=== PATIENT | female | born 1945 | race Hispanic/Latino ===

== ENCOUNTER 2017-10-11 08:31 | Inpatient (IN) | payer MEDICARE, BC ==
[2017-10-11 09:46] LABS: BASO # 0.1 K/uL (0.0-0.2); BASO % 1.2 % (0.0-2.0); EOS # 0.2 K/uL (0.0-0.7); EOS % 2.1 % (0.0-4.0); LYMPH # 1.5 K/uL (1.0-4.3); LYMPH % 14.8 % (20.0-40.0); MEAN CELL VOLUME 86.4 fl (81.0-99.0); MEAN CORPUSCULAR HEMOGLOBIN 28.8 pg (27.0-31.0); MEAN CORPUSCULAR HGB CONC 33.3 g/dL (33.0-37.0); MEAN PLATELET VOLUME 9.3 fl (7.2-11.7); MONO # 0.8 K/uL (0.0-0.8); MONO % 7.8 % (0.0-10.0); NEUT # 7.4 K/uL (1.8-7.0); NEUT % 74.1 % (50.0-75.0); NRBC % 0.1 % (0.0-0.0); RBC 4.88 Mil/uL (3.80-5.20); RED CELL DISTRIBUTION WIDTH 13.7 % (11.5-14.5)
[2017-10-11 09:57] LABS: PARTIAL THROMBOPLASTIN TIME 28.6 Seconds (25.6-37.1); PROTHROMBIN TIME 11.3 Seconds (9.8-13.1)
[2017-10-11] MEDS ORDERED: Sodium Chloride 0.9% 1,000 ML IV STA (10:06)
[2017-10-11] MEDS ORDERED: Insulin Regular 100 units/ml IVP ONE (10:06)
[2017-10-11 10:14] LABS: TROPONIN I 0.08 ng/mL (0.00-0.120)
[2017-10-11 10:17] LABS: ALB/GLOB RATIO 1.1 (1.0-2.1); CALCIUM 9.5 mg/dL (8.4-10.2)
[2017-10-11] MEDS ORDERED: Insulin Regular 100 units/ml ONE (10:25)
--- NOTE | 2017-10-11 10:32 | ED PDOC ---
HPI: General Adult Time Seen by Provider: 10/11/17 09:12 Chief Complaint (Nursing): Dizziness/Lightheaded Chief Complaint (Provider): dizziness, falls History Per: Patient History/Exam Limitations: no limitations Onset/Duration Of Symptoms: Days (2 weeks), Intermittent Episodes, Gradual Current Symptoms Are (Timing): Still Present Quality: room spinning off balance weakness Recently: Treated By A Physician Additional Complaint(s): 72yo female hx DM, asthma recently returned from [place] where she suffered an asthma attack and was placed on prednisone. For the last 2 weeks c/o dizziness, generalized weakness and has had 3 falls. No vomiting or diarrhea. +polyuria. No fever, cough or abd pain. Taking insulin lantus qhs and humalog prn. Cardio Damle PMD Butler NIHSS Stroke Scale - Date/Time Evaluation Performed Date Performed: 10/11/17 Time Performed: 10:45 When Was NIHSS Performed: Baseline - How Severe is the Stroke Level of Consciousness: 0=Alert LOC to Questions: 0=Both comments correct LOC to commands: 0=Obeys both correctly Best Gaze: 0=Normal Visual: 0=No visual loss Facial: 0=Normal Motor Arm - Left: 0=No drift Motor Arm - Right: 0=No drift Motor Leg - Left: 0=No drift Motor Leg - Right: 0=No drift Limb Ataxia: 0=Absent Sensory: 0=Normal Best Language: 0=No aphasia Dysarthia: 0=Normal articulation Extinction & Inattention (Neglect): 0=Normal, no object Score: 0 rTPA Inclusion/Exclusion - Refusal of Treatment Patient Refused Treatment: No - Inclusion Criteria for Altepase Patient is 18 years or Older: Yes The Clinical Diagnosis of Ischemic Stroke That is Causing a Potentially Disabling Neurological Deficit: No Time of Onset is Well Established to be Less Than 270 Minute Before Treatment Would Begin: No Risk/Benefit Discussed With Patient/Family Member Present: No - Exclusion Criteria for Altepase Uncontrolled Hypertension at Time of Treatment (Systolic BP above 185 or Diastolic BP above 110 mmHg): No Active Internal Bleeding: No - Warning to TPA With Conditions Following Conditions Weighed Against Anticipated Benefit: Yes Condition: Stroke Serevity Too Mild Past Medical History Reviewed: Historical Data, Nursing Documentation, Vital Signs Vital Signs: Last Vital Signs Temp 98 F 10/18/17 12:49 Pulse 60 10/18/17 12:49 Resp 18 10/18/17 12:49 BP 122/66 10/18/17 12:49 Pulse Ox 98 10/18/17 13:42 - Medical History PMH: Asthma, Depression, Diabetes, HTN, Hypercholesterolemia, Malignancy (Brain Ca s/p surgical resection), Post Traumatic Stress Disorder, Seizures Denies: HIV, Chronic Kidney Disease - Surgical History Surgical History: Cholecystectomy, Tonsillectomy - Family History Family History: States: Unknown Family Hx - Living Arrangements Living Arrangements: Other - Social History Current smoker - smoking cessation education provided: No - Home Medications Home Medications: Ambulatory Orders Medication Instructions Recorded Terbutaline [Brethine Tab] 2.5 mg PO HS 12/27/15 amLODIPine [Norvasc] 5 mg PO BID 12/27/15 Albuterol 0.083% [Albuterol 0.083% 3 ml IH Q4H PRN 10/11/17 Inhal Tosha (2.5 mg/3 ml) UD] Albuterol/Ipratropium [Combivent 1 puff IH Q6H PRN 10/11/17 Respimat] Azelastine HCl [Astepro] 1 spray SUSANA BID PRN 10/11/17 Fluticasone/Vilanterol [Breo 1 puff IH DAILY 10/11/17 Ellipta 200-25 Mcg INH] Gabapentin [Neurontin] 100 mg PO Q12H 10/11/17 Acetaminophen [Tylenol 325mg tab] 650 mg PO Q6 PRN tab 10/18/17 Aspirin [Ecotrin] 81 mg PO DAILY tabec 10/18/17 Atorvastatin [Lipitor] 80 mg PO DAILY tab 10/18/17 Brimonidine 0.2% [Alphagan 0.2% 1 drop OD BID bottle 10/18/17 Opht] Clopidogrel [Plavix] 75 mg PO DAILY tab 10/18/17 Docusate [Colace] 100 mg PO BID PRN cap 10/18/17 Fluticasone/Salmeterol 100/50 1 puff IH Q12 puff 10/18/17 [Advair Diskus 100/50] Gabapentin [Neurontin] 100 mg PO BID cap 10/18/17 Heparin 5,000 units SC Q12 vial 10/18/17 Insulin Detemir [Levemir] 46 units SC HS vial 10/18/17 LORazepam [Ativan] 0.5 mg PO HS PRN tab 10/18/17 Pantoprazole [Protonix EC Tab] 40 mg PO DAILY ect 10/18/17 Timolol 0.5% Ophth [Timoptic 0.5% 1 drop OD BID bottle 10/18/17 Ophth Soln] - Allergies Allergies/Adverse Reactions: Allergies Allergy/AdvReac Type Severity Reaction Status Date / Time levofloxacin [From Levaquin] Allergy convulsions Verified 10/18/17 12:47 Macrolide Antibiotics Allergy convulsions Verified 10/18/17 12:47 aspirin AdvReac bleedin Verified 10/18/17 12:47 Review of Systems Constitutional: Positive for: Weakness, Malaise ENT: Negative for: Nose Discharge, Throat Pain Cardiovascular: Positive for: Palpitations. Negative for: Chest Pain Respiratory: Negative for: Cough, Shortness of Breath Gastrointestinal: Negative for: Nausea, Vomiting, Abdominal Pain Genitourinary Female: Positive for: Frequency, Incontinence. Negative for: Hematuria Musculoskeletal: Negative for: Neck Pain, Shoulder Pain, Back Pain, Hand Pain Skin: Negative for: Rash, Lesions, Jaundice Neurological: Positive for: Dizziness. Negative for: Weakness, Numbness Physical Exam - Reviewed Nursing Documentation Reviewed: Yes Vital Signs Reviewed: Yes - Physical Exam Appears: Positive for: Well, Non-toxic, No Acute Distress Head Exam: Positive for: ATRAUMATIC, NORMAL INSPECTION, NORMOCEPHALIC Skin: Positive for: Normal Color, Warm, DRY Eye Exam: Positive for: EOMI, Normal appearance, PERRL ENT: Positive for: Normal ENT Inspection Neck: Positive for: Normal, Painless ROM Cardiovascular/Chest: Positive for: Regular Rate, Rhythm Respiratory: Positive for: CNT, Normal Breath Sounds Gastrointestinal/Abdominal: Positive for: Bowel Sounds, Soft. Negative for: Tenderness, Guarding Back: Positive for: Normal Inspection Extremity: Positive for: Normal ROM Neurologic/Psych: Positive for: Alert, Oriented, Cerebellar Tests (finger to nose intact), Other (strength 5/5 b/l, ). Negative for: Motor/Sensory Deficits - Laboratory Results Result Diagrams: 10/15/17 05:47 10/18/17 04:30 - ECG O2 Sat by Pulse Oximetry: 98 Medical Decision Making Medical Decision Making: pt found to be hyperglycemic IVF and insulin bolus ordered CT brain ordered given persistent dizziness and falls Possible contribution of recent prednisone Rx to hyperglycemia now w evidence of dehydration on labs Accession No. : [id number] Patient Name / ID : JONI FALK / [id number] Exam Date : 10/11/2017 11:03:08 ( Approved ) Study Comment : Sex / Age : F / 72Y Creator : Chris Armas MD Dictator : Chris Armas MD Slag Wheeler : Compliance Monitor : Chris Armas MD Approver2 : Report Date : 10/11/2017 11:26:04 My Comment : PROCEDURE: CT HEAD WITHOUT CONTRAST. HISTORY: dizzzy frequent falls COMPARISON: Unenhanced head CT 06/17/2016. TECHNIQUE: Axial computed tomography images were obtained through the head/brain without intravenous contrast. Radiation dose: Total exam DLP = 754.38 mGy-cm. This CT exam was performed using one or more of the following dose reduction techniques: Automated exposure control, adjustment of the mA and/or kV according to patient size, and/or use of iterative reconstruction technique. FINDINGS: HEMORRHAGE: No intracranial hemorrhage. BRAIN: A chronic infarct at the right MCA distribution is reiterated. Good corticomedullary differentiation is seen throughout the remainder of the brain with posterior fossa contents stable and unremarkable grossly. A chronic lacune is seen in the left frontal lobe approaching the vertex medially once again. Diffuse cerebral atrophy chronic microangiopathy are reiterated. No mass effect or suspicious extra-axial fluid collection is identified. Limited postoperative changes noted at the right temporal lobe inferiorly. VENTRICLES: Unremarkable. No hydrocephalus. CALVARIUM: Prior minimal right temporal craniectomy and cranioplasty again evident. PARANASAL SINUSES: Unremarkable as visualized. No significant inflammatory changes. MASTOID AIR CELLS: Unremarkable as visualized. No inflammatory changes. OTHER FINDINGS: None. IMPRESSION: 1. No definite acute intracranial findings by standard CT criteria. Follow-up CT or MRI are available as clinically warranted. 2. Stable age-related degenerative changes, left frontal chronic lacune and large right MCA chronic infarct. 3. Prior minimal right temporal craniectomy and cranioplasty again evident as well as limited right temporal lobe postoperative change. Given evidence of dehydration on labs, profound hyperglycemia, clinical findings , multiple falls at home, admit to hospital for stabilization D/w Dr Harley, requests admission hospitalist he will consult Elke Aponte [id number] care transferred Disposition - Clinical Impression Clinical Impression: Dizziness, Hyperglycemia - Patient ED Disposition Is Patient to be Admitted: Yes Counseled Patient/Family Regarding: Studies Performed, Diagnosis - Disposition Disposition Time: 11:45 Condition: FAIR - Pt Status Changed To: Hospital Disposition Of: Inpatient - Admit Certification Admit to Inpatient:: After my assessment, the patient will require hospitalization for at least two midnights. This is because of the severity of symptoms shown, intensity of services needed, and/or the medical risk in this patient being treated as an outpatient. - POA Present On Arrival: Poor Glycemic Control
--- NOTE | 2017-10-11 11:28 | CT ---
PROCEDURE: CT HEAD WITHOUT CONTRAST. HISTORY: dizzzy frequent falls COMPARISON: Unenhanced head CT 06/17/2016. TECHNIQUE: Axial computed tomography images were obtained through the head/brain without intravenous contrast. Radiation dose: Total exam DLP = 754.38 mGy-cm. This CT exam was performed using one or more of the following dose reduction techniques: Automated exposure control, adjustment of the mA and/or kV according to patient size, and/or use of iterative reconstruction technique. FINDINGS: HEMORRHAGE: No intracranial hemorrhage. BRAIN: A chronic infarct at the right MCA distribution is reiterated. Good corticomedullary differentiation is seen throughout the remainder of the brain with posterior fossa contents stable and unremarkable grossly. A chronic lacune is seen in the left frontal lobe approaching the vertex medially once again. Diffuse cerebral atrophy chronic microangiopathy are reiterated. No mass effect or suspicious extra-axial fluid collection is identified. Limited postoperative changes noted at the right temporal lobe inferiorly. VENTRICLES: Unremarkable. No hydrocephalus. CALVARIUM: Prior minimal right temporal craniectomy and cranioplasty again evident. PARANASAL SINUSES: Unremarkable as visualized. No significant inflammatory changes. MASTOID AIR CELLS: Unremarkable as visualized. No inflammatory changes. OTHER FINDINGS: None. IMPRESSION: 1. No definite acute intracranial findings by standard CT criteria. Follow-up CT or MRI are available as clinically warranted. 2. Stable age-related degenerative changes, left frontal chronic lacune and large right MCA chronic infarct. 3. Prior minimal right temporal craniectomy and cranioplasty again evident as well as limited right temporal lobe postoperative change.
--- NOTE | 2017-10-11 13:02 | CP.PCM.HP ---
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 She claimed she never passed out. She admitted only eating about one sandwich a day since coming back from [place] 3 weeks ago because nobody cook or shop for her. While in [place] a month ago she had asthma exacerbation and was put on 5 days of Prednisone, Breo and Combivent in addition to her usual dose of Terbutaline. Her condition improved. She admitted having a similar episode of dizziness and falling while in [place] but did not seek any consultation. Present on Admission - Present on Admission Any Indicators Present on Admission: No History of DVT/PE: No History of Uncontrolled Diabetes: No Urinary Catheter: No Decubitus Ulcer Present: No Review of Systems - Review of Systems All systems: reviewed and no additional remarkable complaints except (aside from those mentioned above, 12 point system review were negative by me) Past Patient History - Tetanus Immunizations Tetanus Immunization: Unknown - Past Medical History & Family History Past Medical History?: Yes Past Family History: Reviewed and not pertinent - Past Social History Smoking Status: Former Smoker Alcohol: None Home Situation {Lives}: Roommate Domestic Violence: Negative - CARDIAC Hx Hypercholesterolemia: Yes Hx Hypertension: Yes - PULMONARY Hx Asthma: Yes - NEUROLOGICAL HX Cerebrovascular Accident: Yes Hx Seizures: Yes - HEENT Hx HEENT Problems: Yes Hx Glaucoma: Yes (right eye) - RENAL Hx Chronic Kidney Disease: No - ENDOCRINE/METABOLIC Hx Endocrine Disorders: No - HEMATOLOGICAL/ONCOLOGICAL Hx Human Immunodeficiency Virus (HIV): No - INTEGUMENTARY Hx Dermatological Problems: No - MUSCULOSKELETAL/RHEUMATOLOGICAL Hx Musculoskeletal Disorders: No Hx Falls: No - GASTROINTESTINAL Hx Gastrointestinal Disorders: No - GENITOURINARY/GYNECOLOGICAL Hx Genitourinary Disorders: No - PSYCHIATRIC Hx Depression: Yes Hx Post Traumatic Stress Disorder: Yes - SURGICAL HISTORY Hx Cholecystectomy: Yes Hx Tonsillectomy: Yes Other/Comment: surgical resection of right temporal tumor - ANESTHESIA Hx Anesthesia: Yes Hx Anesthesia Reactions: No Meds Allergies/Adverse Reactions: Allergies Allergy/AdvReac Type Severity Reaction Status Date / Time levofloxacin [From Levaquin] Allergy convulsions Verified 03/15/16 13:04 Macrolide Antibiotics Allergy convulsions Verified 03/15/16 12:19 aspirin AdvReac bleedin Verified 03/15/16 12:19 Physical Exam - Constitutional Appears: No Acute Distress - Head Exam Head Exam: ATRAUMATIC - Eye Exam Eye Exam: absent: Scleral icterus - ENT Exam ENT Exam: Mucous Membranes Moist - Neck Exam Neck exam: Negative for: Meningismus - Respiratory Exam Respiratory Exam: absent: Rhonchi, Wheezes, Respiratory Distress - Cardiovascular Exam Cardiovascular Exam: REGULAR RHYTHM, +S1, +S2 - GI/Abdominal Exam GI & Abdominal Exam: Soft. absent: Tenderness - Rectal Exam Rectal Exam: Deferred - Extremities Exam Extremities exam: Negative for: calf tenderness, pedal edema - Back Exam Back exam: NORMAL INSPECTION - Neurological Exam Neurological exam: Alert, Oriented x3 - Psychiatric Exam Psychiatric exam: Normal Affect - Skin Skin Exam: Dry, Intact Results - Vital Signs Recent Vital Signs: Last Vital Signs Temp 98 F 10/11/17 12:24 Pulse 76 10/11/17 12:24 Resp 18 10/11/17 12:24 BP 146/81 10/11/17 12:24 Pulse Ox 99 10/11/17 12:24 - Labs Result Diagrams: 10/11/17 09:39 10/11/17 09:39 Labs: Laboratory Results - last 24 hr 10/11/17 10/11/17 10/11/17 09:39 09:39 09:39 WBC 10.0 RBC 4.88 Hgb 14.0 Hct 42.2 MCV 86.4 D MCH 28.8 MCHC 33.3 RDW 13.7 Plt Count 487 H D MPV 9.3 Neut % (Auto) 74.1 Lymph % (Auto) 14.8 L [place] % (Auto) 7.8 Eos % (Auto) 2.1 Baso % (Auto) 1.2 Neut # 7.4 H Lymph # 1.5 [place] # 0.8 Eos # 0.2 Baso # 0.1 PT 11.3 INR 1.0 APTT 28.6 Sodium 136 Potassium 5.6 H Chloride 98 Carbon Dioxide 23 Anion Gap 21 H BUN 23 H Creatinine 1.8 H Est GFR ( Amer) 34 Est GFR (Non-Af Amer) 28 Random Glucose 446 H* D Calcium 9.5 Total Bilirubin 0.6 AST 32 ALT 18 Alkaline Phosphatase 129 H Troponin I 0.0800 Total Protein 7.8 Albumin 4.0 Globulin 3.7 Albumin/Globulin Ratio 1.1 Assessment & Plan - Assessment and Plan (Free Text) Assessment: 72 yo female with history of DM2, Asthma, HTN, Seizure, previous CVA and post surgical resection of right temporal tumor in the past had 4 episodes of dizziness and falling in a one week time. Denied LOC. She admitted only eating about one sandwich a day and coffee since coming back from [place] 3 weeks ago because nobody cook or shop for her. While in [place] over a month ago patient had asthma exacerbation and was put on 5 days of Prednisone, Breo and Combivent in addition to her usual dose of Terbutaline. Her condition improved. She admitted having a similar episode of dizziness and falling while in [place] but but never seek consultation. 1. Dizziness and Falling supine BP/HR: 179/80 and 97 sitting BP/HR: 175/76 and 84 (3 minutes after above) probably secondary to dehydration and volume depletion although no postural hypotension was noted continue IV hydration with NSS 150cc/hr continue patient scheduler serial Troponin repeat BMP in am refer to PT for evaluation and management cardiology consult with Dr Skinner 2. HTN patient has been off anti-hypertensive for over a month because of dizziness BP slightly elevated Norvasc 5mg PO daily 3. DM2 BS uncontrolled not sure if patient was reliable in claiming she had been only on one sandwich a day endocrinology consult with Dr Colt DE LA CRUZ with low Lispro coverage HgA1C, BMP in am 4. Asthma breathing stable and loose still on Breo, Combivent and Terbutaline off Prednisone over a month (took only for 5 days)
[2017-10-11] MEDS: Sodium Chloride 0.9% 1,000 ML IV SCH ×2 (13:51→21:25)
[2017-10-11] MEDS ORDERED: Patient's Own Med (Azelastine Hcl [Astepro] 1 SPRAY) NAS PRN (14:10)
[2017-10-11] MEDS ORDERED: Patient's Own Med (Brimonidine Tartrate/Timolol [Combigan 0.2%-0.5% Eye Drops] 1 DROP) RIGHTEYE SCH (14:15)
[2017-10-11] MEDS ORDERED: Sod Polystyrene Sulf 15 gm/60 ml Susp PO ONE (14:36)
[2017-10-11] MEDS ORDERED: Insulin Lispro (humaLOG) 100 Units/ml Inj SC SCH (16:30)
--- NOTE | 2017-10-11 18:24 | CARD ---
APPROVED REPORT EKG Measurement Heart [id number] <Conclusion> Normal sinus rhythm Left ventricular hypertrophy with repolarization abnormality Cannot rule out Septal infarct, age undetermined Abnormal ECG
[2017-10-11] MEDS: Brimonidine 0.2% 50 DROP/5 ML BOTTLE OD SCH (21:22)
[2017-10-11] MEDS ORDERED: Insulin Detemir 100 Units/ml Inj SC SCH (22:00)
[2017-10-11] MEDS: Insulin Lispro (humaLOG) 100 Units/ml Inj SC SCH (22:18)
--- NOTE | 2017-10-12 05:53 | CON ---
DATE: ENDOCRINOLOGY CONSULTATION HISTORY OF PRESENT ILLNESS: This is a 72-year-old female with known history of type 2 insulin-requiring diabetes, presenting here with generalized body weakness and progressively worsening dizziness and lightheadedness and is now being referred for diabetic evaluation because of persistent hyperglycemic accelerations as noted thereof. PAST MEDICAL HISTORY: As mentioned above, history of type 2 insulin-requiring diabetes, using a combination of Humalog given as 12 units b.i.d. before breakfast and dinner, but only given p.r.n. 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 She apparently also had seizures post resection as noted. FAMILY HISTORY: Positive for hypertension and diabetes. SOCIAL HISTORY: Patient has supportive family. Admits to prior nicotine use, but has quit smoking a few years ago. She has a supportive family, otherwise. REVIEW OF SYSTEMS: Admits to generalized body weakness with progressive bouts of dizziness and lightheadedness and even near syncopal episodes, but no actual loss of consciousness noted. Also admits to bifrontal headaches, but no visual changes, otherwise. No chest pains or palpitations or PNDs. Her oral intake has been variable and suboptimal with nausea, dyspepsia and vague upper abdominal pains. Also admits to recent polyuria, nocturia, polydipsia as noted with lower extremity paresthesias, especially nocturnally. PHYSICAL EXAMINATION: GENERAL: This is an overweight female, in no apparent distress. VITAL SIGNS: Blood pressure of 144/80, pulse of 70 beats per minute and regular, temperature 98, respirations 20, height is 52, weight is 163 pounds. HEENT: Head normocephalic. Eyes anicteric with pink conjunctivae. Funduscopy not possible at this time. Ears, nose and throat otherwise normal. NECK: Supple. Thyroid gland is normal in size. No carotid bruits or any cervical adenopathy. CARDIOPULMONARY: Some adynamic precordium. S1 and S2 is rapid and regular. LUNGS: Clear to auscultation. ABDOMEN: Flat, soft with positive bowel sounds. EXTREMITIES: No peripheral edema. Pulses are +2 bilaterally. LABORATORY DATA: Her chemistries showed a BUN of 23, sodium 136, potassium 5.6, chloride 98, CO2 23, glucose 446 and creatinine 1.8. Her glucose levels have ranged from 201 to 375 mg/dL. ASSESSMENT: This is 72-year-old female with uncontrolled and decompensated type 2 insulin-requiring diabetes, presenting here with progressively worsening dizziness and lightheadedness and near syncopal episodes and she is also being referred for diabetic evaluation because of recent hyperglycemic accelerations related to the variability of her oral intake and also there erratic usage of her insulin therapy as noted. PLAN: Plan of management as discussed with the patient and staff. We will modify once again her current insulin regimen and switch her over to a more physiologic combination of a basal and bolus insulin therapy as ordered. We will start her with Levemir tonight at 24 units subcu at bedtime daily as ordered. We will also add tomorrow morning Humalog given as 8 units subcu t.i.d. before meals as ordered. We will modify the coverage scale to obviate hypoglycemia and detailed orders have been given. We will also continue the IV hydration to optimize the lost fluids and electrolytes especially with increased osmotic diuresis as expected with the recent hyperglycemic accelerations thereto. Hemoglobin A1c will be done to confirm her prior glycemic control and baseline thyroid function studies and lipid panel will be ordered. We will obtain serial chemistries and supplement accordingly needed. We will follow. Melisa Gregory MD
[2017-10-12 06:19] LABS: ALB/GLOB RATIO 0.9 (1.0-2.1); CALCIUM 8.2 mg/dL (8.4-10.2)
[2017-10-12 06:21] LABS: BASO # 0.2 K/uL (0.0-0.2); BASO % 2.8 % (0.0-2.0); EOS # 0.3 K/uL (0.0-0.7); EOS % 3.7 % (0.0-4.0); HEMOGLOBIN 12.3 g/dL (12.0-16.0); LYMPH # 2.4 K/uL (1.0-4.3); LYMPH % 32.3 % (20.0-40.0); MEAN CELL VOLUME 86.6 fl (81.0-99.0); MEAN CORPUSCULAR HEMOGLOBIN 28.5 pg (27.0-31.0); MEAN PLATELET VOLUME 9.7 fl (7.2-11.7); MONO # 0.7 K/uL (0.0-0.8); MONO % 9.2 % (0.0-10.0); NEUT # 3.9 K/uL (1.8-7.0); NRBC % 0.2 % (0.0-0.0); RBC 4.3 Mil/uL (3.80-5.20); RED CELL DISTRIBUTION WIDTH 13.7 % (11.5-14.5); WHITE BLOOD COUNT 7.5 K/uL (4.8-10.8)
[2017-10-12] MEDS: Insulin Lispro (humaLOG) 100 Units/ml Inj SC SCH ×5 (06:41→23:04)
[2017-10-12] MEDS: Sodium Chloride 0.9% 1,000 ML IV SCH (06:42)
[2017-10-12] MEDS ORDERED: Insulin Lispro (humaLOG) 100 Units/ml Inj SC SCH (07:30)
--- NOTE | 2017-10-12 08:22 | PQF GENQUE ---
This form is a permanent part of the medical record 10/12/17 Dr. Aponte, Please clarify type of asthma if known. Documentation of Asthma stable. Medications include: Albuterol, Terbutaline. Clarification of your documentation is requested to better reflect the severity of illness and intensity of treatment of your patient. Indicators present [] Specify: [] [] Specify: [] [] Specify: [] [] Specify: [] Location in the medical record that reflects the above clinical findings: [] Treatment Provided: [] PHYSICIAN'S RESPONSE Please clarify type of asthma: [] Childhood [] Cough variant [] Exercise induced [] Late onset [] Mild intermittent [] Mild persistent [] Moderate persistent [] Severe persistent [] With bronchitis(please clarify acuity of bronchitis) [] With chronic lung disease (please document specific chronic lung disease ) [] Other (please specify) [x] Clinically unable to determine [] Unknown Based on your medical judgment of the clinical indicators outlined above please clarify the following: [] Practitioner response [] If unable to determine, please check the box, sign and date. Present On Admission (POA) Indicator: [] Present at the time of admission [x] Not present at the time of admission [] Clinically Undetermined In responding to this query, please exercise your independent professional judgment. The fact that a question is asked does not imply that any particular answer is desired or expected. Thank you for your clarification on this documentation. If you have any questions please call:[phone] * Thank you, Kary Roper RN CDMP [facility]
[2017-10-12] MEDS ORDERED: Patient's Own Med (Fluticasone/Vilanterol [Breo Ellipta 200-25 Mcg Inh] 1 PUFF) IH SCH (09:00)
--- NOTE | 2017-10-12 09:07 | CP.PCM.CON ---
History of Present Illness - History of Present Illness History of Present Illness: This 72-year-old female has come to the emergency room after reportedly falling at home, by her account 4 times during last 3 days. 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 She has a history of chronic exogenous obesity, hypertension and diabetes mellitus. She gives history of recently having had an abrupt episode off severe asthma requiring multiple broncho-dilators including a course of prednisone. She blames still rides for her severe hyperglycemia. She has never been a smoker and has never suffered a myocardial infarction or congestive cardiac failure. She has been on multiple antihypertensives and 90 diabetics. Physical examination shows an elderly overweight female who is alert awake oriented and afebrile. She is able to lie virtually flat in bed and beats comfortably at 16-18 breaths per minute and can carry on a conversation. Abrupt movements in bed or attempts to sit up cause intense dizziness. Her heart rate was 68 bpm regular. Her blood pressure was 160/80 mmHg in the right upper extremity. Her jugular venous pressure was not elevated and there was no edema out lower extremities. The pedal pulses are well felt. There were no carotid bruits. The apex was not palpable. The first and second heart sounds were normal. There were no rales. There was no murmur or gallop. Abdomen was soft liver and spleen are not palpable. Her electro-cardiogram showed sinus rhythm at 84 bpm with a pattern of left ventricular hypertrophy and QS complexes were seen in lead V1 and V2. Her lab data showed a hemoglobin and hematocrit of 12.3 g and 37.2% respectively. The baby was account and platelet counts were within normal limits. Her BUN and creatinine where 21 and 1.6 mg percent respectively her electrolytes were normal. Her blood sugar at admission was 446 mg percent this morning it is 280 mg percent. Her electrolytes showed normal sodium and potassium. Her AST and ALT were normal her TSH was normal. Impression: Severe ataxia of probably [employer] O region secondary to radiation for intracranial lymphoma years back. Exogenous obesity, hypertension and diabetes mellitus. I have requested a neurologist whom she has seen in the past to come and evaluate the patient. She is stable from cardiac vascular point of view. Past Patient History - Tetanus Immunizations Tetanus Immunization: Unknown - Past Medical History & Family History Past Medical History?: Yes Past Family History: Reviewed and not pertinent - Past Social History Smoking Status: Former Smoker Alcohol: None Home Situation {Lives}: Roommate Domestic Violence: Negative - CARDIAC Hx Hypercholesterolemia: Yes Hx Hypertension: Yes - PULMONARY Hx Asthma: Yes - NEUROLOGICAL HX Cerebrovascular Accident: Yes Hx Seizures: Yes - HEENT Hx HEENT Problems: Yes Hx Glaucoma: Yes (right eye) - RENAL Hx Chronic Kidney Disease: No - ENDOCRINE/METABOLIC Hx Endocrine Disorders: No - HEMATOLOGICAL/ONCOLOGICAL Hx Human Immunodeficiency Virus (HIV): No - INTEGUMENTARY Hx Dermatological Problems: No - MUSCULOSKELETAL/RHEUMATOLOGICAL Hx Musculoskeletal Disorders: No Hx Falls: No - GASTROINTESTINAL Hx Gastrointestinal Disorders: No - GENITOURINARY/GYNECOLOGICAL Hx Genitourinary Disorders: No - PSYCHIATRIC Hx Depression: Yes Hx Post Traumatic Stress Disorder: Yes - SURGICAL HISTORY Hx Cholecystectomy: Yes Hx Tonsillectomy: Yes Other/Comment: surgical resection of right temporal tumor - ANESTHESIA Hx Anesthesia: Yes Hx Anesthesia Reactions: No Meds Allergies/Adverse Reactions: Allergies Allergy/AdvReac Type Severity Reaction Status Date / Time levofloxacin [From Levaquin] Allergy convulsions Verified 03/15/16 13:04 Macrolide Antibiotics Allergy convulsions Verified 03/15/16 12:19 aspirin AdvReac bleedin Verified 03/15/16 12:19 - Medications Medications: Current Medications Albuterol Sulfate (Albuterol 0.083% Inhal Tosha (2.5 Mg/3 Ml) Ud) 2.5 mg IH Q4H PRN PRN Reason: Shortness of Breath Amlodipine Besylate (Norvasc) 5 mg PO DAILY [facility] Last Admin: 10/11/17 18:17 Dose: 5 mg Brimonidine Tartrate (Alphagan 0.2% Opht) 1 drop OD BID [facility] Last Admin: 10/11/17 21:22 Dose: 1 drop Docusate Sodium (Colace) 100 mg PO BID PRN PRN Reason: Constipation Gabapentin (Neurontin) 100 mg PO BID [facility] Heparin Sodium (Porcine) (Heparin) 5,000 units SC Q12 [facility] PRN Reason: Protocol Last Admin: 10/11/17 21:23 Dose: 5,000 units Home Med (Azelastine Hcl [Astepro]) 1 spray SUSANA BID PRN PRN Reason: Allergy symptoms Home Med (Fluticasone/Vilanterol [Breo Ellipta 200-25 Mcg Inh]) 1 puff IH DAILY [facility] Sodium Chloride (Sodium Chloride 0.9%) 1,000 mls @ 150 mls/hr IV .Q6H40M [facility] Last Admin: 10/12/17 06:42 Dose: 150 mls/hr Insulin Detemir (Levemir) 24 units SC HS [facility] Last Admin: 10/11/17 22:17 Dose: 24 units Insulin Human Lispro (Humalog) 8 units SC AC [facility] Insulin Human Lispro (Humalog) 0 units SC ACHS [facility] PRN Reason: Protocol Last Admin: 10/12/17 06:41 Dose: Not Given Loratadine (Claritin) 10 mg PO HS [facility] Last Admin: 10/11/17 21:23 Dose: 10 mg Lorazepam (Ativan) 0.5 mg PO HS PRN PRN Reason: Anxiety Last Admin: 10/11/17 19:17 Dose: 0.5 mg Pantoprazole Sodium (Protonix Ec Tab) 40 mg PO DAILY [facility] Terbutaline Sulfate (Brethine Tab) 2.5 mg PO [facility] Last Admin: 10/11/17 21:23 Dose: 2.5 mg Timolol Maleate (Timoptic 0.5% Ophth Soln) 1 drop OD BID [facility] Last Admin: 10/11/17 19:21 Dose: 1 drop Results - Vital Signs Recent Vital Signs: Last Vital Signs Temp 98.7 F 10/12/17 05:00 Pulse 68 10/12/17 05:00 Resp 18 10/12/17 05:00 BP 173/76 H 10/12/17 05:00 Pulse Ox 98 10/12/17 05:00 - Labs Result Diagrams: 10/12/17 05:10 10/12/17 05:10 Labs: Laboratory Results - last 24 hr 10/11/17 10/11/17 10/11/17 09:39 09:39 09:39 WBC 10.0 RBC 4.88 Hgb 14.0 Hct 42.2 MCV 86.4 D MCH 28.8 MCHC 33.3 RDW 13.7 Plt Count 487 H D MPV 9.3 Neut % (Auto) 74.1 Lymph % (Auto) 14.8 L [place] % (Auto) 7.8 Eos % (Auto) 2.1 Baso % (Auto) 1.2 Neut # 7.4 H Lymph # 1.5 [place] # 0.8 Eos # 0.2 Baso # 0.1 PT 11.3 INR 1.0 APTT 28.6 Sodium 136 Potassium 5.6 H Chloride 98 Carbon Dioxide 23 Anion Gap 21 H BUN 23 H Creatinine 1.8 H Est GFR ( Amer) 34 Est GFR (Non-Af Amer) 28 POC Glucose (mg/dL) Random Glucose 446 H* D Calcium 9.5 Total Bilirubin 0.6 AST 32 ALT 18 Alkaline Phosphatase 129 H Troponin I 0.0800 Total Protein 7.8 Albumin 4.0 Globulin 3.7 Albumin/Globulin Ratio 1.1 Triglycerides Cholesterol LDL Cholesterol Direct HDL Cholesterol TSH 3rd Generation 10/11/17 10/11/17 10/12/17 16:38 21:26 01:57 WBC RBC Hgb Hct MCV MCH MCHC RDW Plt Count MPV Neut % (Auto) Lymph % (Auto) [place] % (Auto) Eos % (Auto) Baso % (Auto) Neut # Lymph # [place] # Eos # Baso # PT INR APTT Sodium Potassium Chloride Carbon Dioxide Anion Gap BUN Creatinine Est GFR ( Amer) Est GFR (Non-Af Amer) POC Glucose (mg/dL) 375 H 201 H Random Glucose Calcium Total Bilirubin AST ALT Alkaline Phosphatase Troponin I 0.0940 Total Protein Albumin Globulin Albumin/Globulin Ratio Triglycerides Cholesterol LDL Cholesterol Direct HDL Cholesterol TSH 3rd Generation 10/12/17 10/12/17 10/12/17 05:10 05:10 05:51 WBC 7.5 RBC 4.30 Hgb 12.3 Hct 37.2 MCV 86.6 MCH 28.5 MCHC 33.0 RDW 13.7 Plt Count 386 D MPV 9.7 Neut % (Auto) 52.0 Lymph % (Auto) 32.3 [place] % (Auto) 9.2 Eos % (Auto) 3.7 Baso % (Auto) 2.8 H Neut # 3.9 Lymph # 2.4 [place] # 0.7 Eos # 0.3 Baso # 0.2 PT INR APTT Sodium 137 Potassium 4.0 Chloride 107 Carbon Dioxide 20 L Anion Gap 14 BUN 21 H Creatinine 1.6 H Est GFR ( Amer) 39 Est GFR (Non-Af Amer) 32 POC Glucose (mg/dL) 280 H Random Glucose 325 H Calcium 8.2 L Total Bilirubin 0.3 AST 17 ALT 23 Alkaline Phosphatase 103 Troponin I Total Protein 6.2 L Albumin 3.0 L D Globulin 3.2 Albumin/Globulin Ratio 0.9 L Triglycerides 521 H D Cholesterol 297 H LDL Cholesterol Direct 195 H HDL Cholesterol 33 TSH 3rd Generation 2.30
[2017-10-12] MEDS: Brimonidine 0.2% 50 DROP/5 ML BOTTLE OD SCH ×2 (10:09→16:26)
[2017-10-12] MEDS: Pantoprazole 40 mg EC Tab PO SCH (10:15)
--- NOTE | 2017-10-12 16:00 | MRI ---
PROCEDURE: MRI BRAIN WITHOUT CONTRAST HISTORY: dizziness COMPARISON: Head CT 10/11/2017 and brain MRI 04/02/2015. TECHNIQUE: Multiplanar, multisequence MR images of the brain were obtained without intravenous contrast enhancement. FINDINGS: HEMORRHAGE: None DWI: Restricted diffusion is identified and a small sub distribution of the left temporooccipital junction accompanied by a small sub cm foci of restricted diffusion at the bilateral inferior cerebellar hemispheres in even possibly the vermis at the midline anteriorly. Follow-up CT is advised. BRAIN PARENCHYMA: Chronic infarct is again seen at the right middle cerebral artery distribution affecting right frontal parietal temporal and occipital lobes. There is no significant mass is appreciated at this time. Ex vacuo expansion of the right lateral ventricle is identified once again. Diffuse cerebral atrophy chronic microangiopathy are reiterated. Chronic lacunes are seen at the left optic radiations once again. VENTRICLES: Unremarkable. No hydrocephalus. CRANIUM: Unremarkable. ORBITS: Grossly unremarkable. PARANASAL SINUSES/MASTOIDS: Extensive left mastoid effusions is identified with limited right mastoid effusions appreciated. Limited ethmoid mucosal inflammatory change are seen bilaterally. VASCULAR SYSTEM: Skull base flow voids intact. OTHER FINDINGS: None. IMPRESSION: Acute subacute infarction at the left temporooccipital junction and bilateral cerebellar hemispheres are identified with the temporooccipital findings appearing lobar and the cerebellar findings appearing lacunar. Follow-up CT is advised. No definitive intracranial hemorrhage is identified this time. Reiterated age related neuro degenerative changes. Chronic right MCA infarct again evident.
--- NOTE | 2017-10-12 17:12 | PN ---
DATE: ENDOCRINOLOGY FOLLOWUP NOTE LOCATION: Room 418. SUBJECTIVE: This is a 72-year-old female with recent uncontrolled type 2 insulin-requiring diabetes, presenting here with progressively worsening dizziness, lightheadedness, and near-syncopal episode and also concomitant atoxic gait with disequilibrium and currently undergoing neurological workup at this time and is also being followed closely for metabolic management. Her glycemic levels are fluctuating with marked hyperglycemic accelerations as noted and the glucose levels today have ranged from 265 to 280 mg/dL. Her A1c level is 10.4% which is quite elevated indicative of suboptimal metabolic control of her diabetic condition even prior to this admission. Her latest chemistries today showed a BUN of 21, sodium 137, potassium 4.0, chloride 107, CO2 of 20, glucose 325, and creatinine 1.6. Her triglyceride level is 521, which is quite elevated indicative of marked metabolic decompensation related to poorly controlled type 2 diabetes with impaired lipoprotein lipase activity and impaired clearance of the triglycerides as expected. ASSESSMENT: This is a 72-year-old female with uncontrolled type 2 insulin-requiring diabetes with marked hyperglycemic accelerations and clearly with a suboptimal metabolic control as confirmed with elevated A1c levels as noted. She also has diabetic microvascular complications with retinopathy, polyneuropathy, and nephropathy as noted. Moreover, she also has diabetic macrovascular complications of cerebrovascular disease and coronary artery disease as noted before. PLAN OF MANAGEMENT: We will modify once again her basal and bolus insulin regimen to at least optimize a metabolic control to more acceptable goals as expected. We will increase and titrate her Humalog to 12 units subcutaneous t.i.d. before meals to start at dinner time today as ordered. We will also increase the Levemir given as basal insulin to 30 units subcutaneous at bedtime daily to start tonight. We will modify the coverage scale using a low-dose algorithm with Humalog insulin to obtain hypoglycemia and detailed orders have been given. We will obtain serial chemistries and supplement accordingly as needed. We will follow. Melisa Gregory MD
--- NOTE | 2017-10-12 18:20 | CP.PCM.PN ---
Subjective - Date & Time of Evaluation Date of Evaluation: 10/12/17 Time of Evaluation: 17:10 - Subjective Subjective: Pt seen and examined. Claimed to feeling better although still dizzy. Objective - Vital Signs/Intake and Output Vital Signs (last 24 hours): Temp Pulse Resp BP Pulse Ox 98.5 F 67 17 138/60 97 10/12/17 15:56 10/12/17 15:56 10/12/17 15:56 10/12/17 15:56 10/12/17 15:56 Intake and Output: 10/12/17 10/12/17 06:59 18:59 Intake Total 900 Balance 900 - Medications Medications: Current Medications Albuterol Sulfate (Albuterol 0.083% Inhal Tosha (2.5 Mg/3 Ml) Ud) 2.5 mg IH Q4H PRN PRN Reason: Shortness of Breath Amlodipine Besylate (Norvasc) 5 mg PO DAILY [facility] Last Admin: 10/12/17 10:14 Dose: 5 mg Brimonidine Tartrate (Alphagan 0.2% Opht) 1 drop OD BID [facility] Last Admin: 10/12/17 16:26 Dose: 1 drop Docusate Sodium (Colace) 100 mg PO BID PRN PRN Reason: Constipation Gabapentin (Neurontin) 100 mg PO BID [facility] Last Admin: 10/12/17 16:26 Dose: 100 mg Heparin Sodium (Porcine) (Heparin) 5,000 units SC Q12 [facility] PRN Reason: Protocol Last Admin: 10/12/17 10:10 Dose: 5,000 units Home Med (Azelastine Hcl [Astepro]) 1 spray SUSANA BID PRN PRN Reason: Allergy symptoms Home Med (Fluticasone/Vilanterol [Breo Ellipta 200-25 Mcg Inh]) 1 puff IH DAILY [facility] Insulin Detemir (Levemir) 30 units SC HS [facility] Insulin Human Lispro (Humalog) 0 units SC ACHS [facility] PRN Reason: Protocol Last Admin: 10/12/17 17:18 Dose: Not Given Insulin Human Lispro (Humalog) 12 units SC AC [facility] Last Admin: 10/12/17 17:19 Dose: 12 units Loratadine (Claritin) 10 mg PO HS [facility] Last Admin: 10/11/17 21:23 Dose: 10 mg Lorazepam (Ativan) 0.5 mg PO HS PRN PRN Reason: Anxiety Last Admin: 10/11/17 19:17 Dose: 0.5 mg Pantoprazole Sodium (Protonix Ec Tab) 40 mg PO DAILY [facility] Last Admin: 10/12/17 10:15 Dose: 40 mg Terbutaline Sulfate (Brethine Tab) 2.5 mg PO HS [facility] Last Admin: 10/11/17 21:23 Dose: 2.5 mg Timolol Maleate (Timoptic 0.5% Ophth Soln) 1 drop OD BID [facility] Last Admin: 10/12/17 16:26 Dose: 1 drop - Labs Labs: 10/12/17 05:10 10/12/17 05:10 PT 11.3 Seconds (9.8-13.1) 10/11/17 09:39 INR 1.0 (0.9-1.2) 10/11/17 09:39 APTT 28.6 Seconds (25.6-37.1) 10/11/17 09:39 - Constitutional Appears: No Acute Distress - Head Exam Head Exam: ATRAUMATIC - Eye Exam Eye Exam: absent: Scleral icterus - ENT Exam ENT Exam: Mucous Membranes Moist - Neck Exam Neck Exam: absent: Meningismus - Respiratory Exam Respiratory Exam: absent: Rhonchi, Wheezes, Respiratory Distress - Cardiovascular Exam Cardiovascular Exam: REGULAR RHYTHM, +S1, +S2 - GI/Abdominal Exam GI & Abdominal Exam: Soft. absent: Tenderness - Rectal Exam Rectal Exam: Deferred - Extremities Exam Extremities Exam: absent: Pedal Edema - Back Exam Back Exam: absent: tenderness - Neurological Exam Neurological Exam: Alert, Oriented x3 - Psychiatric Exam Psychiatric exam: Normal Affect - Skin Skin Exam: Dry, Intact Assessment and Plan - Assessment and Plan (Free Text) Assessment: 72 yo female with history of DM2, Asthma, HTN, Seizure, previous CVA and 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 Denied LOC. Had Asthma exacerbation while in [place] over a month ago. Was put on 5 days of Prednisone, Breo and Combivent in addition to her usual dose of Terbutaline. Condition improved. Had similar episode of dizziness and falling while in [place] but never sought consultation. 1. CVA MRI of head: acute/subacute infarction of the left temporooccipital and bilateral cerebellar; chronic right MCA infarct causing dysequilibrium and dizziness continue Atorvastatin and Plavix Dr Dey aware PT evaluation and management 2. HTN BP controlled by Norvasc 5mg daily 3. DM2 BS uncontrolled HgA1C: 10.[address] Colt Polanco 30 units SC HS Lispro per protocol with Leidy DE LA CRUZ 4. Asthma breathing stable and loose still on Breo, Combivent and Terbutaline off Prednisone over a month (took only for 5 days)
--- NOTE | 2017-10-12 20:00 | CON ---
DATE: 10/12/2017 NEUROLOGY CONSULTATION CHIEF COMPLAINT: Dizziness. HISTORY OF PRESENT ILLNESS: This is a 72-year-old woman who is well known to me from my office, past medical history of type 2 diabetes mellitus, asthma, history of hypertension, history of previous CVA in the past in terms of an old chronic right MCA infarct, history of cerebral lymphomas in the right cerebral hemisphere status post chemoradiation and resection who came into the hospital having 4 episodes of feeling dizzy and unstable in her feet and nauseous. She never passed out, she came back from [place]. She had a bout of an asthma exacerbation about few weeks ago for which she was on 5 days of prednisone, , Combivent in addition to her usual dose of terbutaline. Currently her A1c is 10.4. She still has dysmetria [id number] bilaterally and found on MRA of brain to have an acute/subacute infarction in the left temporo-occipital junction where there is a right visual field cut evident on the examination and bilateral cerebellar hemispheres identified within the temporo-occipital findings appearing lacunar type, most likely for a diffuse atherosclerotic disease. She also has evidence of chronic right MCA territory infarct as well. She states she is not taking aspirin because it makes her easily bruised, but not really any major side effect. ALLERGIES: MACROLIDE ANTIBIOTICS. REVIEW OF SYSTEMS: A 14-point review of systems negative except in the HPI. MEDICATIONS: Reviewed by nurse reconciliation sheet. 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 FAMILY HISTORY: Noncontributory. SOCIAL HISTORY: No illicit drug use, smoking or EtOH abuse. LABORATORY DATA: Sodium 137, potassium 4, chloride 107, carbon dioxide 20, BUN of 21, creatinine 1.6, random glucose of 325, A1c of 10.4, elevated triglycerides, cholesterol 297, LDL 195. PHYSICAL EXAMINATION: VITAL SIGNS: Temperature 98.5, pulse rate 67, blood pressure 130/60, respirations 17, oxygen saturation 97% by room air. GENERAL: Patient is sitting up in bed, in no acute distress. HEENT: Atraumatic, normocephalic. PERRLA. Extraocular muscles intact. NECK: Supple. No JVD, no adenopathy noted. LUNGS: Clear to auscultation. No adventitious sounds. HEART: S1, S2, normal rate and rhythm. No murmurs, rubs or gallops. ABDOMEN: Soft, nontender, nondistended. Bowel sounds are present. EXTREMITIES: No clubbing, no cyanosis. Peripheral pulses 2+ felt bilaterally. NEUROLOGIC: Patient is alert and oriented to person, place, month and year. Speech is fluent without any errors. Cranial nerves II through XII intact except for mild right visual field cut from underlying CVA. Motor: Moves all extremities equally. No major pronator drift seen except for mild reduced right finger tap when compared to the left. Sensory: Decreased light touch and pinprick up to the calves bilaterally, decreased vibration of the toes. DTRs are 2+ throughout and 1 at both knees and absent at the ankles. Toes are upgoing bilaterally. Coordination: [id number] is slightly dysmetric bilaterally, which is consistent with underlying cerebellar infarction. Gait is deferred for now. ASSESSMENT AND PLAN: This is a 72-year-old woman with history of type 2 diabetes mellitus, asthma, hypertension, history of right chronic middle cerebral artery cerebrovascular accident, history of right cerebral lymphoma status post chemoradiation and resection, who came in for 4 days of episodes of dizziness and falling in the whole weak time. Her dizziness is likely secondary to acute/subacute infarction seen in the left temporo-occipital junction and bilateral cerebellar hemispheres, identified most of a lacunar infarct type with uncontrolled hyperglycemia from poorly controlled diabetes given that A1c is 10.4. At this time, her cerebrovascular accident is secondary to diffuse atherosclerotic disease. I recommend: 1. Keeping her on aspirin 81 mg, which is not an allergy she easily bruise in addition to Plavix 75 mg p.o. dose for stroke prevention. 2. For dyslipidemia, atorvastatin 80 mg p.o. daily for 21 days and can reduce it to 40 mg p.o. daily. 3. Diabetic diet. Keep blood sugars between 140 and 190 since she has poorly controlled diabetes with A1c of 10.4. Follow Endocrinology consult. 4. Continue with Combivent and terbutaline for underlying asthma and monitor her heart rate since terbutaline causes tachycardia. 5. She will need a physical and occupational therapy. Thank you for this consult. Kristopher Dey MD [facility] # [phone]
[2017-10-12] MEDS ORDERED: Insulin Detemir 100 Units/ml Inj SC SCH (22:00)
[2017-10-12] MEDS: Albuterol 0.083% Inhal Sol (2.5 mg/3 mL) UD IH PRN (23:29)
[2017-10-13] MEDS: Albuterol 0.083% Inhal Sol (2.5 mg/3 mL) UD IH PRN ×2 (03:57→19:31)
[2017-10-13] MEDS: Insulin Lispro (humaLOG) 100 Units/ml Inj SC SCH ×4 (08:00→22:16)
--- NOTE | 2017-10-13 09:48 | CP.PCM.PN ---
Subjective - Date & Time of Evaluation Date of Evaluation: 10/13/17 Time of Evaluation: 09:00 - Subjective Subjective: The patient continues to have severe ataxia. She denies any nausea vomiting or diplopia. The telemetry shows steady sinus rhythm at 70-80 bpm. Blood pressure is 160/70 mmHg. Neurologically the patient has not changed. The MRI findings were discussed with the neurologist The patient was accordingly started on 90 plaited drugs. She is stable from cardiovascular point of few and is now undergoing carotid sonography. Objective - Vital Signs/Intake and Output Vital Signs (last 24 hours): Temp Pulse Resp BP Pulse Ox 98.8 F 102 H 18 161/74 H 98 10/13/17 08:22 10/13/17 08:22 10/13/17 08:22 10/13/17 08:22 10/13/17 08:22 - Medications Medications: Current Medications Albuterol Sulfate (Albuterol 0.083% Inhal Tosha (2.5 Mg/3 Ml) Ud) 2.5 mg IH Q4H PRN PRN Reason: Shortness of Breath Last Admin: 10/13/17 03:57 Dose: 2.5 mg Amlodipine Besylate (Norvasc) 5 mg PO DAILY [facility] Last Admin: 10/12/17 10:14 Dose: 5 mg Atorvastatin Calcium (Lipitor) 80 mg PO DAILY [facility] Brimonidine Tartrate (Alphagan 0.2% Opht) 1 drop OD BID [facility] Last Admin: 10/12/17 16:26 Dose: 1 drop Clopidogrel Bisulfate (Plavix) 75 mg PO DAILY [facility] Docusate Sodium (Colace) 100 mg PO BID PRN PRN Reason: Constipation Gabapentin (Neurontin) 100 mg PO BID [facility] Last Admin: 10/12/17 16:26 Dose: 100 mg Heparin Sodium (Porcine) (Heparin) 5,000 units SC Q12 [facility] PRN Reason: Protocol Last Admin: 10/12/17 22:29 Dose: 5,000 units Home Med (Azelastine Hcl [Astepro]) 1 spray SUSANA BID PRN PRN Reason: Allergy symptoms Home Med (Fluticasone/Vilanterol [Breo Ellipta 200-25 Mcg Inh]) 1 puff IH DAILY [facility] Insulin Detemir (Levemir) 30 units SC [facility] Last Admin: 10/12/17 22:34 Dose: 30 units Insulin Human Lispro (Humalog) 0 units SC ACHS [facility] PRN Reason: Protocol Last Admin: 10/12/17 23:04 Dose: 2 units Insulin Human Lispro (Humalog) 12 units SC AC [facility] Last Admin: 10/12/17 17:19 Dose: 12 units Loratadine (Claritin) 10 mg PO HS [facility] Last Admin: 10/12/17 22:30 Dose: 10 mg Lorazepam (Ativan) 0.5 mg PO HS PRN PRN Reason: Anxiety Last Admin: 10/13/17 04:31 Dose: 0.5 mg Pantoprazole Sodium (Protonix Ec Tab) 40 mg PO DAILY [facility] Last Admin: 10/12/17 10:15 Dose: 40 mg Terbutaline Sulfate (Brethine Tab) 2.5 mg PO HS [facility] Last Admin: 10/12/17 22:29 Dose: 2.5 mg Timolol Maleate (Timoptic 0.5% Ophth Soln) 1 drop OD BID [facility] Last Admin: 10/12/17 16:26 Dose: 1 drop - Labs Labs: 10/12/17 05:10 10/12/17 05:10 PT 11.3 Seconds (9.8-13.1) 10/11/17 09:39 INR 1.0 (0.9-1.2) 10/11/17 09:39 APTT 28.6 Seconds (25.6-37.1) 10/11/17 09:39
[2017-10-13] MEDS: Brimonidine 0.2% 50 DROP/5 ML BOTTLE OD SCH ×2 (09:49→18:40)
[2017-10-13] MEDS: Pantoprazole 40 mg EC Tab PO SCH (09:51)
--- NOTE | 2017-10-13 11:52 | CP.PCM.PN ---
Subjective - Date & Time of Evaluation Date of Evaluation: 10/13/17 Time of Evaluation: 11:52 - Subjective Subjective: pt comfortable no acute distress no acute events overnight no cp sob calf tenderness hd stable nad Objective - Vital Signs/Intake and Output Vital Signs (last 24 hours): Temp Pulse Resp BP Pulse Ox 98.8 F 76 18 161/74 H 97 10/13/17 08:22 10/13/17 10:52 10/13/17 08:22 10/13/17 09:50 10/13/17 10:52 Vitals Reviewed GEN: WDWN, ALERT, COOPERATIVE HEENT: NCAT, PERRL, EOMI HEART: RRR, +S1S2, NO MRG LUNG: CTAB, NO WRR ABD: SOFT, NT, ND, NO HSM, NO MASSES EXT: NORMAL PEDAL PULSES, GOOD CAPILLARY REFILL NEURO: AAOX3, STRENGTH EQUAL BILATERAL UPPER AND LOWER EXTREMITIES SKIN: WARM, DRY PSYCH: NORMAL MOOD, NORMAL AFFECT - Medications Medications: Current Medications Albuterol Sulfate (Albuterol 0.083% Inhal Tosha (2.5 Mg/3 Ml) Ud) 2.5 mg IH Q4H PRN PRN Reason: Shortness of Breath Last Admin: 10/13/17 03:57 Dose: 2.5 mg Amlodipine Besylate (Norvasc) 5 mg PO DAILY [facility] Last Admin: 10/13/17 09:50 Dose: 5 mg Atorvastatin Calcium (Lipitor) 80 mg PO DAILY [facility] Last Admin: 10/13/17 09:50 Dose: 80 mg Brimonidine Tartrate (Alphagan 0.2% Opht) 1 drop OD BID [facility] Last Admin: 10/13/17 09:49 Dose: 1 drop Clopidogrel Bisulfate (Plavix) 75 mg PO DAILY [facility] Last Admin: 10/13/17 09:51 Dose: 75 mg Docusate Sodium (Colace) 100 mg PO BID PRN PRN Reason: Constipation Gabapentin (Neurontin) 100 mg PO BID [facility] Last Admin: 10/13/17 09:50 Dose: 100 mg Heparin Sodium (Porcine) (Heparin) 5,000 units SC Q12 [facility] PRN Reason: Protocol Last Admin: 10/13/17 09:49 Dose: 5,000 units Home Med (Azelastine Hcl [Astepro]) 1 spray SUSANA BID PRN PRN Reason: Allergy symptoms Home Med (Fluticasone/Vilanterol [Breo Ellipta 200-25 Mcg Inh]) 1 puff IH DAILY [facility] Insulin Detemir (Levemir) 30 units SC HS [facility] Last Admin: 10/12/17 22:34 Dose: 30 units Insulin Human Lispro (Humalog) 0 units SC ACHS [facility] PRN Reason: Protocol Last Admin: 10/12/17 23:04 Dose: 2 units Insulin Human Lispro (Humalog) 12 units SC AC [facility] Last Admin: 10/13/17 08:00 Dose: 12 units Loratadine (Claritin) 10 mg PO HS [facility] Last Admin: 10/12/17 22:30 Dose: 10 mg Lorazepam (Ativan) 0.5 mg PO PRN PRN Reason: Anxiety Last Admin: 10/13/17 04:31 Dose: 0.5 mg Pantoprazole Sodium (Protonix Ec Tab) 40 mg PO DAILY [facility] Last Admin: 10/13/17 09:51 Dose: 40 mg Terbutaline Sulfate (Brethine Tab) 2.5 mg PO [facility] Last Admin: 10/12/17 22:29 Dose: 2.5 mg Timolol Maleate (Timoptic 0.5% Ophth Soln) 1 drop OD BID [facility] Last Admin: 10/13/17 09:51 Dose: 1 drop - Labs Labs: 10/12/17 05:10 10/12/17 05:10 PT 11.3 Seconds (9.8-13.1) 10/11/17 09:39 INR 1.0 (0.9-1.2) 10/11/17 09:39 APTT 28.6 Seconds (25.6-37.1) 10/11/17 09:39 Assessment and Plan - Assessment and Plan (Free Text) Plan: 72 yo female with history of DM2, Asthma, HTN, Seizure, previous CVA and 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 Denied LOC. Had Asthma exacerbation while in [place] over a month ago. Was put on 5 days of Prednisone, Breo and Combivent in addition to her usual dose of Terbutaline. Condition improved. Had similar episode of dizziness and falling while in [place] but never sought consultation. 1. CVA MRI of head: acute/subacute infarction of the left temporooccipital and bilateral cerebellar; chronic right MCA infarct causing dysequilibrium and dizziness continue Atorvastatin and Plavix Dr Dey aware; advise acute rehab PT evaluation and management 2. HTN BP controlled by Norvasc 5mg daily 3. DM2 BS uncontrolled HgA1C: 10.[address] Colt Polanco 30 units SC HS Lispro per protocol with Leidy DE LA CRU[facility] 4. Asthma breathing stable and loose still on Breo, Combivent and Terbutaline off Prednisone over a month (took only for 5 days) 5. Foul smelling urine will giveone dose ceftriaxone, pt is incontinence
--- NOTE | 2017-10-13 14:35 | US ---
PROCEDURE: Bilateral duplex Doppler carotid arterial ultrasound examination HISTORY: CVA/DIZZINESS COMPARISON: 04/02/2015 TECHNIQUE: Ultrasound examination of the carotid arteries was performed utilizing a linear array color Doppler transducer. FINDINGS: Right carotid artery: Intimal thickening seen in the mid and distal CCA. Atheromatous plaque seen in the carotid bulb. Peak systolic velocity measurements: CCA: 71.6 cm/sec ICA: 68.0 ICA/CCA peak systolic velocity ratio: 1.0 Antegrade flow demonstrated in the vertebral artery. Consistent with less than 50 percent ICA stenosis by the SRU consensus criteria Left carotid artery: Intimal thickening in the mid and distal CCA. Atheromatous plaque in carotid bulb. Peak systolic velocity measurements: CCA: 133.7 cm/sec ICA: 55401.8 cm/sec Peak systolic velocity ratio: 1.0 Antegrade flow demonstrated in the vertebral artery. Findings consistent with less than 50 percent stenosis by S RU consensus criteria. Incidentally noted were multiple cervical lymph nodes bilaterally. Patient was unable to cooperate for measurement of the cervical lymph nodes at this time. Consider evaluation with contrast-enhanced computed tomography for further evaluation. IMPRESSION: Less than 50 percent internal carotid arterial stenosis bilaterally. Incidentally noted cervical lymphadenopathy. Patient was unable to cooperate for measurement of lymph nodes at this time.
--- NOTE | 2017-10-13 15:07 | CP.PCM.PCO ---
Physician Communication Note - Physician Communication Note Physician Communication Note: carotid usg reveiwed. pt will need acute rehab.
[2017-10-13] MEDS ORDERED: Insulin Lispro (humaLOG) 100 Units/ml Inj SC SCH (16:30)
--- NOTE | 2017-10-13 16:47 | PN ---
DATE: ENDOCRINOLOGY FOLLOWUP NOTE LOCATION: Room 407. SUBJECTIVE: This is a 72-year-old female with recent uncontrolled type 2 insulin-requiring diabetes, presenting here with severe bouts of dizziness and lightheadedness with lower extremity ataxia and instability and is now being followed closely for metabolic management. She continues to have hyperglycemic accelerations and glucose levels today have ranged from 280 to 347 and 334 mg/dL. Her latest chemistries showed a hemoglobin A1c of 10.4%, which is quite elevated and indicative of suboptimal metabolic control of her diabetic condition even prior to this admission. Her latest chemistries showed a BUN of 21, sodium 137, potassium 4.0, chloride 107, CO2 of 20, glucose 325, and creatinine 1.6. So, at this time, we will modify once again her basal and bolus insulin regimen and increase the Humalog to 14 units subcu t.i.d. before meals to start at dinnertime today as ordered. We will also increase the Levemir to 36 units subcu at bedtime daily as ordered and this will start tonight as given. We will obtain serial chemistries and supplement accordingly as needed. We will follow. Melisa Gregory MD
[2017-10-13] MEDS ORDERED: Insulin Detemir 100 Units/ml Inj SC SCH (22:00)
[2017-10-14 06:29] LABS: HEMOGLOBIN 12.9 g/dL (12.0-16.0); MEAN CELL VOLUME 87.4 fl (81.0-99.0); MEAN CORPUSCULAR HEMOGLOBIN 28.5 pg (27.0-31.0); MEAN CORPUSCULAR HGB CONC 32.6 g/dL (33.0-37.0); RBC 4.51 Mil/uL (3.80-5.20); RED CELL DISTRIBUTION WIDTH 13.4 % (11.5-14.5); WHITE BLOOD COUNT 7.6 K/uL (4.8-10.8)
[2017-10-14 06:31] LABS: CALCIUM 8.9 mg/dL (8.4-10.2)
[2017-10-14] MEDS: Insulin Lispro (humaLOG) 100 Units/ml Inj SC SCH ×7 (06:34→22:25)
[2017-10-14] MEDS: Brimonidine 0.2% 50 DROP/5 ML BOTTLE OD SCH ×2 (09:13→16:05)
[2017-10-14] MEDS: Pantoprazole 40 mg EC Tab PO SCH (09:17)
--- NOTE | 2017-10-14 09:19 | CP.PCM.PN ---
Subjective - Date & Time of Evaluation Date of Evaluation: 10/14/17 Time of Evaluation: 09:00 - Subjective Subjective: Awake alert able to converse Pronounced dizziness on attempting to sit up BP 134/70 mm Hg Chest clear, heart sounds pure Carotid US shows minor luminal stenosis Dr. Roa note noted Pt should have PT eval followed by ac Rehab Objective - Vital Signs/Intake and Output Vital Signs (last 24 hours): Temp Pulse Resp BP Pulse Ox 99.8 F H 87 18 146/62 96 10/14/17 08:00 10/14/17 08:00 10/14/17 08:00 10/14/17 08:00 10/14/17 08:00 - Medications Medications: Current Medications Acetaminophen (Tylenol 325mg Tab) 650 mg PO Q6 PRN PRN Reason: Fever >100.4 F Last Admin: 10/14/17 06:02 Dose: 650 mg Albuterol Sulfate (Albuterol 0.083% Inhal Tosha (2.5 Mg/3 Ml) Ud) 2.5 mg IH Q4H PRN PRN Reason: Shortness of Breath Last Admin: 10/13/17 19:31 Dose: 2.5 mg Amlodipine Besylate (Norvasc) 5 mg PO DAILY [facility] Last Admin: 10/13/17 09:50 Dose: 5 mg Atorvastatin Calcium (Lipitor) 80 mg PO DAILY [facility] Last Admin: 10/13/17 09:50 Dose: 80 mg Brimonidine Tartrate (Alphagan 0.2% Opht) 1 drop OD BID [facility] Last Admin: 10/13/17 18:40 Dose: 1 drop Clopidogrel Bisulfate (Plavix) 75 mg PO DAILY [facility] Last Admin: 10/13/17 09:51 Dose: 75 mg Docusate Sodium (Colace) 100 mg PO BID PRN PRN Reason: Constipation Gabapentin (Neurontin) 100 mg PO BID [facility] Last Admin: 10/13/17 17:00 Dose: 100 mg Heparin Sodium (Porcine) (Heparin) 5,000 units SC Q12 [facility] PRN Reason: Protocol Last Admin: 10/13/17 22:10 Dose: 5,000 units Home Med (Azelastine Hcl [Astepro]) 1 spray SUSANA BID PRN PRN Reason: Allergy symptoms Home Med (Fluticasone/Vilanterol [Breo Ellipta 200-25 Mcg Inh]) 1 puff IH DAILY [facility] Ceftriaxone Sodium 1 gm/ (Sodium Chloride) 100 mls @ 100 mls/hr IVPB DAILY [facility] PRN Reason: Protocol Insulin Detemir (Levemir) 40 units SC HS [facility] Insulin Human Lispro (Humalog) 0 units SC ACHS [facility] PRN Reason: Protocol Last Admin: 10/14/17 06:34 Dose: Not Given Insulin Human Lispro (Humalog) 16 units SC AC [facility] Loratadine (Claritin) 10 mg PO HS [facility] Last Admin: 10/13/17 22:10 Dose: 10 mg Lorazepam (Ativan) 0.5 mg PO HS PRN PRN Reason: Anxiety Last Admin: 10/13/17 22:10 Dose: 0.5 mg Pantoprazole Sodium (Protonix Ec Tab) 40 mg PO DAILY [facility] Last Admin: 10/13/17 09:51 Dose: 40 mg Terbutaline Sulfate (Brethine Tab) 2.5 mg PO HS [facility] Last Admin: 10/13/17 22:10 Dose: 2.5 mg Timolol Maleate (Timoptic 0.5% [facility] Soln) 1 drop OD BID [facility] Last Admin: 10/13/17 17:00 Dose: 1 drop - Labs Labs: 10/14/17 05:00 10/14/17 05:00 PT 11.3 Seconds (9.8-13.1) 10/11/17 09:39 INR 1.0 (0.9-1.2) 10/11/17 09:39 APTT 28.6 Seconds (25.6-37.1) 10/11/17 09:39
[2017-10-14] MEDS: Albuterol 0.083% Inhal Sol (2.5 mg/3 mL) UD IH PRN ×2 (09:25→16:20)
--- NOTE | 2017-10-14 11:11 | CP.PCM.PN ---
Subjective - Date & Time of Evaluation Date of Evaluation: 10/14/17 Time of Evaluation: 11:00 - Subjective Subjective: Pt is febrile has sl cough feels weak denies CP no SOB no abd pain denies dysuria alert, oriented x 3, moves all extremities follows simple commands Objective - Vital Signs/Intake and Output Vital Signs (last 24 hours): Temp Pulse Resp BP Pulse Ox 99.8 F H 95 H 18 146/62 98 10/14/17 08:00 10/14/17 10:09 10/14/17 08:00 10/14/17 08:00 10/14/17 10:09 - Medications Medications: Current Medications Acetaminophen (Tylenol 325mg Tab) 650 mg PO Q6 PRN PRN Reason: Fever >100.4 F Last Admin: 10/14/17 06:02 Dose: 650 mg Albuterol Sulfate (Albuterol 0.083% Inhal Tosha (2.5 Mg/3 Ml) Ud) 2.5 mg IH Q4H PRN PRN Reason: Shortness of Breath Last Admin: 10/14/17 09:25 Dose: 2.5 mg Amlodipine Besylate (Norvasc) 5 mg PO DAILY [facility] Last Admin: 10/14/17 09:16 Dose: 5 mg Atorvastatin Calcium (Lipitor) 80 mg PO DAILY [facility] Last Admin: 10/14/17 09:16 Dose: 80 mg Brimonidine Tartrate (Alphagan 0.2% Opht) 1 drop OD BID [facility] Last Admin: 10/14/17 09:13 Dose: 1 drop Clopidogrel Bisulfate (Plavix) 75 mg PO DAILY [facility] Last Admin: 10/14/17 09:17 Dose: 75 mg Docusate Sodium (Colace) 100 mg PO BID PRN PRN Reason: Constipation Gabapentin (Neurontin) 100 mg PO BID [facility] Last Admin: 10/14/17 09:16 Dose: 100 mg Heparin Sodium (Porcine) (Heparin) 5,000 units SC Q12 [facility] PRN Reason: Protocol Last Admin: 10/14/17 09:13 Dose: 5,000 units Home Med (Azelastine Hcl [Astepro]) 1 spray SUSANA BID PRN PRN Reason: Allergy symptoms Home Med (Fluticasone/Vilanterol [Breo Ellipta 200-25 Mcg Inh]) 1 puff IH DAILY [facility] Ceftriaxone Sodium 1 gm/ (Sodium Chloride) 50 mls @ 50 mls/hr IVPB DAILY [facility] PRN Reason: Protocol Insulin Detemir (Levemir) 40 units SC HS [facility] Insulin Human Lispro (Humalog) 0 units SC ACHS [facility] PRN Reason: Protocol Last Admin: 10/14/17 06:34 Dose: Not Given Insulin Human Lispro (Humalog) 16 units SC AC [facility] Last Admin: 10/14/17 09:15 Dose: 16 units Loratadine (Claritin) 10 mg PO HS [facility] Last Admin: 10/13/17 22:10 Dose: 10 mg Lorazepam (Ativan) 0.5 mg PO HS PRN PRN Reason: Anxiety Last Admin: 10/13/17 22:10 Dose: 0.5 mg Pantoprazole Sodium (Protonix Ec Tab) 40 mg PO DAILY [facility] Last Admin: 10/14/17 09:17 Dose: 40 mg Terbutaline Sulfate (Brethine Tab) 2.5 mg PO HS [facility] Last Admin: 10/13/17 22:10 Dose: 2.5 mg Timolol Maleate (Timoptic 0.5% Ophth Soln) 1 drop OD BID [facility] Last Admin: 10/14/17 09:17 Dose: 1 drop - Labs Labs: 10/14/17 05:00 10/14/17 05:00 PT 11.3 Seconds (9.8-13.1) 10/11/17 09:39 INR 1.0 (0.9-1.2) 10/11/17 09:39 APTT 28.6 Seconds (25.6-37.1) 10/11/17 09:39 - Constitutional Appears: Chronically Ill - Head Exam Head Exam: NORMAL INSPECTION, NORMOCEPHALIC - Eye Exam Eye Exam: Normal appearance - ENT Exam ENT Exam: Mucous Membranes Dry, Normal External Ear Exam - Neck Exam Neck Exam: Full ROM. absent: Meningismus - Respiratory Exam Respiratory Exam: NORMAL BREATHING PATTERN. absent: Respiratory Distress - Cardiovascular Exam Cardiovascular Exam: REGULAR RHYTHM, +S1, +S2 - GI/Abdominal Exam GI & Abdominal Exam: Soft, Normal Bowel Sounds. absent: Tenderness - Extremities Exam Extremities Exam: Normal Capillary Refill. absent: Calf Tenderness, Pedal Edema - Back Exam Back Exam: absent: CVA tenderness (L), CVA tenderness (R) - Neurological Exam Neurological Exam: Alert, Awake, Oriented x3 Neuro motor strength exam: Left Upper Extremity: 4, Right Upper Extremity: 4, Left Lower Extremity: 4, Right Lower Extremity: 4 Additional comments: moves all extremities uncooperative with exam, will re-eval later - Psychiatric Exam Psychiatric exam: Flat Affect - Skin Skin Exam: Dry, Normal Color, Warm Assessment and Plan - Assessment and Plan (Free Text) Assessment: 72 yo female with history of DM2, Asthma, HTN, Seizure, previous CVA and 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 Denied LOC. Had Asthma exacerbation while in [place] over a month ago. Was put on 5 days of Prednisone, Breo and Combivent in addition to her usual dose of Terbutaline. Condition improved. Had similar episode of dizziness and falling while in [place] but never sought consultation. 1. Acute CVA - temporo-occipital/bilat cerebellar MRI of head 10/12: acute/subacute infarction of the left temporooccipital and bilateral cerebellar; chronic right MCA infarct continue Atorvastatin and Plavix Neurology following pt PT evaluation and management- rec Acute Rehab Passed swallow eval add ASA as rec by DR Dey Plan for acute rehab when infection resolves 2. Fever , etiology to be determined -ordered Influenza swab, UA, Urine c/s, Blood c/s - CXR done today 10/14: no acute infiltrate -empirically started on IV ceftriaxone for poss UTI as pt has slightly foul smellingb urine 3 . HTN BP controlled by Norvasc 5mg daily 4. DM Type II, uncontrolled BS uncontrolled HgA1C: 10.4 Endocrinology was consulted and following pt : Dr Gregory cont Levemir 30 units SC HS cont Lispro per protocol with [facility] ACHS 5. Asthma, mild persistent cont Breo, Combivent and Terbutaline off Prednisone Albuterol prn 6. CKD stage III we will monitor BMP DVT proph Lovenox
--- NOTE | 2017-10-14 11:41 | RAD ---
HISTORY: Fever with bibasal rales COMPARISON: 03/15/2016 FINDINGS: LUNGS: No active pulmonary disease. PLEURA: No significant pleural effusion identified, no pneumothorax apparent. CARDIOVASCULAR: Normal. OSSEOUS STRUCTURES: No significant abnormalities. VISUALIZED UPPER ABDOMEN: Normal. OTHER FINDINGS: None. IMPRESSION: No active disease.
[2017-10-14 15:37] LABS: SQUAMOUS EPITHIAL 2 /hpf (0-5); URINE BACTERIA FEW (<OCC); URINE BILIRUBIN NEGATIVE (NEGATIVE); URINE BLOOD SMALL (NEGATIVE); URINE CLARITY CLOUDY (Clear); URINE COLOR YELLOW (YELLOW); URINE GLUCOSE (UA) 50 mg/dL (Normal); URINE HYALINE CAST 0-2 /hpf (0-2); URINE LEUKOCYTE ESTERASE TRACE Leu/uL (Negative); URINE NITRATE NEGATIVE (NEGATIVE); URINE PROTEIN >=500 mg/dL (NEGATIVE); URINE UROBILINOGEN 0.2-1.0 mg/dL (0.2-1.0)
[2017-10-14] MEDS ORDERED: Insulin Detemir 100 Units/ml Inj SC SCH (22:00)
--- NOTE | 2017-10-14 23:51 | PN ---
DATE: ENDOCRINOLOGY FOLLOWUP NOTE LOCATION: Room 407. SUBJECTIVE: This is a 72-year-old female with recent uncontrolled type 2 insulin-requiring diabetes, now being followed closely for metabolic management. She is also undergoing neurological workup for recent bouts of severe dizziness and near syncopal episodes with lower extremity dysequilibrium. Her glycemic levels are fluctuating, but improved and the glucose values today have ranged from 142 to 240 and 266 mg/dL. Her latest chemistry showed a BUN of 16, sodium 138, potassium 4.0, chloride 105, CO2 21, glucose 158, and creatinine 1.5. So at this time, we will continue the same basal and bolus insulin regimen to allow for dose equilibration and keep her on the Humalog given as 16 units subcu t.i.d. before meals as ordered. We will continue also the basal insulin given as 40 units subcu at bedtime daily as given. We will continue also the low-dose correction scale using Humalog insulin as ordered. We will obtain serial chemistries and supplement accordingly needed. We will follow. Melisa Gregory MD
[2017-10-15 06:43] LABS: CALCIUM 8.1 mg/dL (8.4-10.2)
[2017-10-15] MEDS: Insulin Lispro (humaLOG) 100 Units/ml Inj SC SCH ×7 (06:52→21:18)
[2017-10-15 07:26] LABS: HEMOGLOBIN 12.6 g/dL (12.0-16.0); MEAN CELL VOLUME 87.2 fl (81.0-99.0); MEAN CORPUSCULAR HEMOGLOBIN 28.5 pg (27.0-31.0); MEAN CORPUSCULAR HGB CONC 32.7 g/dL (33.0-37.0); RBC 4.41 Mil/uL (3.80-5.20); RED CELL DISTRIBUTION WIDTH 14.1 % (11.5-14.5); WHITE BLOOD COUNT 7.4 K/uL (4.8-10.8)
--- NOTE | 2017-10-15 09:11 | CP.PCM.PN ---
Subjective - Date & Time of Evaluation Date of Evaluation: 10/15/17 Time of Evaluation: 09:00 - Subjective Subjective: Pt was febrile this am however - lower grade 99.9 feels sl better occ cough no CP no abd pain has hx of right eye blindness - after Cataract surgery yrs ago body aches better Objective - Vital Signs/Intake and Output Vital Signs (last 24 hours): Temp Pulse Resp BP Pulse Ox 99.9 F H 88 20 123/56 L 94 L 10/15/17 08:26 10/15/17 08:26 10/15/17 08:26 10/15/17 08:26 10/15/17 08:26 - Medications Medications: Current Medications Acetaminophen (Tylenol 325mg Tab) 650 mg PO Q6 PRN PRN Reason: Fever >100.4 F Last Admin: 10/14/17 15:55 Dose: 650 mg Albuterol Sulfate (Albuterol 0.083% Inhal Tosha (2.5 Mg/3 Ml) Ud) 2.5 mg IH Q4H PRN PRN Reason: Shortness of Breath Last Admin: 10/14/17 16:20 Dose: 2.5 mg Amlodipine Besylate (Norvasc) 5 mg PO DAILY [facility] Last Admin: 10/14/17 09:16 Dose: 5 mg Atorvastatin Calcium (Lipitor) 80 mg PO DAILY [facility] Last Admin: 10/14/17 09:16 Dose: 80 mg Brimonidine Tartrate (Alphagan 0.2% Opht) 1 drop OD BID [facility] Last Admin: 10/14/17 16:05 Dose: 1 drop Clopidogrel Bisulfate (Plavix) 75 mg PO DAILY [facility] Last Admin: 10/14/17 09:17 Dose: 75 mg Docusate Sodium (Colace) 100 mg PO BID PRN PRN Reason: Constipation Gabapentin (Neurontin) 100 mg PO BID [facility] Last Admin: 10/14/17 09:16 Dose: 100 mg Heparin Sodium (Porcine) (Heparin) 5,000 units SC Q12 [facility] PRN Reason: Protocol Last Admin: 10/14/17 21:29 Dose: 5,000 units Home Med (Azelastine Hcl [Astepro]) 1 spray SUSANA BID PRN PRN Reason: Allergy symptoms Home Med (Fluticasone/Vilanterol [Breo Ellipta 200-25 Mcg Inh]) 1 puff IH DAILY [facility] Ceftriaxone Sodium 1 gm/ (Sodium Chloride) 50 mls @ 50 mls/hr IVPB DAILY [facility] PRN Reason: Protocol Last Admin: 10/14/17 12:03 Dose: 50 mls/hr Insulin Detemir (Levemir) 40 units SC HS [facility] Last Admin: 10/14/17 22:24 Dose: 40 units Insulin Human Lispro (Humalog) 0 units SC ACHS [facility] PRN Reason: Protocol Last Admin: 10/15/17 06:52 Dose: Not Given Insulin Human Lispro (Humalog) 16 units SC AC [facility] Last Admin: 10/14/17 16:06 Dose: 16 units Loratadine (Claritin) 10 mg PO HS [facility] Last Admin: 10/14/17 21:29 Dose: 10 mg Oseltamivir Phosphate (Tamiflu Cap) 75 mg PO BID [facility] PRN Reason: Protocol Last Admin: 10/14/17 21:29 Dose: 75 mg Pantoprazole Sodium (Protonix Ec Tab) 40 mg PO DAILY [facility] Last Admin: 10/14/17 09:17 Dose: 40 mg Terbutaline Sulfate (Brethine Tab) 2.5 mg PO [facility] Last Admin: 10/14/17 21:29 Dose: 2.5 mg Timolol Maleate (Timoptic 0.5% Ophth Soln) 1 drop OD BID [facility] Last Admin: 10/14/17 16:06 Dose: 1 drop - Labs Labs: 10/15/17 05:47 10/15/17 05:47 PT 11.3 Seconds (9.8-13.1) 10/11/17 09:39 INR 1.0 (0.9-1.2) 10/11/17 09:39 APTT 28.6 Seconds (25.6-37.1) 10/11/17 09:39 - Constitutional Appears: Chronically Ill - Head Exam Head Exam: NORMAL INSPECTION, NORMOCEPHALIC - Eye Exam Eye Exam: right eye blindness (since after Cataract sx years ago ) right eye good accommodation - ENT Exam ENT Exam: Mucous Membranes Dry, Normal External Ear Exam - Neck Exam Neck Exam: Full ROM. absent: Meningismus - Respiratory Exam Respiratory Exam: NORMAL BREATHING PATTERN. absent: Respiratory Distress - Cardiovascular Exam Cardiovascular Exam: REGULAR RHYTHM, +S1, +S2 - GI/Abdominal Exam GI & Abdominal Exam: Soft, Normal Bowel Sounds. absent: Tenderness - Extremities Exam Extremities Exam: Normal Capillary Refill. 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 Had Asthma exacerbation while in [place] over a month ago. Was put on 5 days of Prednisone, Breo and Combivent in addition to her usual dose of Terbutaline. Condition improved. Had similar episode of dizziness and falling while in [place] but never sought consultation. 1. Acute CVA - temporo-occipital/bilat cerebellar MRI of head 10/12: acute/subacute infarction of the left temporo-occipital and bilateral cerebellar; chronic right MCA infarct continue Atorvastatin and Plavix Neurology following pt PT evaluation and management- rec Acute Rehab Passed swallow eval add ASA as rec by DR Dey Plan for acute rehab when infection resolves 2. Influenza A - started Tamiflu - CXR 10/14: no acute infiltrate 3. UTI - Urine c/s - cont IV Ceftriaxone 4 . HTN BP controlled by Norvasc 5mg daily 5. DM Type II, uncontrolled BS uncontrolled HgA1C: 10.4 Endocrinology was consulted and following pt : Dr Gregory Increase Levemir 44 units SC HS cont Lispro per protocol with Accuchek ACHS 6. Asthma, mild persistent cont Terbutaline, Duoneb start Advair off Prednisone Albuterol prn 7 CKD stage III we will monitor BMP DVT proph Heparin
[2017-10-15] MEDS: Brimonidine 0.2% 50 DROP/5 ML BOTTLE OD SCH ×2 (09:25→17:24)
[2017-10-15] MEDS: Pantoprazole 40 mg EC Tab PO SCH (09:28)
[2017-10-15] MEDS ORDERED: Insulin Detemir 100 Units/ml Inj SC SCH (18:09)
[2017-10-15] MEDS: Albuterol 0.083% Inhal Sol (2.5 mg/3 mL) UD IH PRN (19:32)
[2017-10-15] MEDS: Fluticasone-Salmeterol 100-50mcg Diskus IH SCH (21:18)
--- NOTE | 2017-10-16 00:40 | PN ---
DATE: ENDOCRINOLOGY FOLLOWUP NOTE LOCATION: Room 411. SUBJECTIVE: This is a 72-year-old female with recent uncontrolled type 2 insulin-requiring diabetes, now being followed closely for metabolic management. Her glycemic levels are fluctuating, but improved and the glucose values have ranged from 147 to 152 and 266 mg/dL. Her latest chemistry showed a BUN of 17, sodium 135, potassium 3.6, chloride 105, CO2 20, glucose 170 and creatinine 1.5. So at this time, we will continue the same basal and bolus insulin regimen to allow for dose equilibration and keep her on the Humalog given as 16 units subcu t.i.d. before meals as ordered. We will continue the Levemir given as basal insulin at 40 units subcu at bedtime daily as given. We will titrate incremental as indicated to optimize metabolic control. We will also continue the low-dose correction scale using Humalog insulin as given. We will follow and advise accordingly. Melisa Gregory MD
[2017-10-16] MEDS: Insulin Lispro (humaLOG) 100 Units/ml Inj SC SCH ×7 (06:49→21:44)
[2017-10-16 07:47] LABS: ALB/GLOB RATIO 0.9 (1.0-2.1); CALCIUM 8.1 mg/dL (8.4-10.2)
--- NOTE | 2017-10-16 08:56 | CP.PCM.PN ---
Subjective - Date & Time of Evaluation Date of Evaluation: 10/16/17 Time of Evaluation: 09:00 - Subjective Subjective: Had a febrile episode yesterday, otherwise afebrile Dizziness less pronounced Sitting up in bed, can converse intellingenly BP 160/88 mm Hg No signs of CHF Labs today show a rise in creatinin to 2.0 mg (???) Pt not on any diuretics (renal depression extremele rare with Eocephin) Will ask pt to drink extra water and check BMP tomorrow Objective - Vital Signs/Intake and Output Vital Signs (last 24 hours): Temp Pulse Resp BP Pulse Ox 98.3 F 67 18 135/74 99 10/16/17 08:20 10/16/17 08:20 10/16/17 08:20 10/16/17 08:20 10/16/17 08:20 - Medications Medications: Current Medications Acetaminophen (Tylenol 325mg Tab) 650 mg PO Q6 PRN PRN Reason: Fever >100.4 F Last Admin: 10/14/17 15:55 Dose: 650 mg Albuterol Sulfate (Albuterol 0.083% Inhal Tosha (2.5 Mg/3 Ml) Ud) 2.5 mg IH Q4H PRN PRN Reason: Shortness of Breath Last Admin: 10/15/17 19:32 Dose: 2.5 mg Amlodipine Besylate (Norvasc) 5 mg PO DAILY [facility] Last Admin: 10/15/17 09:25 Dose: 5 mg Aspirin (Ecotrin) 81 mg PO DAILY [facility] Atorvastatin Calcium (Lipitor) 80 mg PO DAILY [facility] Last Admin: 10/15/17 09:26 Dose: 80 mg Brimonidine Tartrate (Alphagan 0.2% Opht) 1 drop OD BID [facility] Last Admin: 10/15/17 17:24 Dose: 1 drop Clopidogrel Bisulfate (Plavix) 75 mg PO DAILY [facility] Last Admin: 10/15/17 09:27 Dose: 75 mg Docusate Sodium (Colace) 100 mg PO BID PRN PRN Reason: Constipation Last Admin: 10/15/17 09:26 Dose: 100 mg Gabapentin (Neurontin) 100 mg PO BID [facility] Last Admin: 10/15/17 17:23 Dose: 100 mg Heparin Sodium (Porcine) (Heparin) 5,000 units SC Q12 [facility] PRN Reason: Protocol Last Admin: 10/15/17 21:21 Dose: 5,000 units Home Med (Azelastine Hcl [Astepro]) 1 spray SUSANA BID PRN PRN Reason: Allergy symptoms Ceftriaxone Sodium 1 gm/ (Sodium Chloride) 50 mls @ 50 mls/hr IVPB DAILY [facility] PRN Reason: Protocol Last Admin: 10/15/17 09:45 Dose: 50 mls/hr Insulin Detemir (Levemir) 44 units SC HS [facility] Last Admin: 10/15/17 21:20 Dose: 44 units Insulin Human Lispro (Humalog) 0 units SC ACHS [facility] PRN Reason: Protocol Last Admin: 10/16/17 06:49 Dose: Not Given Insulin Human Lispro (Humalog) 16 units SC AC [facility] Last Admin: 10/15/17 17:21 Dose: 16 units Lorazepam (Ativan) 0.5 mg PO HS PRN PRN Reason: Anxiety Last Admin: 10/15/17 21:18 Dose: 0.5 mg Oseltamivir Phosphate (Tamiflu Cap) 75 mg PO BID [facility] PRN Reason: Protocol Last Admin: 10/15/17 17:25 Dose: 75 mg Pantoprazole Sodium (Protonix Ec Tab) 40 mg PO DAILY [facility] Last Admin: 10/15/17 09:28 Dose: 40 mg Fluticasone/Salmeterol (Advair Diskus 100/50) 1 puff IH Q12 [facility] Last Admin: 10/15/17 21:18 Dose: 1 puff Terbutaline Sulfate (Brethine Tab) 2.5 mg PO HS [facility] Last Admin: 10/15/17 21:18 Dose: 2.5 mg Timolol Maleate (Timoptic 0.5% Oph Soln) 1 drop OD BID [facility] Last Admin: 10/15/17 17:24 Dose: 1 drop - Labs Labs: 10/15/17 05:47 10/16/17 06:00 PT 11.3 Seconds (9.8-13.1) 10/11/17 09:39 INR 1.0 (0.9-1.2) 10/11/17 09:39 APTT 28.6 Seconds (25.6-37.1) 10/11/17 09:39
[2017-10-16] MEDS: Fluticasone-Salmeterol 100-50mcg Diskus IH SCH ×2 (09:42→21:43)
[2017-10-16] MEDS: Brimonidine 0.2% 50 DROP/5 ML BOTTLE OD SCH ×2 (09:43→18:31)
[2017-10-16] MEDS: Pantoprazole 40 mg EC Tab PO SCH (09:43)
--- NOTE | 2017-10-16 12:22 | CP.PCM.PN ---
Subjective - Date & Time of Evaluation Date of Evaluation: 10/16/17 Time of Evaluation: 12:21 - Subjective Subjective: doing well this morning feels slightly weak and is anxious to get to rehab hd stable nad last fever yesterday am low grade 99.9 Objective - Vital Signs/Intake and Output Vital Signs (last 24 hours): Temp Pulse Resp BP Pulse Ox 98.3 F 67 18 135/74 99 10/16/17 08:20 10/16/17 09:44 10/16/17 08:20 10/16/17 09:44 10/16/17 08:20 Vitals Reviewed GEN: WDWN, ALERT, COOPERATIVE HEENT: NCAT, PERRL, EOMI HEART: RRR, +S1S2, NO MRG LUNG: CTAB, NO WRR ABD: SOFT, NT, ND, NO HSM, NO MASSES EXT: NORMAL PEDAL PULSES, GOOD CAPILLARY REFILL NEURO: AAOX3, STRENGTH EQUAL BILATERAL UPPER AND LOWER EXTREMITIES SKIN: WARM, DRY PSYCH: NORMAL MOOD, NORMAL AFFECT - Medications Medications: Current Medications Acetaminophen (Tylenol 325mg Tab) 650 mg PO Q6 PRN PRN Reason: Fever >100.4 F Last Admin: 10/14/17 15:55 Dose: 650 mg Albuterol Sulfate (Albuterol 0.083% Inhal Tosha (2.5 Mg/3 Ml) Ud) 2.5 mg IH Q4H PRN PRN Reason: Shortness of Breath Last Admin: 10/15/17 19:32 Dose: 2.5 mg Amlodipine Besylate (Norvasc) 5 mg PO DAILY [facility] Last Admin: 10/16/17 09:44 Dose: 5 mg Aspirin (Ecotrin) 81 mg PO DAILY [facility] Last Admin: 10/16/17 09:43 Dose: 81 mg Atorvastatin Calcium (Lipitor) 80 mg PO DAILY [facility] Last Admin: 10/16/17 09:45 Dose: 80 mg Brimonidine Tartrate (Alphagan 0.2% Opht) 1 drop OD BID [facility] Last Admin: 10/16/17 09:43 Dose: 1 drop Clopidogrel Bisulfate (Plavix) 75 mg PO DAILY [facility] Last Admin: 10/16/17 09:44 Dose: 75 mg Docusate Sodium (Colace) 100 mg PO BID PRN PRN Reason: Constipation Last Admin: 01/27/18 09:44 Dose: 100 mg Gabapentin (Neurontin) 100 mg PO BID [facility] Last Admin: 10/16/17 09:43 Dose: 100 mg Heparin Sodium (Porcine) (Heparin) 5,000 units SC Q12 [facility] PRN Reason: Protocol Last Admin: 10/16/17 09:48 Dose: 5,000 units Home Med (Azelastine Hcl [Astepro]) 1 spray SUSANA BID PRN PRN Reason: Allergy symptoms Ceftriaxone Sodium 1 gm/ (Sodium Chloride) 50 mls @ 50 mls/hr IVPB DAILY [facility] PRN Reason: Protocol Last Admin: 10/16/17 09:47 Dose: 50 mls/hr Insulin Detemir (Levemir) 46 units SC HS [facility] Insulin Human Lispro (Humalog) 0 units SC ACHS [facility] PRN Reason: Protocol Last Admin: 10/16/17 06:49 Dose: Not Given Insulin Human Lispro (Humalog) 16 units SC AC [facility] Last Admin: 10/16/17 09:45 Dose: 16 units Lorazepam (Ativan) 0.5 mg PO HS PRN PRN Reason: Anxiety Last Admin: 10/15/17 21:18 Dose: 0.5 mg Oseltamivir Phosphate (Tamiflu Cap) 75 mg PO BID [facility] PRN Reason: Protocol Last Admin: 10/16/17 09:44 Dose: 75 mg Pantoprazole Sodium (Protonix Ec Tab) 40 mg PO DAILY [facility] Last Admin: 10/16/17 09:43 Dose: 40 mg Fluticasone/Salmeterol (Advair Diskus 100/50) 1 puff IH Q12 [facility] Last Admin: 10/16/17 09:42 Dose: 1 puff Terbutaline Sulfate (Brethine Tab) 2.5 mg PO HS [facility] Last Admin: 10/15/17 21:18 Dose: 2.5 mg Timolol Maleate (Timoptic 0.5% Oph Soln) 1 drop OD BID [facility] Last Admin: 10/16/17 09:43 Dose: 1 drop - Labs Labs: 10/15/17 05:47 10/16/17 06:00 PT 11.3 Seconds (9.8-13.1) 10/11/17 09:39 INR 1.0 (0.9-1.2) 10/11/17 09:39 APTT 28.6 Seconds (25.6-37.1) 10/11/17 09:39 Assessment and Plan - Assessment and Plan (Free Text) Plan: 72 yo female with history of DM2, Asthma, HTN, Seizure, previous CVA and 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 Had Asthma exacerbation while in [place] over a month ago. Was put on 5 days of Prednisone, Breo and Combivent in addition to her usual dose of Terbutaline. Condition improved. Had similar episode of dizziness and falling while in [place] but never sought consultation. 1. Acute CVA - temporo-occipital/bilat cerebellar MRI of head 10/12: acute/subacute infarction of the left temporo-occipital and bilateral cerebellar; chronic right MCA infarct continue Atorvastatin and Plavix Neurology following pt PT evaluation and management- rec Acute Rehab Passed swallow eval add ASA as rec by DR Dey Plan for acute rehab when infection resolves 2. Influenza A - started Tamiflu - CXR 10/14: no acute infiltrate - last fever 10/15/17 99.9 3. UTI - Urine c/s - cont IV Ceftriaxone 4 . HTN BP controlled by Norvasc 5mg daily 5. DM Type II, uncontrolled BS uncontrolled HgA1C: 10.4 Endocrinology was consulted and following pt : Dr Gregory Increase Levemir 44 units SC HS cont Lispro per protocol with Leidy [facility] 6. Asthma, mild persistent cont Terbutaline, Duoneb start Advair off Prednisone Albuterol prn 7 CKD stage III we will monitor BMP DVT proph Heparin
--- NOTE | 2017-10-16 14:43 | PN ---
DATE: ENDOCRINOLOGY FOLLOWUP NOTE LOCATION: Room 411. SUBJECTIVE: This is a 72-year-old female with recent uncontrolled type 2 insulin-requiring diabetes, now being followed closely for metabolic management. Her glycemic levels are fluctuating, but improved and the latest glucose levels today have ranged from 212 to 265 mg/dL. It was 395 yesterday in the early evening as noted. Her latest chemistry showed a BUN of 25, sodium 138, potassium 3.8, chloride 103, CO2 of 23, glucose 220 and creatinine 2.0. So, at this time, we will modify once again her basal and bolus insulin regimen and increase the Levemir units subcu at bedtime daily as ordered. We will also continue the Humalog given as 16 units subcu t.i.d. before meals as given. We will titrate incremental as indicated to optimize metabolic control. We will continue also the low-dose correction scale using Humalog insulin as given. We will follow. Melisa Gregory MD
[2017-10-16] MEDS: Insulin Detemir 100 Units/ml Inj SC SCH (21:35)
[2017-10-16] MEDS: Albuterol 0.083% Inhal Sol (2.5 mg/3 mL) UD IH PRN (23:56)
[2017-10-17] MEDS: Insulin Lispro (humaLOG) 100 Units/ml Inj SC SCH ×7 (07:00→22:27)
[2017-10-17 08:54] LABS: CALCIUM 8.3 mg/dL (8.4-10.2)
[2017-10-17] MEDS: Pantoprazole 40 mg EC Tab PO SCH (09:13)
[2017-10-17] MEDS: Fluticasone-Salmeterol 100-50mcg Diskus IH SCH ×2 (09:20→22:29)
[2017-10-17] MEDS: Brimonidine 0.2% 50 DROP/5 ML BOTTLE OD SCH ×2 (09:20→18:09)
--- NOTE | 2017-10-17 10:13 | CP.PCM.PN ---
Subjective - Date & Time of Evaluation Date of Evaluation: 10/17/17 Time of Evaluation: 09:45 - Subjective Subjective: No fever feels better- body aches better denies CP no SOB tolerating Po diet no abd pain moves all extremities Objective - Vital Signs/Intake and Output Vital Signs (last 24 hours): Temp Pulse Resp BP Pulse Ox 98.5 F 69 18 125/63 98 10/17/17 08:31 10/17/17 09:16 10/17/17 08:31 10/17/17 09:16 10/17/17 08:31 - Medications Medications: Current Medications Acetaminophen (Tylenol 325mg Tab) 650 mg PO Q6 PRN PRN Reason: Fever >100.4 F Last Admin: 10/14/17 15:55 Dose: 650 mg Albuterol Sulfate (Albuterol 0.083% Inhal Tosha (2.5 Mg/3 Ml) Ud) 2.5 mg IH Q4H PRN PRN Reason: Shortness of Breath Last Admin: 10/16/17 23:56 Dose: 2.5 mg Amlodipine Besylate (Norvasc) 5 mg PO DAILY [facility] Last Admin: 10/17/17 09:16 Dose: 5 mg Aspirin (Ecotrin) 81 mg PO DAILY [facility] Last Admin: 10/17/17 09:13 Dose: 81 mg Atorvastatin Calcium (Lipitor) 80 mg PO DAILY [facility] Last Admin: 10/17/17 09:13 Dose: 80 mg Brimonidine Tartrate (Alphagan 0.2% Opht) 1 drop OD BID [facility] Last Admin: 10/17/17 09:20 Dose: 1 drop Clopidogrel Bisulfate (Plavix) 75 mg PO DAILY [facility] Last Admin: 10/17/17 09:13 Dose: 75 mg Docusate Sodium (Colace) 100 mg PO BID PRN PRN Reason: Constipation Last Admin: 10/16/17 09:44 Dose: 100 mg Gabapentin (Neurontin) 100 mg PO BID [facility] Last Admin: 10/17/17 09:18 Dose: 100 mg Heparin Sodium (Porcine) (Heparin) 5,000 units SC Q12 [facility] PRN Reason: Protocol Last Admin: 10/17/17 09:09 Dose: 5,000 units Home Med (Azelastine Hcl [Astepro]) 1 spray SUSANA BID PRN PRN Reason: Allergy symptoms Ceftriaxone Sodium 1 gm/ (Sodium Chloride) 50 mls @ 50 mls/hr IVPB DAILY [facility] PRN Reason: Protocol Last Admin: 10/17/17 09:15 Dose: 50 mls/hr Insulin Detemir (Levemir) 46 units SC HS [facility] Last Admin: 10/16/17 21:35 Dose: 46 units Insulin Human Lispro (Humalog) 0 units SC ACHS [facility] PRN Reason: Protocol Last Admin: 10/17/17 07:00 Dose: Not Given Insulin Human Lispro (Humalog) 16 units SC AC [facility] Last Admin: 10/17/17 09:03 Dose: 16 units Lorazepam (Ativan) 0.5 mg PO HS PRN PRN Reason: Anxiety Last Admin: 10/16/17 21:45 Dose: 0.5 mg Oseltamivir Phosphate (Tamiflu Cap) 75 mg PO BID [facility] PRN Reason: Protocol Last Admin: 10/17/17 09:14 Dose: 75 mg Pantoprazole Sodium (Protonix Ec Tab) 40 mg PO DAILY [facility] Last Admin: 10/17/17 09:13 Dose: 40 mg Fluticasone/Salmeterol (Advair Diskus 100/50) 1 puff IH Q12 [facility] Last Admin: 10/17/17 09:20 Dose: 1 puff Terbutaline Sulfate (Brethine Tab) 2.5 mg PO HS [facility] Last Admin: 10/16/17 21:35 Dose: 2.5 mg Timolol Maleate (Timoptic 0.5% Ophth Soln) 1 drop OD BID [facility] Last Admin: 10/17/17 09:16 Dose: 1 drop - Labs Labs: 10/15/17 05:47 10/17/17 07:00 PT 11.3 Seconds (9.8-13.1) 10/11/17 09:39 INR 1.0 (0.9-1.2) 10/11/17 09:39 APTT 28.6 Seconds (25.6-37.1) 10/11/17 09:39 - Constitutional Appears: Chronically Ill - Head Exam Head Exam: NORMAL INSPECTION, NORMOCEPHALIC - Eye Exam Eye Exam: 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 absent: Meningismus - Respiratory Exam Respiratory Exam: NORMAL BREATHING PATTERN. absent: Respiratory Distress - Cardiovascular Exam Cardiovascular Exam: REGULAR RHYTHM, +S1, +S2 - GI/Abdominal Exam GI & Abdominal Exam: Soft, Normal Bowel Sounds. absent: Tenderness - Extremities Exam Extremities Exam: Normal Capillary Refill. 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 Had Asthma exacerbation while in [place] over a month ago. Was put on 5 days of Prednisone, Breo and Combivent in addition to her usual dose of Terbutaline. Condition improved. Had similar episode of dizziness and falling while in [place] but never sought consultation. Flu symptoms since day of admission. 1. Acute CVA - temporo-occipital/bilat cerebellar MRI of head 10/12: acute/subacute infarction of the left temporo-occipital and bilateral cerebellar; chronic right MCA infarct continue Atorvastatin and Plavix Neurology following pt PT evaluation and management- rec Acute Rehab Passed swallow eval add ASA as rec by DR Dey Plan for acute rehab in am 2. Influenza A - started Tamiflu - CXR 10/14: no acute infiltrate - may likely be off Isolation in am - will complete Tamiflu tx 3. UTI - Urine c/s: pending - cont IV Ceftriaxone 4 . HTN BP controlled by Norvasc 5mg daily 5. DM Type II, uncontrolled BS uncontrolled HgA1C: 10.4 Endocrinology was consulted and following pt : Dr Gregory Increased Levemir 44 units SC HS cont Lispro per protocol with Accparam ACHS 6. Asthma, mild persistent cont Terbutaline, Duoneb start Advair off Prednisone Albuterol prn 7 NELSON on CKD stage III sec to DM/HTN Nephropathy Nephrology consulted - discussed case with Dr Brenner 10/17 Remal sonogram DVT proph Heparin
--- NOTE | 2017-10-17 14:38 | CP.PCM.CON ---
History of Present Illness - History of Present Illness History of Present Illness: Initial Nephrology Consultation: Assessment: Stable Acute Kidney Injury (N17.9) etiology unclear possible pre-renal but stable for now Diabetic chronic Kidney Disease (E11.22) Hypertensive Chronic Kidney Disease (I12.9) Chronic Kidney Disease (N18.3) Stage 3 with ? mg proteinuria (R80.9) likely due to DM CVA Plan No acute need for renal replacement therapy at this time. Hypertension control with meds as ordered. Patient not on ACEI/ARB due to NELSON but consider soon once stable renal function Monitor Input/Output, daily weights and renal function with basic metabolic panel Check urine analysis, spot protein/creatinine and albumin/creatinine ratio, renal sonogram. Check for 25-OH vitamin D, iPTH Dose meds/antibiotics for reduced GFR. Avoid fleets enema/magnesium based laxatives. Avoid nephrotoxins/NSAIDs/ iodinated contrast (unless needed emergently) Glycemic control Further work up/management as per primary team Thanks for allowing me to participate in care of your patient. Will follow patient with you. Please call if any Qs. d/w team Dr Carlton Brenner Office: [phone] Chief Complaint; none HPI: Pt is a 72 F with hx of diabetes Mellitus ( 20 years), hypertension (years ) presented with complaints of weakness and being managed for Acute CVA, Influenza. renal consult for elevated cr management. pt also with baseline CKD 3 as with cr 1.1 (GFR 50-60) with 3+ proteinuria she is not aware about kidney disease in past. feels well at this time. no specific complaints Denies OTC/herbal meds or NSAIDs No recent iodinated contrast exposure. No obvious episodes of low BP. ROS: Cardiovascular: No chest pain. Pulmonary: No shortness of breath Gastrointestinal: denies abdominal pain No nausea. No vomiting. Genitourinary: No pain while urinating. Denies blood in urine. All other negative Physical Examination: General Appearance: Comfortable, in no acute respiratory distress, co-operative . Vitals reviewed and noted as below Head; Atraumatic, normocephalic ENT: no ulcers no thrush. Tongue is midline. Oropharynx: no rash or ulcers. she is hard of hearing EYES: Pupils are equal, round and reactive to light accommodation. Eye muscles and extraocular movement intact. Sclera is anicteric. Neck; supple no lymphadenopathy, no thyromegaly or bruit Lungs: Normal respiratory rate/effort. Breath sounds bilateral equal and clear except occasional left basal crackles Heart: Normal rate. s1s2 normal. No rub or gallop. Extremities: no edema. No varicose veins Neurological: Patient is alert, awake and oriented to person, place and time. No focal deficit. Strength bilateral appropriate and equal Skin: Warm and dry. Normal turgor. No rash. Palpitation: Normal elasticity for age Abdomen: Abdomen is soft. Bowel sounds +. There is no abdominal tenderness, no guarding/rigidity no organomegaly Psych: normal insight and normal affect/mood MSK: no joint tenderness or swelling. Digits and nails normal, no deformity : kidney or bladder not palpable Labs/imaging reviewed. Past medical history, past surgical history, family history, social history, allergy reviewed and noted as below Family hx: no hx of CKD. Rest non-contributory UA: 3+ protein Past Patient History - Tetanus Immunizations Tetanus Immunization: Unknown - Past Medical History & Family History Past Medical History?: Yes Past Family History: Reviewed and not pertinent - Past Social History Smoking Status: Former Smoker Alcohol: None Home Situation {Lives}: Roommate Domestic Violence: Negative - CARDIAC Hx Hypercholesterolemia: Yes Hx Hypertension: Yes - PULMONARY Hx Asthma: Yes - NEUROLOGICAL HX Cerebrovascular Accident: Yes Hx Seizures: Yes - HEENT Hx HEENT Problems: Yes Hx Glaucoma: Yes (right eye) - RENAL Hx Chronic Kidney Disease: No - ENDOCRINE/METABOLIC Hx Diabetes Mellitus Type 2: Yes - HEMATOLOGICAL/ONCOLOGICAL Hx Human Immunodeficiency Virus (HIV): No - INTEGUMENTARY Hx Dermatological Problems: No - MUSCULOSKELETAL/RHEUMATOLOGICAL Hx Musculoskeletal Disorders: No Hx Falls: No - GASTROINTESTINAL Hx Gastrointestinal Disorders: No - GENITOURINARY/GYNECOLOGICAL Hx Genitourinary Disorders: No - PSYCHIATRIC Hx Depression: Yes Hx Post Traumatic Stress Disorder: Yes - SURGICAL HISTORY Hx Cholecystectomy: Yes Hx Tonsillectomy: Yes Other/Comment: surgical resection of right temporal tumor - ANESTHESIA Hx Anesthesia: Yes Hx Anesthesia Reactions: No Meds Allergies/Adverse Reactions: Allergies Allergy/AdvReac Type Severity Reaction Status Date / Time levofloxacin [From Levaquin] Allergy convulsions Verified 03/15/16 13:04 Macrolide Antibiotics Allergy convulsions Verified 03/15/16 12:19 aspirin AdvReac bleedin Verified 03/15/16 12:19 - Medications Medications: Current Medications Acetaminophen (Tylenol 325mg Tab) 650 mg PO Q6 PRN PRN Reason: Fever >100.4 F Last Admin: 10/14/17 15:55 Dose: 650 mg Albuterol Sulfate (Albuterol 0.083% Inhal Tosha (2.5 Mg/3 Ml) Ud) 2.5 mg IH Q4H PRN PRN Reason: Shortness of Breath Last Admin: 10/16/17 23:56 Dose: 2.5 mg Amlodipine Besylate (Norvasc) 5 mg PO DAILY [facility] Last Admin: 10/17/17 09:16 Dose: 5 mg Aspirin (Ecotrin) 81 mg PO DAILY [facility] Last Admin: 10/17/17 09:13 Dose: 81 mg Atorvastatin Calcium (Lipitor) 80 mg PO DAILY [facility] Last Admin: 10/17/17 09:13 Dose: 80 mg Brimonidine Tartrate (Alphagan 0.2% Opht) 1 drop OD BID [facility] Last Admin: 10/17/17 09:20 Dose: 1 drop Clopidogrel Bisulfate (Plavix) 75 mg PO DAILY [facility] Last Admin: 10/17/17 09:13 Dose: 75 mg Docusate Sodium (Colace) 100 mg PO BID PRN PRN Reason: Constipation Last Admin: 10/16/17 09:44 Dose: 100 mg Gabapentin (Neurontin) 100 mg PO BID [facility] Last Admin: 10/17/17 09:18 Dose: 100 mg Heparin Sodium (Porcine) (Heparin) 5,000 units SC Q12 [facility] PRN Reason: Protocol Last Admin: 10/17/17 09:09 Dose: 5,000 units Home Med (Azelastine Hcl [Astepro]) 1 spray SUSANA BID PRN PRN Reason: Allergy symptoms Ceftriaxone Sodium 1 gm/ (Sodium Chloride) 50 mls @ 50 mls/hr IVPB DAILY [facility] PRN Reason: Protocol Last Admin: 10/17/17 09:15 Dose: 50 mls/hr Insulin Detemir (Levemir) [address] [facility] Last Admin: 10/16/17 21:35 Dose: 46 units Insulin Human Lispro (Humalog) 0 units SC ACHS [facility] PRN Reason: Protocol Last Admin: 10/17/17 07:00 Dose: Not Given Insulin Human Lispro (Humalog) 16 units SC AC [facility] Last Admin: 10/17/17 09:03 Dose: 16 units Lorazepam (Ativan) 0.5 mg PO HS PRN PRN Reason: Anxiety Last Admin: 10/16/17 21:45 Dose: 0.5 mg Oseltamivir Phosphate (Tamiflu Cap) 75 mg PO BID [facility] PRN Reason: Protocol Last Admin: 10/17/17 09:14 Dose: 75 mg Pantoprazole Sodium (Protonix Ec Tab) 40 mg PO DAILY [facility] Last Admin: 10/17/17 09:13 Dose: 40 mg Fluticasone/Salmeterol (Advair Diskus 100/50) 1 puff IH Q12 [facility] Last Admin: 10/17/17 09:20 Dose: 1 puff Terbutaline Sulfate (Brethine Tab) 2.5 mg PO HS [facility] Last Admin: 10/16/17 21:35 Dose: 2.5 mg Timolol Maleate (Timoptic 0.5% Ophth Soln) 1 drop OD BID [facility] Last Admin: 10/17/17 09:16 Dose: 1 drop Results - Vital Signs Recent Vital Signs: Last Vital Signs Temp 98.3 F 10/17/17 12:23 Pulse 68 10/17/17 12:23 Resp 18 10/17/17 12:23 BP 120/63 10/17/17 12:23 Pulse Ox 95 10/17/17 12:23 - Labs Result Diagrams: 10/15/17 05:47 10/17/17 07:00 Labs: Laboratory Results - last 24 hr 10/16/17 10/16/17 10/17/17 16:03 21:33 05:39 Sodium Potassium Chloride Carbon Dioxide Anion Gap BUN Creatinine Est GFR ( Amer) Est GFR (Non-Af Amer) POC Glucose (mg/dL) 114 H 293 H 245 H Random Glucose Calcium 10/17/17 10/17/17 07:00 11:37 Sodium 140 Potassium 4.0 Chloride 106 Carbon Dioxide 24 Anion Gap 14 BUN 27 H Creatinine 1.5 H Est GFR ( Amer) 42 Est GFR (Non-Af Amer) 34 POC Glucose (mg/dL) 166 H Random Glucose 197 H Calcium 8.3 L
[2017-10-17] MEDS ORDERED: Sodium Chloride 0.9% 1,000 ML IV SCH (14:45)
--- NOTE | 2017-10-17 15:50 | US ---
PROCEDURE: Urinary bladder ultrasound dated 10/17/2017 HISTORY: NELSON COMPARISON: Correlation made with renal ultrasound 10/17/2017 TECHNIQUE: Transabdominal sonographic evaluation of the urinary bladder performed. Note that the examination is limited ; technologist notation indicates incontinence. FINDINGS: Prevoid urinary bladder volume calculated at 78 cc and postvoid at 22 cc. . No obvious intraluminal urinary bladder calculi. Evaluation for endoluminal mass is limited due to incomplete distention IMPRESSION: Limited study due to patient's incontinence. Prevoid volume calculated at 78 cc and postvoid calculated at 22 cc
--- NOTE | 2017-10-17 15:51 | US ---
PROCEDURE: Ultrasound of the Kidneys HISTORY: NELSON COMPARISON: Comparison made with CT scan abdomen and pelvis dated 12/27/2015. TECHNIQUE: Sonogram of the kidneys. FINDINGS: RIGHT KIDNEY: Right kidney measures approximately 10.3 x 4.7 x 5.7 cm. Normal in size, contour and echogenicity. No stone, solid mass lesion or hydronephrosis visualized. LEFT KIDNEY: Left kidney measures approximate 9.9 x 5.3 x 4.2 cm. Normal in size, contour and echogenicity. No stone, solid mass lesion or hydronephrosis visualized. OTHER FINDINGS: None. IMPRESSION: Unremarkable renal sonogram.
[2017-10-17 22:05] LABS: SQUAMOUS EPITHIAL 1 /hpf (0-5); URINE BACTERIA RARE (<OCC); URINE BILIRUBIN NEGATIVE (NEGATIVE); URINE BLOOD NEGATIVE (NEGATIVE); URINE CLARITY SLIGHTY-CLOUDY (Clear); URINE COLOR YELLOW (YELLOW); URINE GLUCOSE (UA) 50 mg/dL (Normal); URINE LEUKOCYTE ESTERASE NEG Leu/uL (Negative); URINE NITRATE NEGATIVE (NEGATIVE); URINE PROTEIN 100 mg/dL (NEGATIVE); URINE UROBILINOGEN 0.2-1.0 mg/dL (0.2-1.0)
[2017-10-17] MEDS: Insulin Detemir 100 Units/ml Inj SC SCH (22:29)
[2017-10-17] MEDS: Albuterol 0.083% Inhal Sol (2.5 mg/3 mL) UD IH PRN (23:26)
[2017-10-18 06:26] LABS: ALB/GLOB RATIO 0.9 (1.0-2.1); ALBUMIN 2.9 g/dL (3.5-5.0); CALCIUM 8.3 mg/dL (8.4-10.2)
[2017-10-18] MEDS: Insulin Lispro (humaLOG) 100 Units/ml Inj SC SCH ×4 (07:16→14:06)
[2017-10-18 08:06] VITALS: RESP 18
--- NOTE | 2017-10-18 08:14 | CP.PCM.PN ---
Subjective - Date & Time of Evaluation Date of Evaluation: 10/18/17 Time of Evaluation: 08:12 - Subjective Subjective: Patient is awake and conscious Feeling much better no Nausea or vomiting or chest pain Objective - Vital Signs/Intake and Output Vital Signs (last 24 hours): Temp Pulse Resp BP Pulse Ox 98.1 F 65 18 132/68 100 10/18/17 08:06 10/18/17 08:06 10/18/17 08:06 10/18/17 08:06 10/18/17 08:06 - Medications Medications: Current Medications Acetaminophen (Tylenol 325mg Tab) 650 mg PO Q6 PRN PRN Reason: Fever >100.4 F Last Admin: 10/14/17 15:55 Dose: 650 mg Albuterol Sulfate (Albuterol 0.083% Inhal Tosha (2.5 Mg/3 Ml) Ud) 2.5 mg IH Q4H PRN PRN Reason: Shortness of Breath Last Admin: 10/17/17 23:26 Dose: 2.5 mg Amlodipine Besylate (Norvasc) 5 mg PO DAILY [facility] Last Admin: 10/17/17 09:16 Dose: 5 mg Aspirin (Ecotrin) 81 mg PO DAILY [facility] Last Admin: 10/17/17 09:13 Dose: 81 mg Atorvastatin Calcium (Lipitor) 80 mg PO DAILY [facility] Last Admin: 10/17/17 09:13 Dose: 80 mg Brimonidine Tartrate (Alphagan 0.2% Opht) 1 drop OD BID [facility] Last Admin: 10/17/17 18:09 Dose: 1 drop Clopidogrel Bisulfate (Plavix) 75 mg PO DAILY [facility] Last Admin: 10/17/17 09:13 Dose: 75 mg Docusate Sodium (Colace) 100 mg PO BID PRN PRN Reason: Constipation Last Admin: 10/16/17 09:44 Dose: 100 mg Gabapentin (Neurontin) 100 mg PO BID [facility] Last Admin: 10/17/17 18:07 Dose: 100 mg Heparin Sodium (Porcine) (Heparin) 5,000 units SC Q12 [facility] PRN Reason: Protocol Last Admin: 10/17/17 22:28 Dose: 5,000 units Home Med (Azelastine Hcl [Astepro]) 1 spray SUSANA BID PRN PRN Reason: Allergy symptoms Ceftriaxone Sodium 1 gm/ (Sodium Chloride) 50 mls @ 50 mls/hr IVPB DAILY [facility] PRN Reason: Protocol Last Admin: 10/17/17 09:15 Dose: 50 mls/hr Sodium Chloride (Sodium Chloride 0.9%) 1,000 mls @ 50 mls/hr IV .Q20H [facility] Stop: 10/18/17 14:46 Last Admin: 10/17/17 18:05 Dose: 50 mls/hr Insulin Detemir (Levemir) 46 units SC HS [facility] Last Admin: 10/17/17 22:29 Dose: 46 units Insulin Human Lispro (Humalog) 0 units SC ACHS [facility] PRN Reason: Protocol Last Admin: 10/18/17 07:16 Dose: Not Given Insulin Human Lispro (Humalog) 16 units SC AC [facility] Last Admin: 10/17/17 18:07 Dose: 16 units Lorazepam (Ativan) 0.5 mg PO HS PRN PRN Reason: Anxiety Last Admin: 10/16/17 21:45 Dose: 0.5 mg Oseltamivir Phosphate (Tamiflu Cap) 75 mg PO BID [facility] PRN Reason: Protocol Last Admin: 10/17/17 18:06 Dose: 75 mg Pantoprazole Sodium (Protonix Ec Tab) 40 mg PO DAILY [facility] Last Admin: 10/17/17 09:13 Dose: 40 mg Fluticasone/Salmeterol (Advair Diskus 100/50) 1 puff IH Q12 [facility] Last Admin: 10/17/17 22:29 Dose: 1 puff Terbutaline Sulfate (Brethine Tab) 2.5 mg PO HS [facility] Last Admin: 10/17/17 22:29 Dose: 2.5 mg Timolol Maleate (Timoptic 0.5% Ophth Soln) 1 drop OD BID [facility] Last Admin: 10/17/17 18:10 Dose: 1 drop - Labs Labs: 10/15/17 05:47 10/18/17 04:30 PT 11.3 Seconds (9.8-13.1) 10/11/17 09:39 INR 1.0 (0.9-1.2) 10/11/17 09:39 APTT 28.6 Seconds (25.6-37.1) 10/11/17 09:39 - Constitutional Appears: No Acute Distress - ENT Exam ENT Exam: Mucous Membranes Moist - Respiratory Exam Respiratory Exam: NORMAL BREATHING PATTERN. absent: Rales - Cardiovascular Exam Cardiovascular Exam: absent: JVD, Rubs - GI/Abdominal Exam GI & Abdominal Exam: Soft, Normal Bowel Sounds - Extremities Exam Extremities Exam: absent: Calf Tenderness - Back Exam Back Exam: absent: CVA tenderness (L), CVA tenderness (R) - Neurological Exam Neurological Exam: Alert - Psychiatric Exam Psychiatric exam: Normal Affect Assessment and Plan (1) Acute kidney injury Assessment & Plan: Patient may have acute kidney injury however serum creatinine is still around 1.5 Although it's possible the patient also has underlying chronic kidney disease stage III perhaps related to diabetic nephropathy? 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 Had Asthma exacerbation while in [place] over a month ago. Was put on 5 days of Prednisone, Breo and Combivent in addition to her usual dose of Terbutaline. Condition improved. Had similar episode of dizziness and falling while in [place] but never sought consultation. Flu symptoms since day of admission. 1. Acute CVA - temporo-occipital/bilat cerebellar MRI of head 10/12: acute/subacute infarction of the left temporo-occipital and bilateral cerebellar; chronic right MCA infarct continue Atorvastatin and Plavix Neurology following pt PT evaluation and management- rec Acute Rehab Passed swallow eval add ASA as rec by DR Dey Plan for acute rehab in am 2. Influenza A - started Tamiflu - CXR 10/14: no acute infiltrate - may likely be off Isolation in am - will complete Tamiflu tx Status: Acute
--- NOTE | 2017-10-18 08:31 | PN ---
ENDOCRINOLOGY FOLLOWUP NOTE LOCATION: Room 411. HISTORY OF PRESENT ILLNESS: This is a 72-year-old female with recent uncontrolled type 2 insulin-requiring diabetes, now being followed closely for metabolic management. Her glycemic levels are fluctuating, but much improved at this time, and the latest glucose levels have ranged from 245 to 293 mg/dL. The latest chemistry showed a BUN of 27, sodium 140, potassium 4.0, chloride 106, CO2 of 24, glucose 197 and creatinine 1.5. So, at this time, we will continue the same basal and bolus insulin regimen to allow for dose equilibration and keep her on the Levemir given as 46 units subcutaneous at bedtime daily as given. We will continue the Humalog given as 16 units subcutaneous t.i.d. before meals as ordered. We will titrate incrementally as indicated to optimize metabolic control. We will obtain serial chemistries and supplement accordingly as needed. We will follow. Melisa Gregory MD
[2017-10-18] MEDS: Fluticasone-Salmeterol 100-50mcg Diskus IH SCH (08:36)
[2017-10-18] MEDS: Pantoprazole 40 mg EC Tab PO SCH (08:40)
[2017-10-18] MEDS: Brimonidine 0.2% 50 DROP/5 ML BOTTLE OD SCH (12:32)
[2017-10-18 12:50] VITALS: BP 122/66; PULSE 60; TEMP 98; O2SAT 98
--- NOTE | 2017-10-18 16:05 | CP.PCM.DIS ---
Provider - Provider Date of Admission: 10/11/17 11:23 Attending physician: Tristan Aponte MD Primary care physician: None Consults: neurology consult endo consult nephrology PT/OT Time Spent in preparation of Discharge (in minutes): 15 Hospital Course - Lab Results Lab Results: Micro Results 10/14/17 05:00 Blood-Venous Blood Culture - Preliminary NO GROWTH AFTER 4 DAYS 10/14/17 05:00 Blood-Venous Blood Culture - Preliminary NO GROWTH AFTER 4 DAYS Most Recent Lab Values WBC 7.4 K/uL (4.8-10.8) 10/15/17 05:47 RBC 4.41 Mil/uL (3.80-5.20) 10/15/17 05:47 Hgb 12.6 g/dL (12.0-16.0) 10/15/17 05:47 Hct 38.4 % (34.0-47.0) 10/15/17 05:47 MCV 87.2 fl (81.0-99.0) 10/15/17 05:47 MCH 28.5 pg (27.0-31.0) 10/15/17 05:47 MCHC 32.7 g/dL (33.0-37.0) L 10/15/17 05:47 RDW 14.1 % (11.5-14.5) 10/15/17 05:47 Plt Count 231 K/uL (130-400) 10/15/17 05:47 MPV 9.7 fl (7.2-11.7) 10/12/17 05:10 Neut % (Auto) 52.0 % (50.0-75.0) 10/12/17 05:10 Lymph % (Auto) 32.3 % (20.0-40.0) 10/12/17 05:10 Snyder % (Auto) 9.2 % (0.0-10.0) 10/12/17 05:10 Eos % (Auto) 3.7 % (0.0-4.0) 10/12/17 05:10 Baso % (Auto) 2.8 % (0.0-2.0) H 10/12/17 05:10 Neut # 3.9 K/uL (1.8-7.0) 10/12/17 05:10 Lymph # 2.4 K/uL (1.0-4.3) 10/12/17 05:10 Snyder # 0.7 K/uL (0.0-0.8) 10/12/17 05:10 Eos # 0.3 K/uL (0.0-0.7) 10/12/17 05:10 Baso # 0.2 K/uL (0.0-0.2) 10/12/17 05:10 PT 11.3 Seconds (9.8-13.1) 10/11/17 09:39 INR 1.0 (0.9-1.2) 10/11/17 09:39 APTT 28.6 Seconds (25.6-37.1) 10/11/17 09:39 Sodium 139 mmol/l (132-148) 10/18/17 04:30 Potassium 4.3 MMOL/L (3.6-5.0) 10/18/17 04:30 Chloride 107 mmol/L (98-107) 10/18/17 04:30 Carbon Dioxide 21 mmol/L (22-30) L 10/18/17 04:30 Anion Gap 15 (10-20) 10/18/17 04:30 BUN 23 mg/dl (7-17) H 10/18/17 04:30 Creatinine 1.5 mg/dl (0.7-1.2) H 10/18/17 04:30 Est GFR ( Amer) 42 10/18/17 04:30 Est GFR (Non-Af Amer) 34 10/18/17 04:30 POC Glucose (mg/dL) 97 mg/dL (65-110) 10/18/17 11:36 Random Glucose 252 mg/dL (65-105) H 10/18/17 04:30 Hemoglobin A1c 10.4 % (4.2-6.5) H D 10/12/17 05:10 Calcium 8.3 mg/dL (8.4-10.2) L 10/18/17 04:30 Total Bilirubin 0.2 mg/dl (0.2-1.3) 10/18/17 04:30 AST 29 U/L (14-36) 10/18/17 04:30 ALT 29 U/L (9-52) 10/18/17 04:30 Alkaline Phosphatase 78 U/L (38-126) 10/18/17 04:30 Troponin I 0.0940 ng/mL (0.00-0.120) 10/12/17 01:57 Total Protein 6.2 G/DL (6.3-8.2) L 10/18/17 04:30 Albumin 2.9 g/dL (3.5-5.0) L 10/18/17 04:30 Globulin 3.2 gm/dL (2.2-3.9) 10/18/17 04:30 Albumin/Globulin Ratio 0.9 (1.0-2.1) L 10/18/17 04:30 Triglycerides 521 mg/DL (0-149) H D 10/12/17 05:10 Cholesterol 297 mg/dL (0-199) H 10/12/17 05:10 LDL Cholesterol Direct 195 mg/dL (0-129) H 10/12/17 05:10 HDL Cholesterol 33 MG/DL (30-70) 10/12/17 05:10 TSH 3rd Generation 2.30 mIU/ML (0.46-4.68) 10/12/17 05:10 Urine Color Yellow (YELLOW) 10/17/17 21: Urine Clarity Slighty-cloudy (Clear) 10/17/17 21: Urine pH 5.0 (5.0-8.0) 10/17/17 21: Ur Specific [place] 1.015 (1.003-1.030) 10/17/17 21: Urine Protein 100 mg/dL (NEGATIVE) 10/17/17 21: Urine Glucose (UA) 50 mg/dL (Normal) 10/17/17 21: Urine Ketones Negative mg/dL (NEGATIVE) 10/17/17 21: Urine Blood Negative (NEGATIVE) 10/17/17 21: Urine Nitrate Negative (NEGATIVE) 10/17/17 21: Urine Bilirubin Negative (NEGATIVE) 10/17/17 21: Urine Urobilinogen 0.2-1.0 mg/dL (0.2-1.0) 10/17/17 21: Ur Leukocyte Esterase Neg Cristi/uL (Negative) 10/17/17 21:27 Urine RBC (Auto) 1 /hpf (0-3) 10/17/17 21: Urine Microscopic WBC 2 /hpf (0-5) 10/17/17 21:27 Ur Squamous Epith Cells 1 /hpf (0-5) 10/17/17 21:27 Urine Bacteria Rare (<OCC) 10/17/17 21:27 Hyaline Casts 0-2 /hpf (0-2) 10/14/17 15:00 Influenza Typ A,B (EIA) Pos for influenza a (NEGATIVE) H 10/14/17 15:00 - Hospital Course Hospital Course: 72 yo female with history of DM2, Asthma, HTN, Seizure, previous CVA and 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 Had Asthma exacerbation while in [place] over a month ago and was put on 5 days of Prednisone, Breo and Combivent in addition to her usual dose of Terbutaline. MRI of the head this admission showed acute/ subacute ischemic stroke on the left temporo- occipital and billateral cerebellar areas. Patient was admitted in telemetry, neuro was consulted and was started on ASA, statin , glycemic and BP control. She also started having fever episodes as well as body aches . Influenza test was reported positive for Influenza and she was started on tamiflu pO and finished treatment for 5 days. During this admission discharge rn and endo were also consulted to help with management of NELSON and diabetic control. At present patient is hemodynamically stable and will be transferred to acute rehab for physical therapy Hospitalist team will continue to monitor patient while in acute rehab . 1. Acute CVA - temporo-occipital/bilat cerebellar MRI of head 10/12: acute/subacute infarction of the left temporo-occipital and bilateral cerebellar; chronic right MCA infarct continue Atorvastatin , ASA and Plavix Neurology was consulted will transfer to acute rehab for PT 2. Influenza A received Tamiflu for 5 day s CXR 10/14: no acute infiltrate 3.Suspected UTI received IV Ceftriaxone for 5 days 4 . HTN BP controlled by Norvasc 5mg daily 5. DM Type II, uncontrolled HgA1C: 10.4 [address]ocr[address] was [address] Dr Colt Hong Levemir 44 units SC HS, Humalog 16 units TID Continue Accuchek ACHS 6. Asthma, mild persistent cont Terbutaline, Duoneb,Advair 7 NELSON on CKD stage III sec to DM/HTN Nephropathy Nephrology consulted Renal sonogram -normal 8. DVT proph Heparin Discharge Exam - Head Exam Head Exam: ATRAUMATIC, NORMAL INSPECTION, NORMOCEPHALIC - Eye Exam Eye Exam: EOMI, Normal appearance, PERRL Pupil Exam: NORMAL ACCOMODATION - ENT Exam ENT Exam: Mucous Membranes Moist, Normal Exam - Neck Exam Neck exam: Full Rom, Normal Inspection - Respiratory Exam Respiratory Exam: Clear to PA & Lateral, NORMAL BREATHING PATTERN. absent: Rales, Rhonchi, Wheezes - Cardiovascular Exam Cardiovascular Exam: REGULAR RHYTHM, RRR, +S1, +S2. absent: JVD - GI/Abdominal Exam GI & Abdominal Exam: Normal Bowel Sounds, Soft. absent: Distended, Guarding, Rebound, Tenderness - Rectal Exam Rectal Exam: Deferred - Extremities Exam Extremities exam: normal capillary refill, normal inspection, pedal pulses present - Back Exam Back exam: NORMAL INSPECTION - Neurological Exam Neurological exam: Alert, CN II-XII Intact, Oriented x3 Additional comments: unsteady gait - Psychiatric Exam Psychiatric exam: Normal Affect, Normal Mood - Skin Skin Exam: Dry, Intact, Normal Color, Warm Discharge Plan - Follow Up Plan Condition: STABLE Disposition: REHAB FACILITY/REHAB UNIT Patient education suggested?: Yes Instructions: Stroke (DC) Additional Instructions: Follow up with hospitalist team Clinical Quality Measures - CQM - Stroke Statin prescribed: Yes
--- NOTE | 2017-10-19 04:07 | PN ---
DATE: ENDOCRINOLOGY FOLLOWUP NOTE LOCATION: Room 407. SUBJECTIVE: This is a 72-year-old female with recent uncontrolled type-2 insulin-requiring diabetes, now being followed closely for metabolic management. Her glycemic levels are fluctuating, but much improved at this time; and the latest glucose levels have ranged from 97-143 and 246 mg/dL. OBJECTIVE: Her latest chemistry showed a BUN of 23, sodium 139, potassium 4.3, chloride 107, CO2 21, glucose 252, and creatinine 1.5. ASSESSMENT AND PLAN: So at this time, we will continue the same basal and bolus insulin regimen as given with Levemir given as 46 units subcu at bedtime daily as ordered. We will continue the Humalog given as 16 units subcu t.i.d. before meals as ordered. We will titrate incrementally as indicated to optimize metabolic control. We will follow and advise accordingly. Melisa Gregory MD
== END 2017-10-18 13:37 | DRG 65 ==
LOC: H.ER 08:31 → H.ERHOLD 11:23 → H.TEL 12:54
PROC: 3E0F7GC Introduction of Other Therapeutic Substance into Respiratory Tract, Via Natural or Artificial Opening (ICD-10-PCS; principal; 2017-10-12)
DX: I63.511 Cerebral infarction due to unspecified occlusion or stenosis of right middle cerebral artery (principal); J45.31 Mild persistent asthma with (acute) exacerbation; N17.9 Acute kidney failure, unspecified; E11.22 Type 2 diabetes mellitus with diabetic chronic kidney disease; E11.42 Type 2 diabetes mellitus with diabetic polyneuropathy; E11.319 Type 2 diabetes mellitus with unspecified diabetic retinopathy without macular edema; R56.9 Unspecified convulsions; N39.0 Urinary tract infection, site not specified; Z85.72 Personal history of non-Hodgkin lymphomas; E11.649 Type 2 diabetes mellitus with hypoglycemia without coma; E11.65 Type 2 diabetes mellitus with hyperglycemia; E66.09 Other obesity due to excess calories; Z68.29 Body mass index [BMI] 29.0-29.9, adult; E78.00 Pure hypercholesterolemia, unspecified; E78.5 Hyperlipidemia, unspecified; E86.0 Dehydration; F32.9 Major depressive disorder, single episode, unspecified; F43.10 Post-traumatic stress disorder, unspecified; H40.9 Unspecified glaucoma; H54.61 Unqualified visual loss, right eye, normal vision left eye; I13.10 Hypertensive heart and chronic kidney disease without heart failure, with stage 1 through stage 4 chronic kidney disease, or unspecified chronic kidney disease; I25.10 Atherosclerotic heart disease of native coronary artery without angina pectoris; J10.1 Influenza due to other identified influenza virus with other respiratory manifestations; N18.3 Chronic kidney disease, stage 3 (moderate); R29.6 Repeated falls; Z79.02 Long term (current) use of antithrombotics/antiplatelets; Z79.4 Long term (current) use of insulin; Z79.82 Long term (current) use of aspirin; Z79.899 Other long term (current) drug therapy; Z85.841 Personal history of malignant neoplasm of brain; Z87.891 Personal history of nicotine dependence; Z90.49 Acquired absence of other specified parts of digestive tract; Z92.21 Personal history of antineoplastic chemotherapy; Z92.3 Personal history of irradiation; R26.81 Unsteadiness on feet; R27.8 Other lack of coordination; R80.9 Proteinuria, unspecified

== ENCOUNTER 2017-10-18 11:57 | Inpatient (IN) | payer MEDICARE, BC ==
[2017-10-18 12:48] VITALS: BMI 29.8
[2017-10-18] MEDS ORDERED: Patient's Own Med (Azelastine Hcl [Astepro] 1 SPRAY) NAS PRN (15:21)
--- NOTE | 2017-10-18 15:41 | CP.PCM.DIS ---
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 Had Asthma exacerbation while in [place] over a month ago and was put on 5 days of Prednisone, Breo and Combivent in addition to her usual dose of Terbutaline. MRI of the head this admission showed acute/ subacute ischemic stroke on the left temporo- occipital and billateral cerebellar areas. Patient was admitted in telemetry, neuro was consulted and was started on ASA, statin and BP control. She also started having fever episodes as well as body aches . Influenza test was reported positive for Influenza and she was started on tamiflu pO and finished treatment for 5 days. 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 1. Acute CVA - temporo-occipital/bilat cerebellar MRI of head 10/12: acute/subacute infarction of the left temporo-occipital and bilateral cerebellar; chronic right MCA infarct continue Atorvastatin and Plavix Neurology following pt PT evaluation and management- rec Acute Rehab Passed swallow eval add ASA as rec by DR Dey Plan for acute rehab in am 2. Influenza A - started Tamiflu - CXR 10/14: no acute infiltrate - may likely be off Isolation in am - will complete Tamiflu tx 3. UTI - Urine c/s: pending - cont IV Ceftriaxone 4 . HTN BP controlled by Norvasc 5mg daily 5. DM Type II, uncontrolled BS uncontrolled HgA1C: 10.4 Endocrinology was consulted and following pt : Dr Gregory Increased Levemir 44 units SC HS cont Lispro per protocol with Accparam ACHS 6. Asthma, mild persistent cont Terbutaline, Duoneb start Advair off Prednisone Albuterol prn 7 NELSON on CKD stage III sec to DM/HTN Nephropathy Nephrology consulted - discussed case with Dr Brenner 10/17 Remal sonogram DVT proph Heparin Discharge Plan - Follow Up Plan Condition: GOOD Disposition: HOME/ ROUTINE
[2017-10-18] MEDS: Brimonidine 0.2% 50 DROP/5 ML BOTTLE OD SCH (18:02)
[2017-10-18] MEDS: Insulin Lispro (humaLOG) 100 Units/ml Inj SC SCH ×2 (18:03→21:18)
--- NOTE | 2017-10-18 18:58 | PCM.OPOC ---
Physiatry Overall Plan of Care - Overall Plan of Care Estimated Length of Stay in Weeks: 3 Rehab Impairment: Mobility, Gait, Balance, Coordination Etiologic Diagnosis: Cerebrovascular Accident Rehab/Medical Prognosis: Fair - Anticipated Interventions Physical Therapy:: Yes Occupational Therapy:: Yes Speech Therapy:: No Recreational Therapy:: Yes - Therapy Goals Bed Mobility: Supervision Ambulation: Supervision Functional Positional Changes:: Supervision - Discharge Plan Discharge Destination: Home
--- NOTE | 2017-10-18 19:01 | CP.PCM.CON ---
History of Present Illness - History of Present Illness History of Present Illness: Dr Cisneros PMR consultation on Tal Coulter, born 1945 who has been admitted to [facility] for acute inpatient rehabilitation following an admission for left CVA and decrease in function and gait. She has prior visual field cuts on the right. Review of Systems - Constitutional Constitutional: absent: Chills - EENT Eyes: Blurred Vision, Loss of Peripheral Vision (chronic). absent: Change in Vision Ears: absent: Ear Discharge, Ear Pain Nose/Mouth/Throat: absent: Nasal Congestion, Nasal Discharge - Cardiovascular Cardiovascular: absent: Chest Pain - Respiratory Respiratory: Dyspnea on Exertion (chronic). absent: Cough, Hemoptysis - Gastrointestinal Gastrointestinal: absent: Belching, Constipation - Musculoskeletal Musculoskeletal: absent: Back Pain - Integumentary Integumentary: absent: Bleeding Lesions, Wounds - Neurological Neurological: absent: Abnormal Movements, Vertigo - Psychiatric Psychiatric: absent: Depression, Homicidal Ideation Past Patient History - Tetanus Immunizations Tetanus Immunization: Unknown - Past Medical History & Family History Past Medical History?: Yes - Past Social History Smoking Status: Former Smoker Alcohol: None Drugs: Denies Home Situation {Lives}: With Family ([place]) - CARDIAC Hx Hypercholesterolemia: Yes Hx Hypertension: Yes - PULMONARY Hx Asthma: Yes Hx Chronic Obstructive Pulmonary Disease (COPD): Yes - NEUROLOGICAL HX Cerebrovascular Accident: Yes Hx Seizures: Yes - HEENT Hx HEENT Problems: Yes Hx Blind: Yes Hx Glaucoma: Yes (right eye) - RENAL Hx Chronic Kidney Disease: No - ENDOCRINE/METABOLIC Hx Diabetes Mellitus Type 2: Yes - HEMATOLOGICAL/ONCOLOGICAL Hx Human Immunodeficiency Virus (HIV): No - INTEGUMENTARY Hx Dermatological Problems: No - MUSCULOSKELETAL/RHEUMATOLOGICAL Hx Falls: Yes - GASTROINTESTINAL Hx Gastrointestinal Disorders: No - GENITOURINARY/GYNECOLOGICAL Hx Genitourinary Disorders: No - PSYCHIATRIC Hx Substance Use: No - SURGICAL HISTORY Hx Cholecystectomy: Yes Hx Tonsillectomy: Yes Other/Comment: surgical resection of right temporal tumor - ANESTHESIA Hx Anesthesia: Yes Hx Anesthesia Reactions: No Meds Allergies/Adverse Reactions: Allergies Allergy/AdvReac Type Severity Reaction Status Date / Time levofloxacin [From Levaquin] Allergy convulsions Verified 10/18/17 12:47 Macrolide Antibiotics Allergy convulsions Verified 10/18/17 12:47 aspirin AdvReac bleedin Verified 10/18/17 12:47 - Medications Medications: Current Medications Acetaminophen (Tylenol 325mg Tab) 650 mg PO Q6 PRN PRN Reason: Fever >100.4 F Albuterol Sulfate (Albuterol 0.083% Inhal Tosha (2.5 Mg/3 Ml) Ud) 2.5 mg IH Q4H PRN PRN Reason: Shortness of Breath Amlodipine Besylate (Norvasc) 5 mg PO DAILY [facility] Aspirin (Ecotrin) 81 mg PO DAILY [facility] Atorvastatin Calcium (Lipitor) 80 mg PO HS [facility] Brimonidine Tartrate (Alphagan 0.2% Opht) 1 drop OD BID [facility] Last Admin: 10/18/17 18:02 Dose: 1 drop Clopidogrel Bisulfate (Plavix) 75 mg PO DAILY [facility] Docusate Sodium (Colace) 100 mg PO BID PRN PRN Reason: Constipation Gabapentin (Neurontin) 100 mg PO Q12 [facility] Heparin Sodium (Porcine) (Heparin) 5,000 units SC Q12 [facility] PRN Reason: Protocol Insulin Detemir (Levemir) 46 units SC HS [facility] Insulin Human Lispro (Humalog) 16 units SC AC [facility] Last Admin: 10/18/17 18:03 Dose: 16 units Insulin Human Lispro (Humalog) 0 units SC ACHS [facility] PRN Reason: Protocol Lorazepam (Ativan) 0.5 mg PO HS PRN PRN Reason: Anxiety Fluticasone/Salmeterol (Advair Diskus 100/50) 1 puff IH Q12 [facility] Terbutaline Sulfate (Brethine Tab) 2.5 mg PO HS [facility] Timolol Maleate (Timoptic 0.5% Ophth Soln) 1 drop OD BID [facility] Last Admin: 10/18/17 18:03 Dose: 1 drop Physical Exam - Constitutional Appears: Non-toxic, No Acute Distress - Head Exam Head Exam: ATRAUMATIC, NORMAL INSPECTION, NORMOCEPHALIC - Eye Exam Eye Exam: absent: Normal appearance (right eye she holds closed with decrease in lateral visual field) - ENT Exam ENT Exam: Mucous Membranes Moist - Respiratory Exam Respiratory Exam: absent: Decreased Breath Sounds - Cardiovascular Exam Cardiovascular Exam: REGULAR RHYTHM - GI/Abdominal Exam GI & Abdominal Exam: Distended. absent: Firm - Extremities Exam Extremities exam: Negative for: calf tenderness, pedal edema - Neurological Exam Neurological exam: Alert, Oriented x3 - Psychiatric Exam Psychiatric exam: Normal Affect, Normal Mood Results - Vital Signs Recent Vital Signs: Last Vital Signs Temp 96.6 F L 10/18/17 15:31 Pulse 77 10/18/17 15:31 Resp 19 10/18/17 15:31 BP 140/76 10/18/17 15:31 Pulse Ox 100 10/18/17 15:31 - Labs Labs: Laboratory Results - last 24 hr 10/18/17 17:47 POC Glucose (mg/dL) 254 H Assessment & Plan - Assessment and Plan (Free Text) Assessment: Left CVA with a decrease in function and ambulation PT/OT to continue to help increase functional independence Team conference for d/c planning Pain: controlled Vascular: no evidence of DVT GI: No evidence of constipation or diarrhea Patient is an excellent acute rehabilitation candidate and will have focused PT, OT and recreational therapy to help facilitate a safe and appropriate d/c plan impairment code 01.2 incontinent of urine no clear focal strength deficit
[2017-10-18] MEDS: Fluticasone-Salmeterol 100-50mcg Diskus IH SCH (21:15)
[2017-10-18] MEDS: Insulin Detemir 100 Units/ml Inj SC SCH (21:17)
[2017-10-19] MEDS: Albuterol 0.083% Inhal Sol (2.5 mg/3 mL) UD IH PRN (06:04)
[2017-10-19] MEDS: Insulin Lispro (humaLOG) 100 Units/ml Inj SC SCH ×7 (08:49→21:41)
[2017-10-19] MEDS: Fluticasone-Salmeterol 100-50mcg Diskus IH SCH ×2 (08:50→21:39)
[2017-10-19] MEDS: Brimonidine 0.2% 50 DROP/5 ML BOTTLE OD SCH ×2 (08:50→17:37)
--- NOTE | 2017-10-19 13:18 | PSY.TMCNF ---
Nursing - Vital Signs Vital Signs (Last 8 hours): Vital Signs 10/19/17 10/19/17 10/19/17 06:05 08:51 09:08 Temperature 97.7 F Pulse Rate 74 72 71 Respiratory 20 Rate Blood Pressure 146/78 146/78 O2 Sat by Pulse 98 Oximetry 10/19/17 11:01 Temperature 97.7 F Pulse Rate 71 Respiratory 20 Rate Blood Pressure 146/78 O2 Sat by Pulse Oximetry - Precautions: Precautions: Fall Prevention, Seizure - Medications/Other Issues Comment: to follow as per nutrition protocol - Consults Comment: Dr. Cisneros. Dr. Javed - Toileting Toileting: Maximal Assistance - Bladder Management Bladder Pattern: Incontinent Voiding Method: Bedpan Bladder Management: Maximal Assistance Frequency of Accidents: >3 - Bowel Management Bowel Pattern: Incontinent Bowel Management: Maximal Assistance - Transfers Transfers: Maximal Assistance - ADL's ADL's: Maximal Assistance - Pain Management Comments: N/A - Patient/Family Teaching Comments: Pt. needs education on medication and safety precautions - Goals/Time Frame Comments: Until next team conference or discharge home. - Provider Provider: Rowan Stewart RN Physical Therapy - Bed Mobility Bed Mobility: Minimal Assistance - Transfers Wheelchair to Mat: Minimal Assistance Sit to Stand: Minimal Assistance - Ambulation Level of Assistance: Moderate Assistance Distance (ft.): 25 Assistive Devices: Rolling Walker - Stair Negotiation Stairs: Level of Assistance: Not Tested - Standing Balance Static Stand: Minimal Assistance Dynamic Stand: Unable to assess/perform - Pain Pain (assessed during therapy session): 0 - Insight/Carryover Insight/Carryover: Fair - Patient/Family Education Comment: Pt education provided for increased safety awareness and proper techniques during functional mobility training. - Assessment/Plan Assessment: PT IE completed this AM. Ms. Parada presents with impaired BLE strength, seated/standing balance, and endurance resulting in decreased (I) with functional mobility skills. Pt currently requires min A for bed mobility, min A for transfers, mod A for ambulation with RW. Pt will benefit from skilled PT intervention to address deficits, reduce fall risk, and maximize functional independence. Barriers: pts is currently hospitalized at [facility] - Goals Timeframe: 3 weeks Goals: Sit < > supine with supervision. Sit < > stand transfers with RW and supervision. Bed < > chair transfers with supervision. Pt will ambulate 200 ft with RW and supervision. Pt will ascend/descend 7 stairs with handrails and supervision. - Provider Therapist: Vanita Stone PT DPT License Number: [id number] Occupational Therapy - Arousal/Attention/Orientation Patient Orientation: Person, Place - ADL/IADL Self Feeding: Set-up Help Grooming: Set-up Help Bathing-Upper Extremity: Moderate Assistance Bathing-Lower Extremity: Maximum Assistance Dressing-Upper Extremity: Moderate Assistance Dressing-Lower Extremity: Maximum Assistance Comment: patient uses rw and AE - Transfers Wheelchair to Bed Transfers: Minimal Assistance Toilet Transfers: Minimal Assistance - Pain Pain (assessed during therapy session): 0 - Insight/Carryover Insight/Carryover: Fair - Patient/Family Education Comment: Pt education provided for increased safety awareness and proper techniques during functional mobility training. - Assessment/Plan Assessment: PT IE completed this AM. Ms. Parada presents with impaired BLE strength, seated/standing balance, and endurance resulting in decreased (I) with functional mobility skills. Pt currently requires min A for bed mobility, min A for transfers, mod A for ambulation with RW. Pt will benefit from skilled PT intervention to address deficits, reduce fall risk, and maximize functional independence. Barriers: pts is currently hospitalized at [facility] - Goals Timeframe: 3 weeks Goals: Sit < > supine with supervision. Sit < > stand transfers with RW and supervision. Bed < > chair transfers with supervision. Pt will ambulate 200 ft with RW and supervision. Pt will ascend/descend 7 stairs with handrails and supervision. - Provider Therapist: jackelin Speech Therapy - Plan Assessment: PT IE completed this AM. Ms. Parada presents with impaired BLE strength, seated/standing balance, and endurance resulting in decreased (I) with functional mobility skills. Pt currently requires min A for bed mobility, min A for transfers, mod A for ambulation with RW. Pt will benefit from skilled PT intervention to address deficits, reduce fall risk, and maximize functional independence. Barriers: pts is currently hospitalized at [facility] Recreational Therapy - Assessment Assessment/Plan: PT IE completed this AM. Ms. Parada presents with impaired BLE strength, seated/standing balance, and endurance resulting in decreased (I) with functional mobility skills. Pt currently requires min A for bed mobility, min A for transfers, mod A for ambulation with RW. Pt will benefit from skilled PT intervention to address deficits, reduce fall risk, and maximize functional independence. Barriers: pts is currently hospitalized at [facility] Nutrition - Current Diet Current Diet/ Supplement/ Feedings: Moderate consistent CHO heart healthy - Appetite Percent Meal Consumed: 75-100% - Comments Comments: Pt. needs education on medication and safety precautions - Assessment/Goals/Time Frame Assessment/Goals/Time Frame: to follow as per nutrition protocol - Provider Provider: Patricia Bradley RD Case Management - Discharge Plan Discharge Plan: Home with significant other/family Rehabilitation Plan - Treatment Plan Treatment Plan: Physical Therapy, Occupational Therapy, Dietary, Patient/Family Education - Discharge Plan Discharge to: Home, Subacute
--- NOTE | 2017-10-19 13:54 | CP.PCM.PN ---
Subjective - Date & Time of Evaluation Date of Evaluation: 10/19/17 Time of Evaluation: 13:53 - Subjective Subjective: Patient seen in the room tired and not wanting to get up for therapy I discussed with her the need to participate and remain at this high level of care Staff will be getting her OOB. continue current care consider Provigil if this continues Objective - Vital Signs/Intake and Output Vital Signs (last 24 hours): Temp Pulse Resp BP Pulse Ox 97.7 F 71 20 146/78 98 10/19/17 11:01 10/19/17 11:01 10/19/17 11:10/19/17 11:01 10/19/17 09:08 Intake and Output: 10/19/17 10/19/17 06:59 18:59 Intake Total 350 Balance 350 - Medications Medications: Current Medications Acetaminophen (Tylenol 325mg Tab) 650 mg PO Q6 PRN PRN Reason: Fever >100.4 F Albuterol Sulfate (Albuterol 0.083% Inhal Tosha (2.5 Mg/3 Ml) Ud) 2.5 mg IH Q4H PRN PRN Reason: Shortness of Breath Last Admin: 10/19/17 06:04 Dose: 2.5 mg Amlodipine Besylate (Norvasc) 5 mg PO DAILY [facility] Last Admin: 10/19/17 08:51 Dose: 5 mg Aspirin (Ecotrin) 81 mg PO DAILY [facility] Last Admin: 10/19/17 08:51 Dose: 81 mg Atorvastatin Calcium (Lipitor) 80 mg PO [facility] Last Admin: 10/18/17 21:16 Dose: 80 mg Brimonidine Tartrate (Alphagan 0.2% Opht) 1 drop OD BID [facility] Last Admin: 10/19/17 08:50 Dose: 1 drop Clopidogrel Bisulfate (Plavix) 75 mg PO DAILY [facility] Last Admin: 10/19/17 08:56 Dose: 75 mg Docusate Sodium (Colace) 100 mg PO BID PRN PRN Reason: Constipation Gabapentin (Neurontin) 100 mg PO Q12 [facility] Last Admin: 10/19/17 08:51 Dose: 100 mg Heparin Sodium (Porcine) (Heparin) 5,000 units SC Q12 [facility] PRN Reason: Protocol Last Admin: 10/19/17 08:51 Dose: 5,000 units Insulin Detemir (Levemir) 46 units SC [facility] Last Admin: 10/18/17 21:17 Dose: 46 units Insulin Human Lispro (Humalog) 16 units SC AC [facility] Last Admin: 10/19/17 12:16 Dose: 16 units Insulin Human Lispro (Humalog) 0 units SC ACHS [facility] PRN Reason: Protocol Last Admin: 10/19/17 12:16 Dose: 1 unit Lorazepam (Ativan) 0.5 mg PO HS PRN PRN Reason: Anxiety Last Admin: 10/18/17 21:48 Dose: 0.5 mg Fluticasone/Salmeterol (Advair Diskus 100/50) 1 puff IH Q12 [facility] Last Admin: 10/19/17 08:50 Dose: 1 puff Terbutaline Sulfate (Brethine Tab) 2.5 mg PO HS [facility] Last Admin: 10/18/17 21:16 Dose: 2.5 mg Timolol Maleate (Timoptic 0.5% Ophth Soln) 1 drop OD BID [facility] Last Admin: 10/19/17 08:56 Dose: 1 drop
--- NOTE | 2017-10-19 21:08 | CP.PCM.HP ---
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 Had Asthma exacerbation while in [place] over a month ago and was put on 5 days of Prednisone, Breo and Combivent in addition to her usual dose of Terbutaline. MRI of the head this admission showed acute/ subacute ischemic stroke on the left temporo- occipital and billateral cerebellar areas. Patient was admitted in telemetry, neuro was consulted and was started on ASA, statin , glycemic and BP control. She also started having fever episodes as well as body aches . Influenza test was reported positive for Influenza and she was started on tamiflu PO and finished treatment for 5 days. During this admission director of community center and endo were also consulted to help with management of NELSON and diabetic control. At present patient is hemodynamically stable was transferred to acute rehabilitation on 10/18/2017 for continuation of PT/OT Hospitalist team will continue to monitor patient while in acute rehab. Present on Admission - Present on Admission Any Indicators Present on Admission: No Review of Systems - Review of Systems Review of Systems: A 12 point review of systems was conducted and found to be negative Past Patient History - Tetanus Immunizations Tetanus Immunization: Unknown - Past Medical History & Family History Past Medical History?: Yes - Past Social History Smoking Status: Former Smoker Alcohol: None Drugs: Denies Home Situation {Lives}: With Family ([place]) - CARDIAC Hx Hypercholesterolemia: Yes Hx Hypertension: Yes - PULMONARY Hx Asthma: Yes Hx Chronic Obstructive Pulmonary Disease (COPD): Yes - NEUROLOGICAL HX Cerebrovascular Accident: Yes Hx Seizures: Yes - HEENT Hx HEENT Problems: Yes Hx Blind: Yes Hx Glaucoma: Yes (right eye) - RENAL Hx Chronic Kidney Disease: No - ENDOCRINE/METABOLIC Hx Diabetes Mellitus Type 2: Yes - HEMATOLOGICAL/ONCOLOGICAL Hx Human Immunodeficiency Virus (HIV): No - INTEGUMENTARY Hx Dermatological Problems: No - MUSCULOSKELETAL/RHEUMATOLOGICAL Hx Falls: Yes - GASTROINTESTINAL Hx Gastrointestinal Disorders: No - GENITOURINARY/GYNECOLOGICAL Hx Genitourinary Disorders: No - PSYCHIATRIC Hx Substance Use: No - SURGICAL HISTORY Hx Cholecystectomy: Yes Hx Tonsillectomy: Yes Other/Comment: surgical resection of right temporal tumor - ANESTHESIA Hx Anesthesia: Yes Hx Anesthesia Reactions: No Meds Allergies/Adverse Reactions: Allergies Allergy/AdvReac Type Severity Reaction Status Date / Time levofloxacin [From Levaquin] Allergy convulsions Verified 10/18/17 12:47 Macrolide Antibiotics Allergy convulsions Verified 10/18/17 12:47 aspirin AdvReac bleedin Verified 10/18/17 12:47 Physical Exam - Additional Findings Additional findings: Physical exam: Constitutional- cooperative, awake, alert Head- NCAT, PERRL Eye- PERRL, EOMI ENT- normal exam, MMM. Neck- normal inspection, supple, no JVD Respiratory- CTAB, no wheezes rales rhonchi Cardiovascular- RRR, +S1, +S2 no MRG GI/Abdominal- normal bowel sounds, soft, no mass, no hsm Skin- warm, dry Extremities Exam- normal capillary refill, normal inspection Neurological Exam- alert, awake, oriented Psych- normal mood, normal affect Results - Vital Signs Recent Vital Signs: Last Vital Signs Temp 97.7 F 10/19/17 11:01 Pulse 71 10/19/17 11:01 Resp 20 10/19/17 11:01 BP 146/78 10/19/17 11:01 Pulse Ox 98 10/19/17 09:08 - Labs Labs: Laboratory Results - last 24 hr 10/18/17 10/18/17 10/19/17 17:47 20:55 05:46 POC Glucose (mg/dL) 254 H 137 H 196 H 10/19/17 11:46 POC Glucose (mg/dL) 185 H Assessment & Plan - Assessment and Plan (Free Text) Plan: 1. Acute CVA - temporo-occipital/bilat cerebellar MRI of head 10/12: acute/subacute infarction of the left temporo-occipital and bilateral cerebellar; chronic right MCA infarct continue Atorvastatin , ASA and Plavix Neurology was consulted will transfer to acute rehab for PT 2. Influenza A- improved received Tamiflu for 5 day s CXR 10/14: no acute infiltrate 3.Suspected UTI- resolved received IV Ceftriaxone for 5 days 4 . HTN BP controlled by Norvasc 5mg daily 5. DM Type II, uncontrolled HgA1C: 10.[address] Dr Gregory Increased Levemir 44 units SC HS, Humalog 16 units TID Continue Accuchek ACHS 6. Asthma, mild persistent cont Terbutaline, Duoneb,Advair 7 NELSON on CKD stage III sec to DM/HTN Nephropathy Nephrology consulted Renal sonogram -normal 8. DVT proph Heparin
[2017-10-19] MEDS: Insulin Detemir 100 Units/ml Inj SC SCH (21:40)
[2017-10-20] MEDS: Albuterol 0.083% Inhal Sol (2.5 mg/3 mL) UD IH PRN ×2 (01:25→22:18)
[2017-10-20] MEDS: Insulin Lispro (humaLOG) 100 Units/ml Inj SC SCH ×7 (09:00→21:45)
[2017-10-20] MEDS: Brimonidine 0.2% 50 DROP/5 ML BOTTLE OD SCH ×2 (09:19→17:33)
[2017-10-20] MEDS: Fluticasone-Salmeterol 100-50mcg Diskus IH SCH ×2 (09:20→21:38)
--- NOTE | 2017-10-20 11:08 | CP.PCM.PN ---
Subjective - Date & Time of Evaluation Date of Evaluation: 10/20/17 Time of Evaluation: 11:00 - Subjective Subjective: Pt seen during phsyical therapy walking with assistance of walker and 2 therapist No fever cough resolved denies CP no SOB no abd pain Objective - Vital Signs/Intake and Output Vital Signs (last 24 hours): Temp Pulse Resp BP Pulse Ox 97.7 F 75 20 155/80 H 98 10/19/17 19:57 10/20/17 09:18 10/19/17 19:57 10/20/17 09:18 10/19/17 19:57 - Medications Medications: Current Medications Acetaminophen (Tylenol 325mg Tab) 650 mg PO Q6 PRN PRN Reason: Fever >100.4 F Albuterol Sulfate (Albuterol 0.083% Inhal Tosha (2.5 Mg/3 Ml) Ud) 2.5 mg IH Q4H PRN PRN Reason: Shortness of Breath Last Admin: 10/20/17 01:25 Dose: 2.5 mg Amlodipine Besylate (Norvasc) 5 mg PO DAILY [facility] Last Admin: 10/20/17 09:18 Dose: 5 mg Aspirin (Ecotrin) 81 mg PO DAILY [facility] Last Admin: 10/20/17 09:19 Dose: 81 mg Atorvastatin Calcium (Lipitor) 80 mg PO HS [facility] Last Admin: 10/19/17 21:38 Dose: 80 mg Brimonidine Tartrate (Alphagan 0.2% Opht) 1 drop OD BID [facility] Last Admin: 10/20/17 09:19 Dose: 1 drop Clopidogrel Bisulfate (Plavix) 75 mg PO DAILY [facility] Last Admin: 10/20/17 09:19 Dose: 75 mg Docusate Sodium (Colace) 100 mg PO BID PRN PRN Reason: Constipation Gabapentin (Neurontin) 100 mg PO Q12 [facility] Last Admin: 10/20/17 09:19 Dose: 100 mg Heparin Sodium (Porcine) (Heparin) 5,000 units SC Q12 [facility] PRN Reason: Protocol Last Admin: 10/20/17 09:20 Dose: 5,000 units Insulin Detemir (Levemir) 46 units SC HS [facility] Last Admin: 10/19/17 21:40 Dose: 46 units Insulin Human Lispro (Humalog) 16 units SC AC [facility] Last Admin: 10/20/17 09:00 Dose: 16 units Insulin Human Lispro (Humalog) 0 units SC ACHS [facility] PRN Reason: Protocol Last Admin: 10/20/17 09:00 Dose: 1 unit Lorazepam (Ativan) 0.5 mg PO HS PRN PRN Reason: Anxiety Last Admin: 10/19/17 21:47 Dose: 0.5 mg Fluticasone/Salmeterol (Advair Diskus 100/50) 1 puff IH Q12 [facility] Last Admin: 10/20/17 09:20 Dose: 1 puff Terbutaline Sulfate (Brethine Tab) 2.5 mg PO HS [facility] Last Admin: 10/19/17 21:38 Dose: 2.5 mg Timolol Maleate (Timoptic 0.5% Ophth Soln) 1 drop OD BID [facility] Last Admin: 10/20/17 09:19 Dose: 1 drop - Labs Labs: - Constitutional Appears: not in distress - Head Exam Head Exam: NORMAL INSPECTION, NORMOCEPHALIC - Eye Exam Eye Exam: 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 absent: Meningismus - Respiratory Exam Respiratory Exam: NORMAL BREATHING PATTERN. absent: Respiratory Distress - Cardiovascular Exam Cardiovascular Exam: REGULAR RHYTHM, +S1, +S2 - GI/Abdominal Exam GI & Abdominal Exam: Soft, Normal Bowel Sounds. absent: Tenderness - Extremities Exam Extremities Exam: Normal Capillary Refill. absent: Calf Tenderness, Pedal Edema - Back Exam Back Exam: absent: CVA tenderness (L), CVA tenderness (R) - Neurological Exam Neurological Exam: Alert, Awake, Oriented x3 Neuro motor strength exam: Left Upper Extremity: 4, Right Upper Extremity: 4, Left Lower Extremity: 4, Right Lower Extremity: 4 Additional comments: moves all extremities - Psychiatric Exam Psychiatric exam: Flat Affect - Skin Skin Exam: Dry, Normal Color, Warm Assessment and Plan - Assessment and Plan (Free Text) Assessment: 1. Acute CVA - temporo-occipital/bilat cerebellar MRI of head 10/12: acute/subacute infarction of the left temporo-occipital and bilateral cerebellar; chronic right MCA infarct continue Atorvastatin , ASA and Plavix PT/OT/speech therapyd 2. Influenza A- improved received Tamiflu for 5 day s CXR 10/14: no acute infiltrate 3. UTI- resolved completed IV Ceftriaxone for 5 days 4 . HTN BP controlled by Norvasc 5mg daily 5. DM Type II, uncontrolled HgA1C: 10.4 cont Levemir 46 units SC HS, Humalog 16 units TID Continue Accuchek ACHS with coverage 6. Asthma, mild persistent cont Terbutaline, Duoneb,Advair 7. CKD stage III sec to DM/HTN Nephropathy, stable Renal sonogram done 10/17 -normal 8. DVT proph Heparin
[2017-10-20] MEDS: Insulin Detemir 100 Units/ml Inj SC SCH (21:56)
[2017-10-21] MEDS: Fluticasone-Salmeterol 100-50mcg Diskus IH SCH ×2 (08:39→21:09)
[2017-10-21] MEDS: Insulin Lispro (humaLOG) 100 Units/ml Inj SC SCH ×7 (08:39→21:11)
[2017-10-21] MEDS: Brimonidine 0.2% 50 DROP/5 ML BOTTLE OD SCH ×2 (08:40→17:04)
[2017-10-21] MEDS: Insulin Detemir 100 Units/ml Inj SC SCH (21:56)
[2017-10-22] MEDS: Insulin Lispro (humaLOG) 100 Units/ml Inj SC SCH ×7 (07:31→21:11)
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
[2017-10-22] MEDS: Fluticasone-Salmeterol 100-50mcg Diskus IH SCH ×2 (08:23→21:24)
[2017-10-22] MEDS: Brimonidine 0.2% 50 DROP/5 ML BOTTLE OD SCH ×2 (08:25→16:58)
--- NOTE | 2017-10-22 16:50 | CP.PCM.PN ---
Subjective - Date & Time of Evaluation Date of Evaluation: 10/22/17 Time of Evaluation: 14:00 - Subjective Subjective: Patient seen and examined. Denied any complaint. Objective - Vital Signs/Intake and Output Vital Signs (last 24 hours): Temp Pulse Resp BP Pulse Ox 97.9 F 70 20 161/90 H 97 10/22/17 10:00 10/22/17 10:00 10/22/17 10:00 10/22/17 10:00 10/22/17 10:00 - Medications Medications: Current Medications Acetaminophen (Tylenol 325mg Tab) 650 mg PO Q6 PRN PRN Reason: Fever >100.4 F Albuterol Sulfate (Albuterol 0.083% Inhal Tosha (2.5 Mg/3 Ml) Ud) 2.5 mg IH Q4H PRN PRN Reason: Shortness of Breath Last Admin: 10/20/17 22:18 Dose: 2.5 mg Amlodipine Besylate (Norvasc) 5 mg PO DAILY [facility] Last Admin: 10/22/17 08:25 Dose: 5 mg Aspirin (Ecotrin) 81 mg PO DAILY [facility] Last Admin: 10/22/17 08:25 Dose: 81 mg Atorvastatin Calcium (Lipitor) 80 mg PO HS [facility] Last Admin: 10/21/17 21:09 Dose: 80 mg Brimonidine Tartrate (Alphagan 0.2% Opht) 1 drop OD BID [facility] Last Admin: 10/22/17 08:25 Dose: 1 drop Clopidogrel Bisulfate (Plavix) 75 mg PO DAILY [facility] Last Admin: 10/22/17 08:26 Dose: 75 mg Docusate Sodium (Colace) 100 mg PO BID PRN PRN Reason: Constipation Gabapentin (Neurontin) 100 mg PO Q12 [facility] Last Admin: 10/22/17 08:25 Dose: 100 mg Heparin Sodium (Porcine) (Heparin) 5,000 units SC Q12 [facility] PRN Reason: Protocol Last Admin: 10/22/17 08:25 Dose: 5,000 units Insulin Detemir (Levemir) 50 units SC HS [facility] Last Admin: 10/21/17 21:56 Dose: 50 units Insulin Human Lispro (Humalog) 16 units SC AC [facility] Last Admin: 10/22/17 12:11 Dose: 16 units Insulin Human Lispro (Humalog) 0 units SC ACHS [facility] PRN Reason: Protocol Last Admin: 10/22/17 12:11 Dose: 1 unit Lorazepam (Ativan) 0.5 mg PO HS PRN PRN Reason: Anxiety Last Admin: 10/19/17 21:47 Dose: 0.5 mg Fluticasone/Salmeterol (Advair Diskus 100/50) 1 puff IH Q12 [facility] Last Admin: 10/22/17 08:23 Dose: 1 puff Terbutaline Sulfate (Brethine Tab) 2.5 mg PO HS [facility] Last Admin: 10/21/17 21:08 Dose: 2.5 mg Timolol Maleate (Timoptic 0.5% Ophth Soln) 1 drop OD BID [facility] Last Admin: 10/22/17 08:23 Dose: 1 drop - Constitutional Appears: No Acute Distress - Head Exam Head Exam: ATRAUMATIC - Eye Exam Eye Exam: absent: Scleral icterus - ENT Exam ENT Exam: Mucous Membranes Moist - Neck Exam Neck Exam: absent: Meningismus - Respiratory Exam Respiratory Exam: absent: Rhonchi, Wheezes, Respiratory Distress - Cardiovascular Exam Cardiovascular Exam: REGULAR RHYTHM, +S1, +S2 - GI/Abdominal Exam GI & Abdominal Exam: Soft. 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 MRI of the head showed acute/subacute ischemic infarct of the left temporo-occipital and both cerebellar. She was admitted and managed as Acute CVA. While in the unit, she developed fever and body aches and was managed for flu. She was transferred to Acute Rehab for therapy as she became stable. 1. Acute CVA - temporo-occipital/bilat cerebellar continue Atorvastatin, ASA and Plavix continue PT/OT/speech therapy 2. Influenza A - improved received Tamiflu for 5 days 3. UTI- resolved completed IV Ceftriaxone for 5 days 4 . HTN BP controlled Norvasc 5mg daily 5. DM Type II, uncontrolled HgA1C: 10.4 continue Levemir 50 units SC HS, Lispro 16 units TID Continue Accuchek ACHS with low Lispro coverage 6. Asthma, mild persistent continue Terbutaline, Duoneb, Advair 7. CKD stage III sec to DM/HTN Nephropathy, stable Renal sonogram done on 10/17 - normal 8. DVT proph Heparin 5000 units q 12hrs
[2017-10-22] MEDS: Insulin Detemir 100 Units/ml Inj SC SCH (21:25)
[2017-10-23] MEDS: Insulin Lispro (humaLOG) 100 Units/ml Inj SC SCH ×7 (06:38→21:07)
[2017-10-23] MEDS: Fluticasone-Salmeterol 100-50mcg Diskus IH SCH ×2 (08:11→21:08)
[2017-10-23] MEDS: Brimonidine 0.2% 50 DROP/5 ML BOTTLE OD SCH ×2 (08:12→17:33)
[2017-10-23] MEDS: Insulin Detemir 100 Units/ml Inj SC SCH (21:07)
[2017-10-24] MEDS: Fluticasone-Salmeterol 100-50mcg Diskus IH SCH ×2 (08:55→20:41)
[2017-10-24] MEDS: Insulin Lispro (humaLOG) 100 Units/ml Inj SC SCH ×7 (08:57→21:25)
[2017-10-24] MEDS: Brimonidine 0.2% 50 DROP/5 ML BOTTLE OD SCH ×2 (09:00→16:56)
[2017-10-24] MEDS: Insulin Detemir 100 Units/ml Inj SC SCH (21:24)
[2017-10-24 22:17] LABS: SQUAMOUS EPITHIAL < 1 /hpf (0-5); URINE BILIRUBIN NEGATIVE (NEGATIVE); URINE BLOOD SMALL (NEGATIVE); URINE CLARITY SLIGHTY-CLOUDY (Clear); URINE COLOR YELLOW (YELLOW); URINE GLUCOSE (UA) 150 mg/dL (Normal); URINE LEUKOCYTE ESTERASE NEG Leu/uL (Negative); URINE NITRATE NEGATIVE (NEGATIVE); URINE PROTEIN 100 mg/dL (NEGATIVE); URINE UROBILINOGEN 0.2-1.0 mg/dL (0.2-1.0)
[2017-10-25] MEDS: Insulin Lispro (humaLOG) 100 Units/ml Inj SC SCH ×7 (08:10→21:32)
[2017-10-25] MEDS: Brimonidine 0.2% 50 DROP/5 ML BOTTLE OD SCH ×2 (08:12→18:10)
[2017-10-25] MEDS: Fluticasone-Salmeterol 100-50mcg Diskus IH SCH ×2 (08:12→21:31)
--- NOTE | 2017-10-25 14:40 | CP.PCM.PN ---
Subjective - Date & Time of Evaluation Date of Evaluation: 10/25/17 Time of Evaluation: 10:45 - Subjective Subjective: Patient seen and examined. Noted to be diaphoretic by therapist earlier this am but denied any associated symptoms Objective - Vital Signs/Intake and Output Vital Signs (last 24 hours): Temp Pulse Resp BP Pulse Ox 96.6 F L 69 19 154/78 H 100 10/25/17 09:08 10/25/17 09:08 10/25/17 09:08 10/25/17 09:08 10/25/17 09:08 - Medications Medications: Current Medications Acetaminophen (Tylenol 325mg Tab) 650 mg PO Q6 PRN PRN Reason: Fever >100.4 F Albuterol Sulfate (Albuterol 0.083% Inhal Tosha (2.5 Mg/3 Ml) Ud) 2.5 mg IH Q4H PRN PRN Reason: Shortness of Breath Last Admin: 10/20/17 22:18 Dose: 2.5 mg Amlodipine Besylate (Norvasc) 5 mg PO DAILY [facility] Last Admin: 10/25/17 08:13 Dose: 5 mg Aspirin (Ecotrin) 81 mg PO DAILY [facility] Last Admin: 10/25/17 08:13 Dose: 81 mg Atorvastatin Calcium (Lipitor) 80 mg PO HS [facility] Last Admin: 10/24/17 21:24 Dose: 80 mg Brimonidine Tartrate (Alphagan 0.2% Opht) 1 drop OD BID [facility] Last Admin: 10/25/17 08:12 Dose: 1 drop Clopidogrel Bisulfate (Plavix) 75 mg PO DAILY [facility] Last Admin: 10/25/17 08:14 Dose: 75 mg Docusate Sodium (Colace) 100 mg PO BID PRN PRN Reason: Constipation Gabapentin (Neurontin) 100 mg PO Q12 [facility] Last Admin: 10/25/17 08:13 Dose: 100 mg Heparin Sodium (Porcine) (Heparin) 5,000 units SC Q12 [facility] PRN Reason: Protocol Last Admin: 10/25/17 08:15 Dose: 5,000 units Insulin Detemir (Levemir) 50 units SC HS [facility] Last Admin: 10/24/17 21:24 Dose: 50 units Insulin Human Lispro (Humalog) 16 units SC AC [facility] Last Admin: 10/25/17 12:03 Dose: 16 units Insulin Human Lispro (Humalog) 0 units SC ACHS [facility] PRN Reason: Protocol Last Admin: 10/25/17 12:04 Dose: 4 unit Fluticasone/Salmeterol (Advair Diskus 100/50) 1 puff IH Q12 [facility] Last Admin: 10/25/17 08:12 Dose: 1 puff Temazepam (Restoril) 15 mg PO HS PRN PRN Reason: Insomnia Last Admin: 10/24/17 22:31 Dose: 15 mg Terbutaline Sulfate (Brethine Tab) 2.5 mg PO HS [facility] Last Admin: 10/24/17 21:23 Dose: 2.5 mg Timolol Maleate (Timoptic 0.5% Ophth Soln) 1 drop OD BID [facility] Last Admin: 10/25/17 08:14 Dose: 1 drop - Constitutional Appears: No Acute Distress - Head Exam Head Exam: ATRAUMATIC - Eye Exam Eye Exam: absent: Scleral icterus - ENT Exam ENT Exam: Mucous Membranes Moist - Neck Exam Neck Exam: absent: Meningismus - Respiratory Exam Respiratory Exam: absent: Rhonchi, Wheezes, Respiratory Distress - Cardiovascular Exam Cardiovascular Exam: REGULAR RHYTHM, +S1, +S2 - GI/Abdominal Exam GI & Abdominal Exam: Soft. 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 MRI of the head showed acute/subacute ischemic infarct of the left temporo-occipital and both cerebellar. She was admitted and managed as Acute CVA. While in the unit, she developed fever and body aches and was managed for flu. She was transferred to Acute Rehab for therapy as she became stable. 1. Acute CVA - temporo-occipital/bilat cerebellar continue Atorvastatin, ASA and Plavix continue PT/OT/speech therapy 2. Influenza A - improved received Tamiflu for 5 days 3. UTI- resolved completed IV Ceftriaxone for 5 days 4 . HTN BP controlled Norvasc 5mg daily 5. DM Type II, uncontrolled HgA1C: 10.4 continue Levemir 50 units SC HS, Lispro 16 units TID Continue Accuchek ACHS with low Lispro coverage 6. Asthma asymptomatic on Terbutaline, Duoneb, Advair 7. CKD stage III sec to DM/HTN Nephropathy, stable Renal sonogram done on 10/17 - normal 8. DVT proph Heparin 5000 units q 12hrs
--- NOTE | 2017-10-25 19:41 | CP.PCM.PN ---
Subjective - Date & Time of Evaluation Date of Evaluation: 10/25/17 Time of Evaluation: 19:43 - Subjective Subjective: Patient seen in room denies sob/cp or fever minimal headache or dizziness as well will discuss in team conf. tomorrow the progress in therapies and compliance Objective - Vital Signs/Intake and Output Vital Signs (last 24 hours): Temp Pulse Resp BP Pulse Ox 96.6 F L 69 19 154/78 H 100 10/25/17 09:08 10/25/17 09:08 10/25/17 09:08 10/25/17 09:08 10/25/17 09:08 - Medications Medications: Current Medications Acetaminophen (Tylenol 325mg Tab) 650 mg PO Q6 PRN PRN Reason: Fever >100.4 F Albuterol Sulfate (Albuterol 0.083% Inhal Tosha (2.5 Mg/3 Ml) Ud) 2.5 mg IH Q4H PRN PRN Reason: Shortness of Breath Last Admin: 10/20/17 22:18 Dose: 2.5 mg Amlodipine Besylate (Norvasc) 5 mg PO DAILY [facility] Last Admin: 10/25/17 08:13 Dose: 5 mg Aspirin (Ecotrin) 81 mg PO DAILY [facility] Last Admin: 10/25/17 08:13 Dose: 81 mg Atorvastatin Calcium (Lipitor) 80 mg PO HS [facility] Last Admin: 10/24/17 21:24 Dose: 80 mg Brimonidine Tartrate (Alphagan 0.2% Opht) 1 drop OD BID [facility] Last Admin: 10/25/17 18:10 Dose: 1 drop Clopidogrel Bisulfate (Plavix) 75 mg PO DAILY [facility] Last Admin: 10/25/17 08:14 Dose: 75 mg Docusate Sodium (Colace) 100 mg PO BID PRN PRN Reason: Constipation Gabapentin (Neurontin) 100 mg PO Q12 [facility] Last Admin: 10/25/17 08:13 Dose: 100 mg Heparin Sodium (Porcine) (Heparin) 5,000 units SC Q12 [facility] PRN Reason: Protocol Last Admin: 10/25/17 08:15 Dose: 5,000 units Insulin Detemir (Levemir) 50 units SC HS [facility] Last Admin: 10/24/17 21:24 Dose: 50 units Insulin Human Lispro (Humalog) 16 units SC AC [facility] Last Admin: 10/25/17 18:08 Dose: 16 units Insulin Human Lispro (Humalog) 0 units SC ACHS [facility] PRN Reason: Protocol Last Admin: 10/25/17 18:10 Dose: 1 unit Fluticasone/Salmeterol (Advair Diskus 100/50) 1 puff IH Q12 [facility] Last Admin: 10/25/17 08:12 Dose: 1 puff Temazepam (Restoril) 15 mg PO HS PRN PRN Reason: Insomnia Last Admin: 10/24/17 22:31 Dose: 15 mg Terbutaline Sulfate (Brethine Tab) 2.5 mg PO HS [facility] Last Admin: 10/24/17 21:23 Dose: 2.5 mg Timolol Maleate (Timoptic 0.5% Ophth Soln) 1 drop OD BID [facility] Last Admin: 10/25/17 18:10 Dose: 1 drop
[2017-10-25] MEDS: Insulin Detemir 100 Units/ml Inj SC SCH (21:33)
[2017-10-26] MEDS: Insulin Lispro (humaLOG) 100 Units/ml Inj SC SCH ×7 (06:35→21:38)
[2017-10-26 06:45] LABS: BLOOD UREA NITROGEN 25 mg/dl (7-17); GFR AFRICAN-AMERICAN > 60; GFR NON-AFRICAN AMERICAN 55
[2017-10-26] MEDS: Brimonidine 0.2% 50 DROP/5 ML BOTTLE OD SCH ×2 (08:27→17:17)
[2017-10-26] MEDS: Fluticasone-Salmeterol 100-50mcg Diskus IH SCH ×2 (09:00→21:35)
--- NOTE | 2017-10-26 13:20 | PSY.TMCNF ---
Nursing - Vital Signs Vital Signs (Last 8 hours): Vital Signs 10/26/17 10/26/17 10/26/17 08:32 08:40 09:00 Temperature 97.4 F L 97.4 F L Pulse Rate 68 68 Respiratory 19 19 Rate Blood Pressure 140/73 140/75 140/75 O2 Sat by Pulse 98 Oximetry Pain: 0 - Precautions: Precautions: Fall Prevention, Seizure - Medications/Other Issues Comment: Started on Restoril 15mg for insomnia - Consults Comment: Dr. Cisneros, Dr. Javed - Toileting Toileting: Dependent - Bladder Management Bladder Pattern: Normal, Incontinent Voiding Method: Toilet, Bedpan, Diaper Bladder Management: Dependent Frequency of Accidents: >5 - Bowel Management Bowel Pattern: Normal Bowel Management: Supervision Frequency of Accidents: 0 - Transfers Transfers: Minimal Assistance - ADL's ADL's: Moderate Assistance - Pain Management Comments: N/A - Patient/Family Teaching Comments: Care post CVA and safety precautions - Goals/Time Frame Comments: Per multidisciplinary care plan and goals - Provider Provider: Mary ORTEZN RN CRRN Physical Therapy - Bed Mobility Bed Mobility: Minimal Assistance - Transfers Sit to Stand: Verbal Cues, Contact Guard - Ambulation Level of Assistance: Minimal Assistance Distance (ft.): 125 Assistive Devices: Rolling Walker - Stair Negotiation Stairs: Level of Assistance: Verbal Cues, Minimal Assistance Number of Stairs: 3 Handrails: Bilateral Stairs: Assistive Devices: Left Handrail, Right Handrail - Standing Balance Static Stand: Contact Guard Assist Dynamic Stand: Minimal Assistance, Moderate Assistance - Pain Pain (assessed during therapy session): 0 - Insight/Carryover Insight/Carryover: Fair - Patient/Family Education Comment: Pt education provided for increased safety awareness and proper techniques during functional mobility training. - Assessment/Plan Assessment: Patient is a 72 yo female recieiving rehab at [facility] s/p CVA. Patient presents with unsteadiness on feet, poor coordination, generalized weakness, lethargy, and R visual defecits (old injuries) impacting her ability to complete her self care routine safely and effectively. Patient is making gains in therapy and now requires cga/min A functional transfers , min/mod A with lb self care and toileting with use of AE. However- extreme fear of falling still is a major obstacle during therapy sessions. Pt benefits from motivation and moderate encouragment during therapy sessions. Reccommend 24/7 assistance at home with self care , transfers, mobility and iadls . - Goals Timeframe: 2 weeks Goals: 1)complete functional transfers with supervision. 2)improve act tolerance to 15 mins during ADL. 3)complete toileting tasks with supervision. 4)complete lower body self care with supervision using AE. 5)complete ub self care independently. 6)grooming at sink with supervision using AE - Provider Therapist: fredi License Number: [id number] Occupational Therapy - Arousal/Attention/Orientation Level of Consciousness: Awake, Alert, Confused - ADL/IADL Self Feeding: Set-up Help Grooming: Set-up Help Bathing-Upper Extremity: Minimal Assistance Bathing-Lower Extremity: Minimal Assistance Dressing-Upper Extremity: Minimal Assistance Dressing-Lower Extremity: Minimal Assistance, Moderate Assistance Comment: patient uses rw and AE. Patient's assisted with lb self care and toileting , - Sitting Balance Static Sitting: Independent without upper extremity support Dynamic Sitting: Requires supervision - Transfers Wheelchair to Bed Transfers: Contact Guard Toilet Transfers: Contact Guard, Minimal Assistance Tub Transfers: Minimal Assistance - Wheelchair Management Level of Assistance: Moderate Assistance Distance (ft.): 50 - Upper Extremity Status Right Upper Extremity Comment: WFL Left Upper Extremity Comment: WFL; L grasp strength slighter weaker than R - Pain Pain (assessed during therapy session): 0 - Insight/Carryover Insight/Carryover: Fair - Patient/Family Education Comment: Pt education provided for increased safety awareness and proper techniques during functional mobility training. - Assessment/Plan Assessment: Patient is a 72 yo female recieiving rehab at [facility] s/p CVA. Patient presents with unsteadiness on feet, poor coordination, generalized weakness, lethargy, and R visual defecits (old injuries) impacting her ability to complete her self care routine safely and effectively. Patient is making gains in therapy and now requires cga/min A functional transfers , min/mod A with lb self care and toileting with use of AE. However- extreme fear of falling still is a major obstacle during therapy sessions. Pt benefits from motivation and moderate encouragment during therapy sessions. Reccommend 24/7 assistance at home with self care , transfers, mobility and iadls . - Goals Timeframe: 2 weeks Goals: 1)complete functional transfers with supervision. 2)improve act tolerance to 15 mins during ADL. 3)complete toileting tasks with supervision. 4)complete lower body self care with supervision using AE. 5)complete ub self care independently. 6)grooming at sink with supervision using AE - Provider Therapist: TONO Lord/Daisy License Number: [id number] Speech Therapy - Plan Assessment: Patient is a 72 yo female recieiving rehab at [facility]. Patient presents with unsteadiness on feet, poor coordination, generalized weakness, lethargy, and R visual defecits (old injuries) impacting her ability to complete her self care routine safely and effectively. Patient is making gains in therapy and now requires cga/min A functional transfers , min/mod A with lb self care and toileting with use of AE. However- extreme fear of falling still is a major obstacle during therapy sessions. Pt benefits from motivation and moderate encouragment during therapy sessions. Reccommend 24/7 assistance at home with self care , transfers, mobility and iadls . Recreational Therapy - Participation Participation: Participates in Individual and/or Group Sessions, Monitors His/ Her Own Leisure Time - Attendance Attendance: Daily - Activities Leisure Activities: Television - Socialization Level of Socialization: Initiates/interacts freely with care givers and peer - Diversional Time Diversional Time: television, likes bingo, music - Assessment Assessment/Plan: Patient is a 72 yo female recieiving rehab at [facility]. Patient presents with unsteadiness on feet, poor coordination, generalized weakness, lethargy, and R visual defecits (old injuries) impacting her ability to complete her self care routine safely and effectively. Patient is making gains in therapy and now requires cga/min A functional transfers , min/mod A with lb self care and toileting with use of AE. However- extreme fear of falling still is a major obstacle during therapy sessions. Pt benefits from motivation and moderate encouragment during therapy sessions. Reccommend 24/7 assistance at home with self care , transfers, mobility and iadls . - Provider Therapist: Deb Gill, [employer] #[id number] Nutrition - Current Diet Current Diet/ Supplement/ Feedings: Moderate consistent CHO heart healthy diet - Appetite Percent Meal Consumed: 75-100% - Comments Comments: Care post CVA and safety precautions - Assessment/Goals/Time Frame Assessment/Goals/Time Frame: Started on Restoril 15mg for insomnia - Provider Provider: Patricia Bradley RD Case Management - Psychosocial Assessment Support Systems: Alice Higginbotham (significant other)- [phone] Psychological Interventions/Needs: Patient is alert with intermittent confusion. Patient reports feeling anxious and fearful of falling Discharge Concerns: Patient present with impaired short term memory recall, impaired BLE strength, seated/standing balance, and endurance resulting in decreased (I) with functional mobility skills Patient/Family Meeting: CM met with patient and rehab team Intervention/Goal/Outcome:: 1. PLAN: 24 hour supervision at home pending family support vs [facility]. 2. Patient to be reteamed next week for most appropriate discharge plan and date. 3. continued emotional support - Discharge Plan Discharge Plan: Home with significant other/family, Subacute care - Provider Provider: LI Burciaga, IMMUNOLOGIST License Number: [id number] Rehabilitation Plan - Treatment Plan Treatment Plan: Physical Therapy, Occupational Therapy, Dietary, Patient/Family Education - Discharge Plan Estimated Date of Discharge: 11/06/17 Discharge to: Subacute
--- NOTE | 2017-10-26 13:40 | CP.PCM.PN ---
Subjective - Date & Time of Evaluation Date of Evaluation: 10/26/17 Time of Evaluation: 13:39 - Subjective Subjective: Patient seen in room doing better than expected 125' discussed her progress and need to continue to work hard she understood denies pain Objective - Vital Signs/Intake and Output Vital Signs (last 24 hours): Temp Pulse Resp BP Pulse Ox 97.4 F L 68 19 140/75 98 10/26/17 09:00 10/26/17 09:00 10/26/17 09:00 10/26/17 09:00 10/26/17 08:40 - Medications Medications: Current Medications Acetaminophen (Tylenol 325mg Tab) 650 mg PO Q6 PRN PRN Reason: Fever >100.4 F Albuterol Sulfate (Albuterol 0.083% Inhal Tosha (2.5 Mg/3 Ml) Ud) 2.5 mg IH Q4H PRN PRN Reason: Shortness of Breath Last Admin: 10/20/17 22:18 Dose: 2.5 mg Amlodipine Besylate (Norvasc) 5 mg PO DAILY [facility] Last Admin: 10/26/17 08:32 Dose: 5 mg Aspirin (Ecotrin) 81 mg PO DAILY [facility] Last Admin: 10/26/17 08:26 Dose: 81 mg Atorvastatin Calcium (Lipitor) 80 mg PO HS [facility] Last Admin: 10/25/17 21:32 Dose: Not Given Brimonidine Tartrate (Alphagan 0.2% Opht) 1 drop OD BID [facility] Last Admin: 10/26/17 08:27 Dose: 1 drop Clopidogrel Bisulfate (Plavix) 75 mg PO DAILY [facility] Last Admin: 10/26/17 08:26 Dose: 75 mg Docusate Sodium (Colace) 100 mg PO BID PRN PRN Reason: Constipation Last Admin: 10/26/17 08:25 Dose: 100 mg Gabapentin (Neurontin) 100 mg PO Q12 [facility] Last Admin: 10/26/17 08:25 Dose: 100 mg Heparin Sodium (Porcine) (Heparin) 5,000 units SC Q12 [facility] PRN Reason: Protocol Last Admin: 10/26/17 08:36 Dose: Not Given Insulin Detemir (Levemir) 50 units SC HS [facility] Last Admin: 10/25/17 21:33 Dose: 50 units Insulin Human Lispro (Humalog) 16 units SC AC [facility] Last Admin: 10/26/17 12:30 Dose: 16 units Insulin Human Lispro (Humalog) 0 units SC ACHS [facility] PRN Reason: Protocol Last Admin: 10/26/17 12:31 Dose: Not Given Fluticasone/Salmeterol (Advair Diskus 100/50) 1 puff IH Q12 [facility] Last Admin: 10/26/17 09:00 Dose: 1 puff Temazepam (Restoril) 15 mg PO HS PRN PRN Reason: Insomnia Last Admin: 10/25/17 21:31 Dose: 15 mg Terbutaline Sulfate (Brethine Tab) 2.5 mg PO HS [facility] Last Admin: 10/25/17 21:31 Dose: 2.5 mg Timolol Maleate (Timoptic 0.5% Oph Soln) 1 drop OD BID [facility] Last Admin: 10/26/17 08:24 Dose: 1 drop - Labs Labs: 10/26/17 05:11
[2017-10-26] MEDS: Insulin Detemir 100 Units/ml Inj SC SCH (21:37)
[2017-10-27] MEDS: Insulin Lispro (humaLOG) 100 Units/ml Inj SC SCH ×7 (08:00→21:03)
[2017-10-27] MEDS: Fluticasone-Salmeterol 100-50mcg Diskus IH SCH ×2 (08:34→21:01)
[2017-10-27] MEDS: Brimonidine 0.2% 50 DROP/5 ML BOTTLE OD SCH ×2 (08:35→17:15)
--- NOTE | 2017-10-27 12:54 | CP.PCM.PN ---
Subjective - Date & Time of Evaluation Date of Evaluation: 10/27/17 Time of Evaluation: 10:45 - Subjective Subjective: Patient seen and examined. Denied any complaint. Objective - Vital Signs/Intake and Output Vital Signs (last 24 hours): Temp Pulse Resp BP Pulse Ox 98.1 F 63 20 131/74 98 10/26/17 20:00 10/26/17 20:00 10/26/17 20:00 10/27/17 08:39 10/26/17 20:00 - Medications Medications: Current Medications Acetaminophen (Tylenol 325mg Tab) 650 mg PO Q6 PRN PRN Reason: Fever >100.4 F Albuterol Sulfate (Albuterol 0.083% Inhal Tosha (2.5 Mg/3 Ml) Ud) 2.5 mg IH Q4H PRN PRN Reason: Shortness of Breath Last Admin: 10/20/17 22:18 Dose: 2.5 mg Amlodipine Besylate (Norvasc) 5 mg PO DAILY [facility] Last Admin: 10/27/17 08:39 Dose: 5 mg Aspirin (Ecotrin) 81 mg PO DAILY [facility] Last Admin: 10/27/17 08:35 Dose: 81 mg Atorvastatin Calcium (Lipitor) 80 mg PO HS [facility] Last Admin: 10/26/17 21:37 Dose: Not Given Brimonidine Tartrate (Alphagan 0.2% Opht) 1 drop OD BID [facility] Last Admin: 10/27/17 08:35 Dose: 1 drop Clopidogrel Bisulfate (Plavix) 75 mg PO DAILY [facility] Last Admin: 10/27/17 08:35 Dose: 75 mg Docusate Sodium (Colace) 100 mg PO BID PRN PRN Reason: Constipation Last Admin: 10/26/17 08:25 Dose: 100 mg Gabapentin (Neurontin) 100 mg PO Q12 [facility] Last Admin: 10/27/17 08:35 Dose: 100 mg Heparin Sodium (Porcine) (Heparin) 5,000 units SC Q12 [facility] PRN Reason: Protocol Last Admin: 10/27/17 08:36 Dose: Not Given Insulin Detemir (Levemir) 50 units SC HS [facility] Last Admin: 10/26/17 21:37 Dose: 50 units Insulin Human Lispro (Humalog) 16 units SC AC [facility] Last Admin: 10/27/17 12:15 Dose: 16 units Insulin Human Lispro (Humalog) 0 units SC ACHS [facility] PRN Reason: Protocol Last Admin: 10/27/17 12:15 Dose: 2 unit Fluticasone/Salmeterol (Advair Diskus 100/50) 1 puff IH Q12 [facility] Last Admin: 10/27/17 08:34 Dose: 1 puff Temazepam (Restoril) 15 mg PO HS PRN PRN Reason: Insomnia Last Admin: 10/26/17 21:40 Dose: 15 mg Terbutaline Sulfate (Brethine Tab) 2.5 mg PO HS [facility] Last Admin: 10/26/17 21:36 Dose: 2.5 mg Timolol Maleate (Timoptic 0.5% Ophth Soln) 1 drop OD BID [facility] Last Admin: 10/27/17 08:30 Dose: 1 drop - Labs Labs: 10/26/17 05:11 - Constitutional Appears: No Acute Distress - Head Exam Head Exam: ATRAUMATIC - Eye Exam Eye Exam: absent: Scleral icterus - ENT Exam ENT Exam: Mucous Membranes Moist - Neck Exam Neck Exam: absent: Meningismus - Respiratory Exam Respiratory Exam: absent: Rhonchi, Wheezes, Respiratory Distress - Cardiovascular Exam Cardiovascular Exam: REGULAR RHYTHM, +S1, +S2 - GI/Abdominal Exam GI & Abdominal Exam: Soft. 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 MRI of the head showed acute/subacute ischemic infarct of the left temporo-occipital and both cerebellar. She was diagnosed with Acute CVA and was admitted in telemetry. While in the unit, she developed fever associated with body aches and was tested positive for flu. She also had UTI and got treated with IV Rocephin. When her condition got stable, she was transferred to Acute Rehab for continuation of her PT/OT. 1. Acute CVA - temporo-occipital/bilat cerebellar on Atorvastatin, ASA and Plavix continue PT/OT/speech therapy 2. HTN BP controlled Norvasc 5mg daily 3. DM Type II, uncontrolled HgA1C: 10.4 on Levemir 50 units SC HS and Lispro 16 units TID Continue Accuchek ACHS with low Lispro coverage endocrinology consult with Dr Gregory 4. Asthma asymptomatic on Terbutaline, Duoneb, Advair 5. CKD improving probably secondary to dehydration because of uncontrolled diabetes BUN: 25 Creat: 1 8. DVT proph Heparin 5000 units q 12hrs
--- NOTE | 2017-10-27 12:57 | CP.PCM.PN ---
Subjective - Date & Time of Evaluation Date of Evaluation: 10/27/17 Time of Evaluation: 12:56 - Subjective Subjective: Patient seen in the room resting from therapies she remains motivated and is set for d/c to [facility] in another week continue current care Objective - Vital Signs/Intake and Output Vital Signs (last 24 hours): Temp Pulse Resp BP Pulse Ox 98.1 F 63 20 131/74 98 10/26/17 20:00 10/26/17 20:00 10/26/17 20:00 10/27/17 08:39 10/26/17 20:00 - Medications Medications: Current Medications Acetaminophen (Tylenol 325mg Tab) 650 mg PO Q6 PRN PRN Reason: Fever >100.4 F Albuterol Sulfate (Albuterol 0.083% Inhal Tosha (2.5 Mg/3 Ml) Ud) 2.5 mg IH Q4H PRN PRN Reason: Shortness of Breath Last Admin: 10/20/17 22:18 Dose: 2.5 mg Amlodipine Besylate (Norvasc) 5 mg PO DAILY [facility] Last Admin: 10/27/17 08:39 Dose: 5 mg Aspirin (Ecotrin) 81 mg PO DAILY [facility] Last Admin: 10/27/17 08:35 Dose: 81 mg Atorvastatin Calcium (Lipitor) 80 mg PO HS [facility] Last Admin: 10/26/17 21:37 Dose: Not Given Brimonidine Tartrate (Alphagan 0.2% Opht) 1 drop OD BID [facility] Last Admin: 10/27/17 08:35 Dose: 1 drop Clopidogrel Bisulfate (Plavix) 75 mg PO DAILY [facility] Last Admin: 10/27/17 08:35 Dose: 75 mg Docusate Sodium (Colace) 100 mg PO BID PRN PRN Reason: Constipation Last Admin: 10/26/17 08:25 Dose: 100 mg Gabapentin (Neurontin) 100 mg PO Q12 [facility] Last Admin: 10/27/17 08:35 Dose: 100 mg Heparin Sodium (Porcine) (Heparin) 5,000 units SC Q12 [facility] PRN Reason: Protocol Last Admin: 10/27/17 08:36 Dose: Not Given Insulin Detemir (Levemir) 50 units SC HS [facility] Last Admin: 10/26/17 21:37 Dose: 50 units Insulin Human Lispro (Humalog) 16 units SC AC [facility] Last Admin: 10/27/17 12:15 Dose: 16 units Insulin Human Lispro (Humalog) 0 units SC ACHS [facility] PRN Reason: Protocol Last Admin: 10/27/17 12:15 Dose: 2 unit Fluticasone/Salmeterol (Advair Diskus 100/50) 1 puff IH Q12 [facility] Last Admin: 10/27/17 08:34 Dose: 1 puff Temazepam (Restoril) 15 mg PO HS PRN PRN Reason: Insomnia Last Admin: 10/26/17 21:40 Dose: 15 mg Terbutaline Sulfate (Brethine Tab) 2.5 mg PO HS [facility] Last Admin: 10/26/17 21:36 Dose: 2.5 mg Timolol Maleate (Timoptic 0.5% Oph Soln) 1 drop OD BID [facility] Last Admin: 10/27/17 08:30 Dose: 1 drop - Labs Labs: 10/26/17 05:11
[2017-10-27] MEDS: Insulin Detemir 100 Units/ml Inj SC SCH (21:02)
--- NOTE | 2017-10-28 01:31 | CON ---
ENDOCRINOLOGY CONSULTATION DATE: LOCATION: Room 621. HISTORY OF PRESENT ILLNESS: This is a 72-year-old female with known history of type 2 insulin requiring diabetes admitted to the acute rehabilitation unit following a recent CVA and is now being referred for diabetic evaluation and management. PAST MEDICAL HISTORY: As mentioned above, history of type 2 insulin-requiring diabetes, and she was actually seen in the acute medical floor about 2 weeks ago as noted. Her insulin regimen upon transfer was actually a combination of Levemir given as units subcu at bedtime daily and Humalog given as 16 units subcu t.i.d. before meals as ordered. History of hypertensive cardiovascular disease and dyslipidemia, history of diabetic retinopathy and polyneuropathy, history of coronary artery disease, peripheral arterial disease and vasculopathy. She also had a recent acute CVA in the left temporal and occipital area and also in the cerebellar area with recent unsteady gait and dysequilibrium as noted. Also known history of chronic bronchial asthma. She also had a prior seizure disorder on antiseizure medication. FAMILY HISTORY: Positive for hypertension and diabetes. SOCIAL HISTORY: The patient has supportive family. No known substance use. REVIEW OF SYSTEMS: As mentioned above, admits to generalized body weakness with episodic bouts of dizziness and lightheadedness with unsteady gait as noted. Has occasional bifrontal headaches, but no visual changes otherwise. No chest pains or palpitations or PNDs. Her oral intake has been variable, but improving at this time with occasional nausea and dyspepsia. No recent alterations of bowel and urinary patterns. PHYSICAL EXAMINATION GENERAL: This is an average built female in no apparent distress. VITAL SIGNS: Blood pressure 140/80, pulse of 80 beats per minute regular, temperature 99 and respirations . HEENT: Head normocephalic. Eyes anicteric with pink conjunctivae. Funduscopy not possible at this time. Ears, nose and throat otherwise normal. NECK: Supple. Thyroid gland is normal in size. No carotid bruits or cervical adenopathy. CARDIOPULMONARY: Some adynamic precordium. S1 and S2 is rapid and regular. LUNGS: Clear to auscultation. ABDOMEN: Flat and soft with positive bowel sounds. EXTREMITIES: No peripheral edema. Pulses are +2 bilaterally. LABORATORY DATA: Her chemistry showed a BUN of 25, sodium 143, potassium 4.0, chloride 108, CO2 of 26, glucose 110 and creatinine 1.0. Her glucose levels today have ranged from 191 to 201 and 231 mg/dL. ASSESSMENT: This is a 72-year-old female with uncontrolled and decompensated type 2 insulin-requiring diabetes and admitted here to the rehab unit for acute rehabilitation therapy following a recent acute cerebrovascular accident as noted. She also has diabetic microvascular complications of retinopathy, polyneuropathy with diabetic macrovascular complications of coronary artery disease, peripheral arterial disease and recent cerebrovascular disease as mentioned. PLAN: Plan of management as discussed with the patient's staff. We will continue the same basal and bolus insulin regimen to allow for dose equilibration and keep her on the Humalog given as 16 units subcu t.i.d. before meals as ordered. We will continue also the Levemir given as 50 units subcu at bedtime daily as given. We will consider the addition of Januvia if hyperglycemic levels persists as noted. We will also modify the coverage scale using a low-dose algorithm with Humalog insulin as given. We will follow and advise accordingly. Melisa Gregory MD
[2017-10-28] MEDS: Insulin Lispro (humaLOG) 100 Units/ml Inj SC SCH ×7 (06:48→21:07)
[2017-10-28 08:15] LABS: BASO # 0.2 K/uL (0.0-0.2); BASO % 1.5 % (0.0-2.0); EOS # 0.4 K/uL (0.0-0.7); EOS % 4.1 % (0.0-4.0); HEMOGLOBIN 10.6 g/dL (12.0-16.0); LYMPH # 2.7 K/uL (1.0-4.3); LYMPH % 25.2 % (20.0-40.0); MEAN CELL VOLUME 86.2 fl (81.0-99.0); MEAN CORPUSCULAR HEMOGLOBIN 28.9 pg (27.0-31.0); MEAN CORPUSCULAR HGB CONC 33.5 g/dL (33.0-37.0); MEAN PLATELET VOLUME 8.9 fl (7.2-11.7); MONO # 0.9 K/uL (0.0-0.8); MONO % 8.6 % (0.0-10.0); NEUT # 6.5 K/uL (1.8-7.0); NEUT % 60.6 % (50.0-75.0); RBC 3.67 Mil/uL (3.80-5.20); RED CELL DISTRIBUTION WIDTH 14.3 % (11.5-14.5); WHITE BLOOD COUNT 10.8 K/uL (4.8-10.8)
[2017-10-28] MEDS: Fluticasone-Salmeterol 100-50mcg Diskus IH SCH ×2 (08:43→21:05)
[2017-10-28] MEDS: Brimonidine 0.2% 50 DROP/5 ML BOTTLE OD SCH ×2 (08:46→17:36)
[2017-10-28 09:04] LABS: ALBUMIN 3.3 g/dL (3.5-5.0); CALCIUM 9.3 mg/dL (8.4-10.2)
[2017-10-28] MEDS: Insulin Detemir 100 Units/ml Inj SC SCH (21:06)
--- NOTE | 2017-10-28 22:10 | PN ---
ENDOCRINOLOGY FOLLOWUP NOTE DATE: LOCATION: Room 621. SUBJECTIVE: This is a 72-year-old female with recent uncontrolled type 2 insulin-requiring diabetes with a recent acute CVA and currently undergoing rehabilitation therapy and is also being followed closely for metabolic management. Her oral intake is so much improved at this time as per the nursing staff with almost hyperphagia and craving for larger meal portions as noted. Her glucose values today have ranged from 184 to 240 mg/dL. Her latest chemistry showed a BUN of 28, sodium 141, potassium 4.4, chloride 107, CO2 of 22, glucose 217, and creatinine 1.1. She said she also has a thyroid stimulating hormone, but that is elevated at 12.30, so at this time we will start her on a very low-dose levothyroxine given as 25 mcg once daily as ordered. We will titrate accordingly to optimize metabolic control. We will also modify her current basal and bolus insulin regimen and increase the Levemir to 54 units subcutaneously at bedtime daily to start tonight. We will also continue the Humalog given as 16 units subcutaneously t.i.d. before meals as ordered. We will obtain serial chemistries and supplement accordingly as needed. We will also obtain serial thyroid studies and do a more comprehensive thyroid hormonal profile with thyroid antibodies to confirm and/or indicate the presence of underlying thyroid autoimmunity. ASSESSMENT: This is a 72-year-old female with recent uncontrolled type 2 insulin-requiring diabetes with increased insulin resistance and hefty or higher insulin requirements thereof on the background of an acute cerebrovascular accident, currently undergoing rehabilitation therapy as noted. She also has diabetic microvascular complications of retinopathy and polyneuropathy with diabetic macrovascular complications of coronary artery disease, peripheral arterial disease, and recent cerebrovascular disease as noted. Melisa Gregory MD
[2017-10-29] MEDS: Levothyroxine 25 MCG TAB PO SCH (05:44)
[2017-10-29] MEDS: Insulin Lispro (humaLOG) 100 Units/ml Inj SC SCH ×7 (06:48→21:00)
[2017-10-29] MEDS: Brimonidine 0.2% 50 DROP/5 ML BOTTLE OD SCH ×2 (09:11→16:28)
[2017-10-29] MEDS: Fluticasone-Salmeterol 100-50mcg Diskus IH SCH ×2 (09:11→20:30)
--- NOTE | 2017-10-29 11:44 | CP.PCM.CON ---
History of Present Illness - History of Present Illness History of Present Illness: Pt seen for sup therapy 10:45-11:05. Pt discussed gains in therapy, discussed progress achieved and looking forward to being with her at . pt spoke of positive treatment by others and looking forward to her future. Mood improved and patient adjusting increasingly well. plan: Continued Sup therapy Past Patient History - Tetanus Immunizations Tetanus Immunization: Unknown - Past Medical History & Family History Past Medical History?: Yes - Past Social History Smoking Status: Former Smoker Alcohol: None Drugs: Denies Home Situation {Lives}: With Family (staalexey glide) - CARDIAC Hx Hypercholesterolemia: Yes Hx Hypertension: Yes - PULMONARY Hx Asthma: Yes Hx Chronic Obstructive Pulmonary Disease (COPD): Yes - NEUROLOGICAL HX Cerebrovascular Accident: Yes Hx Seizures: Yes - HEENT Hx HEENT Problems: Yes Hx Blind: Yes Hx Glaucoma: Yes (right eye) - RENAL Hx Chronic Kidney Disease: No - ENDOCRINE/METABOLIC Hx Diabetes Mellitus Type 2: Yes - HEMATOLOGICAL/ONCOLOGICAL Hx Human Immunodeficiency Virus (HIV): No - INTEGUMENTARY Hx Dermatological Problems: No - MUSCULOSKELETAL/RHEUMATOLOGICAL Hx Falls: Yes - GASTROINTESTINAL Hx Gastrointestinal Disorders: No - GENITOURINARY/GYNECOLOGICAL Hx Genitourinary Disorders: No - PSYCHIATRIC Hx Substance Use: No - SURGICAL HISTORY Hx Cholecystectomy: Yes Hx Tonsillectomy: Yes Other/Comment: surgical resection of right temporal tumor - ANESTHESIA Hx Anesthesia: Yes Hx Anesthesia Reactions: No Meds Allergies/Adverse Reactions: Allergies Allergy/AdvReac Type Severity Reaction Status Date / Time levofloxacin [From Levaquin] Allergy convulsions Verified 10/18/17 12:47 Macrolide Antibiotics Allergy convulsions Verified 10/18/17 12:47 aspirin AdvReac bleedin Verified 10/18/17 12:47 - Medications Medications: Current Medications Acetaminophen (Tylenol 325mg Tab) 650 mg PO Q6 PRN PRN Reason: Fever >100.4 F, and pain moder Albuterol Sulfate (Albuterol 0.083% Inhal Tosha (2.5 Mg/3 Ml) Ud) 2.5 mg IH Q4H PRN PRN Reason: Shortness of Breath Last Admin: 10/20/17 22:18 Dose: 2.5 mg Amlodipine Besylate (Norvasc) 5 mg PO DAILY [facility] Last Admin: 10/29/17 09:12 Dose: 5 mg Aspirin (Ecotrin) 81 mg PO DAILY [facility] Last Admin: 10/29/17 09:13 Dose: 81 mg Atorvastatin Calcium (Lipitor) 80 mg PO HS [facility] Last Admin: 10/28/17 21:07 Dose: Not Given Brimonidine Tartrate (Alphagan 0.2% Opht) 1 drop OD BID [facility] Last Admin: 10/29/17 09:11 Dose: 1 drop Clopidogrel Bisulfate (Plavix) 75 mg PO DAILY [facility] Last Admin: 10/29/17 09:12 Dose: 75 mg Docusate Sodium (Colace) 100 mg PO BID PRN PRN Reason: Constipation Last Admin: 10/26/17 08:25 Dose: 100 mg Gabapentin (Neurontin) 100 mg PO Q12 [facility] Last Admin: 10/29/17 09:13 Dose: 100 mg Heparin Sodium (Porcine) (Heparin) 5,000 units SC Q12 [facility] PRN Reason: Protocol Last Admin: 10/29/17 09:14 Dose: Not Given Insulin Detemir (Levemir) 54 units SC HS [facility] Last Admin: 10/28/17 21:06 Dose: 54 unit Insulin Human Lispro (Humalog) 16 units SC AC [facility] Last Admin: 10/29/17 09:11 Dose: 16 units Insulin Human Lispro (Humalog) 0 units SC ACHS [facility] PRN Reason: Protocol Last Admin: 10/29/17 06:48 Dose: Not Given Levothyroxine Sodium (Synthroid) 25 mcg PO DAILY@0630 [facility] Last Admin: 10/29/17 05:44 Dose: 25 mcg Fluticasone/Salmeterol (Advair Diskus 100/50) 1 puff IH Q12 [facility] Last Admin: 10/29/17 09:11 Dose: 1 puff Temazepam (Restoril) 15 mg PO HS PRN PRN Reason: Insomnia Last Admin: 10/28/17 21:10 Dose: 15 mg Terbutaline Sulfate (Brethine Tab) 2.5 mg PO [facility] Last Admin: 10/28/17 21:06 Dose: 2.5 mg Timolol Maleate (Timoptic 0.5% Ophth Soln) 1 drop OD BID [facility] Last Admin: 10/29/17 09:14 Dose: 1 drop Results - Vital Signs Recent Vital Signs: Last Vital Signs Temp 98.2 F 10/28/17 19:57 Pulse 87 10/29/17 09:12 Resp 20 10/28/17 19:57 BP 183/90 H 10/29/17 09:12 Pulse Ox 98 10/28/17 19:57 - Labs Result Diagrams: 10/28/17 07:10 10/28/17 07:10 Labs: Laboratory Results - last 24 hr 10/28/17 10/28/17 10/28/17 07:10 11:19 16:30 POC Glucose (mg/dL) 226 H 149 H Hemoglobin A1c 9.7 H 10/28/17 10/29/17 10/29/17 21:02 05:40 11:16 POC Glucose (mg/dL) 202 H 177 H 240 H Hemoglobin A1c
--- NOTE | 2017-10-29 11:52 | CP.PCM.PN ---
Subjective - Date & Time of Evaluation Date of Evaluation: 10/29/17 Time of Evaluation: 11:52 - Subjective Subjective: Patient seen in PT doing well forgetful ambulating with RW but needs cues for safety Objective - Vital Signs/Intake and Output Vital Signs (last 24 hours): Temp Pulse Resp BP Pulse Ox 98.2 F 87 20 183/90 H 98 10/28/17 19:57 10/29/17 09:12 10/28/17 19:57 10/29/17 09:12 10/28/17 19:57 - Medications Medications: Current Medications Acetaminophen (Tylenol 325mg Tab) 650 mg PO Q6 PRN PRN Reason: Fever >100.4 F, and pain moder Albuterol Sulfate (Albuterol 0.083% Inhal Tosha (2.5 Mg/3 Ml) Ud) 2.5 mg IH Q4H PRN PRN Reason: Shortness of Breath Last Admin: 10/20/17 22:18 Dose: 2.5 mg Amlodipine Besylate (Norvasc) 5 mg PO DAILY [facility] Last Admin: 10/29/17 09:12 Dose: 5 mg Aspirin (Ecotrin) 81 mg PO DAILY [facility] Last Admin: 10/29/17 09:13 Dose: 81 mg Atorvastatin Calcium (Lipitor) 80 mg PO HS [facility] Last Admin: 10/28/17 21:07 Dose: Not Given Brimonidine Tartrate (Alphagan 0.2% Opht) 1 drop OD BID [facility] Last Admin: 10/29/17 09:11 Dose: 1 drop Clopidogrel Bisulfate (Plavix) 75 mg PO DAILY [facility] Last Admin: 10/29/17 09:12 Dose: 75 mg Docusate Sodium (Colace) 100 mg PO BID PRN PRN Reason: Constipation Last Admin: 10/26/17 08:25 Dose: 100 mg Gabapentin (Neurontin) 100 mg PO Q12 [facility] Last Admin: 10/29/17 09:13 Dose: 100 mg Heparin Sodium (Porcine) (Heparin) 5,000 units SC Q12 [facility] PRN Reason: Protocol Last Admin: 10/29/17 09:14 Dose: Not Given Insulin Detemir (Levemir) 54 units SC HS [facility] Last Admin: 10/28/17 21:06 Dose: 54 unit Insulin Human Lispro (Humalog) 16 units SC AC [facility] Last Admin: 10/29/17 09:11 Dose: 16 units Insulin Human Lispro (Humalog) 0 units SC ACHS [facility] PRN Reason: Protocol Last Admin: 10/29/17 06:48 Dose: Not Given Levothyroxine Sodium (Synthroid) 25 mcg PO DAILY@0630 [facility] Last Admin: 10/29/17 05:44 Dose: 25 mcg Fluticasone/Salmeterol (Advair Diskus 100/50) 1 puff IH Q12 [facility] Last Admin: 10/29/17 09:11 Dose: 1 puff Temazepam (Restoril) 15 mg PO HS PRN PRN Reason: Insomnia Last Admin: 10/28/17 21:10 Dose: 15 mg Terbutaline Sulfate (Brethine Tab) 2.5 mg PO HS [facility] Last Admin: 10/28/17 21:06 Dose: 2.5 mg Timolol Maleate (Timoptic 0.5% Oph Soln) 1 drop OD BID [facility] Last Admin: 10/29/17 09:14 Dose: 1 drop - Labs Labs: 10/28/17 07:10 10/28/17 07:10
[2017-10-29] MEDS: Insulin Detemir 100 Units/ml Inj SC SCH (21:42)
--- NOTE | 2017-10-29 23:23 | PN ---
DATE: ENDO FOLLOWUP NOTE LOCATION: In room 621 rehab unit. SUBJECTIVE: This is a 72-year-old female with recent uncontrolled type 2 insulin-requiring diabetes, now being followed closely for metabolic management. Her glycemic levels are fluctuating, but improved and the glucose values have ranged today from 177-240 mg/dL. It was 202 at bedtime last night. So at this time, we will continue the same basal and bolus insulin regimen to allow for dose equilibration and keep her on the Humalog given as 16 units subcu t.i.d. before meals as ordered. We will also continue the low-dose correction scale using Humalog insulin given a.c. and at bedtime as indicated. We will continue the basal insulin given as Levemir that was modified to 54 units subcu at bedtime daily and was started last night as noted. We will also continue levothyroxine given as 25 mcg daily in the morning as ordered. We will repeat the thyroid studies and titrate her dose regimen accordingly. We will obtain serial chemistries and supplement accordingly as needed. We will follow. Melisa Gregory MD
[2017-10-30] MEDS: Insulin Lispro (humaLOG) 100 Units/ml Inj SC SCH ×7 (06:47→21:18)
[2017-10-30] MEDS: Levothyroxine 25 MCG TAB PO SCH (06:48)
[2017-10-30] MEDS: Brimonidine 0.2% 50 DROP/5 ML BOTTLE OD SCH ×2 (08:15→17:16)
[2017-10-30] MEDS: Fluticasone-Salmeterol 100-50mcg Diskus IH SCH ×2 (08:15→21:17)
--- NOTE | 2017-10-30 13:13 | PN ---
DATE: ENDO FOLLOWUP NOTE LOCATION: Room 621. SUBJECTIVE: This is a 72-year-old female with recent uncontrolled type 2 insulin-requiring diabetes, now being followed closely for metabolic management. Her glycemic levels are fluctuating and her oral intake has improved as per the nursing staff. Her glucose levels have ranged today from 168 mg/dL to mg/dL. The latest bedtime glucose was 123 mg/dL. Her latest chemistry showed BUN of 28, sodium of 141, potassium of 4.4, chloride of 107, CO2 of 22, glucose of 217, and creatinine of 1.1. Her hemoglobin A1c is 9.7%. Her latest TSH is 12.30, so at this time, we will continue the levothyroxine given as 25 mcg daily as ordered and we will repeat the thyroid studies in the morning and titrate her dose regimen accordingly. We will also continue the Humalog given as units subcu t.i.d. before meals as ordered. We will continue the basal insulin given as Levemir at 54 units subcu at bedtime daily as given. We will continue the low-dose correction scale using Humalog insulin as ordered. We will obtain serial chemistry and supplement accordingly needed. We will follow. Melisa Gregory MD
[2017-10-30] MEDS: Insulin Detemir 100 Units/ml Inj SC SCH (21:19)
[2017-10-31] MEDS: Levothyroxine 25 MCG TAB PO SCH (05:48)
[2017-10-31] MEDS: Insulin Lispro (humaLOG) 100 Units/ml Inj SC SCH ×7 (06:56→21:38)
[2017-10-31] MEDS: Fluticasone-Salmeterol 100-50mcg Diskus IH SCH ×2 (10:09→21:37)
[2017-10-31] MEDS: Brimonidine 0.2% 50 DROP/5 ML BOTTLE OD SCH ×2 (10:35→17:06)
--- NOTE | 2017-10-31 12:35 | PN ---
DATE: ENDO FOLLOWUP NOTE LOCATION: Room 621. SUBJECTIVE: This is a 72-year-old female with recent uncontrolled type 2 insulin-requiring diabetes now being followed closely for metabolic management. Her glycemic levels are fluctuating, but improved and the glucose levels overnight have ranged from 110-120 and 245 mg/dL. Her latest chemistry showed BUN of 28, sodium of 141, potassium of 4.4, chloride of 107, CO2 of 22, glucose of 217, and creatinine of 1.1. So at this time, we will continue the same levothyroxine given as 25 mcg daily as ordered. We will also obtain serial thyroid studies and titrate her dose regimen accordingly. We will also continue the same basal and bolus insulin drug regimen as ordered with Levemir given as 54 units subcu at bedtime daily as ordered. We will continue the Humalog given as 16 units subcu t.i.d. before meals as given. We will obtain serial chemistry and supplement accordingly as needed. We will follow with her. Melisa Gregory MD
[2017-10-31] MEDS: Insulin Detemir 100 Units/ml Inj SC SCH (21:39)
[2017-11-01] MEDS: Levothyroxine 25 MCG TAB PO SCH (06:15)
[2017-11-01 06:32] LABS: HEMOGLOBIN 11.4 g/dL (12.0-16.0); MEAN CELL VOLUME 85.2 fl (81.0-99.0); MEAN CORPUSCULAR HEMOGLOBIN 28.8 pg (27.0-31.0); MEAN CORPUSCULAR HGB CONC 33.8 g/dL (33.0-37.0); RBC 3.95 Mil/uL (3.80-5.20); RED CELL DISTRIBUTION WIDTH 14.4 % (11.5-14.5); WHITE BLOOD COUNT 9.1 K/uL (4.8-10.8)
[2017-11-01] MEDS: Insulin Lispro (humaLOG) 100 Units/ml Inj SC SCH ×7 (06:42→21:00)
[2017-11-01 06:48] LABS: ALBUMIN 3.4 g/dL (3.5-5.0); CALCIUM 9.2 mg/dL (8.4-10.2)
[2017-11-01 06:52] LABS: T4 4.84 ug/dl (5.5-11.0)
[2017-11-01] MEDS: Brimonidine 0.2% 50 DROP/5 ML BOTTLE OD SCH ×2 (08:29→17:08)
[2017-11-01] MEDS: Fluticasone-Salmeterol 100-50mcg Diskus IH SCH ×2 (08:29→20:57)
--- NOTE | 2017-11-01 13:39 | CP.PCM.PN ---
Subjective - Date & Time of Evaluation Date of Evaluation: 11/01/17 Time of Evaluation: 13:38 - Subjective Subjective: Patient seen in room in good spirits looking forward to discharge to [facility] to be with continues to make progress in acute rehab Objective - Vital Signs/Intake and Output Vital Signs (last 24 hours): Temp Pulse Resp BP Pulse Ox 96.6 F L 83 19 149/79 92 L 11/01/17 08:41 11/01/17 08:41 11/01/17 08:41 11/01/17 08:41 11/01/17 08:41 - Medications Medications: Current Medications Acetaminophen (Tylenol 325mg Tab) 650 mg PO Q6 PRN PRN Reason: Fever >100.4 F, and pain moder Last Admin: 11/01/17 04:57 Dose: 650 mg Albuterol Sulfate (Albuterol 0.083% Inhal Tosha (2.5 Mg/3 Ml) Ud) 2.5 mg IH Q4H PRN PRN Reason: Shortness of Breath Last Admin: 10/20/17 22:18 Dose: 2.5 mg Amlodipine Besylate (Norvasc) 5 mg PO DAILY [facility] Last Admin: 11/01/17 08:33 Dose: 5 mg Aspirin (Ecotrin) 81 mg PO DAILY [facility] Last Admin: 11/01/17 08:29 Dose: 81 mg Atorvastatin Calcium (Lipitor) 80 mg PO HS [facility] Last Admin: 10/31/17 21:39 Dose: Not Given Brimonidine Tartrate (Alphagan 0.2% Opht) 1 drop OD BID [facility] Last Admin: 11/01/17 08:29 Dose: 1 drop Clopidogrel Bisulfate (Plavix) 75 mg PO DAILY [facility] Last Admin: 11/01/17 08:33 Dose: 75 mg Docusate Sodium (Colace) 100 mg PO BID PRN PRN Reason: Constipation Last Admin: 10/26/17 08:25 Dose: 100 mg Gabapentin (Neurontin) 100 mg PO Q12 [facility] Last Admin: 11/01/17 08:32 Dose: 100 mg Glipizide (Glucotrol) 10 mg PO BIDAC [facility] Last Admin: 11/01/17 08:30 Dose: 10 mg Heparin Sodium (Porcine) (Heparin) 5,000 units SC Q12 [facility] PRN Reason: Protocol Last Admin: 02/12/18 08:30 Dose: Not Given Insulin Detemir (Levemir) 54 units SC HS [facility] Last Admin: 10/31/17 21:39 Dose: 54 unit Insulin Human Lispro (Humalog) 16 units SC AC [facility] Last Admin: 11/01/17 12:17 Dose: 16 units Insulin Human Lispro (Humalog) 0 units SC ACHS [facility] PRN Reason: Protocol Last Admin: 11/01/17 11:35 Dose: Not Given Levothyroxine Sodium (Synthroid) 75 mcg PO DAILY@0630 [facility] Fluticasone/Salmeterol (Advair Diskus 100/50) 1 puff IH Q12 [facility] Last Admin: 11/01/17 08:29 Dose: 1 puff Temazepam (Restoril) 15 mg PO HS PRN PRN Reason: Insomnia Last Admin: 10/31/17 21:39 Dose: 15 mg Terbutaline Sulfate (Brethine Tab) 2.5 mg PO HS [facility] Last Admin: 10/31/17 21:38 Dose: 2.5 mg Timolol [facility]ate [facility] 1 drop OD BID [facility] Last Admin: 11/01/17 08:29 Dose: 1 drop - Labs Labs: 11/01/17 05:40 11/01/17 05:40
--- NOTE | 2017-11-01 20:42 | CP.PCM.PN ---
Subjective - Date & Time of Evaluation Date of Evaluation: 11/01/17 Time of Evaluation: 11:30 - Subjective Subjective: Patient seen and examined. Denied any complaint. Objective - Vital Signs/Intake and Output Vital Signs (last 24 hours): Temp Pulse Resp BP Pulse Ox 97.0 F L 69 19 144/72 97 11/01/17 20:08 11/01/17 20:08 11/01/17 20:08 11/01/17 20:08 11/01/17 20:08 - Medications Medications: Current Medications Acetaminophen (Tylenol 325mg Tab) 650 mg PO Q6 PRN PRN Reason: Fever >100.4 F, and pain moder Last Admin: 11/01/17 04:57 Dose: 650 mg Albuterol Sulfate (Albuterol 0.083% Inhal Tosha (2.5 Mg/3 Ml) Ud) 2.5 mg IH Q4H PRN PRN Reason: Shortness of Breath Last Admin: 10/20/17 22:18 Dose: 2.5 mg Amlodipine Besylate (Norvasc) 5 mg PO DAILY [facility] Last Admin: 11/01/17 08:33 Dose: 5 mg Aspirin (Ecotrin) 81 mg PO DAILY [facility] Last Admin: 11/01/17 08:29 Dose: 81 mg Atorvastatin Calcium (Lipitor) 80 mg PO HS [facility] Last Admin: 10/31/17 21:39 Dose: Not Given Brimonidine Tartrate (Alphagan 0.2% Opht) 1 drop OD BID [facility] Last Admin: 11/01/17 17:08 Dose: 1 drop Clopidogrel Bisulfate (Plavix) 75 mg PO DAILY [facility] Last Admin: 11/01/17 08:33 Dose: 75 mg Docusate Sodium (Colace) 100 mg PO BID PRN PRN Reason: Constipation Last Admin: 10/26/17 08:25 Dose: 100 mg Gabapentin (Neurontin) 100 mg PO Q12 [facility] Last Admin: 11/01/17 08:32 Dose: 100 mg Glipizide (Glucotrol) 10 mg PO BIDAC [facility] Last Admin: 11/01/17 17:10 Dose: 10 mg Heparin Sodium (Porcine) (Heparin) 5,000 units SC Q12 [facility] PRN Reason: Protocol Last Admin: 11/01/17 08:30 Dose: Not Given Insulin Detemir (Levemir) 54 units SC HS [facility] Last Admin: 10/31/17 21:39 Dose: 54 unit Insulin Human Lispro (Humalog) 16 units SC AC [facility] Last Admin: 11/01/17 17:11 Dose: 16 units Insulin Human Lispro (Humalog) 0 units SC ACHS [facility] PRN Reason: Protocol Last Admin: 11/01/17 17:10 Dose: Not Given Levothyroxine Sodium (Synthroid) 75 mcg PO DAILY@0630 [facility] Fluticasone/Salmeterol (Advair Diskus 100/50) 1 puff IH Q12 [facility] Last Admin: 11/01/17 08:29 Dose: 1 puff Temazepam (Restoril) 15 mg PO HS PRN PRN Reason: Insomnia Last Admin: 10/31/17 21:39 Dose: 15 mg Terbutaline Sulfate (Brethine Tab) 2.5 mg PO HS [facility] Last Admin: 10/31/17 21:38 Dose: 2.5 mg Timolol Maleate (Timoptic 0.5% Ophth Soln) 1 drop OD BID [facility] Last Admin: 11/01/17 17:09 Dose: 1 drop - Labs Labs: 11/01/17 05:40 11/01/17 05:40 - Constitutional Appears: No Acute Distress - Head Exam Head Exam: ATRAUMATIC - Eye Exam Eye Exam: absent: Scleral icterus - ENT Exam ENT Exam: Mucous Membranes Moist - Neck Exam Neck Exam: absent: Meningismus - Respiratory Exam Respiratory Exam: absent: Rhonchi, Wheezes, Respiratory Distress - Cardiovascular Exam Cardiovascular Exam: REGULAR RHYTHM, +S1, +S2 - GI/Abdominal Exam GI & Abdominal Exam: Soft. 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 MRI of the head showed acute/subacute ischemic infarct of the left temporo-occipital and both cerebellar. She was diagnosed with Acute CVA and was admitted in telemetry. While in the unit, she developed fever associated with body aches and was tested positive for flu. She also had UTI and got treated with IV Rocephin. When her condition got stable, she was transferred to Acute Rehab for continuation of her PT/OT. 1. Acute CVA - temporo-occipital/bilat cerebellar continue Atorvastatin, ASA and Plavix continue PT/OT/speech therapy 2. HTN BP controlled Norvasc 5mg daily 3. DM Type II, uncontrolled HgA1C: 10.4 on Levemir 50 units SC HS and Lispro 16 units TID Continue Accuchek ACHS with low Lispro coverage endocrinology consult with Dr Gregory 4. Asthma asymptomatic on Terbutaline, Duoneb, Advair 5. CKD improving probably secondary to dehydration because of uncontrolled diabetes 6. DVT proph Heparin 5000 units q 12hrs
[2017-11-01] MEDS: Insulin Detemir 100 Units/ml Inj SC SCH (21:11)
--- NOTE | 2017-11-02 00:51 | PN ---
ENDOCRINOLOGY FOLLOWUP NOTE DATE: LOCATION: In room 621. SUBJECTIVE: This is a 72-year-old female with recent uncontrolled type 2 insulin-requiring diabetes, now being followed closely for metabolic management. Her glycemic levels are fluctuating, but improved, and the glucose levels have ranged from 200-218 and 224 mg/dL. Her latest chemistry showed a BUN of 37, sodium 142, potassium 4.5, chloride 108, CO2 of 21, glucose 210, and creatinine 1.2. Her latest thyroid study showed a T4 of 4.84 with a TSH of 9.47, indicative of subclinical hypothyroidism as noted. So, at this time, we will modify and titrate levothyroxine to a higher dose of 75 mcg once daily in the morning as ordered. We will obtain serial chemistries and supplement accordingly as needed. We will also continue the basal and bolus insulin regimen as given with Humalog given as 16 units subcutaneously t.i.d. before meals as ordered. We will also continue the Levemir given as 54 units subcutaneously at bedtime daily as given. We will titrate incremental as indicated to optimize metabolic control. We will follow. Melisa Gregory MD
[2017-11-02 03:08] VITALS: O2SAT 98
[2017-11-02] MEDS: Insulin Lispro (humaLOG) 100 Units/ml Inj SC SCH ×7 (06:30→21:00)
[2017-11-02] MEDS: Levothyroxine 75 MCG TAB PO SCH (06:45)
[2017-11-02] MEDS: Fluticasone-Salmeterol 100-50mcg Diskus IH SCH ×2 (08:36→20:04)
[2017-11-02] MEDS: Brimonidine 0.2% 50 DROP/5 ML BOTTLE OD SCH ×2 (08:37→17:12)
--- NOTE | 2017-11-02 16:11 | PSY.TMCNF ---
Nursing - Vital Signs Vital Signs (Last 8 hours): Vital Signs 11/02/17 11/02/17 11/02/17 08:41 09:00 09:01 Temperature 97.9 F 97.9 F Pulse Rate 72 72 72 Respiratory 21 21 Rate Blood Pressure 150/76 150/76 150/76 O2 Sat by Pulse 98 Oximetry Pain: 0 - Precautions: Precautions: Fall Prevention, Seizure - Medications/Other Issues Comment: Non compliant with diebetic diet. - Consults Comment: Dr. Cisneros, Dr. Javed, Cam - Toileting Toileting: Dependent - Bladder Management Bladder Pattern: Normal, Incontinent Voiding Method: Toilet, Bedpan Bladder Management: Dependent Frequency of Accidents: 6 - Bowel Management Bowel Pattern: Normal Bowel Management: Supervision Frequency of Accidents: 0 - Transfers Transfers: Minimal Assistance - ADL's ADL's: Moderate Assistance - Pain Management Comments: N/A - Patient/Family Teaching Comments: Care post CVA and safety precautions - Goals/Time Frame Comments: Per multidisciplinary care plan and goals - Provider Provider: Mary ORTEZN RN CRRN Physical Therapy - Bed Mobility Bed Mobility: Minimal Assistance - Transfers Wheelchair to Mat: Contact Guard Sit to Stand: Contact Guard - Ambulation Level of Assistance: Contact Guard Distance (ft.): 130 Assistive Devices: Rolling Walker - Stair Negotiation Stairs: Level of Assistance: Contact Guard Number of Stairs: 6 Handrails: Bilateral Stairs: Assistive Devices: Left Handrail, Right Handrail - Standing Balance Static Stand: Contact Guard Assist Dynamic Stand: Minimal Assistance - Pain Pain (assessed during therapy session): 0 - Insight/Carryover Insight/Carryover: Good - Patient/Family Education Comment: Pt education provided for increased safety awareness and proper techniques during functional mobility training - Assessment/Plan Assessment: Pt requires verbal cues for encouragement to participate in 1:1 and group recreation therapy sessions. Pt will report she is fatigued or wants to go into bed to rest following therapy sessions. When agreeable, pt requires min verbal cues at times for carryover of task rules and for visual recognition of objects in front of pt 2' visual deficits in both eyes.Pt reported that she enjoys participating in leisure activities; however, will refuse to participate 2' pt resting or stating that she wants to return to bed to rest. Pt declined bingo, cards, and agreeable to play dominoes task. Pt required verbal cues to attend to task and tolerate duration of session. Pt would benefit from participating in recreation therapy sessions to decrease anxiety level and improve arousal level if pt was agreeable and not limited to anxiety or fatigue. Pt receives daily room visits for social support and encouragement to participate in sessions. - Goals Timeframe: 1 week Goals: Sit < > supine with supervision. Sit < > stand wth supervision using RW. Pt will ambulate 200 ft with RW and Supervision. Pt will ascend/descend 6 stairs with supervision - Provider Therapist: fredi License Number: [id number] Occupational Therapy - Arousal/Attention/Orientation Patient Orientation: Person, Place, Time, Appropriate to Age, Appropriate to Situation - ADL/IADL Self Feeding: Set-up Help Grooming: Set-up Help Bathing-Upper Extremity: Minimal Assistance Bathing-Lower Extremity: Minimal Assistance Dressing-Upper Extremity: Minimal Assistance Dressing-Lower Extremity: Minimal Assistance Comment: patient uses rw and AE. Patient's assisted with lb self care and toileting , - Sitting Balance Static Sitting: Independent without upper extremity support Dynamic Sitting: Requires supervision - Transfers Wheelchair to Bed Transfers: Contact Guard Toilet Transfers: Contact Guard, Minimal Assistance Tub Transfers: Minimal Assistance - Wheelchair Management Level of Assistance: Moderate Assistance - Upper Extremity Status Right Upper Extremity Comment: WFL Left Upper Extremity Comment: WFL; L grasp strength slighter weaker than R - Pain Pain (assessed during therapy session): 0 - Insight/Carryover Insight/Carryover: Good - Patient/Family Education Comment: Pt education provided for increased safety awareness and proper techniques during functional mobility training - Assessment/Plan Assessment: Pt requires verbal cues for encouragement to participate in 1:1 and group recreation therapy sessions. Pt will report she is fatigued or wants to go into bed to rest following therapy sessions. When agreeable, pt requires min verbal cues at times for carryover of task rules and for visual recognition of objects in front of pt 2' visual deficits in both eyes.Pt reported that she enjoys participating in leisure activities; however, will refuse to participate 2' pt resting or stating that she wants to return to bed to rest. Pt declined bingo, cards, and agreeable to play dominoes task. Pt required verbal cues to attend to task and tolerate duration of session. Pt would benefit from participating in recreation therapy sessions to decrease anxiety level and improve arousal level if pt was agreeable and not limited to anxiety or fatigue. Pt receives daily room visits for social support and encouragement to participate in sessions. - Goals Timeframe: 1 week Goals: Sit < > supine with supervision. Sit < > stand wth supervision using RW. Pt will ambulate 200 ft with RW and Supervision. Pt will ascend/descend 6 stairs with supervision - Provider Therapist: TONO Lord[facility] - Plan Assessment: Pt requires verbal cues for encouragement to participate in 1:1 and group recreation therapy sessions. Pt will report she is fatigued or wants to go into bed to rest following therapy sessions. When agreeable, pt requires min verbal cues at times for carryover of task rules and for visual recognition of objects in front of pt 2' visual deficits in both eyes.Pt reported that she enjoys participating in leisure activities; however, will refuse to participate 2' pt resting or stating that she wants to return to bed to rest. Pt declined bingo, cards, and agreeable to play dominoI Had Cancer task. Pt required verbal cues to attend to task and tolerate duration of session. Pt would benefit from participating in recreation therapy sessions to decrease anxiety level and improve arousal level if pt was agreeable and not limited to anxiety or fatigue. Pt receives daily room visits for social support and encouragement to participate in sessions. Recreational Therapy - Participation Participation: Participates in Individual and/or Group Sessions, Monitors His/ Her Own Leisure Time - Attendance Attendance: Daily - Activities Leisure Activities: Television - Socialization Level of Socialization: Initiates/interacts freely with care givers and peer - Diversional Time Diversional Time: television, likes bingo, music - Assessment Assessment/Plan: Pt requires verbal cues for encouragement to participate in 1: 1 and group recreation therapy sessions. Pt will report she is fatigued or wants to go into bed to rest following therapy sessions. When agreeable, pt requires min verbal cues at times for carryover of task rules and for visual recognition of objects in front of pt 2' visual deficits in both eyes.Pt reported that she enjoys participating in leisure activities; however, will refuse to participate 2' pt resting or stating that she wants to return to bed to rest. Pt declined bingo, cards, and agreeable to play dominoes task. Pt required verbal cues to attend to task and tolerate duration of session. Pt would benefit from participating in recreation therapy sessions to decrease anxiety level and improve arousal level if pt was agreeable and not limited to anxiety or fatigue. Pt receives daily room visits for social support and encouragement to participate in sessions. Problems Currently Limiting Participation: R eye blindness, L eye visual deficits, anxiety, decrease leisure awareness level, decrease direction following, decrease arousal level Goals and Time Frame: Pt will be encouraged to participate in 1:1 and group recreation therapy sessions to improve arousal level, leisure awareness level, direction following, and problem solving. - Provider Therapist: Deb Gill, ROOM WORKER #[id number] Nutrition - Current Diet Current Diet/ Supplement/ Feedings: Modeate consistent CHO heart healthy diet - Appetite Percent Meal Consumed: 75-100% - Comments Comments: Care post CVA and safety precautions - Assessment/Goals/Time Frame Assessment/Goals/Time Frame: Non compliant with diebetic diet. - Provider Provider: Patricia Bradley RD Case Management - Psychosocial Assessment Support Systems: [facility] [employer] (significant other) [phone] Psychological Interventions/Needs: Patient is alert with intermittent confusion. Patient less anxious than last week Discharge Concerns: Patient present with impaired short term memory recall, impaired BLE strength, seated/standing balance, and endurance resulting in decreased (I) with functional mobility skills Patient/Family Meeting: CM met with patient and rehab team Intervention/Goal/Outcome:: 1. PLAN: [facility]MPERATRIZ at [place] (partner currently admitted at this location). 2. Tentative discharge date: 11/03/2017. 3. continued emotional support. - Discharge Plan Discharge Plan: Subacute care - Provider Provider: LI Burciaga, [employer] OPERATOR License Number: [id number] Rehabilitation Plan - Discharge Plan Estimated Date of Discharge: 11/03/17 Discharge to: Subacute
--- NOTE | 2017-11-02 16:24 | CP.PCM.PN ---
Subjective - Date & Time of Evaluation Date of Evaluation: 11/02/17 Time of Evaluation: 16:23 - Subjective Subjective: Patient seen in room comfortable pain has been controlled she is set for d/c tomorrow to [facility] and she is very excited continue current care Objective - Vital Signs/Intake and Output Vital Signs (last 24 hours): Temp Pulse Resp BP Pulse Ox 97.9 F 72 21 150/76 98 11/02/17 09:01 11/02/17 09:01 11/02/17 09:01 11/02/17 09:01 11/02/17 09:01 - Medications Medications: Current Medications Acetaminophen (Tylenol 325mg Tab) 650 mg PO Q6 PRN PRN Reason: Fever >100.4 F, and pain moder Last Admin: 11/01/17 04:57 Dose: 650 mg Albuterol Sulfate (Albuterol 0.083% Inhal Tosha (2.5 Mg/3 Ml) Ud) 2.5 mg IH Q4H PRN PRN Reason: Shortness of Breath Last Admin: 10/20/17 22:18 Dose: 2.5 mg Amlodipine Besylate (Norvasc) 5 mg PO DAILY [facility] Last Admin: 11/02/17 08:41 Dose: 5 mg Aspirin (Ecotrin) 81 mg PO DAILY [facility] Last Admin: 11/02/17 08:40 Dose: 81 mg Atorvastatin Calcium (Lipitor) 80 mg PO HS [facility] Last Admin: 11/01/17 21:01 Dose: Not Given Brimonidine Tartrate (Alphagan 0.2% Opht) 1 drop OD BID [facility] Last Admin: 11/02/17 08:37 Dose: 1 drop Clopidogrel Bisulfate (Plavix) 75 mg PO DAILY [facility] Last Admin: 11/02/17 08:41 Dose: 75 mg Docusate Sodium (Colace) 100 mg PO BID PRN PRN Reason: Constipation Last Admin: 10/26/17 08:25 Dose: 100 mg Gabapentin (Neurontin) 100 mg PO Q12 [facility] Last Admin: 11/02/17 08:41 Dose: 100 mg Glipizide (Glucotrol) 10 mg PO BIDAC [facility] Last Admin: 11/02/17 07:00 Dose: 10 mg Heparin Sodium (Porcine) (Heparin) 5,000 units SC Q12 [facility] PRN Reason: Protocol Last Admin: 11/02/17 08:40 Dose: Not Given Insulin Detemir (Levemir) 56 units SC HS [facility] Insulin Human Lispro (Humalog) 16 units SC AC [facility] Last Admin: 11/02/17 12:12 Dose: 16 units Insulin Human Lispro (Humalog) 0 units SC ACHS [facility] PRN Reason: Protocol Last Admin: 11/02/17 12:13 Dose: Not Given Levothyroxine Sodium (Synthroid) 75 mcg PO DAILY@0630 [facility] Last Admin: 11/02/17 06:45 Dose: 75 mcg Fluticasone/Salmeterol (Advair Diskus 100/50) 1 puff IH Q12 [facility] Last Admin: 11/02/17 08:36 Dose: 1 puff Temazepam (Restoril) 15 mg PO HS PRN PRN Reason: Insomnia Last Admin: 11/01/17 21:06 Dose: 15 mg Terbutaline Sulfate (Brethine Tab) 2.5 mg PO HS [facility] Last Admin: 11/01/17 21:06 Dose: 2.5 mg Timolol Maleate (Timoptic 0.5% [facility]) 1 drop OD BID [facility] Last Admin: 11/02/17 08:37 Dose: 1 drop - Labs Labs: 11/01/17 05:40 11/01/17 05:40
[2017-11-02] MEDS ORDERED: Insulin Detemir 100 Units/ml Inj SC SCH (22:00)
--- NOTE | 2017-11-02 23:30 | PN ---
ENDO FOLLOWUP NOTE DATE: LOCATION: In room #621 SUBJECTIVE: This is a 72-year-old female with recent uncontrolled type 2 insulin-requiring diabetes, now being followed closely for metabolic management. Her glycemic levels are fluctuating but improved and the latest glucose levels have ranged from 126 to 186 and 223 mg/dL. Her latest chemistry showed BUN of 37, sodium 140, potassium 4.5, chloride 108, CO2 of 21, glucose 210, and creatinine 1.2. Her latest thyroid studies showed a T4 of 4.84 and a TSH of 9.47. So, at this time, we will continue the same basal and bolus insulin regimen as given with Humalog given as 16 units subcutaneously t.i.d. before meals as ordered. We will continue also the Levemir given as 56 units subcutaneously at bedtime daily to start tonight. We will continue the glipizide given as 10 mg b.i.d. before meals as ordered. She is also on levothyroxine given as 75 mcg daily as given and we will titrate the dose accordingly to optimize metabolic control. We will follow. Melisa Gregory MD
[2017-11-03] MEDS: Levothyroxine 75 MCG TAB PO SCH (06:21)
[2017-11-03] MEDS: Insulin Lispro (humaLOG) 100 Units/ml Inj SC SCH ×3 (07:00→07:41)
[2017-11-03 07:47] VITALS: BP 159/70; PULSE 62; RESP 19; TEMP 97.9
[2017-11-03] MEDS: Fluticasone-Salmeterol 100-50mcg Diskus IH SCH (08:21)
[2017-11-03] MEDS: Brimonidine 0.2% 50 DROP/5 ML BOTTLE OD SCH (08:22)
--- NOTE | 2017-11-03 09:02 | CP.PCM.DIS ---
Provider - Provider Date of Admission: 10/18/17 13:21 Attending physician: Kary Trimble MD Time Spent in preparation of Discharge (in minutes): 30 Diagnosis - Discharge Diagnosis (1) Acute kidney injury Status: Acute (2) Diabetes mellitus Status: Acute (3) TIA (transient ischemic attack) Status: Acute (4) Weakness Status: Acute Hospital Course - Lab Results Lab Results: Micro Results 10/24/17 07:21 Urine,Catheterized Urine Culture - Final No Growth (<1,000 CFU/ML) Most Recent Lab Values WBC 9.1 K/uL (4.8-10.8) 11/01/17 05:40 RBC 3.95 Mil/uL (3.80-5.20) 11/01/17 05:40 Hgb 11.4 g/dL (12.0-16.0) L 11/01/17 05:40 Hct 33.7 % (34.0-47.0) L 11/01/17 05:40 MCV 85.2 fl (81.0-99.0) 11/01/17 05:40 MCH 28.8 pg (27.0-31.0) 11/01/17 05:40 MCHC 33.8 g/dL (33.0-37.0) 11/01/17 05:40 RDW 14.4 % (11.5-14.5) 11/01/17 05:40 Plt Count 425 K/uL (130-400) H 11/01/17 05:40 MPV 8.9 fl (7.2-11.7) 10/28/17 07:10 Neut % (Auto) 60.6 % (50.0-75.0) 10/28/17 07:10 Lymph % (Auto) 25.2 % (20.0-40.0) 10/28/17 07:10 [place] % (Auto) 8.6 % (0.0-10.0) 10/28/17 07:10 Eos % (Auto) 4.1 % (0.0-4.0) H 10/28/17 07:10 Baso % (Auto) 1.5 % (0.0-2.0) 10/28/17 07:10 Neut # (Auto) 6.5 K/uL (1.8-7.0) 10/28/17 07:10 Lymph # (Auto) 2.7 K/uL (1.0-4.3) 10/28/17 07:10 [place] # (Auto) 0.9 K/uL (0.0-0.8) H 10/28/17 07:10 Eos # (Auto) 0.4 K/uL (0.0-0.7) 10/28/17 07:10 Baso # (Auto) 0.2 K/uL (0.0-0.2) 10/28/17 07:10 Sodium 140 mmol/l (132-148) 11/01/17 05:40 Potassium 4.5 MMOL/L (3.6-5.0) 11/01/17 05:40 Chloride 108 mmol/L (98-107) H 11/01/17 05:40 Carbon Dioxide 21 mmol/L (22-30) L 11/01/17 05:40 Anion Gap 16 (10-20) 11/01/17 05:40 BUN 37 mg/dl (7-17) H 11/01/17 05:40 Creatinine 1.2 mg/dl (0.7-1.2) 11/01/17 05:40 Est GFR ( Amer) 54 11/01/17 05:40 Est GFR (Non-Af Amer) 44 11/01/17 05:40 POC Glucose (mg/dL) 149 mg/dL (65-110) H 11/03/17 06:18 Random Glucose 210 mg/dL (65-105) H 11/01/17 05:40 Hemoglobin A1c 9.7 % (4.2-6.5) H 10/28/17 07:10 Calcium 9.2 mg/dL (8.4-10.2) 11/01/17 05:40 Total Bilirubin 0.2 mg/dl (0.2-1.3) 11/01/17 05:40 AST 16 U/L (14-36) 11/01/17 05:40 ALT 17 U/L (9-52) 11/01/17 05:40 Alkaline Phosphatase 93 U/L (38-126) 11/01/17 05:40 Total Protein 6.8 G/DL (6.3-8.2) 11/01/17 05:40 Albumin 3.4 g/dL (3.5-5.0) L 11/01/17 05:40 Globulin 3.5 gm/dL (2.2-3.9) 11/01/17 05:40 Albumin/Globulin Ratio 1.0 (1.0-2.1) 11/01/17 05:40 Thyroxine (T4) 4.84 ug/dl (5.5-11.0) L 11/01/17 05:40 TSH 3rd Generation 9.47 mIU/ML (0.46-4.68) H 11/01/17 05:40 Urine Color Yellow (YELLOW) 10/24/17 22:09 Urine Clarity Slighty-cloudy (Clear) 10/24/17 22:09 Urine pH 6.0 (5.0-8.0) 10/24/17 22:09 Ur Specific [place] 1.014 (1.003-1.030) 10/24/17 22:09 Urine Protein 100 mg/dL (NEGATIVE) 10/24/17 22:09 Urine Glucose (UA) 150 mg/dL (Normal) 10/24/17 22:09 Urine Ketones Negative mg/dL (NEGATIVE) 10/24/17 22:09 Urine Blood Small (NEGATIVE) 10/24/17 22:09 Urine Nitrate Negative (NEGATIVE) 10/24/17 22:09 Urine Bilirubin Negative (NEGATIVE) 10/24/17 22:09 Urine Urobilinogen 0.2-1.0 mg/dL (0.2-1.0) 10/24/17 22:09 Ur Leukocyte Esterase Neg Cristi/uL (Negative) 10/24/17 22:09 Urine RBC (Auto) 4 /hpf (0-3) H 10/24/17 22:09 Urine Microscopic WBC 1 /hpf (0-5) 10/24/17 22:09 Ur Squamous Epith Cells < 1 /hpf (0-5) 10/24/17 22:09 - Hospital Course Hospital Course: 72 yo female with history of DM2, Asthma, HTN, Seizure, previous CVA and 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 MRI of the head showed acute/subacute ischemic infarct of the left temporo-occipital and both cerebellar. She was diagnosed with Acute CVA and was admitted in telemetry. While in the unit, she developed fever associated with body aches and was tested positive for flu. She also had UTI and got treated with IV Rocephin. When her condition got stable, she was transferred to Acute Rehab for continuation of her PT/OT. TOLERATED PT WELL STABLE FOR DC TO [facility]. 1. Acute CVA - temporo-occipital/bilat cerebellar continue Atorvastatin, ASA and Plavix continue PT/OT/speech therapy 2. HTN BP controlled Norvasc 5mg daily 3. DM Type II, uncontrolled HgA1C: 10.4 on Levemir 50 units SC HS and Lispro 16 units TID Continue Accuchek ACHS with low Lispro coverage endocrinology consult with Dr Gregory 4. Asthma asymptomatic on Terbutaline, Duoneb, Advair 5. CKD improving probably secondary to dehydration because of uncontrolled diabetes 6. DVT proph Heparin 5000 units q 12hrs Discharge Exam - Head Exam Head Exam: ATRAUMATIC, NORMOCEPHALIC - Eye Exam Eye Exam: EOMI, Normal appearance, PERRL Pupil Exam: NORMAL ACCOMODATION - ENT Exam ENT Exam: Mucous Membranes Moist, Normal Oropharynx - Neck Exam Neck exam: Full Rom, Normal Inspection - Respiratory Exam Respiratory Exam: Clear to PA & Lateral, NORMAL BREATHING PATTERN - Cardiovascular Exam Cardiovascular Exam: RRR, +S1, +S2 - GI/Abdominal Exam GI & Abdominal Exam: Normal Bowel Sounds, Soft. absent: Mass, Tenderness - Back Exam Back exam: absent: CVA tenderness (L), CVA tenderness (R) - Neurological Exam Neurological exam: Alert, Reflexes Normal - Psychiatric Exam Psychiatric exam: Normal Affect, Normal Mood - Skin Skin Exam: Dry, Warm Discharge Plan - Follow Up Plan Condition: GOOD Disposition: TRANSF TO SNF
--- NOTE | 2017-11-03 15:43 | PN ---
DATE: ENDO FOLLOWUP NOTE SUBJECTIVE: This is a 72-year-old female with recent uncontrolled type 2 insulin-requiring diabetes, now being followed closely for metabolic management. She underwent acute rehabilitation therapy here following a recent acute CVA as noted thereof. Her glycemic levels were fluctuating, but have improved accordingly and the glucose values overnight have ranged from 119 mg/dL to 149 mg/dL. So at this time, we will recommend the same basal and bolus insulin drug combination upon transfer to a [facility] facility at this time. We will continue her Levemir given as 56 units subcu at bedtime daily and Humalog given as 16 units subcu t.i.d. before meals as ordered. We will continue also the glipizide given as 10 mg b.i.d. before meals as given. We will titrate incrementally as indicated to optimize metabolic control. We will also continue the levothyroxine given as 75 mcg once daily as ordered. We will follow and advice accordingly. Melisa Gregory MD
== END 2017-11-03 10:20 | DRG 57 ==
PROVIDERS: ADMIT Hospitalist; ATTEND Hospitalist
PROC: F07Z9FZ Gait Training/Functional Ambulation Treatment using Assistive, Adaptive, Supportive or Protective Equipment (ICD-10-PCS; principal; 2017-10-18)
PROC: F07M6FZ Therapeutic Exercise Treatment of Musculoskeletal System - Whole Body using Assistive, Adaptive, Supportive or Protective Equipment (ICD-10-PCS; 2017-10-18)
PROC: F08Z4FZ Home Management Treatment using Assistive, Adaptive, Supportive or Protective Equipment (ICD-10-PCS; 2017-10-18)
DX: I69.359 Hemiplegia and hemiparesis following cerebral infarction affecting unspecified side (principal); N17.9 Acute kidney failure, unspecified; E11.22 Type 2 diabetes mellitus with diabetic chronic kidney disease; E11.42 Type 2 diabetes mellitus with diabetic polyneuropathy; E11.319 Type 2 diabetes mellitus with unspecified diabetic retinopathy without macular edema; J45.31 Mild persistent asthma with (acute) exacerbation; R42 Dizziness and giddiness; Z85.72 Personal history of non-Hodgkin lymphomas; Z87.891 Personal history of nicotine dependence; Z90.49 Acquired absence of other specified parts of digestive tract; R26.81 Unsteadiness on feet; E03.9 Hypothyroidism, unspecified; I25.10 Atherosclerotic heart disease of native coronary artery without angina pectoris; E11.51 Type 2 diabetes mellitus with diabetic peripheral angiopathy without gangrene; E11.65 Type 2 diabetes mellitus with hyperglycemia; E78.00 Pure hypercholesterolemia, unspecified; E78.5 Hyperlipidemia, unspecified; E86.0 Dehydration; F39 Unspecified mood [affective] disorder; G40.909 Epilepsy, unspecified, not intractable, without status epilepticus; H40.9 Unspecified glaucoma; H54.7 Unspecified visual loss; I13.10 Hypertensive heart and chronic kidney disease without heart failure, with stage 1 through stage 4 chronic kidney disease, or unspecified chronic kidney disease; J44.9 Chronic obstructive pulmonary disease, unspecified; N18.3 Chronic kidney disease, stage 3 (moderate); R32 Unspecified urinary incontinence; Z79.4 Long term (current) use of insulin; Z79.899 Other long term (current) drug therapy; Z87.440 Personal history of urinary (tract) infections

== ENCOUNTER 2017-11-21 08:37 | Inpatient (IN) | payer MEDICARE, BC ==
[2017-11-21 08:52] VITALS: BMI 25.7
--- NOTE | 2017-11-21 08:55 | ED PDOC ---
HPI:STROKE - Time Time: 08:54 - Historian Historian: long-term - Chief Complaint Chief Complaint: Mental status change (limited H and P) - Onset Date: 11/20/17 Time: 20:00 - Timing Timing: Improved - TPA Positive for Contraindication: Yes Reason tPA is not being Administered: Pt. out of window of time; no clear stroke pattern - Notes: Notes:: Pt. was last know communicating and alert last night at approx 8pm. Today on rounds they noticed she had decreased responsiveness. Pt. usually AAOx3. Pt. has chronic left side weakness from old stroke. Pt. not able to give full history due to altered mental status. NIHSS Stroke Scale - Date/Time Evaluation Performed Date Performed: 11/21/17 Time Performed: 08:57 When Was NIHSS Performed: Baseline - How Severe is the Stroke Level of Consciousness: 1=Drowsy LOC to Questions: 2=Neither correct LOC to commands: 1=Obeys one correctly Best Gaze: 0=Normal Visual: 0=No visual loss Facial: 0=Normal Motor Arm - Left: 1=Drift noted before 10 sec Motor Arm - Right: 0=No drift Motor Leg - Left: 1=Drift before 5 sec Motor Leg - Right: 1=Drift before 5 sec Limb Ataxia: 2=Present both Sensory: 0=Normal Best Language: 1=Mild to moderate aphasia Dysarthia: 1=Mild to moderate slurring Extinction & Inattention (Neglect): 0=Normal, no object Score: 11 rTPA Inclusion/Exclusion - Refusal of Treatment Patient Refused Treatment: No - Inclusion Criteria for Altepase Patient is 18 years or Older: Yes The Clinical Diagnosis of Ischemic Stroke That is Causing a Potentially Disabling Neurological Deficit: No Time of Onset is Well Established to be Less Than 270 Minute Before Treatment Would Begin: No Risk/Benefit Discussed With Patient/Family Member Present: No Past Medical History Reviewed: Nursing Documentation, Vital Signs - Medical History PMH: Asthma, CVA, Depression, Diabetes, HTN, Hypercholesterolemia, Malignancy ( Brain Ca s/p surgical resection), Post Traumatic Stress Disorder, Seizures Denies: HIV, Chronic Kidney Disease - Surgical History Surgical History: Cholecystectomy, Tonsillectomy - Family History Family History: States: Unknown Family Hx - Living Arrangements Living Arrangements: Correction/Assist Lvng - Social History Alcohol: None Drugs: Denies - Home Medications Home Medications: Ambulatory Orders Medication Instructions Recorded Terbutaline [Brethine Tab] 2.5 mg PO HS 12/27/15 amLODIPine [Norvasc] 5 mg PO DAILY 12/27/15 Albuterol 0.083% [Albuterol 0.083% 3 ml IH Q4H PRN 10/11/17 Inhal Tosha (2.5 mg/3 ml) UD] Albuterol/Ipratropium [Combivent 1 puff IH Q6 10/11/17 Respimat] Azelastine HCl [Astepro] 1 spray SUSANA BID PRN 10/11/17 Gabapentin [Neurontin] 100 mg PO Q12 10/11/17 Acetaminophen [Tylenol 325mg tab] 650 mg PO Q6 PRN tab 10/18/17 Aspirin [Ecotrin] 81 mg PO DAILY tabec 10/18/17 Atorvastatin [Lipitor] 80 mg PO HS 10/18/17 Brimonidine 0.2% [Alphagan 0.2% 1 drop OD BID bottle 10/18/17 Opht] Clopidogrel [Plavix] 75 mg PO DAILY tab 10/18/17 Docusate [Colace] 100 mg PO BID PRN cap 10/18/17 Fluticasone/Salmeterol 100/50 1 puff IH Q12 puff 10/18/17 [Advair Diskus 100/50] Heparin 5,000 units SC Q12 vial 10/18/17 Insulin Detemir [Levemir] 46 units SC HS vial 10/18/17 Insulin Lispro [humALOG] 16 units SC AC 10/18/17 LORazepam [Ativan] 0.5 mg PO HS PRN tab 10/18/17 Pantoprazole [Protonix EC Tab] 40 mg PO DAILY ect 10/18/17 Timolol 0.5% Ophth [Timoptic 0.5% 1 drop OD BID bottle 10/18/17 Ophth Soln] GlipiZIDE [Glucotrol] 10 mg PO BIDAC tab 11/03/17 Levothyroxine [Synthroid] 75 mcg PO DAILY@0630 tab 11/03/17 Temazepam [Restoril] 15 mg PO HS PRN cap 11/03/17 - Allergies Allergies/Adverse Reactions: Allergies Allergy/AdvReac Type Severity Reaction Status Date / Time levofloxacin [From Levaquin] Allergy convulsions Verified 10/18/17 12:47 Macrolide Antibiotics Allergy convulsions Verified 10/18/17 12:47 aspirin AdvReac bleedin Verified 10/18/17 12:47 Review of Systems ROS Statement: Except As Marked, All Systems Reviewed And Found Negative Physical Exam - Reviewed Nursing Documentation Reviewed: Yes Vital Signs Reviewed: Yes - Physical Exam Appears: Positive for: Non-toxic, No Acute Distress Head Exam: Positive for: ATRAUMATIC, NORMAL INSPECTION, NORMOCEPHALIC Skin: Positive for: Normal Color, Warm, DRY Eye Exam: Positive for: PERRL (L; R eye cataract) ENT: Positive for: Normal ENT Inspection. Negative for: Nasal Congestion Neck: Positive for: Normal, Painless ROM, Supple Cardiovascular/Chest: Positive for: Regular Rate, Rhythm Respiratory: Positive for: CNT, Normal Breath Sounds Gastrointestinal/Abdominal: Positive for: Normal Exam, Bowel Sounds, Soft. Negative for: Tenderness Back: Positive for: Normal Inspection. Negative for: L CVA Tenderness, R CVA Tenderness Extremity: Negative for: Tenderness, Pedal Edema Neurologic/Psych: Positive for: Alert, Other (L side weakness 3/5 stength upper and lower extremities; Limited ROM all extremities as pt. is not cooperating; moves extremities on will; pt. stating few words on will; not responding or following most commands). Negative for: Facial Droop - Laboratory Results Result Diagrams: 11/21/17 09:15 11/21/17 09:15 Interpretation Of Abn Labs: 12.6 wbc; 22 bun - ECG ECG: Positive for: Interpreted By Me, Viewed By Me ECG Rhythm: Positive for: Nonspecific Changes (same as old) - Radiology X-Ray: Read By Radiologist X-Ray Interpretation: No Acute Disease - CT Scan/US ct Other Rad Studies (CT/US): Read By Radiologist Other Rad Interpretation: no acute bleed; likely chronic appearing changes - Progress ED Course And Treament: 1218: Stable. Pt. screaming for pain meds. Moving all extremities on will. Pt. more awake. Spoke with Dr. Bustos. Will admit tele obs. Not likely new stroke based on presentation and old findings hx. Dr. Bustos to give further orders when pt. reaches floor. Disposition - Clinical Impression Clinical Impression: Altered mental status - Patient ED Disposition Is Patient to be Admitted: Yes Counseled Patient/Family Regarding: Studies Performed, Diagnosis - Disposition Disposition Time: 12:26 Condition: FAIR - POA Present On Arrival: None
[2017-11-21] MEDS: Sodium Chloride 0.9% 1,000 ML IV SCH ×2 (09:44→22:29)
--- NOTE | 2017-11-21 09:48 | CT ---
PROCEDURE: CT HEAD WITHOUT CONTRAST. HISTORY: code stroke COMPARISON: Comparison made with prior CT scan 10/11/2017 TECHNIQUE: Axial computed tomography images were obtained through the head/brain without intravenous contrast. Study is limited by motion artifact Radiation dose: Total exam DLP = 1718.23 mGy-cm. This CT exam was performed using one or more of the following dose reduction techniques: Automated exposure control, adjustment of the mA and/or kV according to patient size, and/or use of iterative reconstruction technique. FINDINGS: HEMORRHAGE: No no acute parenchymal, subarachnoid nor extra-axial hemorrhage. BRAIN: There confluent areas of low attenuation seen in the right temporal lobe at extending superiorly into the right posterior temporoparietal and right posterior frontal regions. There is associated ex vacuo dilatation of the right temporal horn right atrium consistent with chronic infarct. Age-indeterminate left posterior temporal and temporoparietal ischemic changes with questionable left cerebellar ischemic changes. Age-indeterminate right thalamic infarct likely chronic. Moderate generalized volume loss. VENTRICLES: No obstructive hydrocephalus. CALVARIUM: There are no acute calvarial fractures. PARANASAL SINUSES: Unremarkable as visualized. No significant inflammatory changes. MASTOID AIR CELLS: Unremarkable as visualized. No inflammatory changes. OTHER FINDINGS: None. IMPRESSION: Very limited motion degraded study. . No evidence of acute intracranial hemorrhage. There are ischemic changes seen in the right posterior temporoparietal an occipital as well as right posterior frontal lobe regions. . Age-indeterminate right thalamic infarct likely chronic. Age indeterminate ischemic changes in the left posterior temporoparietal region and questionable ischemic change in the left cerebellum. Moderate volume loss. No evidence of acute intracranial hemorrhage. Note these findings were discussed with Dr. Garcia at approximately 9:39 a.m. with written down and read back verification.
[2017-11-21 09:56] LABS: BASO # 0.1 K/uL (0.0-0.2); BASO % 0.9 % (0.0-2.0); EOS # 0.1 K/uL (0.0-0.7); EOS % 0.7 % (0.0-4.0); HEMOGLOBIN 12.7 g/dL (12.0-16.0); LYMPH # 0.8 K/uL (1.0-4.3); LYMPH % 6.6 % (20.0-40.0); MEAN CELL VOLUME 87.7 fl (81.0-99.0); MEAN CORPUSCULAR HEMOGLOBIN 28.6 pg (27.0-31.0); MEAN CORPUSCULAR HGB CONC 32.5 g/dL (33.0-37.0); MEAN PLATELET VOLUME 8.5 fl (7.2-11.7); MONO # 0.6 K/uL (0.0-0.8); MONO % 4.7 % (0.0-10.0); NEUT % 87.1 % (50.0-75.0); PLATELET COUNT 498 K/uL (130-400); RBC 4.45 Mil/uL (3.80-5.20); RED CELL DISTRIBUTION WIDTH 14.9 % (11.5-14.5); WHITE BLOOD COUNT 12.6 K/uL (4.8-10.8)
[2017-11-21 10:03] LABS: TROPONIN I 0.046 ng/mL (0.00-0.120)
[2017-11-21 10:04] LABS: PARTIAL THROMBOPLASTIN TIME 30.7 Seconds (25.6-37.1); PROTHROMBIN TIME 11.2 Seconds (9.8-13.1)
[2017-11-21 10:08] LABS: CALCIUM 9.5 mg/dL (8.4-10.2)
--- NOTE | 2017-11-21 10:16 | RAD ---
HISTORY: Code Stroke COMPARISON: Comparison chest 10/14/2017. FINDINGS: LUNGS: No active pulmonary disease. PLEURA: No significant pleural effusion identified, no pneumothorax apparent. CARDIOVASCULAR: Cardiomegaly comparison chest OSSEOUS STRUCTURES: No significant abnormalities. VISUALIZED UPPER ABDOMEN: Normal. OTHER FINDINGS: None. IMPRESSION: No active disease. Cardiomegaly.
[2017-11-21 10:33] LABS: ANISOCYTOSIS SLIGHT; BASOPHIL 1 % (0-2); EOSINOPHIL 1 % (0-7); LYMPHOCYTE 9 % (20-50); MONOCYTE 2 % (0-10); NEUTROPHIL 87 % (42-75); PLATELET ESTIMATE INCREASED (NORMAL); TOTAL CELLS COUNTED 100; TOXIC GRANULATION PRESENT
[2017-11-21] MEDS ORDERED: Magnesium Sulfate 2 gm/50 ml 2 GM/50 ML BAG IVPB ONE (13:58)
[2017-11-21] MEDS ORDERED: Valproate 500 MG in Sodium Chloride 0.9% 100 ML IVPB ONE (13:59)
[2017-11-21] MEDS ORDERED: Magnesium Sulfate 2 gm/50 ml 2 GM/50 ML BAG ONE (14:43)
--- NOTE | 2017-11-21 18:33 | CP.PCM.CON ---
History of Present Illness - History of Present Illness History of Present Illness: Mrs. Parada is a 72-year-old woman with a past medical history of right hemisphere stroke and left side weakness, hypertension, DM2, hypothyroidism, who was last normal the night before admission, and was found to be confused and agitated the next day. CT scan of the head showed chronic encephalomalacia of the right hemisphere and labs showed elevated WBC, dehydration and hyperglycemia. She complained of headache that is occipital and radiates to the front with 9/10 severity. She became agitated at times and asked for water and then asked for pain medications. She said that she could not see due to glaucoma and was not able to follow all of my commands. Review of Systems - Review of Systems Systems not reviewed;Unavailable: Altered Mental Status Past Patient History - Tetanus Immunizations Tetanus Immunization: Unknown - Past Medical History & Family History Past Medical History?: Yes - Past Social History Alcohol: None Drugs: Denies - CARDIAC Hx Cardiac Disorders: Yes - PULMONARY Hx Respiratory Disorders: Yes - NEUROLOGICAL Hx Neurological Disorder: Yes - HEENT Hx HEENT Problems: Yes Hx Glaucoma: Yes (right eye) - RENAL Hx Chronic Kidney Disease: No - ENDOCRINE/METABOLIC Hx Diabetes Mellitus Type 2: Yes - HEMATOLOGICAL/ONCOLOGICAL Hx Human Immunodeficiency Virus (HIV): No - INTEGUMENTARY Hx Dermatological Problems: No - MUSCULOSKELETAL/RHEUMATOLOGICAL Hx Falls: No - GASTROINTESTINAL Hx Gastrointestinal Disorders: No - GENITOURINARY/GYNECOLOGICAL Hx Genitourinary Disorders: No - PSYCHIATRIC Hx Depression: Yes Hx Post Traumatic Stress Disorder: Yes - SURGICAL HISTORY Hx Cholecystectomy: Yes Hx Tonsillectomy: Yes - ANESTHESIA Hx Anesthesia: Yes Hx Anesthesia Reactions: No Meds Allergies/Adverse Reactions: Allergies Allergy/AdvReac Type Severity Reaction Status Date / Time levofloxacin [From Levaquin] Allergy convulsions Verified 10/18/17 12:47 Macrolide Antibiotics Allergy convulsions Verified 10/18/17 12:47 aspirin AdvReac bleedin Verified 10/18/17 12:47 - Medications Medications: Current Medications Sodium Chloride (Sodium Chloride 0.9%) 1,000 mls @ 100 mls/hr IV .Q10H [facility] Last Admin: 11/21/17 09:44 Dose: 100 mls/hr Valproate Sodium 500 mg/ (Sodium Chloride) 105 mls @ 0 mls/hr IVPB Q12 [facility] PRN Reason: As Directed Physical Exam - Constitutional Appears: Agitated - Neurological Exam Additional comments: Confused about place, but knows the year and is oriented to person. Opens eyes , but claims to not be able to see due to glaucoma. CN 2-12 otherwise intact. Chronic left side weakness (at baseline), with hyper-reflexia and upgoing plantar responses. Right side is 4/5 upper and lower. Sensation was intact to LT throughout. She had neglect of the left. Gait cannot be tested. Results - Vital Signs Recent Vital Signs: Last Vital Signs Temp 97.7 F 11/21/17 17:01 Pulse 71 11/21/17 17:04 Resp 18 11/21/17 17:04 BP 152/65 H 11/21/17 17:04 Pulse Ox 96 11/21/17 17:04 - Labs Result Diagrams: 11/21/17 09:15 11/21/17 09:15 Labs: Laboratory Results - last 24 hr 11/21/17 11/21/17 11/21/17 08:43 09:15 09:15 WBC 12.6 H RBC 4.45 Hgb 12.7 Hct 39.1 MCV 87.7 D MCH 28.6 MCHC 32.5 L RDW 14.9 H Plt Count 498 H MPV 8.5 Neut % (Auto) 87.1 H Lymph % (Auto) 6.6 L Overton % (Auto) 4.7 Eos % (Auto) 0.7 Baso % (Auto) 0.9 Neut # (Auto) 11.0 H Lymph # (Auto) 0.8 L Overton # (Auto) 0.6 Eos # (Auto) 0.1 Baso # (Auto) 0.1 Neutrophils % (Manual) 87 H Lymphocytes % (Manual) 9 L Monocytes % (Manual) 2 Eosinophils % (Manual) 1 Basophils % (Manual) 1 Toxic Granulation Present Platelet Estimate Increased H Anisocytosis (manual) Slight PT INR APTT Sodium 139 Potassium 5.0 Chloride 104 Carbon Dioxide 15 L Anion Gap 25 H BUN 22 H Creatinine 1.1 Est GFR ( Amer) 59 Est GFR (Non-Af Amer) 49 POC Glucose (mg/dL) 284 H Random Glucose 282 H Hemoglobin A1c Calcium 9.5 Total Bilirubin 0.4 AST 19 ALT 17 Alkaline Phosphatase 110 Troponin I 0.0460 Total Protein 8.0 Albumin 4.0 Globulin 4.0 H Albumin/Globulin Ratio 1.0 Triglycerides 279 H D Cholesterol 183 LDL Cholesterol Direct 87 HDL Cholesterol 43 Blood Type Blood Type Confirm Antibody Screen BBK History Checked 11/21/17 11/21/17 11/21/17 09:15 09:15 09:15 WBC RBC Hgb Hct MCV MCH MCHC RDW Plt Count MPV Neut % (Auto) Lymph % (Auto) Overton % (Auto) Eos % (Auto) Baso % (Auto) Neut # (Auto) Lymph # (Auto) Overton # (Auto) Eos # (Auto) Baso # (Auto) Neutrophils % (Manual) Lymphocytes % (Manual) Monocytes % (Manual) Eosinophils % (Manual) Basophils % (Manual) Toxic Granulation Platelet Estimate Anisocytosis (manual) PT 11.2 INR 1.0 APTT 30.7 Sodium Potassium Chloride Carbon Dioxide Anion Gap BUN Creatinine Est GFR ( Amer) Est GFR (Non-Af Amer) POC Glucose (mg/dL) Random Glucose Hemoglobin A1c 9.4 H Calcium Total Bilirubin AST ALT Alkaline Phosphatase Troponin I Total Protein Albumin Globulin Albumin/Globulin Ratio Triglycerides Cholesterol LDL Cholesterol Direct HDL Cholesterol Blood Type B POSITIVE Blood Type Confirm Antibody Screen Negative BBK History Checked No verified bt 11/21/17 11/21/17 11:28 16:38 WBC RBC Hgb Hct MCV MCH MCHC RDW Plt Count MPV Neut % (Auto) Lymph % (Auto) Overton % (Auto) Eos % (Auto) Baso % (Auto) Neut # (Auto) Lymph # (Auto) Overton # (Auto) Eos # (Auto) Baso # (Auto) Neutrophils % (Manual) Lymphocytes % (Manual) Monocytes % (Manual) Eosinophils % (Manual) Basophils % (Manual) Toxic Granulation Platelet Estimate Anisocytosis (manual) PT INR APTT Sodium Potassium Chloride Carbon Dioxide Anion Gap BUN Creatinine Est GFR ( Amer) Est GFR (Non-Af Amer) POC Glucose (mg/dL) 104 Random Glucose Hemoglobin A1c Calcium Total Bilirubin AST ALT Alkaline Phosphatase Troponin I Total Protein Albumin Globulin Albumin/Globulin Ratio Triglycerides Cholesterol LDL Cholesterol Direct HDL Cholesterol Blood Type Blood Type Confirm B POSITIVE Antibody Screen BBK History Checked Assessment & Plan (1) Acute encephalopathy Assessment and Plan: Could be toxic-metabolic encephalopathy due to multiple metabolic derangements and possible infection. Treat underlying cause medically and reconsult if the patient does not improve. Status: Acute Priority: High (2) Headache Assessment and Plan: I recommend treating with magnesium sulfate 2 grams IV once, Depakote 500 mg IV once and toradol 30 mg IV once. Obtain repeat CT head in the AM. Thank you. Status: Acute Priority: Medium
[2017-11-21] MEDS ORDERED: Albuterol 0.083% Inhal Sol (2.5 mg/3 mL) UD INH PRN (19:04)
[2017-11-21] MEDS ORDERED: Insulin Detemir 100 Units/ml Inj SC SCH (22:00)
[2017-11-21] MEDS: Fluticasone-Salmeterol 100-50mcg Diskus IH SCH (22:03)
[2017-11-21] MEDS: Valproate 500 MG in Sodium Chloride 0.9% 100 ML IVPB SCH (22:48)
[2017-11-21] MEDS: Insulin Lispro (humaLOG) 100 Units/ml Inj SC SCH (22:51)
[2017-11-22 05:38] LABS: ALB/GLOB RATIO 0.9 (1.0-2.1); ALBUMIN 3.3 g/dL (3.5-5.0); ALT/SGPT 22 U/L (9-52); AST/SGOT 20 U/L (14-36); BLOOD UREA NITROGEN 19 mg/dl (7-17); CALCIUM 8.6 mg/dL (8.4-10.2); GFR AFRICAN-AMERICAN > 60; GFR NON-AFRICAN AMERICAN 55; HDL CHOLESTEROL 36 MG/DL (30-70)
[2017-11-22 05:39] LABS: HEMOGLOBIN 10.6 g/dL (12.0-16.0); MEAN CORPUSCULAR HEMOGLOBIN 29.4 pg (27.0-31.0); MEAN CORPUSCULAR HGB CONC 33.8 g/dL (33.0-37.0); RBC 3.61 Mil/uL (3.80-5.20); RED CELL DISTRIBUTION WIDTH 14.8 % (11.5-14.5); WHITE BLOOD COUNT 10.2 K/uL (4.8-10.8)
[2017-11-22] MEDS: Sodium Chloride 0.9% 1,000 ML IV SCH ×2 (05:40→09:10)
[2017-11-22 05:47] LABS: LDL CHOLESTEROL 67 mg/dL (0-129)
[2017-11-22 05:52] LABS: T4 9.68 ug/dl (5.5-11.0)
[2017-11-22] MEDS: Levothyroxine 75 MCG TAB PO SCH (05:58)
[2017-11-22 06:06] LABS: T3 0.767 nmol/L (1.49-2.60)
[2017-11-22] MEDS: Fluticasone-Salmeterol 100-50mcg Diskus IH SCH ×2 (08:57→21:41)
[2017-11-22] MEDS: Brimonidine 0.2% 50 DROP/5 ML BOTTLE OD SCH ×2 (08:58→16:05)
[2017-11-22] MEDS: Valproate 500 MG in Sodium Chloride 0.9% 100 ML IVPB SCH ×2 (08:59→21:36)
[2017-11-22] MEDS ORDERED: Divalproex 125 mg DR (BID formulation) PO SCH (09:00)
[2017-11-22] MEDS: Insulin Lispro (humaLOG) 100 Units/ml Inj SC SCH ×5 (09:01→22:06)
--- NOTE | 2017-11-22 10:11 | HP ---
CHIEF COMPLAINT: Altered mental status. HISTORY OF PRESENT ILLNESS: This is a 72-year-old female known case of diabetes, hypertension, elevated cholesterol, CVAs, and history of brain tumor resection who was found to have altered mental status and the patient was sent to the hospital and was admitted for further management. REVIEW OF SYSTEMS: Positive for altered mental status. Review of systems otherwise is negative for headache, dizziness, syncope, loss of consciousness, chest pain, shortness of breath, nausea, vomiting, diarrhea, constipation, or any new joint or extremity pain or weakness. Review of systems of all other organ systems is unremarkable. PAST MEDICAL HISTORY: As mentioned earlier is positive for diabetes, hypertension, elevated cholesterol, and has history of brain resection. PAST SURGICAL HISTORY: Remarkable for brain resection. PERSONAL HISTORY: The patient is currently nonsmoker, nondrinker. No substance abuse. MEDICATIONS: The patient is on multiple medications, which is as per reconciliation sheet, which was reviewed and ordered. ALLERGIES: THE PATIENT IS NOT ALLERGIC TO ANY MEDICATION. FAMILY HISTORY: Noncontributory. PHYSICAL EXAMINATION: GENERAL: Well-built, well-nourished, 72-year-old female, in no acute distress. VITAL SIGNS: Stable. Temperature afebrile, pulse 80, respirations 18, blood pressure 110/76. HEENT: Pupils reacting to light. No JVD. No thyromegaly. No lymphadenopathy. No nystagmus. Normocephalic, atraumatic skull. HEART: S1 and S2, normal and regular. No significant murmur, gallop or rub is heard. LUNGS: Shows good bilateral air exchange. No rales or rhonchi. ABDOMEN: Soft, nontender. No organomegaly. No fluid. Bowel sounds are present and normal. EXTREMITIES: No edema. No calf swelling. No tenderness. No acute ischemia. MD UROLOGIST: Essentially unchanged. The patient has previous history of CVA and brain resection and has . There is no sign of any acute gross focal motor or sensory neurological deficit. DIAGNOSTIC DATA: Available diagnostic data reviewed and are acceptable and consistent with . ADMITTING IMPRESSION: Altered mental status, diabetes, hypertension, elevated cholesterol. Neurology consult noted and appreciated. PLAN: As ordered. Telemetry monitoring did not reveal significant arrhythmia. Andrew Bustos MD [facility] # [id number]
[2017-11-22] MEDS ORDERED: Dextrose 50% SYRINGE Inj (50 ml) IVP ONE (11:46)
--- NOTE | 2017-11-22 12:12 | CARD ---
APPROVED REPORT EKG Measurement Heart [id number] CT 144P-2 [id number] <Conclusion> Normal sinus rhythm Left ventricular hypertrophy with repolarization abnormality Abnormal ECG
--- NOTE | 2017-11-22 12:43 | CP.PCM.PN ---
Subjective - Date & Time of Evaluation Date of Evaluation: 11/22/17 Time of Evaluation: 12:35 - Subjective Subjective: WAXING MACHINE OPERATOR HELPER Start Time: 12:34 WAXING MACHINE OPERATOR HELPER Reason: AMS S: Rapid Response called by RN because patient was noted to be unresponsive. Vitals: General: Pt seen lying in bed with eyes closed, not alert, unarrousable to voice. Mildly arousable to pain. HEENT: Right pupil dilated >2mm. Left pupil pin point. Pupils non-reactive bilaterally. Unable to assess EOM muscles. No deviation or nystagmus noted Cardio: RRR, no murmurs, normal S1, S2 Lungs: CTABL Abdomen: Soft, nontender, non distended Neurological: GCS 7, NIH 6 No facial droop +Limb ataxia Unable to assess CN2-12 WAXING MACHINE OPERATOR HELPER Interventions: EKG CBC, CMP, Troponin, PT/PTT/INR Non contrast Head CT Brain MRI w/ and w/o contrast CT Angio Head and Neck Assessment: PT is a 72 y/o female with hx of R/ sided CVA admitted for AMS with WAXING MACHINE OPERATOR HELPER called for acute change in mental status as pt was found unresponsive. CT results show subacute infarct of left temporal occipital. Plan: F/U with Brain MRI, Head and Neck CT Angio, and Labs. Reassess NIH scale. Continue to monitor patient. WAXING MACHINE OPERATOR HELPER MD: Dr. Aponte, Dr. Trimble Objective - Vital Signs/Intake and Output Vital Signs (last 24 hours): Temp Pulse Resp BP Pulse Ox 98.4 F 76 20 170/75 H 96 11/22/17 08:17 11/22/17 09:04 11/22/17 08:17 11/22/17 09:04 11/22/17 08:17 - Medications Medications: Current Medications Acetaminophen (Tylenol 325mg Tab) 650 mg PO Q6 PRN PRN Reason: Fever >100.4 F Albuterol Sulfate (Albuterol 0.083% Inhal Tosha (2.5 Mg/3 Ml) Ud) 2.5 mg INH RQ4 PRN PRN Reason: Shortness of Breath Amlodipine Besylate (Norvasc) 5 mg PO DAILY [facility] Last Admin: 11/22/17 09:04 Dose: 5 mg Atorvastatin Calcium (Lipitor) 80 mg PO HS [facility] Last Admin: 11/21/17 22:05 Dose: 80 mg Brimonidine Tartrate (Alphagan 0.2% Opht) 1 drop OD BID [facility] Last Admin: 11/22/17 08:58 Dose: 1 drop Clopidogrel Bisulfate (Plavix) 75 mg PO DAILY [facility] Last Admin: 11/22/17 09:04 Dose: 75 mg Divalproex Sodium (Depakote Dr(*Bid*)) 125 mg PO BID [facility] Last Admin: 11/22/17 09:03 Dose: Not Given Docusate Sodium (Colace) 100 mg PO BID PRN PRN Reason: Constipation Gabapentin (Neurontin) 100 mg PO Q12 [facility] Last Admin: 11/22/17 09:02 Dose: 100 mg Heparin Sodium (Porcine) (Heparin) 5,000 units SC Q12 [facility] PRN Reason: Protocol Last Admin: 11/22/17 09:00 Dose: 5,000 units Sodium Chloride (Sodium Chloride 0.9%) 1,000 mls @ 100 mls/hr IV .Q10H [facility] Last Admin: 11/22/17 09:10 Dose: 100 mls/hr Valproate Sodium 500 mg/ (Sodium Chloride) 105 mls @ 0 mls/hr IVPB Q12 [facility] PRN Reason: As Directed Last Admin: 11/22/17 08:59 Dose: 500 mls/hr Insulin Detemir (Levemir) 46 units SC HS [facility] Last Admin: 11/21/17 22:49 Dose: 46 units Insulin Human Lispro (Humalog) 0 units SC ACHS [facility] PRN Reason: Protocol Last Admin: 11/22/17 12:10 Dose: Not Given Insulin Human Lispro (Humalog) 16 units SC AC [facility] Last Admin: 11/22/17 12:10 Dose: Not Given Levothyroxine Sodium (Synthroid) 75 mcg PO DAILY@0630 [facility] Last Admin: 11/22/17 05:58 Dose: 75 mcg Lorazepam (Ativan) 0.5 mg PO HS PRN PRN Reason: Anxiety Fluticasone/Salmeterol (Advair Diskus 100/50) 1 puff IH Q12 [facility] Last Admin: 11/22/17 08:57 Dose: 1 puff Terbutaline Sulfate (Brethine Tab) 2.5 mg PO HS [facility] Last Admin: 11/21/17 22:05 Dose: 2.5 mg Timolol Maleate (Timoptic 0.5% Ophth Soln) 1 drop OD BID [facility] Last Admin: 11/22/17 09:04 Dose: 1 drop Trazodone HCl (Desyrel) 50 mg PO HS [facility] Last Admin: 11/21/17 22:52 Dose: Not Given - Labs Labs: 11/22/17 04:25 11/22/17 04:25 PT 11.2 Seconds (9.8-13.1) 11/21/17 09:15 INR 1.0 (0.9-1.2) 11/21/17 09:15 APTT 30.7 Seconds (25.6-37.1) 11/21/17 09:15 - Constitutional Appears: Other (unresponsive to voice) - Head Exam Head Exam: ATRAUMATIC, NORMAL INSPECTION - Eye Exam Eye Exam: absent: Nystagmus Pupil Exam: Fixed (R pupil dilated, Left constricted) - ENT Exam ENT Exam: Mucous Membranes Moist - Respiratory Exam Respiratory Exam: Clear to Ausculation Bilateral. absent: Rales, Wheezes - Cardiovascular Exam Cardiovascular Exam: REGULAR RHYTHM, +S1, +S2. absent: Murmur - GI/Abdominal Exam GI & Abdominal Exam: Soft. absent: Tenderness - Neurological Exam Neurological Exam: Motor Sensory Deficit. absent: Alert, Awake NIHSS Stroke Scale - Date/Time Evaluation Performed Date Performed: 11/21/17 Time Performed: 08:57 - How Severe is the Stoke Level of Consciousness: 3=Unresponsive LOC to Questions: 2=Neither correct LOC to commands: 2=Neither correct Best Gaze: 0=Normal Visual: 0=No visual loss Facial: 0=Normal Motor Arm - Left: 4=No movement Motor Arm - Right: 4=No movement Motor Leg - Left: 4=No movement Motor Leg - Right: 4=No movement Limb Ataxia: 0=Absent Sensory: 0=Normal Best Language: 0=No aphasia Dysarthia: 0=Normal articulation Extinction & Inattention (Neglect): 0=Normal, no object Score: 23 Severity Of Stroke: 21-42= Severe Stroke
--- NOTE | 2017-11-22 12:55 | CT ---
PROCEDURE: CT HEAD WITHOUT CONTRAST. HISTORY: AMS COMPARISON: None available. TECHNIQUE: Axial computed tomography images were obtained through the head/brain without intravenous contrast. Radiation dose: Total exam DLP = 1938.69 mGy-cm. This CT exam was performed using one or more of the following dose reduction techniques: Automated exposure control, adjustment of the mA and/or kV according to patient size, and/or use of iterative reconstruction technique. FINDINGS: HEMORRHAGE: No intracranial hemorrhage. BRAIN: Diffuse cerebral atrophy chronic microangiopathy are reiterated in the interval with left temporooccipital and right occipital likely subacute infarcts not significantly changed in the interval. Chronic infarcts involve the right frontal and parietal lobes are reiterated. A lacunar infarction at right thalamus/medial right basal ganglia is again evident of indeterminate age. VENTRICLES: Unremarkable. No hydrocephalus. CALVARIUM: Unremarkable. PARANASAL SINUSES: Unremarkable as visualized. No significant inflammatory changes. MASTOID AIR CELLS: Unremarkable as visualized. No inflammatory changes. OTHER FINDINGS: None. IMPRESSION: Likely subacute infarcts in the right occipital and left parietal occipital region are identified as well as an indeterminate lacune infarct at the right thalamus/basal ganglia region. Follow-up MRI is recommended unless there is a contraindication for greater clarification. Chronic infarcts of the right frontal and parietal lobes are reiterated. Age-related degenerative changes are reiterated as well. Findings discussed with Dr. Rodriguez 11/22/2017 12:50 p.m. with written down and read back verification.
[2017-11-22 13:07] LABS: BASO # 0.1 K/uL (0.0-0.2); BASO % 0.9 % (0.0-2.0); EOS # 0.4 K/uL (0.0-0.7); EOS % 2.9 % (0.0-4.0); HEMOGLOBIN 11.4 g/dL (12.0-16.0); LYMPH # 1.8 K/uL (1.0-4.3); MEAN CELL VOLUME 87.3 fl (81.0-99.0); MEAN CORPUSCULAR HEMOGLOBIN 28.9 pg (27.0-31.0); MEAN CORPUSCULAR HGB CONC 33.2 g/dL (33.0-37.0); MEAN PLATELET VOLUME 7.7 fl (7.2-11.7); MONO # 1.1 K/uL (0.0-0.8); MONO % 7.3 % (0.0-10.0); NEUT # 11.6 K/uL (1.8-7.0); NEUT % 76.9 % (50.0-75.0); NRBC % 0.1 % (0.0-0.0); RBC 3.95 Mil/uL (3.80-5.20); RED CELL DISTRIBUTION WIDTH 14.5 % (11.5-14.5); WHITE BLOOD COUNT 15.1 K/uL (4.8-10.8)
[2017-11-22 13:18] LABS: ALBUMIN 3.5 g/dL (3.5-5.0); ALT/SGPT 21 U/L (9-52); AST/SGOT 19 U/L (14-36); BLOOD UREA NITROGEN 17 mg/dl (7-17); CALCIUM 8.9 mg/dL (8.4-10.2); GFR AFRICAN-AMERICAN > 60; GFR NON-AFRICAN AMERICAN 55
[2017-11-22 13:55] LABS: PROTHROMBIN TIME 11.6 Seconds (9.8-13.1)
[2017-11-22] MEDS ORDERED: Dextrose 50% SYRINGE Inj (50 ml) ONE (14:55)
[2017-11-22] MEDS ORDERED: Valproate 500 MG in Sodium Chloride 0.9% 100 ML IVPB ONE (14:56)
--- NOTE | 2017-11-22 15:46 | PCM.RRT ---
MERCHANDISE DELIVERER Nurse Assessment - Situation MERCHANDISE DELIVERER Responder Arrival Time: 13:40 - IV IV Inserted during MERCHANDISE DELIVERER?: No - Respiratory Oxygen Delivery Method: Nasal Cannula Received Nebulizer Treatments: No Was the Patient Ventilated with Bag/Mask 100% O2?: No Secretions Suctioned?: No Was the Patient Intubated?: No Was the Patient Placed on a Ventilator?: No - Medication Medications Administered During MERCHANDISE DELIVERER: dextrose 50 1 amp IV p - Diagnostic Test Ordered EKG: No Chest X-Ray: No CT Scan: No CPR started during MERCHANDISE DELIVERER?: No - Vital Signs Vital Signs: Rapid Response Vital Sign Blood Pressure 208/85 Pulse Rate 87 Respiratory Rate 19 Temperature 98 F Oxygen Saturation 99 - Time MERCHANDISE DELIVERER Ended Time MERCHANDISE DELIVERER Ended: 15:00 - Vital Signs at end of MERCHANDISE DELIVERER Vital Signs at end of MERCHANDISE DELIVERER: Rapid Response End Vital Sign Blood Pressure 123/57 Pulse Rate 84 Respiratory Rate 18 O2 Sat by Pulse Oximetry 99 - Recommendations MERCHANDISE DELIVERER Level of Care Recommendations: Remain in current setting I.Reason for MERCHANDISE DELIVERER - A) Acute Change in Patient: Subjective: MERCHANDISE DELIVERER Start Time: 14:44 MERCHANDISE DELIVERER Reason: Seizure S: Rapid response called by RN because patient was seizing in bed Vitals: POC glucose- 53 General: Patient seen lying in bed with labored breathing HEENT: Pupils fixed, neck contracted Cardio: RRR, no murmurs, normal S1, S2 Lungs: CTABL Abdomen: Soft, nontender, non distended Neurological: Extremities contracted MERCHANDISE DELIVERER interventions: Hold: Levemir, Humalog Dextrose 5% - NS 0.9% Normal Saline, 500 mL Ativan 0.5 mg IV stat Depacon 500 mg IV once A: PT is a 72 y/o female with hx of R/ sided CVA admitted for AMS with MERCHANDISE DELIVERER called for seizure at bedside. Seizure is most likely secondary to hypoglycemic state. Previous MERCHANDISE DELIVERER was called on patient earlier today for AMS with unresponsiveness. Prior to that, patient had a POC glucose in 20's P: Accucheck q2. Continue to monitor patient MERCHANDISE DELIVERER MD: Dr. Trimble
[2017-11-22 16:56] LABS: GRANULAR CAST 33 /lpf (0-1); SQUAMOUS EPITHIAL 3 /hpf (0-5); URINE BACTERIA RARE (<OCC); URINE BILIRUBIN NEGATIVE (NEGATIVE); URINE BLOOD SMALL (NEGATIVE); URINE CLARITY SLIGHTY-CLOUDY (Clear); URINE COLOR YELLOW (YELLOW); URINE GLUCOSE (UA) >=500 mg/dL (Normal); URINE LEUKOCYTE ESTERASE NEG Leu/uL (Negative); URINE PROTEIN >=500 mg/dL (NEGATIVE); URINE UROBILINOGEN 0.2-1.0 mg/dL (0.2-1.0)
[2017-11-22] MEDS ORDERED: Iodixanol 320 MG/ML 100 ML BOTTLE IV ONE (18:15)
--- NOTE | 2017-11-23 02:18 | PCM.RRT ---
<Sultan Raheem - Last Filed: 11/23/17 02:47> CHEMICAL RESEARCH TECHNICIAN Nurse Assessment - Situation CHEMICAL RESEARCH TECHNICIAN Responder Arrival Time: 02:15 Location: 4N Room Number: ROOM 414 CHEMICAL RESEARCH TECHNICIAN Called By: RN - IV IV Inserted during CHEMICAL RESEARCH TECHNICIAN?: No - Respiratory Oxygen Delivery Method: Nasal Cannula Received Nebulizer Treatments: No Was the Patient Ventilated with Bag/Mask 100% O2?: No Secretions Suctioned?: No Was the Patient Intubated?: No Was the Patient Placed on a Ventilator?: No - Medication Medications Administered During CHEMICAL RESEARCH TECHNICIAN: ATIVAN 0.5 MG IVP - Diagnostic Test Ordered EKG: No Chest X-Ray: No CT Scan: No CPR started during CHEMICAL RESEARCH TECHNICIAN?: No - Vital Signs Vital Signs: Rapid Response Vital Sign Blood Pressure 188/86 Pulse Rate 81 Respiratory Rate 16 Temperature 98 F Oxygen Saturation 94% - Time CHEMICAL RESEARCH TECHNICIAN Ended Time CHEMICAL RESEARCH TECHNICIAN Ended: 02:25 - Vital Signs at end of CHEMICAL RESEARCH TECHNICIAN Vital Signs at end of CHEMICAL RESEARCH TECHNICIAN: Rapid Response End Vital Sign Blood Pressure 166/53 Pulse Rate 83 Respiratory Rate 16 O2 Sat by Pulse Oximetry 98% - Recommendations CHEMICAL RESEARCH TECHNICIAN Level of Care Recommendations: Remain in current setting I.Reason for CHEMICAL RESEARCH TECHNICIAN - A) Acute Change in Patient: Subjective: CHEMICAL RESEARCH TECHNICIAN Start Time: 2:15 CHEMICAL RESEARCH TECHNICIAN Reason: Seizure S: CHEMICAL RESEARCH TECHNICIAN was called by pt's RN because patient was seizing in bed. By the time, CHEMICAL RESEARCH TECHNICIAN team went to see the patient, pt stopped seizing. Vitals: BP 188/86, HR 81, RR 16, PULSE OX 94% POC glucose-129 General: Patient seen lying in bed, not in acute distress. HEENT: No tongue laceration seen. Cardio: RRR, no murmurs, normal S1, S2 Lungs: CTA B/L, no wheezing. Abdomen: Soft, nontender, non distended Neurological: AAO x 3, no post-ictal confusion seen. CHEMICAL RESEARCH TECHNICIAN interventions: Ativan 0.5 mg IV stat A: CHEMICAL RESEARCH TECHNICIAN was called for 72 yo female with hx of R/ sided CVA admitted for AMS for seizure at bedside.. Previous manager latin were called on patient earlier today for AMS with unresponsiveness and seizure. Upon arrival to the CHEMICAL RESEARCH TECHNICIAN, pt stopped seizing. POC glucose was 129. Pt was awake, alert and oriented. No post ictal confusion seen. P: Ativan 0.5 mg ivp given Pt's has PRN ativan order by primary team. Continue to monitor patient At the end of CHEMICAL RESEARCH TECHNICIAN, pt's BP was 166/53, HR 83, RR 16, pulse ox 97% CHEMICAL RESEARCH TECHNICIAN store leader: Dr. Reynolds CHEMICAL RESEARCH TECHNICIAN team: Dr. Sepulveda, pgy-2, Dr. Maciel, pgy-1 <Sangita Reynolds - Last Filed: 11/23/17 07:19> CHEMICAL RESEARCH TECHNICIAN Nurse Assessment - Vital Signs Vital Signs: Rapid Response Vital Sign Blood Pressure 188/86 Pulse Rate 81 Respiratory Rate 18 Temperature 98 F Oxygen Saturation 96 - Vital Signs at end of CHEMICAL RESEARCH TECHNICIAN Vital Signs at end of CHEMICAL RESEARCH TECHNICIAN: Rapid Response End Vital Sign Blood Pressure 166/53 Pulse Rate 85 Respiratory Rate 30 O2 Sat by Pulse Oximetry 94 Attending/Attestation - Attestation I have personally seen and examined this patient.: Yes I have fully participated in the care of the patient.: Yes I have reviewed all pertinent clinical information, including history, physical exam and plan: Yes Notes (Text): 11/23/17 07:19 seen examined discussed with resident Dr. Sepulveda. agree with findings and plan as above.
[2017-11-23] MEDS: Levothyroxine 75 MCG TAB PO SCH (06:07)
[2017-11-23] MEDS: Insulin Lispro (humaLOG) 100 Units/ml Inj SC SCH ×4 (07:32→22:00)
--- NOTE | 2017-11-23 07:37 | CP.PCM.PN ---
<Shaheen Hope - Last Filed: 11/23/17 11:54> Subjective - Date & Time of Evaluation Date of Evaluation: 11/23/17 Time of Evaluation: 07:40 - Subjective Subjective: Discussed with Dr Bustos Patient evaluated at bedside this morning. Appears confused. During interview patient had a partial seizure episode that lasted between 5-10 seconds and resolved spontaneously and consisted of involuntary movement of L/arm and deviation of the head to r/side. TRAIN EXAMINER events noted Objective - Vital Signs/Intake and Output Vital Signs (last 24 hours): Temp Pulse Resp BP Pulse Ox 98.0 F 74 16 156/65 H 99 11/23/17 05:14 11/23/17 05:14 11/23/17 05:14 11/23/17 05:14 11/23/17 05:14 - Medications Medications: Current Medications Acetaminophen (Tylenol 325mg Tab) 650 mg PO Q6 PRN PRN Reason: Fever >100.4 F Albuterol Sulfate (Albuterol 0.083% Inhal Tosha (2.5 Mg/3 Ml) Ud) 2.5 mg INH RQ4 PRN PRN Reason: Shortness of Breath Amlodipine Besylate (Norvasc) 5 mg PO DAILY [facility] Last Admin: 11/22/17 09:04 Dose: 5 mg Atorvastatin Calcium (Lipitor) 80 mg PO HS [facility] Last Admin: 11/22/17 21:41 Dose: 80 mg Brimonidine Tartrate (Alphagan 0.2% Opht) 1 drop OD BID [facility] Last Admin: 11/22/17 16:05 Dose: 1 drop Clopidogrel Bisulfate (Plavix) 75 mg PO DAILY [facility] Last Admin: 11/22/17 09:04 Dose: 75 mg Docusate Sodium (Colace) 100 mg PO BID PRN PRN Reason: Constipation Gabapentin (Neurontin) 100 mg PO Q12 [facility] Last Admin: 11/22/17 21:42 Dose: 100 mg Heparin Sodium (Porcine) (Heparin) 5,000 units SC Q12 [facility] PRN Reason: Protocol Last Admin: 11/22/17 21:47 Dose: 5,000 units Valproate Sodium 500 mg/ (Sodium Chloride) 105 mls @ 0 mls/hr IVPB Q12 [facility] PRN Reason: As Directed Last Admin: 11/22/17 21:36 Dose: 500 mls/hr Dextrose/Sodium Chloride (Dextrose 5%-0.9% Ns 500 Ml) 500 mls @ 100 mls/hr IV .Q5H [facility] Stop: 11/23/17 14:59 Last Admin: 11/23/17 06:08 Dose: 100 mls/hr Insulin Detemir (Levemir) 46 units SC [facility] Last Admin: 11/21/17 22:49 Dose: 46 units Insulin Human Lispro (Humalog) 0 units SC ACHS [facility] PRN Reason: Protocol Last Admin: 11/23/17 07:32 Dose: Not Given Insulin Human Lispro (Humalog) 16 units SC AC [facility] Last Admin: 11/22/17 12:10 Dose: Not Given Levothyroxine Sodium (Synthroid) 75 mcg PO DAILY@0630 [facility] Last Admin: 11/23/17 06:07 Dose: 75 mcg Lorazepam (Ativan) 0.5 mg PO PRN PRN Reason: Anxiety Fluticasone/Salmeterol (Advair Diskus 100/50) 1 puff IH Q12 [facility] Last Admin: 11/22/17 21:41 Dose: 1 puff Terbutaline Sulfate (Brethine Tab) 2.5 mg PO [facility] Last Admin: 11/22/17 21:41 Dose: 2.5 mg Timolol Maleate (Timoptic 0.5% Ophth Soln) 1 drop OD BID [facility] Last Admin: 11/22/17 16:06 Dose: 1 drop Trazodone HCl (Desyrel) 50 mg PO [facility] Last Admin: 11/22/17 21:42 Dose: 50 mg - Labs Labs: 11/22/17 13:00 11/22/17 13:00 PT 11.6 Seconds (9.8-13.1) 11/22/17 13:00 INR 1.0 (0.9-1.2) 11/22/17 13:00 APTT 30.0 Seconds (25.6-37.1) 11/22/17 13:00 - Constitutional Appears: Confused, Chronically Ill - Eye Exam Eye Exam: PERRL - ENT Exam ENT Exam: Mucous Membranes Moist - Respiratory Exam Respiratory Exam: Clear to Ausculation Bilateral, NORMAL BREATHING PATTERN. absent: Rales - Cardiovascular Exam Cardiovascular Exam: REGULAR RHYTHM, +S1, +S2. absent: Gallop - GI/Abdominal Exam GI & Abdominal Exam: Soft, Normal Bowel Sounds. absent: Tenderness - Extremities Exam Extremities Exam: absent: Pedal Edema - Neurological Exam Neurological Exam: Alert, Awake, Motor Sensory Deficit (Left side hemiparesis. ) . absent: Oriented x3 - Skin Skin Exam: Normal Color, Warm Assessment and Plan - Assessment and Plan (Free Text) Assessment: AMS R/O CVA Vs hypoglycemia Neuro consult appreciated CT head: old changes. Please see full report Patient needs MRI/MRA of the head even though she is unable at this time to make medical decisions due to severe confusion/delirium we think it is medically necessary F/U UCx and repeat CBC/ CMP AM Seizures C/W Depakote 500 mg BID Ativan PRN F/U labs Hypoglycemia Accuchecks q2h Basal insulin held C/W ISS C/W D5/NS IV fluids Hypoglycemic protocol <Andrew Bustos K - Last Filed: 11/27/17 10:55> Objective - Vital Signs/Intake and Output Vital Signs (last 24 hours): Temp Pulse Resp BP Pulse Ox 99.6 F 89 34 H 183/91 H 95 11/27/17 08:00 11/27/17 08:46 11/27/17 08:00 11/27/17 08:46 11/27/17 08:00 - Medications Medications: Current Medications Acetaminophen (Tylenol 325mg Tab) 650 mg PO Q6 PRN PRN Reason: Fever >100.4 F Last Admin: 11/24/17 16:23 Dose: 650 mg Albuterol/Ipratropium (Duoneb 3 Mg/0.5 Mg (3 Ml) Ud) 3 ml INH RQ6 [facility] Amlodipine Besylate (Norvasc) 10 mg PO DAILY [facility] Last Admin: 11/27/17 08:46 Dose: 10 mg Atorvastatin Calcium (Lipitor) 80 mg PO HS [facility] Last Admin: 11/26/17 22:13 Dose: 80 mg Brimonidine Tartrate (Alphagan 0.2% Opht) 1 drop OD BID [facility] Last Admin: 11/27/17 08:43 Dose: 1 drop Clopidogrel Bisulfate (Plavix) 75 mg PO DAILY [facility] Last Admin: 11/27/17 08:46 Dose: 75 mg Dextrose (Dextrose 50% Inj) 0 ml IV STAT PRN; Protocol PRN Reason: Hypoglycemia Protocol Dextrose (Glutose 15) 0 gm PO ONCE PRN; Protocol PRN Reason: Hypoglycemia Protocol Docusate Sodium (Colace) 100 mg PO BID PRN PRN Reason: Constipation Gabapentin (Neurontin) 100 mg PO Q12 [facility] Last Admin: 11/23/17 21:07 Dose: 100 mg Glucagon (Glucagen Diagnostic Kit) 0 mg IM STAT PRN; Protocol PRN Reason: Hypoglycemia Protocol Heparin Sodium (Porcine) (Heparin) 5,000 units SC Q12 [facility] PRN Reason: Protocol Last Admin: 11/27/17 08:44 Dose: 5,000 units Levetiracetam 500 mg/ Sodium (Chloride) 105 mls @ 210 mls/hr IVPB BID [facility] Last Admin: 11/27/17 08:45 Dose: 210 mls/hr Insulin Detemir (Levemir) 46 units SC [facility] Last Admin: 11/21/17 22:49 Dose: 46 units Insulin Human Lispro (Humalog) 0 units SC ACHS [facility] PRN Reason: Protocol Last Admin: 11/27/17 08:44 Dose: Not Given Insulin Human Lispro (Humalog) 16 units SC AC [facility] Last Admin: 11/22/17 12:10 Dose: Not Given Levetiracetam (Keppra) 500 mg PO BID [facility] Levothyroxine Sodium (Synthroid) 75 mcg PO DAILY@0630 [facility] Last Admin: 11/27/17 06:22 Dose: 75 mcg Lorazepam (Ativan) 1 mg IVP Q6H PRN PRN Reason: Seizure activity Last Admin: 11/27/17 01:21 Dose: 1 mg Meclizine HCl (Antivert) 25 mg PO TID PRN PRN Reason: Dizziness Metoprolol Tartrate (Lopressor) 12.5 mg PO Q12 [facility] Metronidazole (Flagyl) 500 mg PO Q8@0600,1400,2200 [facility] PRN Reason: Protocol Last Admin: 11/27/17 06:22 Dose: 500 mg Multivitamins/Vitamin C (Multi-Delyn Liquid) 15 ml PO DAILY [facility] Last Admin: 11/27/17 08:46 Dose: 15 ml Timolol Maleate (Timoptic 0.5% Ophth Soln) 1 drop OD BID [facility] Last Admin: 11/27/17 08:46 Dose: 1 drop Trazodone HCl (Desyrel) 50 mg PO [facility] Last Admin: 03/06/18 21:06 Dose: 50 mg Valproate Sodium (Depakene Oral Syrup) 1,000 mg PO BID [facility] - Labs Labs: 11/27/17 05:04 11/27/17 05:04 PT 11.6 Seconds (9.8-13.1) 11/22/17 13:00 INR 1.0 (0.9-1.2) 11/22/17 13:00 APTT 30.0 Seconds (25.6-37.1) 11/22/17 13:00 Assessment and Plan - Assessment and Plan (Free Text) Assessment: Patient was personally seen and examined by me in rounds with residents. Available labs and diagnostic data reviewed. Case, patient's conditions and management plan discussed with residents in rounds. Agree with resident's progress note. Plan: As ordered.
[2017-11-23] MEDS: Brimonidine 0.2% 50 DROP/5 ML BOTTLE OD SCH ×2 (08:12→18:00)
[2017-11-23] MEDS: Fluticasone-Salmeterol 100-50mcg Diskus IH SCH ×2 (08:12→21:03)
[2017-11-23] MEDS: Valproate 500 MG in Sodium Chloride 0.9% 100 ML IVPB SCH ×2 (08:13→21:05)
--- NOTE | 2017-11-23 08:30 | CARD ---
APPROVED REPORT EKG Measurement Heart [id number] [id number] <Conclusion> Sinus bradycardia Left ventricular hypertrophy with repolarization abnormality Abnormal ECG
[2017-11-23 12:35] LABS: ALB/GLOB RATIO 0.9 (1.0-2.1); ALBUMIN 3.3 g/dL (3.5-5.0); ALT/SGPT 23 U/L (9-52); AST/SGOT 18 U/L (14-36); BLOOD UREA NITROGEN 14 mg/dl (7-17); CALCIUM 8.4 mg/dL (8.4-10.2); GFR AFRICAN-AMERICAN > 60; GFR NON-AFRICAN AMERICAN > 60
[2017-11-23] MEDS ORDERED: Dextrose 50% SYRINGE Inj (50 ml) IV PRN (13:03)
[2017-11-23] MEDS ORDERED: Glucagon Recombinant 1 mg Inj IM PRN (13:03)
--- NOTE | 2017-11-23 17:21 | MRI ---
PROCEDURE: MRI BRAIN WITHOUT CONTRAST HISTORY: CVA COMPARISON: Unenhanced head CT 11/22/2017. TECHNIQUE: Multiplanar, multisequence MR images of the brain were obtained without intravenous contrast enhancement. FINDINGS: Examination cannot be completed due to lack of patient cooperation after the initial couple sequences. Accordingly, examination was incomplete. HEMORRHAGE: No large intracranial hemorrhage is appreciated, however, gradient axial imaging cannot be performed after diffusion and FLAIR imaging. DWI: Restricted diffusion is identified at the posterior mid right MCA and mid to lower right INDIRECT FIRE INFANTRYMAN distribution compatible with acute subacute brain infarction. Signal abnormality at the right INDIRECT FIRE INFANTRYMAN distribution appears to be more acute than the right MCA restricted diffusion. Further, an acute subacute lacune is questioned at the left occipital lobe anteriorly as well. Chronic with lacunes are seen at the left frontal lobe and diffuse cerebral atrophy and chronic microangiopathy are reiterated. IMPRESSION: Variable chronology in infarcts is appreciate including a more acute appearing inferior right INDIRECT FIRE INFANTRYMAN distribution infarct combined with likely more subacute distribution of a the posterior mid right MCA distribution infarct. Local mass effect is limited without generalized infarct to cause midline shift at this time. An acute or subacute lacune is suggested at the left occipital lobe as well. Chronic infarcts right frontal lobe as well as right parietal lobe again evident. Chronic lacunes are seen at the left frontal lobe as well. The examination was limited to two sequences, after which time the patient could not cooperate to continue.
[2017-11-24] MEDS ORDERED: Albuterol 0.083% Inhal Sol (2.5 mg/3 mL) UD INH STA (02:22)
[2017-11-24 04:44] LABS: ABG ALLEN TEST YES; ARTERIAL BLOOD GAS HCO3 21.6 mmol/L (21-28); ARTERIAL BLOOD GAS HEMOGLOBIN 10.3 g/dL (11.7-17.4); ARTERIAL BLOOD GAS O2 CAPACITY 14.3 mL/dL (16-24); ARTERIAL BLOOD GAS O2 CONTENT 14.2 ML/dL (15-23); ARTERIAL BLOOD GAS O2 SAT 99.2 % (95-98); ARTERIAL BLOOD GAS PCO2 33 mm/Hg (35-45); ARTERIAL BLOOD GAS PH 7.39 (7.35-7.45); ARTERIAL BLOOD GAS PO2 91 mm/Hg (80-100)
[2017-11-24 05:28] LABS: HEMOGLOBIN 10.4 g/dL (12.0-16.0); MEAN CELL VOLUME 87.5 fl (81.0-99.0); MEAN CORPUSCULAR HEMOGLOBIN 28.6 pg (27.0-31.0); MEAN CORPUSCULAR HGB CONC 32.7 g/dL (33.0-37.0); RBC 3.64 Mil/uL (3.80-5.20); WHITE BLOOD COUNT 9.9 K/uL (4.8-10.8)
[2017-11-24 05:39] LABS: ALB/GLOB RATIO 0.9 (1.0-2.1); ALBUMIN 2.9 g/dL (3.5-5.0); ALT/SGPT 27 U/L (9-52); AST/SGOT 20 U/L (14-36); BLOOD UREA NITROGEN 13 mg/dl (7-17); CALCIUM 8.3 mg/dL (8.4-10.2); GFR AFRICAN-AMERICAN > 60; GFR NON-AFRICAN AMERICAN 55
[2017-11-24] MEDS: Levothyroxine 75 MCG TAB PO SCH (06:44)
--- NOTE | 2017-11-24 07:33 | CP.PCM.PN ---
<Shaheen Hope - Last Filed: 11/24/17 09:29> Subjective - Date & Time of Evaluation Date of Evaluation: 11/24/17 Time of Evaluation: 07:05 - Subjective Subjective: Patient evaluated during morning rounds with Dr Bustos Overnight events noted. Four brief episodes of seizures reported by nurse, patient given ativan. Still confused/lethargic. Had diarrhea. Neuro evaluated pending recs. For EEG this morning. Abg from yesterday unremarkable. VS stable Objective - Vital Signs/Intake and Output Vital Signs (last 24 hours): Temp Pulse Resp BP Pulse Ox 98.5 F 81 18 170/76 H 94 L 11/24/17 05:25 11/24/17 05:25 11/24/17 05:25 11/24/17 05:25 11/24/17 05:25 Intake and Output: 11/24/17 11/24/17 06:59 18:59 Intake Total 1300 Balance 1300 - Medications Medications: Current Medications Acetaminophen (Tylenol 325mg Tab) 650 mg PO Q6 PRN PRN Reason: Fever >100.4 F Albuterol Sulfate (Albuterol 0.083% Inhal Tosha (2.5 Mg/3 Ml) Ud) 2.5 mg INH RQ4 PRN PRN Reason: Shortness of Breath Amlodipine Besylate (Norvasc) 10 mg PO DAILY [facility] Atorvastatin Calcium (Lipitor) 80 mg PO HS [facility] Last Admin: 11/23/17 21:07 Dose: 80 mg Brimonidine Tartrate (Alphagan 0.2% Opht) 1 drop OD BID [facility] Last Admin: 11/23/17 18:00 Dose: 1 drop Clopidogrel Bisulfate (Plavix) 75 mg PO DAILY [facility] Last Admin: 11/23/17 08:20 Dose: 75 mg Dextrose (Dextrose 50% Inj) 0 ml IV STAT PRN; Protocol PRN Reason: Hypoglycemia Protocol Dextrose (Glutose 15) 0 gm PO ONCE PRN; Protocol PRN Reason: Hypoglycemia Protocol Docusate Sodium (Colace) 100 mg PO BID PRN PRN Reason: Constipation Gabapentin (Neurontin) 100 mg PO Q12 [facility] Last Admin: 11/23/17 21:07 Dose: 100 mg Glucagon (Glucagen Diagnostic Kit) 0 mg IM STAT PRN; Protocol PRN Reason: Hypoglycemia Protocol Heparin Sodium (Porcine) (Heparin) 5,000 units SC Q12 [facility] PRN Reason: Protocol Last Admin: 11/23/17 21:06 Dose: 5,000 units Valproate Sodium 500 mg/ (Sodium Chloride) 105 mls @ 0 mls/hr IVPB Q12 [facility] PRN Reason: As Directed Last Admin: 11/23/17 21:05 Dose: 100 mls/hr Insulin Detemir (Levemir) 46 units SC [facility] Last Admin: 11/21/17 22:49 Dose: 46 units Insulin Human Lispro (Humalog) 0 units SC [facility] PRN Reason: Protocol Last Admin: 11/23/17 22:00 Dose: Not Given Insulin Human Lispro (Humalog) 16 units SC AC [facility] Last Admin: 11/22/17 12:10 Dose: Not Given Levothyroxine Sodium (Synthroid) 75 mcg PO DAILY@0630 [facility] Last Admin: 11/24/17 06:44 Dose: Not Given Lorazepam (Ativan) 0.5 mg PO HS PRN PRN Reason: Anxiety Fluticasone/Salmeterol (Advair Diskus 100/50) 1 puff IH Q12 [facility] Last Admin: 11/23/17 21:03 Dose: 1 puff Terbutaline Sulfate (Brethine Tab) 2.5 mg PO [facility] Last Admin: 11/23/17 21:03 Dose: 2.5 mg Timolol Maleate (Timoptic 0.5% Ophth Soln) 1 drop OD BID [facility] Last Admin: 11/23/17 18:00 Dose: 1 drop Trazodone HCl (Desyrel) 50 mg PO [facility] Last Admin: 11/23/17 21:06 Dose: 50 mg - Labs Labs: 11/24/17 04:15 11/24/17 04:15 PT 11.6 Seconds (9.8-13.1) 11/22/17 13:00 INR 1.0 (0.9-1.2) 11/22/17 13:00 APTT 30.0 Seconds (25.6-37.1) 11/22/17 13:00 - Constitutional Appears: Confused, Chronically Ill - Eye Exam Eye Exam: PERRL - ENT Exam ENT Exam: Mucous Membranes Moist - Respiratory Exam Respiratory Exam: Clear to Ausculation Bilateral, NORMAL BREATHING PATTERN - Cardiovascular Exam Cardiovascular Exam: REGULAR RHYTHM, +S1, +S2. absent: Gallop - GI/Abdominal Exam GI & Abdominal Exam: Soft, Normal Bowel Sounds - Extremities Exam Extremities Exam: absent: Pedal Edema - Neurological Exam Additional comments: Slightly Lethargic, confused, arousable to painful stimuli. 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 Depakote level 72.6 For EEG this morning ABG no hypoxia(Yesterday) VS stable <Bustos,Andrew K - Last Filed: 11/27/17 10:57> Objective - Vital Signs/Intake and Output Vital Signs (last 24 hours): Temp Pulse Resp BP Pulse Ox 99.6 F 89 34 H 183/91 H 95 11/27/17 08:00 11/27/17 08:46 11/27/17 08:00 11/27/17 08:46 11/27/17 08:00 - Medications Medications: Current Medications Acetaminophen (Tylenol 325mg Tab) 650 mg PO Q6 PRN PRN Reason: Fever >100.4 F Last Admin: 11/24/17 16:23 Dose: 650 mg Albuterol/Ipratropium (Duoneb 3 Mg/0.5 Mg (3 Ml) Ud) 3 ml INH RQ6 [facility] Amlodipine Besylate (Norvasc) 10 mg PO DAILY [facility] Last Admin: 11/27/17 08:46 Dose: 10 mg Atorvastatin Calcium (Lipitor) 80 mg PO HS [facility] Last Admin: 11/26/17 22:13 Dose: 80 mg Brimonidine Tartrate (Alphagan 0.2% Opht) 1 drop OD BID [facility] Last Admin: 11/27/17 08:43 Dose: 1 drop Clopidogrel Bisulfate (Plavix) 75 mg PO DAILY [facility] Last Admin: 11/27/17 08:46 Dose: 75 mg Dextrose (Dextrose 50% Inj) 0 ml IV STAT PRN; Protocol PRN Reason: Hypoglycemia Protocol Dextrose (Glutose 15) 0 gm PO ONCE PRN; Protocol PRN Reason: Hypoglycemia Protocol Docusate Sodium (Colace) 100 mg PO BID PRN PRN Reason: Constipation Gabapentin (Neurontin) 100 mg PO Q12 [facility] Last Admin: 11/23/17 21:07 Dose: 100 mg Glucagon (Glucagen Diagnostic Kit) 0 mg IM STAT PRN; Protocol PRN Reason: Hypoglycemia Protocol Heparin Sodium (Porcine) (Heparin) 5,000 units SC Q12 [facility] PRN Reason: Protocol Last Admin: 11/27/17 08:44 Dose: 5,000 units Levetiracetam 500 mg/ Sodium (Chloride) 105 mls @ 210 mls/hr IVPB BID [facility] Last Admin: 11/27/17 08:45 Dose: 210 mls/hr Insulin Detemir (Levemir) 46 units SC HS [facility] Last Admin: 11/21/17 22:49 Dose: 46 units Insulin Human Lispro (Humalog) 0 units SC [facility] PRN Reason: Protocol Last Admin: 11/27/17 08:44 Dose: Not Given Insulin Human Lispro (Humalog) 16 units SC AC [facility] Last Admin: 11/22/17 12:10 Dose: Not Given Levetiracetam (Keppra) 500 mg PO BID [facility] Levothyroxine Sodium (Synthroid) 75 mcg PO DAILY@0630 [facility] Last Admin: 11/27/17 06:22 Dose: 75 mcg Lorazepam (Ativan) 1 mg IVP Q6H PRN PRN Reason: Seizure activity Last Admin: 11/27/17 01:21 Dose: 1 mg Meclizine HCl (Antivert) 25 mg PO TID PRN PRN Reason: Dizziness Metoprolol Tartrate (Lopressor) 12.5 mg PO Q12 [facility] Metronidazole (Flagyl) 500 mg PO Q8@0600,1400,2200 [facility] PRN Reason: Protocol Last Admin: 11/27/17 06:22 Dose: 500 mg Multivitamins/Vitamin C (Multi-Delyn Liquid) 15 ml PO DAILY [facility] Last Admin: 11/27/17 08:46 Dose: 15 ml Timolol Maleate (Timoptic 0.5% [facility]) 1 drop OD BID [facility] Last Admin: 11/27/17 08:46 Dose: 1 drop Trazodone HCl (Desyrel) 50 mg PO HS [facility] Last Admin: 11/23/17 21:06 Dose: 50 mg Valproate Sodium (Depakene Oral Syrup) 1,000 mg PO BID [facility] - Labs Labs: 11/27/17 05:04 03/10/18 05:04 PT 11.6 Seconds (9.8-13.1) 11/22/17 13:00 INR 1.0 (0.9-1.2) 11/22/17 13:00 APTT 30.0 Seconds (25.6-37.1) 11/22/17 13:00 Assessment and Plan - Assessment and Plan (Free Text) Assessment: Patient was personally seen and examined by me in rounds with residents. Available labs and diagnostic data reviewed. Case, patient's conditions and management plan discussed with residents in rounds. Agree with resident's progress note. Plan: As ordered.
[2017-11-24] MEDS: Insulin Lispro (humaLOG) 100 Units/ml Inj SC SCH ×4 (09:05→21:19)
[2017-11-24] MEDS: Brimonidine 0.2% 50 DROP/5 ML BOTTLE OD SCH ×2 (09:08→16:30)
[2017-11-24] MEDS: Valproate 500 MG in Sodium Chloride 0.9% 100 ML IVPB SCH (09:09)
[2017-11-24] MEDS: Fluticasone-Salmeterol 100-50mcg Diskus IH SCH ×2 (09:14→21:34)
[2017-11-24] MEDS ORDERED: Valproate 1,000 MG in Sodium Chloride 0.9% 100 ML IVPB ONE (09:27)
--- NOTE | 2017-11-24 11:17 | CP.PCM.PN ---
Subjective - Date & Time of Evaluation Date of Evaluation: 11/24/17 Time of Evaluation: 11:15 - Subjective Subjective: Mr. Parada was seen and examined at the bedside. She is very lethargic or post- ictal. She response to pain stimuli, but unable to follow commands or answer any questions. She is receiving oxygen via nasal cannula. She had episode of seizure episodes yesterday which were short per staff. Ativan was given during those seizure activity. MRI of the brain showed variable chronology infarcts is appreciated including a more acute appearing inferior right [employer] distribution infarct combined with likely more subacute distribution of a posterior mid right MCA distribution infacrt. Local mass effect was limited without generalized infarct to cause midline shift at this time. An acute or subacute lacune is suggested at the left occipital lobe. Chronic infarcts in the right frontal lobe as well as right parietal lobe is evident. Chronic lacunes are seen at the left frontal as well. Objective - Vital Signs/Intake and Output Vital Signs (last 24 hours): Temp Pulse Resp BP Pulse Ox 98.1 F 63 18 163/70 H 96 11/24/17 08:19 11/24/17 09:13 11/24/17 08:19 11/24/17 09:13 11/24/17 08:19 Intake and Output: 11/24/17 11/24/17 06:59 18:59 Intake Total 1300 Balance 1300 - Medications Medications: Current Medications Acetaminophen (Tylenol 325mg Tab) 650 mg PO Q6 PRN PRN Reason: Fever >100.4 F Albuterol Sulfate (Albuterol 0.083% Inhal Tosha (2.5 Mg/3 Ml) Ud) 2.5 mg INH RQ4 PRN PRN Reason: Shortness of Breath Amlodipine Besylate (Norvasc) 10 mg PO DAILY [facility] Last Admin: 11/24/17 09:13 Dose: 10 mg Atorvastatin Calcium (Lipitor) 80 mg PO HS [facility] Last Admin: 11/23/17 21:07 Dose: 80 mg Brimonidine Tartrate (Alphagan 0.2% Opht) 1 drop OD BID [facility] Last Admin: 11/24/17 09:08 Dose: 1 drop Clopidogrel Bisulfate (Plavix) 75 mg PO DAILY [facility] Last Admin: 11/24/17 09:13 Dose: 75 mg Dextrose (Dextrose 50% Inj) 0 ml IV STAT PRN; Protocol PRN Reason: Hypoglycemia Protocol Dextrose (Glutose 15) 0 gm PO ONCE PRN; Protocol PRN Reason: Hypoglycemia Protocol Docusate Sodium (Colace) 100 mg PO BID PRN PRN Reason: Constipation Gabapentin (Neurontin) 100 mg PO Q12 [facility] Last Admin: 11/23/17 21:07 Dose: 100 mg Glucagon (Glucagen Diagnostic Kit) 0 mg IM STAT PRN; Protocol PRN Reason: Hypoglycemia Protocol Heparin Sodium (Porcine) (Heparin) 5,000 units SC Q12 [facility] PRN Reason: Protocol Last Admin: 11/24/17 09:10 Dose: 5,000 units Valproate Sodium 750 mg/ (Sodium Chloride) 107.5 mls @ 107.5 mls/hr IVPB Q12 [facility] PRN Reason: As Directed Insulin Detemir (Levemir) 46 units SC [facility] Last Admin: 11/21/17 22:49 Dose: 46 units Insulin Human Lispro (Humalog) 0 units SC ACHS [facility] PRN Reason: Protocol Last Admin: 11/24/17 09:05 Dose: Not Given Insulin Human Lispro (Humalog) 16 units SC AC [facility] Last Admin: 11/22/17 12:10 Dose: Not Given Levothyroxine Sodium (Synthroid) 75 mcg PO DAILY@0630 [facility] Last Admin: 11/24/17 06:44 Dose: Not Given Lorazepam (Ativan) 0.5 mg PO PRN PRN Reason: Anxiety Metronidazole (Flagyl) 500 mg PO Q8 [facility] PRN Reason: Protocol Fluticasone/Salmeterol (Advair Diskus 100/50) 1 puff IH Q12 [facility] Last Admin: 11/24/17 09:14 Dose: 1 puff Terbutaline Sulfate (Brethine Tab) 2.5 mg PO [facility] Last Admin: 11/23/17 21:03 Dose: 2.5 mg Timolol Maleate (Timoptic 0.5% Ophth Soln) 1 drop OD BID [facility] Last Admin: 11/24/17 09:17 Dose: 1 drop Trazodone HCl (Desyrel) 50 mg PO [facility] Last Admin: 11/23/17 21:06 Dose: 50 mg - Labs Labs: 11/24/17 04:15 11/24/17 04:15 PT 11.6 Seconds (9.8-13.1) 11/22/17 13:00 INR 1.0 (0.9-1.2) 11/22/17 13:00 APTT 30.0 Seconds (25.6-37.1) 11/22/17 13:00 - Constitutional Appears: No Acute Distress - Head Exam Head Exam: NORMAL INSPECTION - Neurological Exam Neurological Exam: Awake Neuro motor strength exam: Left Upper Extremity: 3, Right Upper Extremity: 3, Left Lower Extremity: 2/1, Right Lower Extremity: 2/1 Additional comments: She is unable to answer or follow commands. Assessment and Plan (1) Seizure disorder Assessment & Plan: Case discussed with Dr. Fritz, continue all current medical regimen. Recommend loading for depakote 1000 mg IVPB for one dose and increasing the depakote dose from 500 mg IVPB Q 12 to 750 mg IVPB Q 12. Follow up EEG and monitor valproic level. Status: Acute
[2017-11-24] MEDS ORDERED: Iodixanol 320 MG/ML 100 ML BOTTLE IV ONE (11:43)
--- NOTE | 2017-11-24 12:44 | CT ---
PROCEDURE: CT Angiography of the Brain. HISTORY: acute cva COMPARISON: None available. TECHNIQUE: CT angiography of the intracranial arteries was performed. Coronal and sagittal maximum intensity projection reformated images were generated. Contrast Dose: Visipaque 320, 99 cc Radiation dose:Total exam DLP = 3001.98 mGy-cm. This CT exam was performed using one or more of the following dose reduction techniques: Automated exposure control, adjustment of the mA and/or kV according to patient size, and/or use of iterative reconstruction technique. FINDINGS: INTERNAL CEREBRAL ARTERIES: The entire right internal carotid artery of small with diminished enhancement appreciated at the right anterior and middle cerebral arteries. Prior carotid ultrasound examination 10/13/2017 reveals normal velocities within the visualized cervical right ICA segment with a less than 50 percent stenosis suggested. The age of this finding is unclear. A dissection cannot be excluded, acute or chronic or length the stenosis from atherosclerosis or spasm. Given prior right-sided cerebral infarcts, this may not be an acute finding. ANTERIOR CEREBRAL ARTERIES: Left anterior cerebral artery including A1 A2 branches appear unremarkable with diminished enhancement identified at the right A1 and A2 segments as well as peripheral branches. MIDDLE CEREBRAL ARTERIES: Left middle cerebral artery including A1 A2 branches appear unremarkable with diminished enhancement identified at the right M1 and M2 segments as well as peripheral branches.. Perisylvian branches asymmetrically enhance greater the left and right sides as well. POSTERIOR CIRCULATION: Basilar Artery: Unremarkable. Distal Vertebral Arteries: Unremarkable. Posterior Cerebral Arteries: Unremarkable. Posterior Inferior Cerebellar Arteries: Unremarkable. NECK CTA: Common Carotid arteries: The bilateral common carotid appear widely patent from their origins to their bifurcations with no significant stenosis appreciated. No evidence to suggest common carotid artery dissection. Internal Carotid arteries: A lengthy stenosis or even potential distension did dissection of indeterminate age is seen affecting the right internal carotid artery as discussed above. No significant stenosis is appreciated throughout the left cervical internal carotid artery segments delete and there is no evidence of dissection either. External Carotid arteries: Appear unremarkable bilaterally. Vertebral arteries: The bilateral vertebral arteries appear normal in caliber from their origins to their junction with the basilar artery. No significant stenosis or definite pattern of dissection. ANEURYSM/ VASCULAR MALFORMATIONS: None. OTHER FINDINGS: None. 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 Given prior right cerebral infarcts, the findings may not be acute and further clinical correlation is advised. This finding does not explain the acute right [employer] infarct in this patient as demonstrated prior limited brain MRI 11/23/2017.
--- NOTE | 2017-11-24 13:51 | PQF GENQUE ---
Dr. Bustos, Acute Encephalopathy: Toxic Metabolic Encephalopathy ruled in or ruled out? OR: Unable to determine OR: Other explanation of diagnostic finding 3/4 Neuro consult : (1) Acute encephalopathy Assessment and Plan: Could be toxic-metabolic encephalopathy due to multiple metabolic derangements and possible infection. Treat underlying cause medically and reconsult if the patient does not improve. Status: Acute Priority: High (2) Headache Assessment and Plan: I recommend treating with magnesium sulfate 2 grams IV once, Depakote 500 mg IV once and toradol 30 mg IV once. Obtain repeat CT head in the AM This form is a permanent part of the medical record Clarification of your documentation is requested to better reflect the severity of illness and intensity of treatment of your patient. Indicators present [] Specify: [] [] Specify: [] [] Specify: [] [] Specify: [] Location in the medical record that reflects the above clinical findings: [] Treatment Provided: [] PHYSICIAN'S RESPONSE Based on your medical judgment of the clinical indicators outlined above please clarify the following: [] Practitioner response [] If unable to determine, please check the box, sign and date. Present On Admission (POA) Indicator: [] Present at the time of admission [] Not present at the time of admission [] Clinically Undetermined In responding to this query, please exercise your independent professional judgment. The fact that a question is asked does not imply that any particular answer is desired or expected. Thank you for your clarification on this documentation. If you have any questions please call. * Thank you, Marielena Danielson RN ext. #[phone] [facility]TD[facility]
--- NOTE | 2017-11-24 18:52 | CP.PCM.CON ---
History of Present Illness - History of Present Illness History of Present Illness: Consultation for +Ve TnI HPI: Review of Systems - Review of Systems All systems: reviewed and no additional remarkable complaints except - Constitutional Constitutional: As Per HPI - EENT Eyes: As Per HPI Ears: As Per HPI Nose/Mouth/Throat: As Per HPI - Breasts Breasts: As Per HPI - Cardiovascular Cardiovascular: As Per HPI - Respiratory Respiratory: As Per HPI - Gastrointestinal Gastrointestinal: As Per HPI - Genitourinary Genitourinary: As Per HPI - Reproductive: Female Reproductive:Female: As Per HPI - Menstruation Menstruation: As Per HPI - Musculoskeletal Musculoskeletal: As Per HPI - Integumentary Integumentary: As Per HPI - Neurological Neurological: As Per HPI - Psychiatric Psychiatric: As Per HPI - Endocrine Endocrine: As Per HPI - Hematologic/Lymphatic Hematologic: As Per HPI Past Patient History - Tetanus Immunizations Tetanus Immunization: Unknown - Past Medical History & Family History Past Medical History?: Yes - Past Social History Alcohol: None Drugs: Denies - CARDIAC Hx Cardiac Disorders: Yes - PULMONARY Hx Respiratory Disorders: Yes - NEUROLOGICAL Hx Neurological Disorder: Yes - HEENT Hx HEENT Problems: Yes Hx Glaucoma: Yes (right eye) - RENAL Hx Chronic Kidney Disease: No - ENDOCRINE/METABOLIC Hx Diabetes Mellitus Type 2: Yes - HEMATOLOGICAL/ONCOLOGICAL Hx AIDS: No Hx Human Immunodeficiency Virus (HIV): No - INTEGUMENTARY Hx Dermatological Problems: No - MUSCULOSKELETAL/RHEUMATOLOGICAL Hx Falls: No - GASTROINTESTINAL Hx Gastrointestinal Disorders: No - GENITOURINARY/GYNECOLOGICAL Hx Genitourinary Disorders: No - PSYCHIATRIC Hx Depression: Yes Hx Post Traumatic Stress Disorder: Yes - SURGICAL HISTORY Hx Cholecystectomy: Yes Hx Tonsillectomy: Yes - ANESTHESIA Hx Anesthesia: Yes Hx Anesthesia Reactions: No Meds Allergies/Adverse Reactions: Allergies Allergy/AdvReac Type Severity Reaction Status Date / Time levofloxacin [From Levaquin] Allergy convulsions Verified 10/18/17 12:47 Macrolide Antibiotics Allergy convulsions Verified 10/18/17 12:47 aspirin AdvReac bleedin Verified 10/18/17 12:47 - Medications Medications: Current Medications Acetaminophen (Tylenol 325mg Tab) 650 mg PO Q6 PRN PRN Reason: Fever >100.4 F Last Admin: 11/24/17 16:23 Dose: 650 mg Albuterol Sulfate (Albuterol 0.083% Inhal Tosha (2.5 Mg/3 Ml) Ud) 2.5 mg INH RQ4 PRN PRN Reason: Shortness of Breath Amlodipine Besylate (Norvasc) 10 mg PO DAILY [facility] Last Admin: 11/24/17 09:13 Dose: 10 mg Atorvastatin Calcium (Lipitor) 80 mg PO HS [facility] Last Admin: 11/23/17 21:07 Dose: 80 mg Brimonidine Tartrate (Alphagan 0.2% Opht) 1 drop OD BID [facility] Last Admin: 11/24/17 16:30 Dose: 1 drop Clopidogrel Bisulfate (Plavix) 75 mg PO DAILY [facility] Last Admin: 11/24/17 09:13 Dose: 75 mg Dextrose (Dextrose 50% Inj) 0 ml IV STAT PRN; Protocol PRN Reason: Hypoglycemia Protocol Dextrose (Glutose 15) 0 gm PO ONCE PRN; Protocol PRN Reason: Hypoglycemia Protocol Docusate Sodium (Colace) 100 mg PO BID PRN PRN Reason: Constipation Gabapentin (Neurontin) 100 mg PO Q12 [facility] Last Admin: 11/23/17 21:07 Dose: 100 mg Glucagon (Glucagen Diagnostic Kit) 0 mg IM STAT PRN; Protocol PRN Reason: Hypoglycemia Protocol Heparin Sodium (Porcine) (Heparin) 5,000 units SC Q12 [facility] PRN Reason: Protocol Last Admin: 11/24/17 09:10 Dose: 5,000 units Valproate Sodium 750 mg/ (Sodium Chloride) 107.5 mls @ 107.5 mls/hr IVPB Q12 [facility] PRN Reason: As Directed Insulin Detemir (Levemir) 46 units SC HS [facility] Last Admin: 11/21/17 22:49 Dose: 46 units Insulin Human Lispro (Humalog) 0 units SC ACHS [facility] PRN Reason: Protocol Last Admin: 11/24/17 16:35 Dose: Not Given Insulin Human Lispro (Humalog) 16 units SC AC [facility] Last Admin: 11/22/17 12:10 Dose: Not Given Levothyroxine Sodium (Synthroid) 75 mcg PO DAILY@0630 [facility] Last Admin: 11/24/17 06:44 Dose: Not Given Lorazepam (Ativan) 0.5 mg PO HS PRN PRN Reason: Anxiety Metronidazole (Flagyl) 500 mg PO Q8@0600,1400,2200 [facility] PRN Reason: Protocol Fluticasone/Salmeterol (Advair Diskus 100/50) 1 puff IH Q12 [facility] Last Admin: 11/24/17 09:14 Dose: 1 puff Terbutaline Sulfate (Brethine Tab) 2.5 mg PO [facility] Last Admin: 11/23/17 21:03 Dose: 2.5 mg Timolol Maleate (Timoptic 0.5% Ophth Soln) 1 drop OD BID [facility] Last Admin: 11/24/17 16:28 Dose: 1 drop Trazodone HCl (Desyrel) 50 mg PO [facility] Last Admin: 11/23/17 21:06 Dose: 50 mg Physical Exam - Constitutional Appears: Confused - Head Exam Head Exam: ATRAUMATIC, NORMAL INSPECTION, NORMOCEPHALIC - Eye Exam Eye Exam: EOMI, Normal appearance, PERRL Pupil Exam: NORMAL ACCOMODATION, PERRL - ENT Exam ENT Exam: Mucous Membranes Moist, Normal Exam - Neck Exam Neck exam: Positive for: Normal Inspection - Respiratory Exam Respiratory Exam: Clear to Auscultation Bilateral, NORMAL BREATHING PATTERN - Cardiovascular Exam Cardiovascular Exam: REGULAR RHYTHM, RRR, +S1, +S2, Systolic Murmur - GI/Abdominal Exam GI & Abdominal Exam: Normal Bowel Sounds, Soft. absent: Tenderness - Extremities Exam Extremities exam: Positive for: normal inspection - Back Exam Back exam: NORMAL INSPECTION - Neurological Exam Neurological exam: Altered - Psychiatric Exam Psychiatric exam: Flat Affect, Normal Mood - Skin Skin Exam: Dry, Intact, Normal Color, Warm Results - Vital Signs Recent Vital Signs: Last Vital Signs Temp 98.6 F 11/24/17 15:49 Pulse 63 11/24/17 18:34 Resp 20 11/24/17 15:49 BP 150/73 11/24/17 18:34 Pulse Ox 98 11/24/17 15:49 - Labs Result Diagrams: 11/24/17 04:15 11/24/17 04:15 Labs: Laboratory Results - last 24 hr 11/23/17 11/24/17 11/24/17 21:46 04:15 04:15 WBC 9.9 RBC 3.64 L Hgb 10.4 L Hct 31.8 L MCV 87.5 MCH 28.6 MCHC 32.7 L RDW 15.0 H Plt Count 407 H pCO2 pO2 HCO3 ABG pH ABG Total CO2 ABG O2 Saturation ABG O2 Content ABG Base Excess ABG Hemoglobin ABG Carboxyhemoglobin POC ABG HHb (Measured) ABG Methemoglobin ABG O2 Capacity Alex Test A-a O2 Difference Hgb O2 Saturation FiO2 Sodium 142 Potassium 3.7 Chloride 108 H Carbon Dioxide 21 L Anion Gap 17 BUN 13 Creatinine 1.0 Est GFR ( Amer) > 60 Est GFR (Non-Af Amer) 55 POC Glucose (mg/dL) 121 H Random Glucose 128 H Calcium 8.3 L Total Bilirubin 0.3 AST 20 ALT 27 Alkaline Phosphatase 72 Total Protein 6.3 Albumin 2.9 L Globulin 3.4 Albumin/Globulin Ratio 0.9 L Prolactin C. difficile Ag & Toxin 11/24/17 11/24/17 11/24/17 04:42 08:57 09:15 WBC RBC Hgb Hct MCV MCH MCHC RDW Plt Count pCO2 33 L pO2 91 HCO3 21.6 ABG pH 7.39 ABG Total CO2 21.0 L ABG O2 Saturation 99.2 H ABG O2 Content 14.2 L ABG Base Excess -4.3 L ABG Hemoglobin 10.3 L ABG Carboxyhemoglobin 1.6 H POC ABG HHb (Measured) 0.8 ABG Methemoglobin 0.8 ABG O2 Capacity 14.3 L Alex Test Yes A-a O2 Difference 67.0 Hgb O2 Saturation 96.9 FiO2 28.0 Sodium Potassium Chloride Carbon Dioxide Anion Gap BUN Creatinine Est GFR ( Amer) Est GFR (Non-Af Amer) POC Glucose (mg/dL) Random Glucose Calcium Total Bilirubin AST ALT Alkaline Phosphatase Total Protein Albumin Globulin Albumin/Globulin Ratio Prolactin 14.5 C. difficile Ag & Toxin Positive antigen Assessment & Plan (1) CAD (coronary artery disease) Status: Acute (2) Altered mental status Status: Acute (3) TIA (transient ischemic attack) Status: Acute (4) Weakness Status: Acute
[2017-11-24] MEDS ORDERED: levETIRAcetam 1,000 MG in Sodium Chloride 0.9% 100 ML IVPB ONE (19:09)
--- NOTE | 2017-11-24 19:09 | PCM.RRT ---
<Sultan Raheem - Last Filed: 11/24/17 20:02> [employer] Nurse Assessment - Situation [employer] Responder Arrival Time: 19:05 Location: [address] [place] [address] Room Number: N414 [employer] Called By: RN - IV IV Inserted during [employer]?: No - Respiratory Oxygen Delivery Method: Nasal Cannula Received Nebulizer Treatments: No Was the Patient Ventilated with Bag/Mask 100% O2?: No Secretions Suctioned?: No Was the Patient Intubated?: No Was the Patient Placed on a Ventilator?: No - Diagnostic Test Ordered EKG: No Chest X-Ray: No CT Scan: No CPR started during [employer]?: No - Vital Signs Vital Signs: Rapid Response Vital Sign Blood Pressure 154/67 Pulse Rate 65 Respiratory Rate 20 Temperature 98.5 F Oxygen Saturation 93% - Time [employer] Ended Time [employer] Ended: 02:25 - Vital Signs at end of [employer] Vital Signs at end of [employer]: Rapid Response End Vital Sign Blood Pressure 165/83 Pulse Rate 72 Respiratory Rate 20 O2 Sat by Pulse Oximetry 97% - Recommendations [employer] Level of Care Recommendations: Transfer to ICU I.Reason for [employer] - A) Acute Change in Patient: Subjective: [employer] Start Time:19:05 [employer] Reason: Seizure S: [employer] was called by pt's RN because patient was seizing in bed. Pt had multiple episodes of seizures lasting for several seconds. Upon arrival to [employer], pt was awake, alert and oriented. Vitals: BP 154/67, HR 65, RR 20, Temp 98.5, pulse ox 93% on NC O2 General: Patient seen lying in bed, not in acute distress. HEENT: No tongue laceration seen. Cardio: RRR, normal S1, S2 Lungs: CTA B/L Abdomen: Soft, nontender, non distended Neurological: AAO x 3, no post-ictal confusion seen. [employer] interventions: Ativan 1 mg IV stat ordered for breakthrough seizure but not given due to pt stopped seizing. Dr. Fritz was contacted and ordered Keppra 1000mg loading dose, followed by keppra 500 mg BID. Pt was transferred to ICU for close monitoring. A: [employer] was called for 72 yo female with hx of R/ sided CVA admitted for AMS for seizure at bedside.. Multiple senior private client advisor were called on patient in the last 2 days for unresponsiveness and seizure. Upon arrival to the [employer], pt stopped seizing. Pt was awake, alert and oriented. No post ictal confusion seen. P: Keppra 1000 mg loading dose Pt transferred to ICU for close monitoring Dr. Bustos was informed about the [employer] and transfer At the end of [employer], pt's BP was 165/83, HR 72, RR 18, pulse ox 97% [employer] environmental health and safety leader: [employer] team: Dr. Guerrero, Dr. James, Dr. Sepulveda, pgy-2, Dr. Maciel, pgy-1 <Chiquita Rankin - Last Filed: 11/27/17 09:11> [employer] Nurse Assessment - Vital Signs Vital Signs: Rapid Response Vital Sign Blood Pressure 117/73 Pulse Rate 83 Respiratory Rate 23 Temperature 97.5 F Oxygen Saturation 99 - Vital Signs at end of [employer] Vital Signs at end of [employer]: Rapid Response End Vital Sign Blood Pressure 112/69 Pulse Rate 77 Respiratory Rate 18 Temperature 97.6 F O2 Sat by Pulse Oximetry 98 Attending/Attestation - Attestation I have personally seen and examined this patient.: Yes I have fully participated in the care of the patient.: Yes I have reviewed all pertinent clinical information, including history, physical exam and plan: Yes
--- NOTE | 2017-11-24 20:31 | CP.CCUPN ---
CCU Subjective - Physician Review Subjective (Free Text): 72F, PMH DM II, HTN Hyperlipidemia, previous seizure disorder on Keppra since 2010, CVA with left hemiparesis, admitted 4 days ago for AMS and found to have an acute / subacute R MCA infarct and recurrent seizures. No status epilepticus reported, but today has had recurrent seizures up to 6 in-a-row Q5 minutes apart with no LOC or other post-ictal state. She is verbally responsive and conversant during interictal periods. Seizures lasted 20-30 seconds manifest by generalized tonic clonic activity with predominate left sided spasticity during the episodes. Hemodynamics and oxygenation have been stable during these periods prior to ICU transfer, but an episode of vomiting occurred during 2nd CT scan today and was assoc with brief bradycardia with HR falling to the 40s. Current dosing of Depakote increased from 500mg top 75-mg after bolus dose of 1000mg given earlier today. Neuro contacted again by [facility] and instructed to start Keppra 500mg Q12H after 1000mg bolus. Ativan 1 mg given to abort the last seizure pending arrival; of Keppra dose after transfer to ICU. 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 Other VS and I/Os reviewed. ROS: No other pertinent negs or positives on 10+ system review. PMSFH: All other Nursing and physician documentation reviewed to date; no new pertinent info noted relevant to current medical problems. Serial CT head and MRI Brain films reviewed and results reviewed. EXAM- HEENT: no icterus, slight ptosis on R, irregular pupils bilaterally. No icterus , no gaze preference. NECK: no visible JVD, supple, carotids equal upstroke bilat/no bruits CHEST: decreased BS bases, no wheezes audible HEART: regular distant, S1S2, no murmur audible, no rubs. ABD: soft, no distention, no tympany, no palp tenderness, BS hypoactive EXT: +bilat edema. No peripheral/ digital cyanosis, no calf tenderness or palpable cords, distal pulses intact and symmetrical. NEURO: left hemiplegia, sensory intact on R. SKIN: no rashes LABS: WBC= 9.9 HGB= 10.4 PLTs= 407K Na= 142 K= 3.7 HCO3=21 CL= 108 BUN/Cr= 13/0.1.0 BS= 128 MAJOR PROBLEMS: 1. Recurrent Seizure Disorder with increasing frequency 2. 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 Troponin Elevation (mild) 2 Multiple Seizure Episodes PLAN: 1. Transfer to ICU for further seizure control, neuro monitoring and close monitoring for need for any airway protection. Additional AED added with Keppra therapy. 2. Check CXR to r/o any aspiration event from previous vomiting episode and recurrent seizure events. 3. Keep NPO for now. 4. All other meds with MONOGRAM TECHNICIAN effects withheld for now as discussed with Resident team. 5. IVF hydration, check lactate and CPK levels. 6. Needs PICC line. CCU Objective - Vital Signs / Intake & Output Vital Signs (Last 4 hours): Vital Signs Temp Pulse Resp BP Pulse Ox 11/24/17 19:15 98.5 F 65 20 154/67 H 93 L 11/24/17 18:34 63 150/73 Intake and Output (Last 8hrs): Intake & Output 11/24/17 11/24/17 11/24/17 06:59 14:59 22:59 Intake Total 100 Balance 100 Intake: Intake, Piggyback 100 Other: # Bowel Movements 2 - Medications Active Medications: Active Medications Generic Name Dose Route Start Last Admin Trade Name Freq PRN Reason Stop Dose Admin Acetaminophen 650 mg 11/21/17 18:54 11/24/17 16:23 Tylenol 325mg Tab PO 650 mg Q6 PRN Administration Fever >100.4 F Albuterol Sulfate 2.5 mg 11/21/17 19:04 Albuterol 0.083% Inhal Tosha (2.5 Mg/3 Ml) Ud INH RQ4 PRN Shortness of Breath Amlodipine Besylate 10 mg 11/24/17 09:00 11/24/17 09:13 Norvasc PO 10 mg DAILY ADINA Administration Atorvastatin Calcium 80 mg 11/21/17 22:00 11/23/17 21:07 Lipitor PO 80 mg HS ADINA Administration Brimonidine Tartrate 1 drop 11/22/17 09:00 11/24/17 16:30 Alphagan 0.2% Opht OD 1 drop BID ADINA Administration Clopidogrel Bisulfate 75 mg 11/22/17 09:00 11/24/17 09:13 Plavix PO 75 mg DAILY ADINA Administration Dextrose 0 ml 11/23/17 13:03 Dextrose 50% Inj IV STAT PRN Hypoglycemia Protocol Protocol Dextrose 0 gm 11/23/17 13:03 Glutose 15 PO ONCE PRN Hypoglycemia Protocol Protocol Docusate Sodium 100 mg 11/21/17 19:15 Colace PO BID PRN Constipation Gabapentin 100 mg 11/21/17 21:00 11/23/17 21:07 Neurontin PO 100 mg Q12 ADINA Administration Glucagon 0 mg 11/23/17 13:03 Glucagen Diagnostic Kit IM STAT PRN Hypoglycemia Protocol Protocol Heparin Sodium (Porcine) 5,000 units 11/21/17 21:00 11/24/17 09:10 Heparin SC 5,000 units Q12 ADINA Administration Protocol Valproate Sodium 750 mg/ 107.5 mls @ 107.5 mls/hr 11/24/17 09:28 Sodium Chloride IVPB Q12 ADINA As Directed Levetiracetam 500 mg/ Sodium 105 mls @ 210 mls/hr 11/25/17 09:00 Chloride IVPB BID ADINA Insulin Detemir 46 units 11/21/17 22:00 11/21/17 22:49 Levemir SC 46 units HS ADINA Administration Insulin Human Lispro 0 units 11/21/17 22:00 11/24/17 16:35 Humalog SC Not Given ACHS [facility] Protocol Insulin Human Lispro 16 units 11/22/17 07:30 11/22/17 12:10 Humalog SC Not Given AC [facility] [place] Levothyroxine Sodium 75 mcg 11/22/17 06:30 11/24/17 06:44 Synthroid PO Not Given DAILY@0630 ADINA Metronidazole 500 mg 11/24/17 22:00 Flagyl PO Q8@0600,1400,2200 [facility] [place] Protocol Fluticasone/Salmeterol 1 puff 11/21/17 21:00 11/24/17 09:14 Advair Diskus 100/50 IH 1 puff Q12 ADINA Administration Terbutaline Sulfate 2.5 mg 11/21/17 22:00 11/23/17 21:03 Brethine Tab PO 2.5 mg HS ADINA Administration Timolol Maleate 1 drop 11/22/17 09:00 11/24/17 16:28 Timoptic 0.5% Ophth Soln OD 1 drop BID ADINA Administration Trazodone HCl 50 mg 11/21/17 22:00 11/23/17 21:06 Desyrel PO 50 mg HS ADINA Administration - Patient Studies Lab Studies: Microbiology Studies 11/22/17 16:10 Urine Culture - Final Urine,Catheterized No Growth (<1,000 CFU/ML) Lab Studies 11/24/17 11/24/17 11/24/17 Range/Units 19:05 16:15 11:03 WBC (4.8-10.8) K/uL RBC (3.80-5.20) Mil/uL Hgb (12.0-16.0) g/dL Hct (34.0-47.0) % MCV (81.0-99.0) fl MCH (27.0-31.0) pg MCHC (33.0-37.0) g/dL RDW (11.5-14.5) % Plt Count (130-400) K/uL pCO2 (35-45) mm/Hg pO2 (80-100) mm/Hg HCO3 (21-28) mmol/L ABG pH (7.35-7.45) ABG Total CO2 (22-28) mmol/L ABG O2 Saturation (95-98) % ABG O2 Content (15-23) ML/dL ABG Base Excess (-2.0-3.0) mmol/L ABG Hemoglobin (11.7-17.4) g/dL ABG Carboxyhemoglobin (0.5-1.5) % POC ABG HHb (Measured) (0.0-5.0) % ABG Methemoglobin (0.0-3.0) % ABG O2 Capacity (16-24) mL/dL Alex Test A-a O2 Difference mm/Hg Hgb O2 Saturation (95.0-98.0) % FiO2 % Sodium (132-148) mmol/l Potassium (3.6-5.0) MMOL/L Chloride (98-107) mmol/L Carbon Dioxide (22-30) mmol/L Anion Gap (10-20) BUN (7-17) mg/dl Creatinine (0.7-1.2) mg/dl Est GFR ( Amer) Est GFR (Non-Af Amer) POC Glucose (mg/dL) 112 H 104 142 H (65-110) mg/dL Random Glucose (65-105) mg/dL Calcium (8.4-10.2) mg/dL Total Bilirubin (0.2-1.3) mg/dl AST (14-36) U/L ALT (9-52) U/L Alkaline Phosphatase (38-126) U/L Total Protein (6.3-8.2) G/DL Albumin (3.5-5.0) g/dL Globulin (2.2-3.9) gm/dL Albumin/Globulin Ratio (1.0-2.1) Prolactin (3.0-18.9) ng/mL C. difficile Ag & Toxin (NEGATIVE) 11/24/17 11/24/17 11/24/17 Range/Units 09:15 08:57 05:40 WBC (4.8-10.8) K/uL RBC (3.80-5.20) Mil/uL Hgb (12.0-16.0) g/dL Hct (34.0-47.0) % MCV (81.0-99.0) fl MCH (27.0-31.0) pg MCHC (33.0-37.0) g/dL RDW (11.5-14.5) % Plt Count (130-400) K/uL pCO2 (35-45) mm/Hg pO2 (80-100) mm/Hg HCO3 (21-28) mmol/L ABG pH (7.35-7.45) ABG Total CO2 (22-28) mmol/L ABG O2 Saturation (95-98) % ABG O2 Content (15-23) ML/dL ABG Base Excess (-2.0-3.0) mmol/L ABG Hemoglobin (11.7-17.4) g/dL ABG Carboxyhemoglobin (0.5-1.5) % POC ABG HHb (Measured) (0.0-5.0) % ABG Methemoglobin (0.0-3.0) % ABG O2 Capacity (16-24) mL/dL Alex Test A-a O2 Difference mm/Hg Hgb O2 Saturation (95.0-98.0) % FiO2 % Sodium (132-148) mmol/l Potassium (3.6-5.0) MMOL/L Chloride (98-107) mmol/L Carbon Dioxide (22-30) mmol/L Anion Gap (10-20) BUN (7-17) mg/dl Creatinine (0.7-1.2) mg/dl Est GFR ( Amer) Est GFR (Non-Af Amer) POC Glucose (mg/dL) 115 H (65-110) mg/dL Random Glucose (65-105) mg/dL Calcium (8.4-10.2) mg/dL Total Bilirubin (0.2-1.3) mg/dl AST (14-36) U/L ALT (9-52) U/L Alkaline Phosphatase (38-126) U/L Total Protein (6.3-8.2) G/DL Albumin (3.5-5.0) g/dL Globulin (2.2-3.9) gm/dL Albumin/Globulin Ratio (1.0-2.1) Prolactin 14.5 (3.0-18.9) ng/mL C. difficile Ag & Toxin Positive antigen (NEGATIVE) 11/24/17 11/24/17 11/24/17 Range/Units 04:42 04:15 04:15 WBC 9.9 (4.8-10.8) K/uL RBC 3.64 L (3.80-5.20) Mil/uL Hgb 10.4 L (12.0-16.0) g/dL Hct 31.8 L (34.0-47.0) % MCV 87.5 (81.0-99.0) fl MCH 28.6 (27.0-31.0) pg MCHC 32.7 L (33.0-37.0) g/dL RDW 15.0 H (11.5-14.5) % Plt Count 407 H (130-400) K/uL pCO2 33 L (35-45) mm/Hg pO2 91 (80-100) mm/Hg HCO3 21.6 (21-28) mmol/L ABG pH 7.39 (7.35-7.45) ABG Total CO2 21.0 L (22-28) mmol/L ABG O2 Saturation 99.2 H (95-98) % ABG O2 Content 14.2 L (15-23) ML/dL ABG Base Excess -4.3 L (-2.0-3.0) mmol/L ABG Hemoglobin 10.3 L (11.7-17.4) g/dL ABG Carboxyhemoglobin 1.6 H (0.5-1.5) % POC ABG HHb (Measured) 0.8 (0.0-5.0) % ABG Methemoglobin 0.8 (0.0-3.0) % ABG O2 Capacity 14.3 L (16-24) mL/dL Alex Test Yes A-a O2 Difference 67.0 mm/Hg Hgb O2 Saturation 96.9 (95.0-98.0) % FiO2 28.0 % Sodium 142 (132-148) mmol/l Potassium 3.7 (3.6-5.0) MMOL/L Chloride 108 H (98-107) mmol/L Carbon Dioxide 21 L (22-30) mmol/L Anion Gap 17 (10-20) BUN 13 (7-17) mg/dl Creatinine 1.0 (0.7-1.2) mg/dl Est GFR ( Amer) > 60 Est GFR (Non-Af Amer) 55 POC Glucose (mg/dL) (65-110) mg/dL Random Glucose 128 H (65-105) mg/dL Calcium 8.3 L (8.4-10.2) mg/dL Total Bilirubin 0.3 (0.2-1.3) mg/dl AST 20 (14-36) U/L ALT 27 (9-52) U/L Alkaline Phosphatase 72 (38-126) U/L Total Protein 6.3 (6.3-8.2) G/DL Albumin 2.9 L (3.5-5.0) g/dL Globulin 3.4 (2.2-3.9) gm/dL Albumin/Globulin Ratio 0.9 L (1.0-2.1) Prolactin (3.0-18.9) ng/mL C. difficile Ag & Toxin (NEGATIVE) 11/23/17 Range/Units 21:46 WBC (4.8-10.8) K/uL RBC (3.80-5.20) Mil/uL Hgb (12.0-16.0) g/dL Hct (34.0-47.0) % MCV (81.0-99.0) fl MCH (27.0-31.0) pg MCHC (33.0-37.0) g/dL RDW (11.5-14.5) % Plt Count (130-400) K/uL pCO2 (35-45) mm/Hg pO2 (80-100) mm/Hg HCO3 (21-28) mmol/L ABG pH (7.35-7.45) ABG Total CO2 (22-28) mmol/L ABG O2 Saturation (95-98) % ABG O2 Content (15-23) ML/dL ABG Base Excess (-2.0-3.0) mmol/L ABG Hemoglobin (11.7-17.4) g/dL ABG Carboxyhemoglobin (0.5-1.5) % POC ABG HHb (Measured) (0.0-5.0) % ABG Methemoglobin (0.0-3.0) % ABG O2 Capacity (16-24) mL/dL Alex Test A-a O2 Difference mm/Hg Hgb O2 Saturation (95.0-98.0) % FiO2 % Sodium (132-148) mmol/l Potassium (3.6-5.0) MMOL/L Chloride (98-107) mmol/L Carbon Dioxide (22-30) mmol/L Anion Gap (10-20) BUN (7-17) mg/dl Creatinine (0.7-1.2) mg/dl Est GFR ( Amer) Est GFR (Non-Af Amer) POC Glucose (mg/dL) 121 H (65-110) mg/dL Random Glucose (65-105) mg/dL Calcium (8.4-10.2) mg/dL Total Bilirubin (0.2-1.3) mg/dl AST (14-36) U/L ALT (9-52) U/L Alkaline Phosphatase (38-126) U/L Total Protein (6.3-8.2) G/DL Albumin (3.5-5.0) g/dL Globulin (2.2-3.9) gm/dL Albumin/Globulin Ratio (1.0-2.1) Prolactin (3.0-18.9) ng/mL C. difficile Ag & Toxin (NEGATIVE) Laboratory Results - last 24 hr 11/23/17 11/24/17 11/24/17 21:46 04:15 04:15 WBC 9.9 RBC 3.64 L Hgb 10.4 L Hct 31.8 L MCV 87.5 MCH 28.6 MCHC 32.7 L RDW 15.0 H Plt Count 407 H pCO2 pO2 HCO3 ABG pH ABG Total CO2 ABG O2 Saturation ABG O2 Content ABG Base Excess ABG Hemoglobin ABG Carboxyhemoglobin POC ABG HHb (Measured) ABG Methemoglobin ABG O2 Capacity Alex Test A-a O2 Difference Hgb O2 Saturation FiO2 Sodium 142 Potassium 3.7 Chloride 108 H Carbon Dioxide 21 L Anion Gap 17 BUN 13 Creatinine 1.0 Est GFR ( Amer) > 60 Est GFR (Non-Af Amer) 55 POC Glucose (mg/dL) 121 H Random Glucose 128 H Calcium 8.3 L Total Bilirubin 0.3 AST 20 ALT 27 Alkaline Phosphatase 72 Total Protein 6.3 Albumin 2.9 L Globulin 3.4 Albumin/Globulin Ratio 0.9 L Prolactin C. difficile Ag & Toxin 11/24/17 11/24/17 11/24/17 04:42 05:40 08:57 WBC RBC Hgb Hct MCV MCH MCHC RDW Plt Count pCO2 33 L pO2 91 HCO3 21.6 ABG pH 7.39 ABG Total CO2 21.0 L ABG O2 Saturation 99.2 H ABG O2 Content 14.2 L ABG Base Excess -4.3 L ABG Hemoglobin 10.3 L ABG Carboxyhemoglobin 1.6 H POC ABG HHb (Measured) 0.8 ABG Methemoglobin 0.8 ABG O2 Capacity 14.3 L Alex Test Yes A-a O2 Difference 67.0 Hgb O2 Saturation 96.9 FiO2 28.0 Sodium Potassium Chloride Carbon Dioxide Anion Gap BUN Creatinine Est GFR ( Amer) Est GFR (Non-Af Amer) POC Glucose (mg/dL) 115 H Random Glucose Calcium Total Bilirubin AST ALT Alkaline Phosphatase Total Protein Albumin Globulin Albumin/Globulin Ratio Prolactin 14.5 C. difficile Ag & Toxin 11/24/17 11/24/17 11/24/17 09:15 11:03 16:15 WBC RBC Hgb Hct MCV MCH MCHC RDW Plt Count pCO2 pO2 HCO3 ABG pH ABG Total CO2 ABG O2 Saturation ABG O2 Content ABG Base Excess ABG Hemoglobin ABG Carboxyhemoglobin POC ABG HHb (Measured) ABG Methemoglobin ABG O2 Capacity Alex Test A-a O2 Difference Hgb O2 Saturation FiO2 Sodium Potassium Chloride Carbon Dioxide Anion Gap BUN Creatinine Est GFR ( Amer) Est GFR (Non-Af Amer) POC Glucose (mg/dL) 142 H 104 Random Glucose Calcium Total Bilirubin AST ALT Alkaline Phosphatase Total Protein Albumin Globulin Albumin/Globulin Ratio Prolactin C. difficile Ag & Toxin Positive antigen 11/24/17 19:05 WBC RBC Hgb Hct MCV MCH MCHC RDW Plt Count pCO2 pO2 HCO3 ABG pH ABG Total CO2 ABG O2 Saturation ABG O2 Content ABG Base Excess ABG Hemoglobin ABG Carboxyhemoglobin POC ABG HHb (Measured) ABG Methemoglobin ABG O2 Capacity Alex Test A-a O2 Difference Hgb O2 Saturation FiO2 Sodium Potassium Chloride Carbon Dioxide Anion Gap BUN Creatinine Est GFR ( Amer) Est GFR (Non-Af Amer) POC Glucose (mg/dL) 112 H Random Glucose Calcium Total Bilirubin AST ALT Alkaline Phosphatase Total Protein Albumin Globulin Albumin/Globulin Ratio Prolactin C. difficile Ag & Toxin Fingerstick Blood Sugar Results: 104 Review of Systems - Review of Systems All systems: reviewed and no additional remarkable complaints except (as above) Critical Care Progress Note - Nutrition Nutrition: Nutrition Category Date Time Status Dysphagia/Modified Consistency Diet [DIET] Diets 11/23/17 Breakfast Active
[2017-11-24] MEDS: Valproate 750 MG in Sodium Chloride 0.9% 100 ML IVPB SCH (21:35)
[2017-11-25 05:03] LABS: HEMOGLOBIN 10.3 g/dL (12.0-16.0); MEAN CELL VOLUME 86.7 fl (81.0-99.0); MEAN CORPUSCULAR HEMOGLOBIN 29.4 pg (27.0-31.0); MEAN CORPUSCULAR HGB CONC 33.9 g/dL (33.0-37.0); RBC 3.5 Mil/uL (3.80-5.20); RED CELL DISTRIBUTION WIDTH 14.4 % (11.5-14.5); WHITE BLOOD COUNT 9.3 K/uL (4.8-10.8)
[2017-11-25 05:19] LABS: ALB/GLOB RATIO 0.9 (1.0-2.1); CALCIUM 8.5 mg/dL (8.4-10.2)
[2017-11-25] MEDS: Levothyroxine 75 MCG TAB PO SCH ×3 (06:32→09:10)
[2017-11-25] MEDS ORDERED: levETIRAcetam 500 MG in Sodium Chloride 0.9% 100 ML IVPB SCH (07:00)
--- NOTE | 2017-11-25 07:07 | CP.CCUPN ---
CCU Subjective - Physician Review Subjective (Free Text): Patient continued to have frequent / repetitive seizure activity overnight despite initiation of new AED with Keppra. No prolonged post-ictal state nor new focal deficits. lucidity noted during interictal periods. Onset of seizures appear to be stimulus-sensitive. She did receive usual PM dose of Depakote and only loading dose of Keppra overnight at time of transfer to ICU. Intermittent Ativan given to abort seizures. Other VS and I/Os reviewed. ROS: No other pertinent negs or positives on 10+ system review. PMSFH: All other Nursing and physician documentation reviewed to date; no new pertinent info noted relevant to current medical problems. Serial CT head and MRI Brain films reviewed and results reviewed. EXAM- HEENT: no icterus, slight ptosis on R, irregular pupils bilaterally. No icterus , no gaze preference. NECK: no visible JVD, supple, carotids equal upstroke bilat/no bruits CHEST: decreased BS bases, no wheezes audible HEART: regular distant, S1S2, no murmur audible, no rubs. ABD: soft, no distention, no tympany, no palp tenderness, BS hypoactive EXT: +bilat edema. No peripheral/ digital cyanosis, no calf tenderness or palpable cords, distal pulses intact and symmetrical. NEURO: left hemiplegia, sensory intact on R. SKIN: no rashes LABS: WBC= 9.9 HGB= 10.4 PLTs= 407K Na= 142 K= 3.7 HCO3=21 CL= 108 BUN/Cr= 13/0.1.0 BS= 128 MAJOR PROBLEMS: 1. Recurrent Seizure Disorder with increasing frequency 2. Subacute R MCA/HYDROMETEOROLOGIST Stroke 3. Troponin Elevation (mild) 2 Multiple Seizure Episodes PLAN: 1. Interesting note of normal Prolactin levels post-seizures. AED mgmt as per Neurology; next dose of Keppra scheduled for 9AM, would consider giving a dose now. 2. Check CXR to r/o any aspiration event from previous vomiting episode and recurrent seizure events. 3. Keep NPO for now. 4. All other meds with [employer] effects withheld for now as discussed with Resident team. 5. IVF hydration, checked lactate and CPK levels (normal). 6. So far, no need for airway protection during frequent episodes of seizures. 7. PT/OT eval. CCU Objective - Vital Signs / Intake & Output Vital Signs (Last 4 hours): Vital Signs Temp Pulse Resp BP Pulse Ox 11/25/17 04:00 97.8 F 60 21 143/58 L 99 - Medications Active Medications: Active Medications Generic Name Dose Route Start Last Admin Trade Name Freq PRN Reason Stop Dose Admin Acetaminophen 650 mg 11/21/17 18:54 11/24/17 16:23 Tylenol 325mg Tab PO 650 mg Q6 PRN Administration Fever >100.4 F Albuterol Sulfate 2.5 mg 11/21/17 19:04 Albuterol 0.083% Inhal Tosha (2.5 Mg/3 Ml) Ud INH RQ4 PRN Shortness of Breath Amlodipine Besylate 10 mg 11/24/17 09:00 11/24/17 09:13 Norvasc PO 10 mg DAILY [facility] Administration Atorvastatin Calcium 80 mg 11/21/17 22:00 11/24/17 21:36 Lipitor PO 80 mg HS [facility] Administration Brimonidine Tartrate 1 drop 11/22/17 09:00 11/24/17 16:30 Alphagan 0.2% Opht OD 1 drop BID [facility] Administration Clopidogrel Bisulfate 75 mg 11/22/17 09:00 11/24/17 09:13 Plavix PO 75 mg DAILY [facility] Administration Dextrose 0 ml 11/23/17 13:03 Dextrose 50% Inj IV STAT PRN Hypoglycemia Protocol Protocol Dextrose 0 gm 11/23/17 13:03 Glutose 15 PO ONCE PRN Hypoglycemia Protocol Protocol Docusate Sodium 100 mg 11/21/17 19:15 Colace PO BID PRN Constipation Gabapentin 100 mg 11/21/17 21:00 11/23/17 21:07 Neurontin PO 100 mg Q12 [facility] Administration Glucagon 0 mg 11/23/17 13:03 Glucagen Diagnostic Kit IM STAT PRN Hypoglycemia Protocol Protocol Heparin Sodium (Porcine) 5,000 units 11/21/17 21:00 11/24/17 21:36 Heparin SC 5,000 units Q12 [facility] Administration Protocol Valproate Sodium 750 mg/ 107.5 mls @ 107.5 mls/hr 11/24/17 09:28 11/24/17 21: 35 Sodium Chloride IVPB 107.5 mls/hr Q12 [facility] Administration As Directed Levetiracetam 500 mg/ Sodium 105 mls @ 210 mls/hr 11/25/17 09:00 Chloride IVPB BID [facility] Insulin Detemir 46 units 11/21/17 22:00 11/21/17 22:49 Levemir SC 46 units HS [facility] Administration Insulin Human Lispro 0 units 11/21/17 22:00 11/24/17 21:19 Humalog SC Not Given ACHS [facility] Protocol Insulin Human Lispro 16 units 11/22/17 07:30 11/22/17 12:10 Humalog SC Not Given AC [facility] Levothyroxine Sodium 75 mcg 11/22/17 06:30 11/25/17 06:38 Synthroid PO Not Given DAILY@0630 [facility] Lorazepam 1 mg 11/25/17 06:50 Ativan IVP Q6H PRN Seizure activity Metronidazole 500 mg 11/24/17 22:00 11/25/17 06:38 Flagyl PO Not Given Q8@0600,1400,2200 [facility] Protocol Fluticasone/Salmeterol 1 puff 11/21/17 21:00 11/24/17 21:34 Advair Diskus 100/50 IH 1 puff Q12 [facility] Administration Terbutaline Sulfate 2.5 mg 11/21/17 22:00 11/23/17 21:03 Brethine Tab PO 2.5 mg HS [facility] Administration Timolol Maleate 1 drop 11/22/17 09:00 11/24/17 16:28 Timoptic 0.5% Ophth Soln OD 1 drop BID [facility] Administration Trazodone HCl 50 mg 11/21/17 22:00 11/23/17 21:06 Desyrel PO 50 mg HS [facility] Administration - Patient Studies Lab Studies: Microbiology Studies 11/22/17 16:10 Urine Culture - Final Urine,Catheterized No Growth (<1,000 CFU/ML) Lab Studies 11/25/17 11/25/17 11/25/17 Range/Units 05:36 04:29 04:29 WBC 9.3 (4.8-10.8) K/uL RBC 3.50 L (3.80-5.20) Mil/uL Hgb 10.3 L (12.0-16.0) g/dL Hct 30.3 L (34.0-47.0) % MCV 86.7 (81.0-99.0) fl MCH 29.4 (27.0-31.0) pg MCHC 33.9 (33.0-37.0) g/dL RDW 14.4 (11.5-14.5) % Plt Count 398 (130-400) K/uL Sodium (132-148) mmol/l Potassium (3.6-5.0) MMOL/L Chloride (98-107) mmol/L Carbon Dioxide (22-30) mmol/L Anion Gap (10-20) BUN (7-17) mg/dl Creatinine (0.7-1.2) mg/dl Est GFR ( Amer) Est GFR (Non-Af Amer) POC Glucose (mg/dL) 89 (65-110) mg/dL Random Glucose (65-105) mg/dL Lactic Acid 0.9 (0.7-2.1) MMOL/L Calcium (8.4-10.2) mg/dL Total Bilirubin (0.2-1.3) mg/dl AST (14-36) U/L ALT (9-52) U/L Alkaline Phosphatase (38-126) U/L Total Creatine Kinase (30-135) U/L Total Protein (6.3-8.2) G/DL Albumin (3.5-5.0) g/dL Globulin (2.2-3.9) gm/dL Albumin/Globulin Ratio (1.0-2.1) Prolactin (3.0-18.9) ng/mL C. difficile Ag & Toxin (NEGATIVE) 11/25/17 11/24/17 11/24/17 Range/Units 04:24 21:11 19:05 WBC (4.8-10.8) K/uL RBC (3.80-5.20) Mil/uL Hgb (12.0-16.0) g/dL Hct (34.0-47.0) % MCV (81.0-99.0) fl MCH (27.0-31.0) pg MCHC (33.0-37.0) g/dL RDW (11.5-14.5) % Plt Count (130-400) K/uL Sodium 145 (132-148) mmol/l Potassium 3.4 L (3.6-5.0) MMOL/L Chloride 108 H (98-107) mmol/L Carbon Dioxide 23 (22-30) mmol/L Anion Gap 17 (10-20) BUN 15 (7-17) mg/dl Creatinine 1.1 (0.7-1.2) mg/dl Est GFR ( Amer) 59 Est GFR (Non-Af Amer) 49 POC Glucose (mg/dL) 100 112 H (65-110) mg/dL Random Glucose 96 (65-105) mg/dL Lactic Acid (0.7-2.1) MMOL/L Calcium 8.5 (8.4-10.2) mg/dL Total Bilirubin 0.3 (0.2-1.3) mg/dl AST 27 (14-36) U/L ALT 27 (9-52) U/L Alkaline Phosphatase 75 (38-126) U/L Total Creatine Kinase 46 (30-135) U/L Total Protein 6.5 (6.3-8.2) G/DL Albumin 3.0 L (3.5-5.0) g/dL Globulin 3.4 (2.2-3.9) gm/dL Albumin/Globulin Ratio 0.9 L (1.0-2.1) Prolactin (3.0-18.9) ng/mL C. difficile Ag & Toxin (NEGATIVE) 11/24/17 11/24/17 11/24/17 Range/Units 16:15 11:03 09:15 WBC (4.8-10.8) K/uL RBC (3.80-5.20) Mil/uL Hgb (12.0-16.0) g/dL Hct (34.0-47.0) % MCV (81.0-99.0) fl MCH (27.0-31.0) pg MCHC (33.0-37.0) g/dL RDW (11.5-14.5) % Plt Count (130-400) K/uL Sodium (132-148) mmol/l Potassium (3.6-5.0) MMOL/L Chloride (98-107) mmol/L Carbon Dioxide (22-30) mmol/L Anion Gap (10-20) BUN (7-17) mg/dl Creatinine (0.7-1.2) mg/dl Est GFR ( Amer) Est GFR (Non-Af Amer) POC Glucose (mg/dL) 104 142 H (65-110) mg/dL Random Glucose (65-105) mg/dL Lactic Acid (0.7-2.1) MMOL/L Calcium (8.4-10.2) mg/dL Total Bilirubin (0.2-1.3) mg/dl AST (14-36) U/L ALT (9-52) U/L Alkaline Phosphatase (38-126) U/L Total Creatine Kinase (30-135) U/L Total Protein (6.3-8.2) G/DL Albumin (3.5-5.0) g/dL Globulin (2.2-3.9) gm/dL Albumin/Globulin Ratio (1.0-2.1) Prolactin (3.0-18.9) ng/mL C. difficile Ag & Toxin Positive antigen (NEGATIVE) 11/24/17 11/24/17 Range/Units 08:57 05:40 WBC (4.8-10.8) K/uL RBC (3.80-5.20) Mil/uL Hgb (12.0-16.0) g/dL Hct (34.0-47.0) % MCV (81.0-99.0) fl MCH (27.0-31.0) pg MCHC (33.0-37.0) g/dL RDW (11.5-14.5) % Plt Count (130-400) K/uL Sodium (132-148) mmol/l Potassium (3.6-5.0) MMOL/L Chloride (98-107) mmol/L Carbon Dioxide (22-30) mmol/L Anion Gap (10-20) BUN (7-17) mg/dl Creatinine (0.7-1.2) mg/dl Est GFR ( Amer) Est GFR (Non-Af Amer) POC Glucose (mg/dL) 115 H (65-110) mg/dL Random Glucose (65-105) mg/dL Lactic Acid (0.7-2.1) MMOL/L Calcium (8.4-10.2) mg/dL Total Bilirubin (0.2-1.3) mg/dl AST (14-36) U/L ALT (9-52) U/L Alkaline Phosphatase (38-126) U/L Total Creatine Kinase (30-135) U/L Total Protein (6.3-8.2) G/DL Albumin (3.5-5.0) g/dL Globulin (2.2-3.9) gm/dL Albumin/Globulin Ratio (1.0-2.1) Prolactin 14.5 (3.0-18.9) ng/mL C. difficile Ag & Toxin (NEGATIVE) Laboratory Results - last 24 hr 11/24/17 11/24/17 11/24/17 05:40 08:57 09:15 WBC RBC Hgb Hct MCV MCH MCHC RDW Plt Count Sodium Potassium Chloride Carbon Dioxide Anion Gap BUN Creatinine Est GFR ( Amer) Est GFR (Non-Af Amer) POC Glucose (mg/dL) 115 H Random Glucose Lactic Acid Calcium Total Bilirubin AST ALT Alkaline Phosphatase Total Creatine Kinase Total Protein Albumin Globulin Albumin/Globulin Ratio Prolactin 14.5 C. difficile Ag & Toxin Positive antigen 11/24/17 11/24/17 11/24/17 11:03 16:15 19:05 WBC RBC Hgb Hct MCV MCH MCHC RDW Plt Count Sodium Potassium Chloride Carbon Dioxide Anion Gap BUN Creatinine Est GFR ( Amer) Est GFR (Non-Af Amer) POC Glucose (mg/dL) 142 H 104 112 H Random Glucose Lactic Acid Calcium Total Bilirubin AST ALT Alkaline Phosphatase Total Creatine Kinase Total Protein Albumin Globulin Albumin/Globulin Ratio Prolactin C. difficile Ag & Toxin 11/24/17 11/25/17 11/25/17 21:11 04:24 04:29 WBC 9.3 RBC 3.50 L Hgb 10.3 L Hct 30.3 L MCV 86.7 MCH 29.4 MCHC 33.9 RDW 14.4 Plt Count 398 Sodium 145 Potassium 3.4 L Chloride 108 H Carbon Dioxide 23 Anion Gap 17 BUN 15 Creatinine 1.1 Est GFR ( Amer) 59 Est GFR (Non-Af Amer) 49 POC Glucose (mg/dL) 100 Random Glucose 96 Lactic Acid Calcium 8.5 Total Bilirubin 0.3 AST 27 ALT 27 Alkaline Phosphatase 75 Total Creatine Kinase 46 Total Protein 6.5 Albumin 3.0 L Globulin 3.4 Albumin/Globulin Ratio 0.9 L Prolactin C. difficile Ag & Toxin 11/25/17 11/25/17 04:29 05:36 WBC RBC Hgb Hct MCV MCH MCHC RDW Plt Count Sodium Potassium Chloride Carbon Dioxide Anion Gap BUN Creatinine Est GFR ( Amer) Est GFR (Non-Af Amer) POC Glucose (mg/dL) 89 Random Glucose Lactic Acid 0.9 Calcium Total Bilirubin AST ALT Alkaline Phosphatase Total Creatine Kinase Total Protein Albumin Globulin Albumin/Globulin Ratio Prolactin C. difficile Ag & Toxin Fingerstick Blood Sugar Results: 100 Review of Systems - Review of Systems All systems: reviewed and no additional remarkable complaints except (as above) Critical Care Progress Note - Nutrition Nutrition: Nutrition Category Date Time Status Dysphagia/Modified Consistency Diet [DIET] Diets 11/23/17 Breakfast Active
[2017-11-25] MEDS ORDERED: levETIRAcetam 500 MG in Sodium Chloride 0.9% 100 ML IVPB ONE (07:16)
--- NOTE | 2017-11-25 07:57 | CP.PCM.PN ---
<Shaheen Hope - Last Filed: 11/25/17 07:59> Subjective - Date & Time of Evaluation Date of Evaluation: 11/25/17 Time of Evaluation: 06:45 - Subjective Subjective: Patient evaluated with Dr Bustos during rounds Overnight events noted. Patient c/w frequent seizures episodes and had to be transferred to ICU last night for seizure control. Today patient seems more alert and awake, barely open eyes during encounter but is answering questions. VS stable. Objective - Vital Signs/Intake and Output Vital Signs (last 24 hours): Temp Pulse Resp BP Pulse Ox 97.8 F 60 21 143/58 L 99 11/25/17 04:00 11/25/17 04:00 11/25/17 04:00 11/25/17 04:00 11/25/17 04:00 - Medications Medications: Current Medications Acetaminophen (Tylenol 325mg Tab) 650 mg PO Q6 PRN PRN Reason: Fever >100.4 F Last Admin: 11/24/17 16:23 Dose: 650 mg Albuterol Sulfate (Albuterol 0.083% Inhal Tosha (2.5 Mg/3 Ml) Ud) 2.5 mg INH RQ4 PRN PRN Reason: Shortness of Breath Amlodipine Besylate (Norvasc) 10 mg PO DAILY [facility] Last Admin: 11/24/17 09:13 Dose: 10 mg Atorvastatin Calcium (Lipitor) 80 mg PO HS [facility] Last Admin: 11/24/17 21:36 Dose: 80 mg Brimonidine Tartrate (Alphagan 0.2% Opht) 1 drop OD BID [facility] Last Admin: 11/24/17 16:30 Dose: 1 drop Clopidogrel Bisulfate (Plavix) 75 mg PO DAILY [facility] Last Admin: 11/24/17 09:13 Dose: 75 mg Dextrose (Dextrose 50% Inj) 0 ml IV STAT PRN; Protocol PRN Reason: Hypoglycemia Protocol Dextrose (Glutose 15) 0 gm PO ONCE PRN; Protocol PRN Reason: Hypoglycemia Protocol Docusate Sodium (Colace) 100 mg PO BID PRN PRN Reason: Constipation Gabapentin (Neurontin) 100 mg PO Q12 [facility] Last Admin: 11/23/17 21:07 Dose: 100 mg Glucagon (Glucagen Diagnostic Kit) 0 mg IM STAT PRN; Protocol PRN Reason: Hypoglycemia Protocol Heparin Sodium (Porcine) (Heparin) 5,000 units SC Q12 [facility] PRN Reason: Protocol Last Admin: 11/24/17 21:36 Dose: 5,000 units Valproate Sodium 750 mg/ (Sodium Chloride) 107.5 mls @ 107.5 mls/hr IVPB Q12 [facility] PRN Reason: As Directed Last Admin: 11/24/17 21:35 Dose: 107.5 mls/hr Levetiracetam 500 mg/ Sodium (Chloride) 105 mls @ 210 mls/hr IVPB BID [facility] Insulin Detemir (Levemir) 46 units SC HS [facility] Last Admin: 11/21/17 22:49 Dose: 46 units Insulin Human Lispro (Humalog) 0 units SC ACHS [facility] PRN Reason: Protocol Last Admin: 11/24/17 21:19 Dose: Not Given Insulin Human Lispro (Humalog) 16 units SC AC [facility] Last Admin: 11/22/17 12:10 Dose: Not Given Levothyroxine Sodium (Synthroid) 75 mcg PO DAILY@0630 [facility] Last Admin: 11/25/17 06:38 Dose: Not Given Lorazepam (Ativan) 1 mg IVP Q6H PRN PRN Reason: Seizure activity Metronidazole (Flagyl) 500 mg PO Q8@0600,1400,2200 [facility] PRN Reason: Protocol Last Admin: 11/25/17 06:38 Dose: Not Given Fluticasone/Salmeterol (Advair Diskus 100/50) 1 puff IH Q12 [facility] Last Admin: 11/24/17 21:34 Dose: 1 puff Terbutaline Sulfate (Brethine Tab) 2.5 mg PO [facility] Last Admin: 11/23/17 21:03 Dose: 2.5 mg Timolol Maleate (Timoptic 0.5% Ophth Soln) 1 drop OD BID [facility] Last Admin: 11/24/17 16:28 Dose: 1 drop Trazodone HCl (Desyrel) 50 mg PO [facility] Last Admin: 11/23/17 21:06 Dose: 50 mg - Labs Labs: 11/25/17 04:29 11/25/17 04:24 PT 11.6 Seconds (9.8-13.1) 11/22/17 13:00 INR 1.0 (0.9-1.2) 11/22/17 13:00 APTT 30.0 Seconds (25.6-37.1) 11/22/17 13:00 - Constitutional Appears: Confused, Chronically Ill - Eye Exam Eye Exam: PERRL - ENT Exam ENT Exam: Mucous Membranes Moist - Respiratory Exam Respiratory Exam: NORMAL BREATHING PATTERN. absent: Respiratory Distress - Cardiovascular Exam Cardiovascular Exam: REGULAR RHYTHM, +S1, +S2. absent: Gallop - GI/Abdominal Exam GI & Abdominal Exam: Soft, Normal Bowel Sounds. absent: Distended, Rigid - Extremities Exam Extremities Exam: absent: Pedal Edema - Neurological Exam Neurological Exam: Alert, Awake, Motor Sensory Deficit. absent: Oriented x3 Additional comments: L/side hemiparesis - Psychiatric Exam Psychiatric exam: Depressed - Skin Skin Exam: Normal Color, Warm Assessment and Plan - Assessment and Plan (Free Text) Assessment: Seizure disorder Subacute/acute CVA Chronic L/side hemiparesis Acute vs chronic carotid disection HTN C/W Seizure therapy, Currently on Keppra and Ativan PRN Neuro consult appreciated VS stable, no airway compromise Prolactin normal* No significant postictal state between seizures episodes PT Vascular Sx consult Cardio consult appreciated <Andrew Bustos K - Last Filed: 11/27/17 11:00> Objective - Vital Signs/Intake and Output Vital Signs (last 24 hours): Temp Pulse Resp BP Pulse Ox 99.6 F 89 34 H 183/91 H 95 11/27/17 08:00 11/27/17 08:46 11/27/17 08:00 11/27/17 08:46 11/27/17 08:00 - Medications Medications: Current Medications Acetaminophen (Tylenol 325mg Tab) 650 mg PO Q6 PRN PRN Reason: Fever >100.4 F Last Admin: 11/24/17 16:23 Dose: 650 mg Albuterol/Ipratropium (Duoneb 3 Mg/0.5 Mg (3 Ml) Ud) 3 ml INH RQ6 [facility] Amlodipine Besylate (Norvasc) 10 mg PO DAILY [facility] Last Admin: 11/27/17 08:46 Dose: 10 mg Atorvastatin Calcium (Lipitor) 80 mg PO HS [facility] Last Admin: 11/26/17 22:13 Dose: 80 mg Brimonidine Tartrate (Alphagan 0.2% Opht) 1 drop OD BID [facility] Last Admin: 11/27/17 08:43 Dose: 1 drop Clopidogrel Bisulfate (Plavix) 75 mg PO DAILY [facility] Last Admin: 11/27/17 08:46 Dose: 75 mg Dextrose (Dextrose 50% Inj) 0 ml IV STAT PRN; Protocol PRN Reason: Hypoglycemia Protocol Dextrose (Glutose 15) 0 gm PO ONCE PRN; Protocol PRN Reason: Hypoglycemia Protocol Docusate Sodium (Colace) 100 mg PO BID PRN PRN Reason: Constipation Gabapentin (Neurontin) 100 mg PO Q12 [facility] Last Admin: 11/23/17 21:07 Dose: 100 mg Glucagon (Glucagen Diagnostic Kit) 0 mg IM STAT PRN; Protocol PRN Reason: Hypoglycemia Protocol Heparin Sodium (Porcine) (Heparin) 5,000 units SC Q12 [facility] PRN Reason: Protocol Last Admin: 11/27/17 08:44 Dose: 5,000 units Levetiracetam 500 mg/ Sodium (Chloride) 105 mls @ 210 mls/hr IVPB BID [facility] Last Admin: 11/27/17 08:45 Dose: 210 mls/hr Insulin Detemir (Levemir) 46 units SC HS [facility] Last Admin: 11/21/17 22:49 Dose: 46 units Insulin Human Lispro (Humalog) 0 units SC ACHS [facility] PRN Reason: Protocol Last Admin: 11/27/17 08:44 Dose: Not Given Insulin Human Lispro (Humalog) 16 units SC AC [facility] Last Admin: 11/22/17 12:10 Dose: Not Given Levetiracetam (Keppra) 500 mg PO BID [facility] Levothyroxine Sodium (Synthroid) 75 mcg PO DAILY@0630 [facility] Last Admin: 11/27/17 06:22 Dose: 75 mcg Lorazepam (Ativan) 1 mg IVP Q6H PRN PRN Reason: Seizure activity Last Admin: 11/27/17 01:21 Dose: 1 mg Meclizine HCl (Antivert) 25 mg PO TID PRN PRN Reason: Dizziness Metoprolol Tartrate (Lopressor) 12.5 mg PO Q12 [facility] Metronidazole (Flagyl) 500 mg PO Q8@0600,1400,2200 [facility] PRN Reason: Protocol Last Admin: 11/27/17 06:22 Dose: 500 mg Multivitamins/Vitamin C (Multi-Delyn Liquid) 15 ml PO DAILY [facility] Last Admin: 11/27/17 08:46 Dose: 15 ml Timolol Maleate (Timoptic 0.5% [facility] Sol) 1 drop OD BID [facility] Last Admin: 11/27/17 08:46 Dose: 1 drop Trazodone HCl (Desyrel) 50 mg PO HS [facility] Last Admin: 11/23/17 21:06 Dose: 50 mg Valproate Sodium (Depakene Oral Syrup) 1,000 mg PO BID [facility] - Labs Labs: 11/27/17 05:04 11/27/17 05:04 PT 11.6 Seconds (9.8-13.1) 11/22/17 13:00 INR 1.0 (0.9-1.2) 11/22/17 13:00 APTT 30.0 Seconds (25.6-37.1) 11/22/17 13:00 Assessment and Plan - Assessment and Plan (Free Text) Assessment: Patient was personally seen and examined by me in rounds with residents. Available labs and diagnostic data reviewed. Case, patient's conditions and management plan discussed with residents in rounds. Agree with resident's progress note. Plan: As ordered.
[2017-11-25] MEDS: Insulin Lispro (humaLOG) 100 Units/ml Inj SC SCH ×4 (08:40→22:57)
[2017-11-25] MEDS: Fluticasone-Salmeterol 100-50mcg Diskus IH SCH ×2 (08:48→22:24)
[2017-11-25] MEDS: Brimonidine 0.2% 50 DROP/5 ML BOTTLE OD SCH ×2 (08:49→16:09)
[2017-11-25] MEDS: Valproate 750 MG in Sodium Chloride 0.9% 100 ML IVPB SCH ×2 (08:50→21:53)
[2017-11-25] MEDS: levETIRAcetam 500 MG in Sodium Chloride 0.9% 100 ML IVPB SCH ×2 (09:07→16:11)
--- NOTE | 2017-11-25 09:37 | RAD ---
HISTORY: R/o Aspiration pneumonia COMPARISON: Chest radiograph dated 11/21/2017 FINDINGS: LUNGS: Stable chronic prominence of the bilateral interstitial markings. No focal consolidation. PLEURA: No significant pleural effusion identified, no pneumothorax apparent. CARDIOVASCULAR: Atherosclerotic aortic calcifications. Cardiomediastinal silhouette stably enlarged. OSSEOUS STRUCTURES: Unchanged. VISUALIZED UPPER ABDOMEN: Normal. OTHER FINDINGS: None. IMPRESSION: Stable chronic prominence of the bilateral interstitial markings. No focal consolidation or pleural effusion.
--- NOTE | 2017-11-25 10:16 | CP.PCM.PN ---
Subjective - Date & Time of Evaluation Date of Evaluation: 11/25/17 Time of Evaluation: 10:10 - Subjective Subjective: Ms. Parada was seen and examined at the bedside in the ICU. She is more alert, oriented. She is able to verbalize person (her name and Trump), place ( [facility]), and time (2018). She denies any headache, dizziness, claims of feeling sleepy. She has min. left facial droop and left side weakness. She was able to follow simple commands such as raising her jeff. upper extremities and moving her lower extremities. She has episodes of screaming, but denies any pain. She had several episodes of witnessed seizures yesterday which prompted her to be transferred to ICU for close monitoring. In ICU, she had seizure episode early this morning. she is on dual AED and loading dose was also given. 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 The patient is schedule for carotid angiogram with possible intervention in [facility] today. Objective - Vital Signs/Intake and Output Vital Signs (last 24 hours): Temp Pulse Resp BP Pulse Ox 98.4 F 64 27 H 164/72 H 99 11/25/17 08:00 11/25/17 08:52 11/25/17 08:00 11/25/17 08:52 11/25/17 08:00 - Medications Medications: Current Medications Acetaminophen (Tylenol 325mg Tab) 650 mg PO Q6 PRN PRN Reason: Fever >100.4 F Last Admin: 11/24/17 16:23 Dose: 650 mg Albuterol Sulfate (Albuterol 0.083% Inhal Tosha (2.5 Mg/3 Ml) Ud) 2.5 mg INH RQ4 PRN PRN Reason: Shortness of Breath Amlodipine Besylate (Norvasc) 10 mg PO DAILY [facility] Last Admin: 11/25/17 08:52 Dose: 10 mg Atorvastatin Calcium (Lipitor) 80 mg PO HS [facility] Last Admin: 11/24/17 21:36 Dose: 80 mg Brimonidine Tartrate (Alphagan 0.2% Opht) 1 drop OD BID [facility] Last Admin: 11/25/17 08:49 Dose: 1 drop Clopidogrel Bisulfate (Plavix) 75 mg PO DAILY [facility] Last Admin: 11/25/17 08:54 Dose: 75 mg Dextrose (Dextrose 50% Inj) 0 ml IV STAT PRN; Protocol PRN Reason: Hypoglycemia Protocol Dextrose (Glutose 15) 0 gm PO ONCE PRN; Protocol PRN Reason: Hypoglycemia Protocol Docusate Sodium (Colace) 100 mg PO BID PRN PRN Reason: Constipation Gabapentin (Neurontin) 100 mg PO Q12 [facility] Last Admin: 11/23/17 21:07 Dose: 100 mg Glucagon (Glucagen Diagnostic Kit) 0 mg IM STAT PRN; Protocol PRN Reason: Hypoglycemia Protocol Heparin Sodium (Porcine) (Heparin) 5,000 units SC Q12 [facility] PRN Reason: Protocol Last Admin: 11/25/17 08:51 Dose: 5,000 units Valproate Sodium 750 mg/ (Sodium Chloride) 107.5 mls @ 107.5 mls/hr IVPB Q12 [facility] PRN Reason: As Directed Last Admin: 11/25/17 08:50 Dose: 107.5 mls/hr Levetiracetam 500 mg/ Sodium (Chloride) 105 mls @ 210 mls/hr IVPB BID [facility] Last Admin: 11/25/17 09:07 Dose: Not Given Insulin Detemir (Levemir) 46 units SC [facility] Last Admin: 11/21/17 22:49 Dose: 46 units Insulin Human Lispro (Humalog) 0 units SC ACHS [facility] PRN Reason: Protocol Last Admin: 11/25/17 08:40 Dose: Not Given Insulin Human Lispro (Humalog) 16 units SC AC [facility] Last Admin: 11/22/17 12:10 Dose: Not Given Levothyroxine Sodium (Synthroid) 75 mcg PO DAILY@0630 [facility] Last Admin: 11/25/17 06:38 Dose: Not Given Lorazepam (Ativan) 1 mg IVP Q6H PRN PRN Reason: Seizure activity Metronidazole (Flagyl) 500 mg PO Q8@0600,1400,2200 [facility] PRN Reason: Protocol Last Admin: 11/25/17 06:38 Dose: Not Given Fluticasone/Salmeterol (Advair Diskus 100/50) 1 puff IH Q12 [facility] Last Admin: 11/25/17 08:48 Dose: 1 puff Terbutaline Sulfate (Brethine Tab) 2.5 mg PO [facility] Last Admin: 11/23/17 21:03 Dose: 2.5 mg Timolol Maleate (Timoptic 0.5% Ophth Soln) 1 drop OD BID [facility] Last Admin: 11/25/17 08:54 Dose: 1 drop Trazodone HCl (Desyrel) 50 mg PO HS [facility] Last Admin: 11/23/17 21:06 Dose: 50 mg - Labs Labs: 11/25/17 04:29 11/25/17 04:24 PT 11.6 Seconds (9.8-13.1) 11/22/17 13:00 INR 1.0 (0.9-1.2) 11/22/17 13:00 APTT 30.0 Seconds (25.6-37.1) 11/22/17 13:00 - Constitutional Appears: No Acute Distress - Head Exam Head Exam: NORMAL INSPECTION - Neurological Exam Neurological Exam: Alert, Awake, Oriented x3 Neuro motor strength exam: Left Upper Extremity: 2/1, Right Upper Extremity: 4, Left Lower Extremity: 2/1, Right Lower Extremity: 4 Additional comments: She is able to answer questions appropriately and follow simple commands. - Psychiatric Exam Additional comments: episode of screaming. Assessment and Plan (1) Seizure disorder Assessment & Plan: Case discussed with Dr. Fritz, continue all current medical regimen including dual AED ( depakote and keppra). Recommend 1 hour of EEG. Status: Acute (2) Dissection of carotid artery Assessment & Plan: Case discussed with Dr. Fritz, recommend neurointerventional consult. Carotid angiogram with possible intervention in [facility]. Status: Acute
--- NOTE | 2017-11-25 11:16 | PCM.IRP ---
Chief Complaint: Multiple strokes, possible ICA dissection. Here for carotid and cerebral angiography Subjective - Subjective Subjective: Patient is here for diagnostic cerebral angiography. She is not currently ableto follow commands due to her likely post-ictal state. As such she will not be able to hold still for the angiogram and it is not safe to proceed. I will send her back to [facility] and coordinate the study for a later date. d/w Dr. Fritz Objective - Vital Signs/Intake and Output Vital Signs (last 24 hours): Vital Signs - 24 hr 11/24/17 11/24/17 11/24/17 12:22 15:49 18:34 Temperature 98.1 F 98.6 F Pulse Rate 76 86 63 Respiratory 22 20 Rate Blood Pressure 158/74 H 189/62 H 150/73 O2 Sat by Pulse 99 98 Oximetry 11/24/17 11/25/17 11/25/17 19:15 00:00 02:00 Temperature 98.5 F 97.7 F Pulse Rate 65 70 69 Respiratory 20 30 H 26 H Rate Blood Pressure 154/67 H 152/92 H 154/75 H O2 Sat by Pulse 93 L 99 98 Oximetry 11/25/17 11/25/17 11/25/17 04:00 08:00 08:52 Temperature 97.8 F 98.4 F Pulse Rate 60 71 64 Respiratory 21 27 H Rate Blood Pressure 143/58 L 170/71 H 164/72 H O2 Sat by Pulse 99 99 Oximetry 11/25/17 10:00 Temperature 98.4 F Pulse Rate 64 Respiratory 16 Rate Blood Pressure 164/72 H O2 Sat by Pulse 98 Oximetry Intake and Output (last 12 hours): Intake & Output 11/24/17 11/25/17 11/25/17 18:59 06:59 18:59 Intake Total 100 Balance 100 Intake: Intake, Piggyback 100 Other: # Bowel Movements 2 - Medications Medications: Current Medications Acetaminophen (Tylenol 325mg Tab) 650 mg PO Q6 PRN PRN Reason: Fever >100.4 F Last Admin: 11/24/17 16:23 Dose: 650 mg Albuterol Sulfate (Albuterol 0.083% Inhal Tosha (2.5 Mg/3 Ml) Ud) 2.5 mg INH RQ4 PRN PRN Reason: Shortness of Breath Amlodipine Besylate (Norvasc) 10 mg PO DAILY [facility] Last Admin: 11/25/17 08:52 Dose: 10 mg Atorvastatin Calcium (Lipitor) 80 mg PO HS [facility] Last Admin: 11/24/17 21:36 Dose: 80 mg Brimonidine Tartrate (Alphagan 0.2% Opht) 1 drop OD BID [facility] Last Admin: 11/25/17 08:49 Dose: 1 drop Clopidogrel Bisulfate (Plavix) 75 mg PO DAILY [facility] Last Admin: 11/25/17 08:54 Dose: 75 mg Dextrose (Dextrose 50% Inj) 0 ml IV STAT PRN; Protocol PRN Reason: Hypoglycemia Protocol Dextrose (Glutose 15) 0 gm PO ONCE PRN; Protocol PRN Reason: Hypoglycemia Protocol Docusate Sodium (Colace) 100 mg PO BID PRN PRN Reason: Constipation Gabapentin (Neurontin) 100 mg PO Q12 [facility] Last Admin: 11/23/17 21:07 Dose: 100 mg Glucagon (Glucagen Diagnostic Kit) 0 mg IM STAT PRN; Protocol PRN Reason: Hypoglycemia Protocol Heparin Sodium (Porcine) (Heparin) 5,000 units SC Q12 [facility] PRN Reason: Protocol Last Admin: 11/25/17 08:51 Dose: 5,000 units Valproate Sodium 750 mg/ (Sodium Chloride) 107.5 mls @ 107.5 mls/hr IVPB Q12 [facility] PRN Reason: As Directed Last Admin: 11/25/17 08:50 Dose: 107.5 mls/hr Levetiracetam 500 mg/ Sodium (Chloride) 105 mls @ 210 mls/hr IVPB BID [facility] Last Admin: 11/25/17 09:07 Dose: Not Given Insulin Detemir (Levemir) 46 units SC HS [facility] Last Admin: 11/21/17 22:49 Dose: 46 units Insulin Human Lispro (Humalog) 0 units SC ACHS [facility] PRN Reason: Protocol Last Admin: 11/25/17 08:40 Dose: Not Given Insulin Human Lispro (Humalog) 16 units SC AC [facility] Last Admin: 11/22/17 12:10 Dose: Not Given Levothyroxine Sodium (Synthroid) 75 mcg PO DAILY@0630 [facility] Last Admin: 11/25/17 09:10 Dose: 75 mcg Lorazepam (Ativan) 1 mg IVP Q6H PRN PRN Reason: Seizure activity Metronidazole (Flagyl) 500 mg PO Q8@0600,1400,2200 [facility] PRN Reason: Protocol Last Admin: 11/25/17 06:38 Dose: Not Given Fluticasone/Salmeterol (Advair Diskus 100/50) 1 puff IH Q12 [facility] Last Admin: 11/25/17 08:48 Dose: 1 puff Terbutaline Sulfate (Brethine Tab) 2.5 mg PO HS [facility] Last Admin: 11/23/17 21:03 Dose: 2.5 mg Timolol Maleate (Timoptic 0.5% Ophth Soln) 1 drop OD BID [facility] Last Admin: 11/25/17 08:54 Dose: 1 drop Trazodone HCl (Desyrel) 50 mg PO HS [facility] Last Admin: 11/23/17 21:06 Dose: 50 mg - Labs Labs (last 24 hours): Laboratory Results - last 24 hr 11/24/17 11/24/17 11/24/17 05:40 08:57 11:03 WBC RBC Hgb Hct MCV MCH MCHC RDW Plt Count Sodium Potassium Chloride Carbon Dioxide Anion Gap BUN Creatinine Est GFR ( Amer) Est GFR (Non-Af Amer) POC Glucose (mg/dL) 115 H 142 H Random Glucose Lactic Acid Calcium Total Bilirubin AST ALT Alkaline Phosphatase Total Creatine Kinase Total Protein Albumin Globulin Albumin/Globulin Ratio Prolactin 14.5 11/24/17 11/24/17 11/24/17 16:15 19:05 21:11 WBC RBC Hgb Hct MCV MCH MCHC RDW Plt Count Sodium Potassium Chloride Carbon Dioxide Anion Gap BUN Creatinine Est GFR ( Amer) Est GFR (Non-Af Amer) POC Glucose (mg/dL) 104 112 H 100 Random Glucose Lactic Acid Calcium Total Bilirubin AST ALT Alkaline Phosphatase Total Creatine Kinase Total Protein Albumin Globulin Albumin/Globulin Ratio Prolactin 11/25/17 11/25/17 11/25/17 04:24 04:29 04:29 WBC 9.3 RBC 3.50 L Hgb 10.3 L Hct 30.3 L MCV 86.7 MCH 29.4 MCHC 33.9 RDW 14.4 Plt Count 398 Sodium 145 Potassium 3.4 L Chloride 108 H Carbon Dioxide 23 Anion Gap 17 BUN 15 Creatinine 1.1 Est GFR ( Amer) 59 Est GFR (Non-Af Amer) 49 POC Glucose (mg/dL) Random Glucose 96 Lactic Acid 0.9 Calcium 8.5 Total Bilirubin 0.3 AST 27 ALT 27 Alkaline Phosphatase 75 Total Creatine Kinase 46 Total Protein 6.5 Albumin 3.0 L Globulin 3.4 Albumin/Globulin Ratio 0.9 L Prolactin 11/25/17 05:36 WBC RBC Hgb Hct MCV MCH MCHC RDW Plt Count Sodium Potassium Chloride Carbon Dioxide Anion Gap BUN Creatinine Est GFR ( Amer) Est GFR (Non-Af Amer) POC Glucose (mg/dL) 89 Random Glucose Lactic Acid Calcium Total Bilirubin AST ALT Alkaline Phosphatase Total Creatine Kinase Total Protein Albumin Globulin Albumin/Globulin Ratio Prolactin
[2017-11-25] MEDS: Potassium Chloride 20 mEq ER Tab PO ONE ×2 (13:42→14:07)
[2017-11-25] MEDS ORDERED: Potassium CL 10mEq/100ml 100 ML IVPB SCH (16:00)
[2017-11-26 05:31] LABS: HEMOGLOBIN 11.2 g/dL (12.0-16.0); MEAN CELL VOLUME 87.3 fl (81.0-99.0); MEAN CORPUSCULAR HEMOGLOBIN 28.8 pg (27.0-31.0); RBC 3.9 Mil/uL (3.80-5.20); RED CELL DISTRIBUTION WIDTH 14.6 % (11.5-14.5); WHITE BLOOD COUNT 8.5 K/uL (4.8-10.8)
[2017-11-26 05:49] LABS: ALB/GLOB RATIO 0.9 (1.0-2.1); ALBUMIN 3.1 g/dL (3.5-5.0); CALCIUM 8.6 mg/dL (8.4-10.2)
[2017-11-26] MEDS ORDERED: Dextrose 50% SYRINGE Inj (50 ml) IVP ONE (06:24)
[2017-11-26] MEDS: Levothyroxine 75 MCG TAB PO SCH (06:30)
[2017-11-26] MEDS: Insulin Lispro (humaLOG) 100 Units/ml Inj SC SCH ×4 (06:37→22:13)
--- NOTE | 2017-11-26 08:41 | CP.PCM.PN ---
Subjective - Date & Time of Evaluation Date of Evaluation: 11/26/17 Time of Evaluation: 08:37 - Subjective Subjective: Ms. Parada was seen and examined at the bedside in ICU. She is lethargic but able to verbalize of generalized body malaise. She opens her eyes with noxious stimuli, unable to maintain it open. She moves her right side extremities spontaneously with the left side moves as response to stimuli. Her pupils are unequal with her left eye 2 mm and 5 mm. non-reactive. She had episode of confusion last night, but was given ativan when she had her MRA of the neck. There was no seizure activity noted overnight. Her valproic level is 39.7. Objective - Vital Signs/Intake and Output Vital Signs (last 24 hours): Temp Pulse Resp BP Pulse Ox 98.6 F 72 25 H 175/74 H 100 11/26/17 04:00 11/26/17 06:30 11/26/17 06:00 11/26/17 06:30 11/26/17 06:00 - Medications Medications: Current Medications Acetaminophen (Tylenol 325mg Tab) 650 mg PO Q6 PRN PRN Reason: Fever >100.4 F Last Admin: 11/24/17 16:23 Dose: 650 mg Albuterol Sulfate (Albuterol 0.083% Inhal Tosha (2.5 Mg/3 Ml) Ud) 2.5 mg INH RQ4 PRN PRN Reason: Shortness of Breath Amlodipine Besylate (Norvasc) 10 mg PO DAILY [facility] Last Admin: 11/25/17 08:52 Dose: 10 mg Atorvastatin Calcium (Lipitor) 80 mg PO HS [facility] Last Admin: 11/25/17 22:02 Dose: Not Given Brimonidine Tartrate (Alphagan 0.2% Opht) 1 drop OD BID [facility] Last Admin: 11/25/17 16:09 Dose: 1 drop Clopidogrel Bisulfate (Plavix) 75 mg PO DAILY [facility] Last Admin: 11/25/17 08:54 Dose: 75 mg Dextrose (Dextrose 50% Inj) 0 ml IV STAT PRN; Protocol PRN Reason: Hypoglycemia Protocol Dextrose (Glutose 15) 0 gm PO ONCE PRN; Protocol PRN Reason: Hypoglycemia Protocol Docusate Sodium (Colace) 100 mg PO BID PRN PRN Reason: Constipation Gabapentin (Neurontin) 100 mg PO Q12 [facility] Last Admin: 11/23/17 21:07 Dose: 100 mg Glucagon (Glucagen Diagnostic Kit) 0 mg IM STAT PRN; Protocol PRN Reason: Hypoglycemia Protocol Heparin Sodium (Porcine) (Heparin) 5,000 units SC Q12 [facility] PRN Reason: Protocol Last Admin: 11/25/17 21:54 Dose: 5,000 units Levetiracetam 500 mg/ Sodium (Chloride) 105 mls @ 210 mls/hr IVPB BID [facility] Last Admin: 11/25/17 16:11 Dose: 210 mls/hr Valproate Sodium 1,000 mg/ (Sodium Chloride) 110 mls @ 0 mls/hr IVPB Q12 [facility] PRN Reason: As Directed Insulin Detemir (Levemir) 46 units SC HS [facility] Last Admin: 11/21/17 22:49 Dose: 46 units Insulin Human Lispro (Humalog) 0 units SC ACHS [facility] PRN Reason: Protocol Last Admin: 11/26/17 06:37 Dose: Not Given Insulin Human Lispro (Humalog) 16 units SC AC [facility] Last Admin: 11/22/17 12:10 Dose: Not Given Levothyroxine Sodium (Synthroid) 75 mcg PO DAILY@0630 [facility] Last Admin: 11/26/17 06:30 Dose: 75 mcg Lorazepam (Ativan) 1 mg IVP Q6H PRN PRN Reason: Seizure activity Metronidazole (Flagyl) 500 mg PO Q8@0600,1400,2200 [facility] PRN Reason: Protocol Last Admin: 11/26/17 06:29 Dose: 500 mg Multivitamins/Vitamin C (Multi-Delyn Liquid) 15 ml PO DAILY [facility] Fluticasone/Salmeterol (Advair Diskus 100/50) 1 puff IH Q12 [facility] Last Admin: 11/25/17 22:24 Dose: Not Given Terbutaline Sulfate (Brethine Tab) 2.5 mg PO [facility] Last Admin: 11/23/17 21:03 Dose: 2.5 mg Timolol Maleate (Timoptic 0.5% Ophth Soln) 1 drop OD BID [facility] Last Admin: 11/25/17 16:10 Dose: 1 drop Trazodone HCl (Desyrel) 50 mg PO [facility] Last Admin: 11/23/17 21:06 Dose: 50 mg - Labs Labs: 11/26/17 04:45 11/26/17 04:45 PT 11.6 Seconds (9.8-13.1) 11/22/17 13:00 INR 1.0 (0.9-1.2) 11/22/17 13:00 APTT 30.0 Seconds (25.6-37.1) 11/22/17 13:00 - Constitutional Appears: No Acute Distress - Head Exam Head Exam: NORMAL INSPECTION - Eye Exam Pupil Exam: Fixed, Unequal Additional comments: left 2 mm and right 5 mm. - Neurological Exam Neuro motor strength exam: Left Upper Extremity: 2/1, Right Upper Extremity: 4, Left Lower Extremity: 2/1, Right Lower Extremity: 4 Additional comments: lethargic, unequal pupils, moves her right side spontaneously. Assessment and Plan (1) Seizure disorder Assessment & Plan: Case discussed with Dr. Fritz, continue all current medical regimen includinh AED. With valproic level 39.7, increase valproic to 1000 mg IVPB Q 12 from 750 mg IVPB Q 12. Pending EEG Status: Acute (2) Dissection of carotid artery Assessment & Plan: Case discussed with Dr. Fritz, unable to preform the procedure due to her mental status ( post-ictal). The neurointeventionalist will reschedule the procedure. Status: Acute (3) Ischemic stroke Assessment & Plan: Case discussed with Dr. Fritz, recommend stat CT of the head without contrast, blood pressure control, Mannitol 100 gm IV for one dose, then start Mannitol 30 ml/hr. Status: Acute
[2017-11-26] MEDS ORDERED: Valproate 1,000 MG in Sodium Chloride 0.9% 100 ML IVPB SCH (09:00)
[2017-11-26] MEDS ORDERED: Mannitol 12.5 gm/50 ml Inj IV ONE ×2 (09:08→09:15)
--- NOTE | 2017-11-26 09:21 | CP.PCM.PN ---
<Shaheen Hope - Last Filed: 11/26/17 10:21> Subjective - Date & Time of Evaluation Date of Evaluation: 11/26/17 Time of Evaluation: 08:40 - Subjective Subjective: Patient evaluated at bedside with Dr Bustos during rounds Sleepy but arousable to verbal commands with some difficulty. At times she becomes agitated and cries. No new episodes of seizures reported overnight. Afebrile Objective - Vital Signs/Intake and Output Vital Signs (last 24 hours): Temp Pulse Resp BP Pulse Ox 98.7 F 83 33 H 167/77 H 100 11/26/17 08:00 11/26/17 08:00 11/26/17 08:00 11/26/17 08:00 11/26/17 08:00 - Medications Medications: Current Medications Acetaminophen (Tylenol 325mg Tab) 650 mg PO Q6 PRN PRN Reason: Fever >100.4 F Last Admin: 11/24/17 16:23 Dose: 650 mg Albuterol Sulfate (Albuterol 0.083% Inhal Tosha (2.5 Mg/3 Ml) Ud) 2.5 mg INH RQ4 PRN PRN Reason: Shortness of Breath Amlodipine Besylate (Norvasc) 10 mg PO DAILY [facility] Last Admin: 11/25/17 08:52 Dose: 10 mg Atorvastatin Calcium (Lipitor) 80 mg PO HS [facility] Last Admin: 11/25/17 22:02 Dose: Not Given Brimonidine Tartrate (Alphagan 0.2% Opht) 1 drop OD BID [facility] Last Admin: 11/25/17 16:09 Dose: 1 drop Clopidogrel Bisulfate (Plavix) 75 mg PO DAILY [facility] Last Admin: 11/25/17 08:54 Dose: 75 mg Dextrose (Dextrose 50% Inj) 0 ml IV STAT PRN; Protocol PRN Reason: Hypoglycemia Protocol Dextrose (Glutose 15) 0 gm PO ONCE PRN; Protocol PRN Reason: Hypoglycemia Protocol Docusate Sodium (Colace) 100 mg PO BID PRN PRN Reason: Constipation Gabapentin (Neurontin) 100 mg PO Q12 [facility] Last Admin: 11/23/17 21:07 Dose: 100 mg Glucagon (Glucagen Diagnostic Kit) 0 mg IM STAT PRN; Protocol PRN Reason: Hypoglycemia Protocol Heparin Sodium (Porcine) (Heparin) 5,000 units SC Q12 [facility] PRN Reason: Protocol Last Admin: 11/25/17 21:54 Dose: 5,000 units Levetiracetam 500 mg/ Sodium (Chloride) 105 mls @ 210 mls/hr IVPB BID [facility] Last Admin: 11/25/17 16:11 Dose: 210 mls/hr Valproate Sodium 1,000 mg/ (Sodium Chloride) 110 mls @ 110 mls/hr IVPB Q12 [facility] PRN Reason: As Directed Mannitol (Mannitol) 500 mls @ 30 mls/hr IV [id number] [facility] Insulin Detemir (Levemir) 46 units SC HS [facility] Last Admin: 11/21/17 22:49 Dose: 46 units Insulin Human Lispro (Humalog) 0 units SC ACHS [facility] PRN Reason: Protocol Last Admin: 11/26/17 06:37 Dose: Not Given Insulin Human Lispro (Humalog) 16 units SC AC [facility] Last Admin: 11/22/17 12:10 Dose: Not Given Levothyroxine Sodium (Synthroid) 75 mcg PO DAILY@0630 [facility] Last Admin: 11/26/17 06:30 Dose: 75 mcg Lorazepam (Ativan) 1 mg IVP Q6H PRN PRN Reason: Seizure activity Metronidazole (Flagyl) 500 mg PO Q8@0600,1400,2200 [facility] PRN Reason: Protocol Last Admin: 11/26/17 06:29 Dose: 500 mg Multivitamins/Vitamin C (Multi-Delyn Liquid) 15 ml PO DAILY [facility] Fluticasone/Salmeterol (Advair Diskus 100/50) 1 puff IH Q12 [facility] Last Admin: 11/25/17 22:24 Dose: Not Given Terbutaline Sulfate (Brethine Tab) 2.5 mg PO [facility] Last Admin: 11/23/17 21:03 Dose: 2.5 mg Timolol Maleate (Timoptic 0.5% Oph Soln) 1 drop OD BID [facility] Last Admin: 11/25/17 16:10 Dose: 1 drop Trazodone HCl (Desyrel) 50 mg PO [facility] Last Admin: 11/23/17 21:06 Dose: 50 mg - Labs Labs: 11/26/17 04:45 11/26/17 04:45 PT 11.6 Seconds (9.8-13.1) 11/22/17 13:00 INR 1.0 (0.9-1.2) 11/22/17 13:00 APTT 30.0 Seconds (25.6-37.1) 11/22/17 13:00 - Constitutional Appears: Confused, Chronically Ill - Eye Exam Pupil Exam: Unequal - ENT Exam ENT Exam: Mucous Membranes Moist - Respiratory Exam Respiratory Exam: Clear to Ausculation Bilateral, NORMAL BREATHING PATTERN. absent: Decreased Breath Sounds, Rales - Cardiovascular Exam Cardiovascular Exam: +S1, +S2. absent: Gallop - GI/Abdominal Exam GI & Abdominal Exam: Soft, Normal Bowel Sounds. absent: Distended, Rigid - Extremities Exam Extremities Exam: absent: Pedal Edema - Neurological Exam Neurological Exam: Alert, Awake, Motor Sensory Deficit (L/hemiparesis). absent : Oriented x3 - Skin Skin Exam: Normal Color, Warm Assessment and Plan - Assessment and Plan (Free Text) Assessment: Seizures: Improved, C/W current meds. Neuro consult appreciated. Patient needs 24 h EEG Prolactin normal, no evident postictal state after episodes. CVA/Carotid dissection: MRA of neck confirmed disection finding Patient was transferred yesterday to [facility] for IR diagnostic cerebral angiography and could not tolerate procedure F/U Stat head CT as per neuro to eval pupil asymmetry Discussed with Neuro about poss transfer to another facility for 24 h EEG and further care <Andrew Bustos K - Last Filed: 11/27/17 11:03> Objective - Vital Signs/Intake and Output Vital Signs (last 24 hours): Temp Pulse Resp BP Pulse Ox 99.6 F 89 34 H 183/91 H 95 11/27/17 08:00 11/27/17 08:46 11/27/17 08:00 11/27/17 08:46 11/27/17 08:00 - Medications Medications: Current Medications Acetaminophen (Tylenol 325mg Tab) 650 mg PO Q6 PRN PRN Reason: Fever >100.4 F Last Admin: 11/24/17 16:23 Dose: 650 mg Albuterol/Ipratropium (Duoneb 3 Mg/0.5 Mg (3 Ml) Ud) 3 ml INH RQ6 [facility] Amlodipine Besylate (Norvasc) 10 mg PO DAILY [facility] Last Admin: 11/27/17 08:46 Dose: 10 mg Atorvastatin Calcium (Lipitor) 80 mg PO HS [facility] Last Admin: 11/26/17 22:13 Dose: 80 mg Brimonidine Tartrate (Alphagan 0.2% Opht) 1 drop OD BID [facility] Last Admin: 11/27/17 08:43 Dose: 1 drop Clopidogrel Bisulfate (Plavix) 75 mg PO DAILY [facility] Last Admin: 11/27/17 08:46 Dose: 75 mg Dextrose (Dextrose 50% Inj) 0 ml IV STAT PRN; Protocol PRN Reason: Hypoglycemia Protocol Dextrose (Glutose 15) 0 gm PO ONCE PRN; Protocol PRN Reason: Hypoglycemia Protocol Docusate Sodium (Colace) 100 mg PO BID PRN PRN Reason: Constipation Gabapentin (Neurontin) 100 mg PO Q12 [facility] Last Admin: 11/23/17 21:07 Dose: 100 mg Glucagon (Glucagen Diagnostic Kit) 0 mg IM STAT PRN; Protocol PRN Reason: Hypoglycemia Protocol Heparin Sodium (Porcine) (Heparin) 5,000 units SC Q12 [facility] PRN Reason: Protocol Last Admin: 11/27/17 08:44 Dose: 5,000 units Levetiracetam 500 mg/ Sodium (Chloride) 105 mls @ 210 mls/hr IVPB BID [facility] Last Admin: 11/27/17 08:45 Dose: 210 mls/hr Insulin Detemir (Levemir) 46 units SC HS [facility] Last Admin: 11/21/17 22:49 Dose: 46 units Insulin Human Lispro (Humalog) 0 units SC ACHS [facility] PRN Reason: Protocol Last Admin: 11/27/17 08:44 Dose: Not Given Insulin Human Lispro (Humalog) 16 units SC AC [facility] Last Admin: 11/22/17 12:10 Dose: Not Given Levetiracetam (Keppra) 500 mg PO BID [facility] Levothyroxine Sodium (Synthroid) 75 mcg PO DAILY@0630 [facility] Last Admin: 11/27/17 06:22 Dose: 75 mcg Lorazepam (Ativan) 1 mg IVP Q6H PRN PRN Reason: Seizure activity Last Admin: 11/27/17 01:21 Dose: 1 mg Meclizine HCl (Antivert) 25 mg PO TID PRN PRN Reason: Dizziness Metoprolol Tartrate (Lopressor) 12.5 mg PO Q12 [facility] Metronidazole (Flagyl) 500 mg PO Q8@0600,1400,2200 [facility] PRN Reason: Protocol Last Admin: 11/27/17 06:22 Dose: 500 mg Multivitamins/Vitamin C (Multi-Delyn Liquid) 15 ml PO DAILY [facility] Last Admin: 11/27/17 08:46 Dose: 15 ml Timolol Maleate (Timoptic 0.5% Ophth Soln) 1 drop OD BID [facility] Last Admin: 11/27/17 08:46 Dose: 1 drop Trazodone HCl (Desyrel) 50 mg PO HS [facility] Last Admin: 11/23/17 21:06 Dose: 50 mg Valproate Sodium (Depakene Oral Syrup) 1,000 mg PO BID [facility] - Labs Labs: 11/27/17 05:04 11/27/17 05:04 PT 11.6 Seconds (9.8-13.1) 11/22/17 13:00 INR 1.0 (0.9-1.2) 11/22/17 13:00 APTT 30.0 Seconds (25.6-37.1) 11/22/17 13:00 Assessment and Plan - Assessment and Plan (Free Text) Assessment: Patient was personally seen and examined by me in rounds with residents. Available labs and diagnostic data reviewed. Case, patient's conditions and management plan discussed with residents in rounds. Agree with resident's progress note. Plan: As ordered.
[2017-11-26] MEDS: levETIRAcetam 500 MG in Sodium Chloride 0.9% 100 ML IVPB SCH ×2 (10:00→17:00)
[2017-11-26] MEDS: Fluticasone-Salmeterol 100-50mcg Diskus IH SCH ×2 (10:00→22:14)
[2017-11-26] MEDS: Brimonidine 0.2% 50 DROP/5 ML BOTTLE OD SCH ×2 (10:00→19:36)
[2017-11-26] MEDS: Multi Vitamins 15 mL UD Oral Solution PO SCH (10:37)
--- NOTE | 2017-11-26 13:50 | CP.PCM.PN ---
Subjective - Date & Time of Evaluation Date of Evaluation: 11/26/17 Time of Evaluation: 14:00 - Subjective Subjective: Patient seen and examined at bedside. Patient admitted to ICU for right TAXIC[employer] infacrt (acute) with previous history of chronic CVA. Patient is drowsy upon examination. No seizures activity noted. at time c/o "I am falling" (+) dizziness Objective - Vital Signs/Intake and Output Vital Signs (last 24 hours): Temp Pulse Resp BP Pulse Ox 99.7 F H 86 25 H 143/113 H 98 11/26/17 12:00 11/26/17 12:00 11/26/17 12:00 11/26/17 12:00 11/26/17 12:00 - Medications Medications: Current Medications Acetaminophen (Tylenol 325mg Tab) 650 mg PO Q6 PRN PRN Reason: Fever >100.4 F Last Admin: 11/24/17 16:23 Dose: 650 mg Albuterol Sulfate (Albuterol 0.083% Inhal Tosha (2.5 Mg/3 Ml) Ud) 2.5 mg INH RQ4 PRN PRN Reason: Shortness of Breath Amlodipine Besylate (Norvasc) 10 mg PO DAILY [facility] Last Admin: 11/26/17 10:00 Dose: 10 mg Atorvastatin Calcium (Lipitor) 80 mg PO HS [facility] Last Admin: 11/25/17 22:02 Dose: Not Given Brimonidine Tartrate (Alphagan 0.2% Opht) 1 drop OD BID [facility] Last Admin: 11/26/17 10:00 Dose: 1 drop Clopidogrel Bisulfate (Plavix) 75 mg PO DAILY [facility] Last Admin: 11/26/17 10:38 Dose: 75 mg Dextrose (Dextrose 50% Inj) 0 ml IV STAT PRN; Protocol PRN Reason: Hypoglycemia Protocol Dextrose (Glutose 15) 0 gm PO ONCE PRN; Protocol PRN Reason: Hypoglycemia Protocol Docusate Sodium (Colace) 100 mg PO BID PRN PRN Reason: Constipation Gabapentin (Neurontin) 100 mg PO Q12 [facility] Last Admin: 11/23/17 21:07 Dose: 100 mg Glucagon (Glucagen Diagnostic Kit) 0 mg IM STAT PRN; Protocol PRN Reason: Hypoglycemia Protocol Heparin Sodium (Porcine) (Heparin) 5,000 units SC Q12 [facility] PRN Reason: Protocol Last Admin: 11/26/17 10:00 Dose: 5,000 units Levetiracetam 500 mg/ Sodium (Chloride) 105 mls @ 210 mls/hr IVPB BID [facility] Last Admin: 11/25/17 16:11 Dose: 210 mls/hr Valproate Sodium 1,000 mg/ (Sodium Chloride) 110 mls @ 110 mls/hr IVPB Q12 [facility] PRN Reason: As Directed Insulin Detemir (Levemir) 46 units SC HS [facility] Last Admin: 11/21/17 22:49 Dose: 46 units Insulin Human Lispro (Humalog) 0 units SC ACHS [facility] PRN Reason: Protocol Last Admin: 11/26/17 06:37 Dose: Not Given Insulin Human Lispro (Humalog) 16 units SC AC [facility] Last Admin: 11/22/17 12:10 Dose: Not Given Levothyroxine Sodium (Synthroid) 75 mcg PO DAILY@0630 [facility] Last Admin: 11/26/17 06:30 Dose: 75 mcg Lorazepam (Ativan) 1 mg IVP Q6H PRN PRN Reason: Seizure activity Metronidazole (Flagyl) 500 mg PO Q8@0600,1400,2200 [facility] PRN Reason: Protocol Last Admin: 11/26/17 06:29 Dose: 500 mg Multivitamins/Vitamin C (Multi-Delyn Liquid) 15 ml PO DAILY [facility] Last Admin: 11/26/17 10:37 Dose: 15 ml Fluticasone/Salmeterol (Advair Diskus 100/50) 1 puff IH Q12 [facility] Last Admin: 11/26/17 10:00 Dose: 1 puff Terbutaline Sulfate (Brethine Tab) 2.5 mg PO [facility] Last Admin: 11/23/17 21:03 Dose: 2.5 mg Timolol Maleate (Timoptic 0.5% Ophth Soln) 1 drop OD BID [facility] Last Admin: 11/26/17 10:39 Dose: 1 drop Trazodone HCl (Desyrel) 50 mg PO [facility] Last Admin: 11/23/17 21:06 Dose: 50 mg - Labs Labs: 11/26/17 04:45 11/26/17 04:45 PT 11.6 Seconds (9.8-13.1) 11/22/17 13:00 INR 1.0 (0.9-1.2) 11/22/17 13:00 APTT 30.0 Seconds (25.6-37.1) 11/22/17 13:00 - Constitutional Appears: Non-toxic - Head Exam Head Exam: ATRAUMATIC - Eye Exam Additional comments: left pupils abnormal (c/w corneal/lens surgery) - Neck Exam Neck Exam: Normal Inspection - Respiratory Exam Respiratory Exam: Clear to Ausculation Bilateral, NORMAL BREATHING PATTERN - Cardiovascular Exam Cardiovascular Exam: REGULAR RHYTHM, +S1, +S2 - GI/Abdominal Exam GI & Abdominal Exam: Soft - Extremities Exam Extremities Exam: Normal Capillary Refill - Skin Skin Exam: Normal Color Assessment and Plan - Assessment and Plan (Free Text) Assessment: Acute CVA:continue asa/plavix, statin -h/o seizures: continue AED as per neurology, ?dissectin of Carotid -h/o diabetes: continue levemir/lispro, monitor BGM -h/o COPD: contnue advair/duonebs PRN -meclizine prn nystagmus: pt c/o "I am falling" while lying in bed continue DVT/PUD ppx Patient's baseline mental status unknown. Patient continues to speak loudly asking for "mama". When questioned if patient has pain, patient focuses and says no. -Continue management as per neurology. -continue 24 hours EG Patient remains hemodynamically stable.
--- NOTE | 2017-11-26 16:12 | MRI ---
PROCEDURE: MR Angiography of the neck without contrast HISTORY: 11/25/2017 rule out right ICA dissection vs stenosis COMPARISON: Comparison made with CTA of the neck and brain 11/24/2017. TECHNIQUE: 3D [id number] angiography of the neck was performed. Rotating maximum intensity projection images of the cervical carotid and vertebral arteries were generated. The origins of the common carotid arteries were not visualized, which is a limitation inherent to the non-contrast time of flight technique. . Note that the examination is limited due to motion artifact with degradation of fine detail. FINDINGS: Right common carotid artery patent. There is marked narrowing/ stenosis at the origin of the right internal carotid artery with nonvisualization of the remaining right internal carotid artery with no obvious flow within the petrous or cavernous segments. However note the right internal carotid artery was visible as a near string sign on prior CTA dated 11/24/2015. It is possible that there still may be flow within this vessel though too small to detect on MRA or this vessel has undergone complete occlusion. The left common carotid artery and internal carotid artery are patent. There appears to be significant stenosis. Flow is seen within the features and cavernous segments with apparent severe stenosis at the proximal/mid aspect of the left cavernous segment . Both vertebral arteries are visible throughout left-sided which is larger in caliber/more dominant than the right. Basilar artery is patent so far as can be seen. There does appear to be some mild localized stenotic changes over short distance of the distal left vertebral artery (intradural segment) IMPRESSION: Very limited motion degraded study. There is nonvisualization of the right internal carotid artery including the petrous or cavernous segments. However note the right internal carotid artery was visible as a near string sign on prior CTA dated 11/23/2017. It is possible that there still may be flow within this vessel though too small to detect on MRA or this vessel has undergone complete occlusion.
[2017-11-27 01:58] LABS: ABG ALLEN TEST YES; ARTERIAL BLOOD GAS HEMOGLOBIN 11.7 g/dL (11.7-17.4); ARTERIAL BLOOD GAS O2 CAPACITY 15.9 mL/dL (16-24); ARTERIAL BLOOD GAS O2 CONTENT 14.3 ML/dL (15-23); ARTERIAL BLOOD GAS O2 SAT 90.1 % (95-98); ARTERIAL BLOOD GAS PCO2 32 mm/Hg (35-45); ARTERIAL BLOOD GAS PH 7.39 (7.35-7.45); ARTERIAL BLOOD GAS PO2 51 mm/Hg (80-100); ARTERIAL BLOOD GAS TCO2 20.4 mmol/L (22-28)
--- NOTE | 2017-11-27 02:04 | CP.PCM.PCO ---
Physician Communication Note - Physician Communication Note Physician Communication Note: High flow Oxygen started because of pO2 of 51 in ABG
[2017-11-27 06:06] LABS: HEMOGLOBIN 10.5 g/dL (12.0-16.0); MEAN CELL VOLUME 86.9 fl (81.0-99.0); MEAN CORPUSCULAR HGB CONC 33.3 g/dL (33.0-37.0); RBC 3.64 Mil/uL (3.80-5.20); WHITE BLOOD COUNT 11.5 K/uL (4.8-10.8)
[2017-11-27] MEDS: Levothyroxine 75 MCG TAB PO SCH (06:22)
[2017-11-27 07:03] LABS: CALCIUM 8.7 mg/dL (8.4-10.2)
[2017-11-27] MEDS: Fluticasone-Salmeterol 100-50mcg Diskus IH SCH (08:43)
[2017-11-27] MEDS: Brimonidine 0.2% 50 DROP/5 ML BOTTLE OD SCH ×2 (08:43→16:47)
[2017-11-27] MEDS: Insulin Lispro (humaLOG) 100 Units/ml Inj SC SCH ×4 (08:44→21:35)
[2017-11-27] MEDS: levETIRAcetam 500 MG in Sodium Chloride 0.9% 100 ML IVPB SCH ×2 (08:45→11:05)
[2017-11-27] MEDS: Multi Vitamins 15 mL UD Oral Solution PO SCH (08:46)
[2017-11-27] MEDS ORDERED: Albuterol-Ipratrop 3 mg / 0.5 (3 ml) UD INH PRN (10:44)
--- NOTE | 2017-11-27 10:46 | CP.PCM.PCO ---
Physician Communication Note - Physician Communication Note Physician Communication Note: Patient
[2017-11-27] MEDS ORDERED: diltiaZEM 120 mg/24 Hours CD Cap PO SCH (11:00)
[2017-11-27] MEDS: Valproic Acid 250 mg/5 ml Oral Syrup (60 ml) PO SCH ×2 (11:19→16:48)
[2017-11-27] MEDS: Albuterol-Ipratrop 3 mg / 0.5 (3 ml) UD INH SCH ×2 (13:16→19:16)
--- NOTE | 2017-11-27 15:27 | RAD ---
PROCEDURE: CHEST RADIOGRAPH, 1 VIEW HISTORY: eval effusion COMPARISON: 11/25/2017 FINDINGS: LUNGS: Mild increase in bilateral interstitial infiltrates. PLEURA: No pneumothorax or pleural fluid seen. CARDIOVASCULAR: Normal. OSSEOUS STRUCTURES: No significant abnormalities. VISUALIZED UPPER ABDOMEN: Normal. OTHER FINDINGS: None. IMPRESSION: Mild increase in bilateral interstitial infiltrates.
--- NOTE | 2017-11-27 16:45 | CP.PCM.PN ---
Subjective - Date & Time of Evaluation Date of Evaluation: 01/27/18 Time of Evaluation: 16:35 - Subjective Subjective: 72 yr old woman who is s/p stroke, with atherosclerosis and intracranial stenosis, now with left arm pain exacerbated by compression. Neurovascular was consulted and they felt that no intervention was possible at this time. PLan: 1. continue anticoagulants 2. rehab 3.medical management Objective - Vital Signs/Intake and Output Vital Signs (last 24 hours): Temp Pulse Resp BP Pulse Ox 100.2 F H 74 26 H 168/81 H 97 11/27/17 16:00 11/27/17 16:00 11/27/17 16:00 11/27/17 16:00 11/27/17 16:00 Intake and Output: 11/27/17 11/27/17 06:59 18:59 Intake Total 250 Balance 250 - Medications Medications: Current Medications Acetaminophen (Tylenol 325mg Tab) 650 mg PO Q6 PRN PRN Reason: Fever >100.4 F Last Admin: 11/27/17 15:38 Dose: 650 mg Albuterol/Ipratropium (Duoneb 3 Mg/0.5 Mg (3 Ml) Ud) 3 ml INH RQ6 [facility] Last Admin: 11/27/17 13:16 Dose: 3 ml Amlodipine Besylate (Norvasc) 10 mg PO DAILY [facility] Last Admin: 11/27/17 08:46 Dose: 10 mg Atorvastatin Calcium (Lipitor) 80 mg PO HS [facility] Last Admin: 11/26/17 22:13 Dose: 80 mg Brimonidine Tartrate (Alphagan 0.2% Opht) 1 drop OD BID [facility] Last Admin: 11/27/17 08:43 Dose: 1 drop Clopidogrel Bisulfate (Plavix) 75 mg PO DAILY [facility] Last Admin: 11/27/17 08:46 Dose: 75 mg Dextrose (Dextrose 50% Inj) 0 ml IV STAT PRN; Protocol PRN Reason: Hypoglycemia Protocol Dextrose (Glutose 15) 0 gm PO ONCE PRN; Protocol PRN Reason: Hypoglycemia Protocol Docusate Sodium (Colace) 100 mg PO BID PRN PRN Reason: Constipation Gabapentin (Neurontin) 100 mg PO Q12 [facility] Last Admin: 11/23/17 21:07 Dose: 100 mg Glucagon (Glucagen Diagnostic Kit) 0 mg IM STAT PRN; Protocol PRN Reason: Hypoglycemia Protocol Heparin Sodium (Porcine) (Heparin) 5,000 units SC Q12 [facility] PRN Reason: Protocol Last Admin: 11/27/17 08:44 Dose: 5,000 units Hydralazine HCl (Apresoline) 50 mg PO TID [facility] Last Admin: 11/27/17 15:09 Dose: 50 mg Levetiracetam 500 mg/ Sodium (Chloride) 105 mls @ 210 mls/hr IVPB BID [facility] Last Admin: 11/27/17 11:05 Dose: Not Given Insulin Detemir (Levemir) 46 units SC HS [facility] Last Admin: 11/21/17 22:49 Dose: 46 units Insulin Human Lispro (Humalog) 0 units SC ACHS [facility] PRN Reason: Protocol Last Admin: 11/27/17 11:21 Dose: 1 unit Insulin Human Lispro (Humalog) 16 units SC AC [facility] Last Admin: 11/22/17 12:10 Dose: Not Given Levetiracetam (Keppra) 500 mg PO BID [facility] Last Admin: 11/27/17 11:22 Dose: 500 mg Levothyroxine Sodium (Synthroid) 75 mcg PO DAILY@0630 [facility] Last Admin: 11/27/17 06:22 Dose: 75 mcg Lorazepam (Ativan) 1 mg IVP Q6H PRN PRN Reason: Seizure activity Last Admin: 11/27/17 01:21 Dose: 1 mg Meclizine HCl (Antivert) 25 mg PO TID PRN PRN Reason: Dizziness Metoprolol Tartrate (Lopressor) 25 mg PO Q12 [facility] Last Admin: 11/27/17 15:11 Dose: 25 mg Metronidazole (Flagyl) 500 mg PO Q8@0600,1400,2200 [facility] PRN Reason: Protocol Last Admin: 11/27/17 15:10 Dose: Not Given Multivitamins/Vitamin C (Multi-Delyn Liquid) 15 ml PO DAILY [facility] Last Admin: 11/27/17 08:46 Dose: 15 ml Timolol Maleate (Timoptic 0.5% Ophth Soln) 1 drop OD BID [facility] Last Admin: 11/27/17 08:46 Dose: 1 drop Trazodone HCl (Desyrel) 50 mg PO HS [facility] Last Admin: 11/23/17 21:06 Dose: 50 mg Valproate Sodium (Depakene Oral Syrup) 1,000 mg PO BID [facility] Last Admin: 11/27/17 11:19 Dose: 1,000 mg - Labs Labs: 11/27/17 05:04 11/27/17 05:04 PT 11.6 Seconds (9.8-13.1) 11/22/17 13:00 INR 1.0 (0.9-1.2) 11/22/17 13:00 APTT 30.0 Seconds (25.6-37.1) 11/22/17 13:00
--- NOTE | 2017-11-27 20:54 | US ---
EXAM: US Duplex Left Upper Extremity Veins CLINICAL HISTORY: 72 years old, female; Pain; Arn, upper; Left; Additional info: Swollen ? dvt TECHNIQUE: Real-time ultrasound scan of the veins of the left upper extremity with color Doppler flow, spectral waveform analysis and compression. COMPARISON: No relevant prior studies available. FINDINGS: Deep veins: No DVT in the internal jugular, subclavian, axillary, brachial, radial or ulnar veins. The veins demonstrate normal color flow, are normally compressible, with normal phasic flow and/or augmentation response. Superficial veins: No thrombus in the visualized basilic and cephalic veins. IMPRESSION: No evidence of deep venous thrombosis in the visualized veins of the left upper extremity.
[2017-11-28] MEDS: Albuterol-Ipratrop 3 mg / 0.5 (3 ml) UD INH SCH ×4 (01:00→20:48)
[2017-11-28] MEDS: Levothyroxine 75 MCG TAB PO SCH (06:16)
[2017-11-28 07:12] LABS: BASO # 0.2 K/uL (0.0-0.2); BASO % 1.3 % (0.0-2.0); EOS # 0.2 K/uL (0.0-0.7); EOS % 1.3 % (0.0-4.0); HEMOGLOBIN 10.2 g/dL (12.0-16.0); LYMPH # 1.4 K/uL (1.0-4.3); MEAN CELL VOLUME 87.3 fl (81.0-99.0); MEAN CORPUSCULAR HEMOGLOBIN 28.4 pg (27.0-31.0); MEAN CORPUSCULAR HGB CONC 32.5 g/dL (33.0-37.0); MEAN PLATELET VOLUME 8.4 fl (7.2-11.7); MONO # 1.6 K/uL (0.0-0.8); NEUT # 9.7 K/uL (1.8-7.0); NEUT % 74.4 % (50.0-75.0); RBC 3.58 Mil/uL (3.80-5.20); RED CELL DISTRIBUTION WIDTH 15.1 % (11.5-14.5); WHITE BLOOD COUNT 13.1 K/uL (4.8-10.8)
[2017-11-28 07:43] LABS: ALB/GLOB RATIO 0.8 (1.0-2.1); CALCIUM 8.5 mg/dL (8.4-10.2)
--- NOTE | 2017-11-28 08:40 | CP.PCM.PN ---
Subjective - Date & Time of Evaluation Date of Evaluation: 11/28/17 Time of Evaluation: 08:35 - Subjective Subjective: Ms. Parada was seen and examined at the bedside in ICU. She is awake alert, with episode of screaming. She refused to answer all questions, but able to follow commands such as opening her mouth, moving her right side extremities with left lower extremity minimal movement and left upper arm flaccid. There was no noted seizure activity noted overnight.She has episode of restlessness, removes her oxygen cannula. She is saturating at 92% at room air. Objective - Vital Signs/Intake and Output Vital Signs (last 24 hours): Temp Pulse Resp BP Pulse Ox 99.1 F 70 22 146/58 L 98 11/28/17 05:00 11/28/17 05:00 11/28/17 07:56 11/28/17 05:00 11/28/17 05:00 - Medications Medications: Current Medications Acetaminophen (Tylenol 325mg Tab) 650 mg PO Q6 PRN PRN Reason: Fever >100.4 F Last Admin: 11/27/17 15:38 Dose: 650 mg Albuterol/Ipratropium (Duoneb 3 Mg/0.5 Mg (3 Ml) Ud) 3 ml INH RQ6 [facility] Last Admin: 11/28/17 07:31 Dose: 3 ml Amlodipine Besylate (Norvasc) 10 mg PO DAILY [facility] Last Admin: 11/27/17 08:46 Dose: 10 mg Atorvastatin Calcium (Lipitor) 80 mg PO HS [facility] Last Admin: 11/27/17 21:35 Dose: 80 mg Brimonidine Tartrate (Alphagan 0.2% Opht) 1 drop OD BID [facility] Last Admin: 11/27/17 16:47 Dose: 1 drop Clopidogrel Bisulfate (Plavix) 75 mg PO DAILY [facility] Last Admin: 11/27/17 08:46 Dose: 75 mg Dextrose (Dextrose 50% Inj) 0 ml IV STAT PRN; Protocol PRN Reason: Hypoglycemia Protocol Dextrose (Glutose 15) 0 gm PO ONCE PRN; Protocol PRN Reason: Hypoglycemia Protocol Docusate Sodium (Colace) 100 mg PO BID PRN PRN Reason: Constipation Gabapentin (Neurontin) 100 mg PO Q12 [facility] Last Admin: 11/23/17 21:07 Dose: 100 mg Glucagon (Glucagen Diagnostic Kit) 0 mg IM STAT PRN; Protocol PRN Reason: Hypoglycemia Protocol Heparin Sodium (Porcine) (Heparin) 5,000 units SC Q12 [facility] PRN Reason: Protocol Last Admin: 11/27/17 21:33 Dose: 5,000 units Hydralazine HCl (Apresoline) 50 mg PO TID [facility] Last Admin: 11/27/17 16:47 Dose: 50 mg Levetiracetam 500 mg/ Sodium (Chloride) 105 mls @ 210 mls/hr IVPB BID [facility] Last Admin: 11/27/17 11:05 Dose: Not Given Insulin Detemir (Levemir) 46 units SC HS [facility] Last Admin: 11/21/17 22:49 Dose: 46 units Insulin Human Lispro (Humalog) 0 units SC ACHS [facility] PRN Reason: Protocol Last Admin: 11/27/17 21:35 Dose: Not Given Insulin Human Lispro (Humalog) 16 units SC AC [facility] Last Admin: 11/22/17 12:10 Dose: Not Given Levetiracetam (Keppra) 500 mg PO BID [facility] Last Admin: 11/27/17 16:49 Dose: 500 mg Levothyroxine Sodium (Synthroid) 75 mcg PO DAILY@0630 [facility] Last Admin: 11/28/17 06:16 Dose: 75 mcg Meclizine HCl (Antivert) 25 mg PO TID PRN PRN Reason: Dizziness Metoprolol Tartrate (Lopressor) 25 mg PO Q12 [facility] Last Admin: 11/27/17 21:35 Dose: 25 mg Metronidazole (Flagyl) 500 mg PO Q8@0600,1400,2200 [facility] PRN Reason: Protocol Last Admin: 11/28/17 06:16 Dose: 500 mg Multivitamins/Vitamin C (Multi-Delyn Liquid) 15 ml PO DAILY [facility] Last Admin: 11/27/17 08:46 Dose: 15 ml Timolol Maleate (Timoptic 0.5% Oph Soln) 1 drop OD BID [facility] Last Admin: 11/27/17 16:50 Dose: 1 drop Trazodone HCl (Desyrel) 50 mg PO HS [facility] Last Admin: 11/23/17 21:06 Dose: 50 mg Valproate Sodium (Depakene Oral Syrup) 1,000 mg PO BID [facility] Last Admin: 11/27/17 16:48 Dose: 1,000 mg - Labs Labs: 11/28/17 05:30 11/28/17 05:30 PT 11.6 Seconds (9.8-13.1) 11/22/17 13:00 INR 1.0 (0.9-1.2) 11/22/17 13:00 APTT 30.0 Seconds (25.6-37.1) 11/22/17 13:00 - Constitutional Appears: No Acute Distress - Head Exam Head Exam: NORMAL INSPECTION - Neurological Exam Neuro motor strength exam: Left Upper Extremity: 0, Right Upper Extremity: 4, Left Lower Extremity: 2/1, Right Lower Extremity: 4 Additional comments: She moves her extremities spontaneously except the left upper arm. She is unable to answer any questions Assessment and Plan (1) Seizure disorder Assessment & Plan: Case discussed with Dr. Fritz, continue all current AED. Recommend valproic level. Status: Acute (2) Dissection of carotid artery Assessment & Plan: Case discussed with Dr. Fritz, recommend follow up with the neurointervantionalist for any plans of carotid angiogram Status: Acute (3) Ischemic stroke Assessment & Plan: Case discussed with Dr. Fritz, continue all current medical, physical, occupational, and speech therapies. Recommend rehab for possible discharge planning. Status: Acute
[2017-11-28] MEDS: Brimonidine 0.2% 50 DROP/5 ML BOTTLE OD SCH ×2 (09:47→17:34)
[2017-11-28] MEDS: Valproic Acid 250 mg/5 ml Oral Syrup (60 ml) PO SCH (09:48)
[2017-11-28] MEDS: Insulin Lispro (humaLOG) 100 Units/ml Inj SC SCH ×5 (09:49→21:56)
[2017-11-28] MEDS: Multi Vitamins 15 mL UD Oral Solution PO SCH (09:50)
[2017-11-28] MEDS: Potassium Chloride 20 mEq ER Tab PO SCH ×2 (12:16→21:35)
--- NOTE | 2017-11-28 23:42 | CP.PCM.PN ---
Subjective - Date & Time of Evaluation Date of Evaluation: 11/28/17 Time of Evaluation: 19:00 Objective - Vital Signs/Intake and Output Vital Signs (last 24 hours): Temp Pulse Resp BP Pulse Ox 97.3 F L 63 23 136/96 H 96 11/28/17 20:00 11/28/17 22:00 11/28/17 22:00 11/28/17 22:00 11/28/17 22:00 Intake and Output: 11/28/17 11/29/17 18:59 06:59 Intake Total 250 Balance 250 - Medications Medications: Current Medications Acetaminophen (Tylenol 325mg Tab) 650 mg PO Q6 PRN PRN Reason: Fever >100.4 F Last Admin: 11/27/17 15:38 Dose: 650 mg Albuterol/Ipratropium (Duoneb 3 Mg/0.5 Mg (3 Ml) Ud) 3 ml INH RQ6 [facility] Last Admin: 11/28/17 20:48 Dose: 3 ml Amlodipine Besylate (Norvasc) 10 mg PO DAILY [facility] Last Admin: 11/28/17 09:50 Dose: 10 mg Atorvastatin Calcium (Lipitor) 80 mg PO HS [facility] Last Admin: 11/28/17 21:25 Dose: 80 mg Brimonidine Tartrate (Alphagan 0.2% Opht) 1 drop OD BID [facility] Last Admin: 11/28/17 17:34 Dose: 1 drop Clopidogrel Bisulfate (Plavix) 75 mg PO DAILY [facility] Last Admin: 11/28/17 09:51 Dose: 75 mg Dextrose (Dextrose 50% Inj) 0 ml IV STAT PRN; Protocol PRN Reason: Hypoglycemia Protocol Dextrose (Glutose 15) 0 gm PO ONCE PRN; Protocol PRN Reason: Hypoglycemia Protocol Docusate Sodium (Colace) 100 mg PO BID PRN PRN Reason: Constipation Gabapentin (Neurontin) 100 mg PO Q12 [facility] Last Admin: 11/23/17 21:07 Dose: 100 mg Glucagon (Glucagen Diagnostic Kit) 0 mg IM STAT PRN; Protocol PRN Reason: Hypoglycemia Protocol Heparin Sodium (Porcine) (Heparin) 5,000 units SC Q12 [facility] PRN Reason: Protocol Last Admin: 11/28/17 21:20 Dose: 5,000 units Hydralazine HCl (Apresoline) 50 mg PO TID [facility] Last Admin: 11/28/17 17:33 Dose: 50 mg Insulin Detemir (Levemir) 46 units SC HS [facility] Last Admin: 11/21/17 22:49 Dose: 46 units Insulin Human Lispro (Humalog) 0 units SC [facility] PRN Reason: Protocol Last Admin: 11/28/17 21:56 Dose: 1 unit Insulin Human Lispro (Humalog) 16 units SC AC [facility] Last Admin: 11/22/17 12:10 Dose: Not Given Levetiracetam (Keppra) 500 mg PO BID [facility] Last Admin: 11/28/17 17:36 Dose: 500 mg Levothyroxine Sodium (Synthroid) 75 mcg PO DAILY@0630 [facility] Last Admin: 11/28/17 06:16 Dose: 75 mcg Meclizine HCl (Antivert) 25 mg PO TID PRN PRN Reason: Dizziness Metoprolol Tartrate (Lopressor) 25 mg PO Q12 [facility] Last Admin: 11/28/17 21:27 Dose: Not Given Metronidazole (Flagyl) 500 mg PO Q8@0600,1400,2200 [facility] PRN Reason: Protocol Last Admin: 11/28/17 21:26 Dose: 500 mg Multivitamins/Vitamin C (Multi-Delyn Liquid) 15 ml PO DAILY [facility] Last Admin: 11/28/17 09:50 Dose: 15 ml Timolol Maleate (Timoptic 0.5% [facility]) 1 drop OD BID [facility] Last Admin: 11/28/17 17:36 Dose: 1 drop Trazodone HCl (Desyrel) 50 mg PO [facility] Last Admin: 11/23/17 21:06 Dose: 50 mg - Labs Labs: 11/28/17 05:30 11/28/17 05:30 PT 11.6 Seconds (9.8-13.1) 11/22/17 13:00 INR 1.0 (0.9-1.2) 11/22/17 13:00 APTT 30.0 Seconds (25.6-37.1) 11/22/17 13:00
[2017-11-29] MEDS: Albuterol-Ipratrop 3 mg / 0.5 (3 ml) UD INH SCH ×4 (01:22→19:07)
[2017-11-29] MEDS: Levothyroxine 75 MCG TAB PO SCH (05:47)
[2017-11-29] MEDS: Insulin Lispro (humaLOG) 100 Units/ml Inj SC SCH ×4 (07:13→21:47)
[2017-11-29] MEDS: Brimonidine 0.2% 50 DROP/5 ML BOTTLE OD SCH ×2 (08:35→16:23)
[2017-11-29] MEDS: Multi Vitamins 15 mL UD Oral Solution PO SCH (08:37)
--- NOTE | 2017-11-29 08:44 | PN ---
DATE: 11/27/2017 SUBJECTIVE: The patient is seen and examined. Interim events noted. Consults noted and appreciated. Case discussed with [facility]. The patient remains in Intensive Care Unit. Not able to provide any informative history or review of systems. Denies any specific complaint. She remains . No specific issue reported by nursing staff. PHYSICAL EXAMINATION: GENERAL: The patient is in no acute distress. VITAL SIGNS: Stable. HEART: S1 and S2, normal and regular. LUNGS: Good bilateral air exchange. ABDOMEN: Soft and nontender. EXTREMITIES: No edema. No calf swelling. No tenderness. No acute ischemia. The patient had . DIAGNOSTIC DATA: Available diagnostic data reviewed. Telemetry monitoring does not show significant arrhythmias. ASSESSMENT AND PLAN: Overall, the patient's general medical condition remains stable. Available diagnostic data reviewed. MRI appears to visualize plan as ordered. Andrew Bustos MD
--- NOTE | 2017-11-29 10:31 | CP.PCM.PN ---
Subjective - Date & Time of Evaluation Date of Evaluation: 11/29/17 Time of Evaluation: 10:29 - Subjective Subjective: Ms. Parada was seen and examined at the bedside in ICU. She is more alert, oriented in all spheres. She is able to answer all questions and follows simple commands appropriately. She is able to open her mouth, move her tongue from side to side, raise her bilateral upper and lower extremities with left side weaker than the right. Currently, receiving On HFNC 30l/min, at 50% FiO2. She is on contact isolation for c-diff. There was no untoward events overnight. Objective - Vital Signs/Intake and Output Vital Signs (last 24 hours): Temp Pulse Resp BP Pulse Ox 98.4 F 58 L 25 H 146/62 100 11/29/17 08:00 11/29/17 10:00 11/29/17 10:00 11/29/17 10:00 11/29/17 10:00 - Medications Medications: Current Medications Acetaminophen (Tylenol 325mg Tab) 650 mg PO Q6 PRN PRN Reason: Fever >100.4 F Last Admin: 11/27/17 15:38 Dose: 650 mg Albuterol/Ipratropium (Duoneb 3 Mg/0.5 Mg (3 Ml) Ud) 3 ml INH RQ6 [facility] Last Admin: 11/29/17 08:54 Dose: 3 ml Amlodipine Besylate (Norvasc) 10 mg PO DAILY [facility] Last Admin: 11/29/17 08:37 Dose: 10 mg Atorvastatin Calcium (Lipitor) 80 mg PO HS [facility] Last Admin: 11/28/17 21:25 Dose: 80 mg Brimonidine Tartrate (Alphagan 0.2% Opht) 1 drop OD BID [facility] Last Admin: 11/29/17 08:35 Dose: 1 drop Clopidogrel Bisulfate (Plavix) 75 mg PO DAILY [facility] Last Admin: 11/29/17 08:37 Dose: 75 mg Dextrose (Dextrose 50% Inj) 0 ml IV STAT PRN; Protocol PRN Reason: Hypoglycemia Protocol Dextrose (Glutose 15) 0 gm PO ONCE PRN; Protocol PRN Reason: Hypoglycemia Protocol Docusate Sodium (Colace) 100 mg PO BID PRN PRN Reason: Constipation Gabapentin (Neurontin) 100 mg PO Q12 [facility] Last Admin: 11/23/17 21:07 Dose: 100 mg Glucagon (Glucagen Diagnostic Kit) 0 mg IM STAT PRN; Protocol PRN Reason: Hypoglycemia Protocol Heparin Sodium (Porcine) (Heparin) 5,000 units SC Q12 [facility] PRN Reason: Protocol Last Admin: 11/29/17 08:36 Dose: 5,000 units Hydralazine HCl (Apresoline) 50 mg PO TID [facility] Last Admin: 11/29/17 08:36 Dose: 50 mg Insulin Detemir (Levemir) 46 units SC HS [facility] Last Admin: 11/21/17 22:49 Dose: 46 units Insulin Human Lispro (Humalog) 0 units SC ACHS [facility] PRN Reason: Protocol Last Admin: 11/29/17 07:13 Dose: 1 unit Insulin Human Lispro (Humalog) 16 units SC AC [facility] Last Admin: 11/22/17 12:10 Dose: Not Given Levetiracetam (Keppra) 500 mg PO BID [facility] Last Admin: 11/29/17 08:36 Dose: 500 mg Levothyroxine Sodium (Synthroid) 75 mcg PO DAILY@0630 [facility] Last Admin: 11/29/17 05:47 Dose: 75 mcg Meclizine HCl (Antivert) 25 mg PO TID PRN PRN Reason: Dizziness Metoprolol Tartrate (Lopressor) 25 mg PO Q12 [facility] Last Admin: 11/29/17 08:37 Dose: 25 mg Metronidazole (Flagyl) 500 mg PO Q8@0600,1400,2200 [facility] PRN Reason: Protocol Last Admin: 11/29/17 05:47 Dose: 500 mg Multivitamins/Vitamin C (Multi-Delyn Liquid) 15 ml PO DAILY [facility] Last Admin: 11/29/17 08:37 Dose: 15 ml Timolol Maleate (Timoptic 0.5% [facility]) 1 drop OD BID [facility] Last Admin: 11/29/17 08:38 Dose: 1 drop Trazodone HCl (Desyrel) 50 mg PO HS [facility] Last Admin: 11/23/17 21:06 Dose: 50 mg - Labs Labs: 11/28/17 05:30 11/28/17 05:30 PT 11.6 Seconds (9.8-13.1) 11/22/17 13:00 INR 1.0 (0.9-1.2) 11/22/17 13:00 APTT 30.0 Seconds (25.6-37.1) 11/22/17 13:00 - Constitutional Appears: No Acute Distress - Head Exam Head Exam: NORMAL INSPECTION - Neurological Exam Neuro motor strength exam: Left Upper Extremity: 3, Right Upper Extremity: 4, Left Lower Extremity: 2/1, Right Lower Extremity: 4 Additional comments: Neurological improved from previous examination, she is more alert, oriented X3 , follows commands. Assessment and Plan (1) Seizure disorder Assessment & Plan: Case discussed with Dr. Soliz, continue all current medical regimen including AED. Pending EEG Status: Acute (2) Dissection of carotid artery Assessment & Plan: Case discussed with Dr. Soliz, recommend follow up with the neurointervantionalist for any plans of carotid angiogram Status: Acute (3) Ischemic stroke Assessment & Plan: Case discussed with Dr. Soliz, continue all current medical, physical, occupational, and speech therapies. Recommend rehab for possible discharge planning. Status: Acute
--- NOTE | 2017-11-29 20:50 | CP.PCM.PN ---
Objective - Vital Signs/Intake and Output Vital Signs (last 24 hours): Temp Pulse Resp BP Pulse Ox 98.5 F 81 28 H 146/81 98 11/29/17 16:32 11/29/17 18:00 11/29/17 19:10 11/29/17 18:00 11/29/17 18:00 Intake and Output: 11/29/1718 18:59 06:59 Intake Total 300 Balance 300 - Medications Medications: Current Medications Acetaminophen (Tylenol 325mg Tab) 650 mg PO Q6 PRN PRN Reason: Fever >100.4 F Last Admin: 11/27/17 15:38 Dose: 650 mg Albuterol/Ipratropium (Duoneb 3 Mg/0.5 Mg (3 Ml) Ud) 3 ml INH RQ6 [facility] Last Admin: 11/29/17 19:07 Dose: 3 ml Alprazolam (Xanax) 0.25 mg PO Q12 PRN PRN Reason: Agitation Stop: 12/06/17 20:46 Amlodipine Besylate (Norvasc) 10 mg PO DAILY [facility] Last Admin: 11/29/17 08:37 Dose: 10 mg Atorvastatin Calcium (Lipitor) 80 mg PO HS [facility] Last Admin: 11/28/17 21:25 Dose: 80 mg Brimonidine Tartrate (Alphagan 0.2% Opht) 1 drop OD BID [facility] Last Admin: 11/29/17 16:23 Dose: 1 drop Clopidogrel Bisulfate (Plavix) 75 mg PO DAILY [facility] Last Admin: 11/29/17 08:37 Dose: 75 mg Dextrose (Dextrose 50% Inj) 0 ml IV STAT PRN; Protocol PRN Reason: Hypoglycemia Protocol Dextrose (Glutose 15) 0 gm PO ONCE PRN; Protocol PRN Reason: Hypoglycemia Protocol Docusate Sodium (Colace) 100 mg PO BID PRN PRN Reason: Constipation Gabapentin (Neurontin) 100 mg PO Q12 [facility] Last Admin: 11/23/17 21:07 Dose: 100 mg Glucagon (Glucagen Diagnostic Kit) 0 mg IM STAT PRN; Protocol PRN Reason: Hypoglycemia Protocol Heparin Sodium (Porcine) (Heparin) 5,000 units SC Q12 [facility] PRN Reason: Protocol Last Admin: 11/29/17 08:36 Dose: 5,000 units Hydralazine HCl (Apresoline) 50 mg PO TID [facility] Last Admin: 11/29/17 16:24 Dose: 50 mg Insulin Detemir (Levemir) 46 units SC HS [facility] Last Admin: 11/21/17 22:49 Dose: 46 units Insulin Human Lispro (Humalog) 0 units SC ACHS [facility] PRN Reason: Protocol Last Admin: 11/29/17 17:01 Dose: 2 unit Insulin Human Lispro (Humalog) 16 units SC AC [facility] Last Admin: 11/22/17 12:10 Dose: Not Given Levetiracetam (Keppra) 500 mg PO BID [facility] Last Admin: 11/29/17 16:25 Dose: 500 mg Levothyroxine Sodium (Synthroid) 75 mcg PO DAILY@0630 [facility] Last Admin: 11/29/17 05:47 Dose: 75 mcg Meclizine HCl (Antivert) 25 mg PO TID PRN PRN Reason: Dizziness Metoprolol Tartrate (Lopressor) 25 mg PO Q12 [facility] Last Admin: 11/29/17 08:37 Dose: 25 mg Metronidazole (Flagyl) 500 mg PO Q8@0600,1400,2200 [facility] PRN Reason: Protocol Last Admin: 11/29/17 13:17 Dose: 500 mg Multivitamins/Vitamin C (Multi-Delyn Liquid) 15 ml PO DAILY [facility] Last Admin: 11/29/17 08:37 Dose: 15 ml Timolol Maleate (Timoptic 0.5% [facility]) 1 drop OD BID [facility] Last Admin: 11/29/17 16:25 Dose: 1 drop Trazodone HCl (Desyrel) 50 mg PO HS [facility] Last Admin: 11/23/17 21:06 Dose: 50 mg - Labs Labs: 11/28/17 05:30 11/28/17 05:30 PT 11.6 Seconds (9.8-13.1) 11/22/17 13:00 INR 1.0 (0.9-1.2) 11/22/17 13:00 APTT 30.0 Seconds (25.6-37.1) 11/22/17 13:00
[2017-11-30] MEDS: Albuterol-Ipratrop 3 mg / 0.5 (3 ml) UD INH SCH ×4 (01:00→21:02)
[2017-11-30 05:43] LABS: BASO # 0.1 K/uL (0.0-0.2); EOS # 0.3 K/uL (0.0-0.7); EOS % 2.6 % (0.0-4.0); HEMOGLOBIN 10.1 g/dL (12.0-16.0); LYMPH # 1.6 K/uL (1.0-4.3); LYMPH % 13.8 % (20.0-40.0); MEAN CELL VOLUME 86.4 fl (81.0-99.0); MEAN CORPUSCULAR HEMOGLOBIN 29.1 pg (27.0-31.0); MEAN CORPUSCULAR HGB CONC 33.6 g/dL (33.0-37.0); MEAN PLATELET VOLUME 8.1 fl (7.2-11.7); MONO # 1.7 K/uL (0.0-0.8); MONO % 14.1 % (0.0-10.0); NEUT # 8.2 K/uL (1.8-7.0); NEUT % 68.5 % (50.0-75.0); RBC 3.47 Mil/uL (3.80-5.20); RED CELL DISTRIBUTION WIDTH 14.8 % (11.5-14.5); WHITE BLOOD COUNT 11.9 K/uL (4.8-10.8)
[2017-11-30 06:18] LABS: ALB/GLOB RATIO 0.8 (1.0-2.1); ALBUMIN 2.9 g/dL (3.5-5.0); CALCIUM 8.2 mg/dL (8.4-10.2)
[2017-11-30] MEDS: Levothyroxine 75 MCG TAB PO SCH (07:04)
[2017-11-30] MEDS: Insulin Lispro (humaLOG) 100 Units/ml Inj SC SCH ×4 (07:05→21:24)
--- NOTE | 2017-11-30 08:30 | PN ---
CRITICAL CARE PROGRESS NOTE DATE: 11/29/2017 LOCATION: The patient is in ICU, bed 433. TIME SPENT: 35 minutes. SUBJECTIVE: The patient is seen and evaluated at bedside. Past medical, surgical, social, and family history reviewed. A 72-year-old female, jail resident with diabetes, hypertension, hyperlipidemia, previous CVA, status post resection of her brain tumor, and admitted with altered mental status. CT head showed posterior infarct and posterior cerebral artery distribution, remains wakeful, and follow some commands appropriate. No seizure noted while in ICU. Denies headache. Moves all 4 extremities. PHYSICAL EXAMINATION: VITAL SIGNS: Temperature 98.7, heart rate 59 to 68, blood pressure 150/70 to 164/76, respiratory rate 30, thoracoabdominal, and saturation 93% to 94% on oxygen 2 L nasal cannula. Intake 250 and output 250. HEAD, EYES, EARS, NOSE, AND THROAT: Pupils are reactive. Conjunctivae pink. Sclerae white. NECK: Supple. Trachea is central. CHEST: Bilateral breath sounds. Clear to auscultation. HEART: Rhythm regular. S1 and S2 normal intensity. No S3, S4, or gallop. No audible murmur. ABDOMEN: Bowel sounds are present and soft. Liver and spleen not palpable. Bladder not distended. EXTREMITIES: No clubbing. No cyanosis. No edema. NEUROLOGIC: No cranial nerve deficit. No motor impairment or sensory impairment. reflex 2+ plantar flexor. CURRENT MEDICATIONS: Tylenol 650 mg q.6 hours p.r.n., DuoNeb 3 mL via nebulizer q.6 hours, Norvasc 10 mg p.o. daily, Lipitor 80 mg p.o. daily, brimonidine tartrate 0.2% ophthalmic drop twice daily, Plavix 75 mg p.o. daily, Colace 100 mg twice daily p.r.n., Neurontin 100 mg p.o. q.12 hours, heparin 5000 units subcutaneously q.12 hours, hydralazine 50 mg p.o. three times daily, Levemir 46 units subcutaneously at night, Humalog 16 units subcutaneously a.c. and at bedtime, Keppra 500 mg p.o. b.i.d., Synthroid 75 mcg daily, Antivert 25 mg p.o. three times daily, multivitamin tablet daily, timolol maleate, Timoptic 0.5% ophthalmic solution, and Desyrel 50 mg p.o. at bedtime. IMPRESSION AND PLAN: 1. Neurologic: Admitted with new onset cerebrovascular accident involving left posterior circulation remains stable, history of seizure disorder, status post resection of the brain tumor in the past, currently on Keppra 500 mg q.12 hours. 2. Cardiac: Hypertension, controlled on Lopressor 25 mg p.o. q.12 hours. 3. Pulmonary: No acute issues. 4. Endocrine: Diabetes mellitus type 2, controlled on insulin. 5. Hypothyroidism, on levothyroxine. 6. Infectious Disease: Leukocytosis trending down. Urine culture negative. Serology; Clostridium difficile positive, on Flagyl 500 mg p.o. q.8 hours. Continue deep venous thrombosis and gastrointestinal prophylaxis. Anthony Al MD MTDDeonna
[2017-11-30] MEDS: Brimonidine 0.2% 50 DROP/5 ML BOTTLE OD SCH ×2 (09:46→17:30)
[2017-11-30] MEDS: Multi Vitamins 15 mL UD Oral Solution PO SCH (09:49)
--- NOTE | 2017-11-30 13:28 | CP.PCM.CON ---
History of Present Illness - History of Present Illness History of Present Illness: consult requested for episodes of agitation and irritability Mrs. 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 she is very limited in her activities, reported frequent sadness, decreased sleep with early insomnia, denied changes in appetite, denied suicidal or homicidal ideations , denied psychotic symptoms Past Patient History - Tetanus Immunizations Tetanus Immunization: Unknown - Past Medical History & Family History Past Medical History?: Yes - Past Social History Alcohol: None Drugs: Denies - CARDIAC Hx Cardiac Disorders: Yes - PULMONARY Hx Respiratory Disorders: Yes - NEUROLOGICAL Hx Neurological Disorder: Yes - HEENT Hx HEENT Problems: Yes Hx Glaucoma: Yes (right eye) - RENAL Hx Chronic Kidney Disease: No - ENDOCRINE/METABOLIC Hx Diabetes Mellitus Type 2: Yes - HEMATOLOGICAL/ONCOLOGICAL Hx AIDS: No Hx Human Immunodeficiency Virus (HIV): No - INTEGUMENTARY Hx Dermatological Problems: No - MUSCULOSKELETAL/RHEUMATOLOGICAL Hx Falls: No - GASTROINTESTINAL Hx Gastrointestinal Disorders: No - GENITOURINARY/GYNECOLOGICAL Hx Genitourinary Disorders: No - PSYCHIATRIC Hx Depression: Yes Hx Post Traumatic Stress Disorder: Yes - SURGICAL HISTORY Hx Cholecystectomy: Yes Hx Tonsillectomy: Yes - ANESTHESIA Hx Anesthesia: Yes Hx Anesthesia Reactions: No Meds Allergies/Adverse Reactions: Allergies Allergy/AdvReac Type Severity Reaction Status Date / Time levofloxacin [From Levaquin] Allergy convulsions Verified 10/18/17 12:47 Macrolide Antibiotics Allergy convulsions Verified 10/18/17 12:47 aspirin AdvReac bleedin Verified 10/18/17 12:47 - Medications Medications: Current Medications Acetaminophen (Tylenol 325mg Tab) 650 mg PO Q6 PRN PRN Reason: Fever >100.4 F Last Admin: 11/27/17 15:38 Dose: 650 mg Albuterol/Ipratropium (Duoneb 3 Mg/0.5 Mg (3 Ml) Ud) 3 ml INH RQ6 [facility] Last Admin: 11/30/17 08:43 Dose: 3 ml Alprazolam (Xanax) 0.25 mg PO Q12 PRN PRN Reason: Agitation Stop: 12/06/17 20:46 Last Admin: 11/29/17 21:55 Dose: 0.25 mg Amlodipine Besylate (Norvasc) 10 mg PO DAILY [facility] Last Admin: 11/30/17 09:48 Dose: 10 mg Atorvastatin Calcium (Lipitor) 80 mg PO HS [facility] Last Admin: 11/29/17 21:43 Dose: 80 mg Brimonidine Tartrate (Alphagan 0.2% Opht) 1 drop OD BID [facility] Last Admin: 11/30/17 09:46 Dose: 1 drop Clopidogrel Bisulfate (Plavix) 75 mg PO DAILY [facility] Last Admin: 11/30/17 09:49 Dose: 75 mg Dextrose (Dextrose 50% Inj) 0 ml IV STAT PRN; Protocol PRN Reason: Hypoglycemia Protocol Dextrose (Glutose 15) 0 gm PO ONCE PRN; Protocol PRN Reason: Hypoglycemia Protocol Docusate Sodium (Colace) 100 mg PO BID PRN PRN Reason: Constipation Gabapentin (Neurontin) 100 mg PO Q12 [facility] Last Admin: 11/23/17 21:07 Dose: 100 mg Glucagon (Glucagen Diagnostic Kit) 0 mg IM STAT PRN; Protocol PRN Reason: Hypoglycemia Protocol Hydralazine HCl (Apresoline) 50 mg PO TID [facility] Last Admin: 11/30/17 09:46 Dose: 50 mg Insulin Detemir (Levemir) 46 units SC HS [facility] Last Admin: 11/21/17 22:49 Dose: 46 units Insulin Human Lispro (Humalog) 0 units SC ACHS [facility] PRN Reason: Protocol Last Admin: 11/30/17 07:05 Dose: 1 unit Insulin Human Lispro (Humalog) 16 units SC AC [facility] Last Admin: 11/22/17 12:10 Dose: Not Given Levetiracetam (Keppra) 500 mg PO BID [facility] Last Admin: 11/30/17 09:46 Dose: 500 mg Levothyroxine Sodium (Synthroid) 75 mcg PO DAILY@0630 [facility] Last Admin: 11/30/17 07:04 Dose: 75 mcg Meclizine HCl (Antivert) 25 mg PO TID PRN PRN Reason: Dizziness Last Admin: 11/30/17 09:46 Dose: 25 mg Metoprolol Tartrate (Lopressor) 25 mg PO Q12 [facility] Last Admin: 11/30/17 09:49 Dose: 25 mg Multivitamins/Vitamin C (Multi-Delyn Liquid) 15 ml PO DAILY [facility] Last Admin: 11/30/17 09:49 Dose: 15 ml Timolol Maleate (Timoptic 0.5% Ophth Soln) 1 drop OD BID [facility] Last Admin: 11/30/17 09:45 Dose: 1 drop Trazodone HCl (Desyrel) 50 mg PO HS [facility] Last Admin: 11/23/17 21:06 Dose: 50 mg Physical Exam - Psychiatric Exam Additional comments: pt on evaluation, cooperative , speech normal , thought form coherent, mood sad constricted affect, pt denied any current suicidal or homicidal ideations denied perceptual disturbances, alert awake oriented to person and place, fair insight and judgement Results - Vital Signs Recent Vital Signs: Last Vital Signs Temp 98.3 F 11/30/17 08:00 Pulse 66 11/30/17 09:49 Resp 20 11/30/17 08:43 BP 145/73 11/30/17 09:49 Pulse Ox 97 11/30/17 05:00 - Labs Result Diagrams: 11/30/17 04:40 11/30/17 04:40 Labs: Laboratory Results - last 24 hr 11/29/17 11/29/17 11/30/17 16:51 21:46 04:40 WBC 11.9 H RBC 3.47 L Hgb 10.1 L Hct 30.0 L MCV 86.4 MCH 29.1 MCHC 33.6 RDW 14.8 H Plt Count 415 H MPV 8.1 Neut % (Auto) 68.5 Lymph % (Auto) 13.8 L [place] % (Auto) 14.1 H Eos % (Auto) 2.6 Baso % (Auto) 1.0 Neut # (Auto) 8.2 H Lymph # (Auto) 1.6 [place] # (Auto) 1.7 H Eos # (Auto) 0.3 Baso # (Auto) 0.1 Sodium Potassium Chloride Carbon Dioxide Anion Gap BUN Creatinine Est GFR ( Amer) Est GFR (Non-Af Amer) POC Glucose (mg/dL) 217 H 195 H Random Glucose Calcium Total Bilirubin AST ALT Alkaline Phosphatase Total Protein Albumin Globulin Albumin/Globulin Ratio 11/30/17 11/30/17 11/30/17 04:40 06:25 11:13 WBC RBC Hgb Hct MCV MCH MCHC RDW Plt Count MPV Neut % (Auto) Lymph % (Auto) [place] % (Auto) Eos % (Auto) Baso % (Auto) Neut # (Auto) Lymph # (Auto) [place] # (Auto) Eos # (Auto) Baso # (Auto) Sodium 140 Potassium 3.6 Chloride 103 Carbon Dioxide 21 L Anion Gap 20 BUN 25 H Creatinine 1.3 H Est GFR ( Amer) 49 Est GFR (Non-Af Amer) 40 POC Glucose (mg/dL) 162 H 149 H Random Glucose 179 H Calcium 8.2 L Total Bilirubin 0.2 AST 24 ALT 28 Alkaline Phosphatase 77 Total Protein 6.4 Albumin 2.9 L Globulin 3.5 Albumin/Globulin Ratio 0.8 L Assessment & Plan - Assessment and Plan (Free Text) Assessment: mood disorder due to medical condition with depressive features history of PTSD Plan: discussed with pt starting a low dose of antidepressant , pt agreed recommend starting zoloft 12.5mg daily also recommend to discontinue xanax prn due to possible rebound anxiety recommend starting ativan 0.5mg q8 prn
--- NOTE | 2017-11-30 21:43 | CP.PCM.PN ---
Objective - Vital Signs/Intake and Output Vital Signs (last 24 hours): Temp Pulse Resp BP Pulse Ox 98.3 F 72 22 132/68 100 11/30/17 16:00 11/30/17 21:25 11/30/17 21:03 11/30/17 21:25 11/30/17 16:00 - Medications Medications: Current Medications Acetaminophen (Tylenol 325mg Tab) 650 mg PO Q6 PRN PRN Reason: Fever >100.4 F Last Admin: 11/27/17 15:38 Dose: 650 mg Albuterol/Ipratropium (Duoneb 3 Mg/0.5 Mg (3 Ml) Ud) 3 ml INH RQ6 [facility] Last Admin: 11/30/17 21:02 Dose: Not Given Amlodipine Besylate (Norvasc) 10 mg PO DAILY [facility] Last Admin: 11/30/17 09:48 Dose: 10 mg Atorvastatin Calcium (Lipitor) 80 mg PO HS [facility] Last Admin: 11/30/17 21:26 Dose: 80 mg Brimonidine Tartrate (Alphagan 0.2% Opht) 1 drop OD BID [facility] Last Admin: 11/30/17 17:30 Dose: 1 drop Clopidogrel Bisulfate (Plavix) 75 mg PO DAILY [facility] Last Admin: 11/30/17 09:49 Dose: 75 mg Dextrose (Dextrose 50% Inj) 0 ml IV STAT PRN; Protocol PRN Reason: Hypoglycemia Protocol Dextrose (Glutose 15) 0 gm PO ONCE PRN; Protocol PRN Reason: Hypoglycemia Protocol Docusate Sodium (Colace) 100 mg PO BID PRN PRN Reason: Constipation Gabapentin (Neurontin) 100 mg PO Q12 [facility] Last Admin: 11/23/17 21:07 Dose: 100 mg Glucagon (Glucagen Diagnostic Kit) 0 mg IM STAT PRN; Protocol PRN Reason: Hypoglycemia Protocol Hydralazine HCl (Apresoline) 50 mg PO TID [facility] Last Admin: 11/30/17 17:31 Dose: 50 mg Insulin Detemir (Levemir) 46 units SC HS [facility] Last Admin: 11/21/17 22:49 Dose: 46 units Insulin Human Lispro (Humalog) 0 units SC ACHS [facility] PRN Reason: Protocol Last Admin: 11/30/17 21:24 Dose: Not Given Insulin Human Lispro (Humalog) 16 units SC AC [facility] Last Admin: 11/22/17 12:10 Dose: Not Given Levetiracetam (Keppra) 500 mg PO BID [facility] Last Admin: 11/30/17 17:32 Dose: 500 mg Levothyroxine Sodium (Synthroid) 75 mcg PO DAILY@0630 [facility] Last Admin: 11/30/17 07:04 Dose: 75 mcg Meclizine HCl (Antivert) 25 mg PO TID PRN PRN Reason: Dizziness Last Admin: 11/30/17 09:46 Dose: 25 mg Metoprolol Tartrate (Lopressor) 25 mg PO Q12 [facility] Last Admin: 11/30/17 21:25 Dose: 25 mg Multivitamins/Vitamin C (Multi-Delyn Liquid) 15 ml PO DAILY [facility] Last Admin: 11/30/17 09:49 Dose: 15 ml Sertraline HCl (Zoloft) 12.5 mg PO DAILY [facility] Last Admin: 11/30/17 14:00 Dose: 12.5 mg Timolol Maleate (Timoptic [facility]% [facility]) 1 drop OD BID [facility] Last Admin: 11/30/17 17:30 Dose: 1 drop Trazodone HCl (Desyrel) 50 mg PO HS [facility] Last Admin: 11/23/17 21:06 Dose: 50 mg - Labs Labs: 11/30/17 04:40 11/30/17 04:40 PT 11.6 Seconds (9.8-13.1) 11/22/17 13:00 INR 1.0 (0.9-1.2) 11/22/17 13:00 APTT 30.0 Seconds (25.6-37.1) 11/22/17 13:00
[2017-12-01] MEDS: Albuterol-Ipratrop 3 mg / 0.5 (3 ml) UD INH SCH ×4 (00:59→19:37)
[2017-12-01 05:13] LABS: HEMOGLOBIN 10.8 g/dL (12.0-16.0); MEAN CELL VOLUME 85.7 fl (81.0-99.0); MEAN CORPUSCULAR HEMOGLOBIN 29.1 pg (27.0-31.0); RBC 3.7 Mil/uL (3.80-5.20); WHITE BLOOD COUNT 9.7 K/uL (4.8-10.8)
[2017-12-01 05:43] LABS: ALBUMIN 2.9 g/dL (3.5-5.0); CALCIUM 8.1 mg/dL (8.4-10.2)
[2017-12-01 05:44] LABS: ALB/GLOB RATIO 0.8 (1.0-2.1)
[2017-12-01] MEDS: Levothyroxine 75 MCG TAB PO SCH (06:23)
[2017-12-01] MEDS: Insulin Lispro (humaLOG) 100 Units/ml Inj SC SCH ×4 (06:37→23:21)
--- NOTE | 2017-12-01 08:26 | PN ---
DATE: 11/30/2017 LOCATION: The patient is in ICU bed, 433. TIME SPENT: 35 minutes. SUBJECTIVE: The patient is seen and evaluated at the bedside. Past medical, surgical, social and family history reviewed. Case was discussed in detail in multidisciplinary ICU rounds this morning. 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 Currently a nursing homebound with diabetes, hypertension, hyperlipidemia, status post resection of brain tumor with right hemispheric stroke and left sided weakness, admitted with altered mental status. CT head showed posterior infarct and posterior cerebral infarct in posterior cerebral artery distribution. Remains wakeful. Able to follow commands appropriate. No further seizure noted while in ICU. Denies some headache. Moves all 4 extremities. PHYSICAL EXAMINATION VITAL SIGNS: Temperature 98.3, heart rate 66, blood pressure 145/73 and respirations of 20. intake and output noted. Weight 170 pounds. HEAD, EYES, EARS, NOSE, AND THROAT: Pupils are reactive. Conjunctivae pink. Sclerae white. NECK: Supple. Trachea is central. CHEST: Bilateral breath sounds. Clear to auscultation. HEART: Rhythm regular. S1 and S2 normal. No S3, S4, rub or gallop. No audible murmur. ABDOMEN: Bowel sounds are present and soft. Liver and spleen not palpable. Bladder not distended. EXTREMITIES: No clubbing. No cyanosis. No edema. NEUROLOGIC: Nonfocal. CURRENT MEDICATIONS: Include Tylenol 650 mg q.6 hours p.r.n., albuterol/Atrovent inhalation 3 mL q.6 hours, Xanax discontinued, amlodipine 10 mg p.o. daily, Lipitor 80 mg daily, Alphagan 0.2% ophthalmic solution one drop twice daily, Plavix 75 mg daily, Colace 100 mg twice daily, Neurontin 100 mg p.o. q.12, hydralazine 50 mg p.o. three times a day, Levemir 46 units subcutaneously at bedtime, Humalog 16 units subcutaneously a.c. and at bedtime, Keppra 500 mg twice daily, Synthroid 75 mcg daily, Antivert 25 mg p.o. three times daily p.r.n., Lopressor 25 mg q.12, multivitamin 15 mL p.o daily, Zoloft 12.5 mg p.o. daily, timolol one drop OD twice daily and Desyrel 50 mg p.o. at bedtime. IMPRESSION AND PLAN: 1. Neurologic: Admitted with new onset cerebrovascular accident involving left posterior circulation remains stable, history of seizure disorder, status post resection of the brain tumor in the past, remains seizure free. Currently on Keppra 500 mg q.12 hours. 2. Cardiac: Hypertension, controlled on Lopressor 25 mg q.12. 3. Pulmonary: No acute issues noted. 4. Endocrine: Diabetes mellitus type 2, controlled on Levemir and Lispro insulin a.c. and at bedtime. 5. Hypothyroidism, on levothyroxine. 6. Infectious Disease: Leukocytosis are trending down. Urine culture negative. Stool for Clostridium difficile positive, on Flagyl 500 mg q.8 hours. Deep venous thrombosis and gastrointestinal prophylaxis. 7. Psychiatric: Seen by psych consult. Recommends Zoloft 12.5 mg daily for reactive depression and to adjust the dose as needed to stabilize the mood. Discontinue Xanax secondary to the possible rebound anxiety. Anthony Al MD
[2017-12-01] MEDS: Brimonidine 0.2% 50 DROP/5 ML BOTTLE OD SCH ×2 (08:44→16:56)
[2017-12-01] MEDS: Multi Vitamins 15 mL UD Oral Solution PO SCH (08:46)
--- NOTE | 2017-12-01 09:11 | CP.PCM.PN ---
Subjective - Date & Time of Evaluation Date of Evaluation: 12/01/17 Time of Evaluation: 09:10 - Subjective Subjective: Ms. Parada was seen and examined at the bedside in ICU. She is more alert, oriented in all spheres. She is able to answer all questions and follows simple commands appropriately. She is able to open her mouth, move her tongue from side to side, raise her bilateral upper and lower extremities with left side weaker than the right. She is on contact isolation for c-diff. There was no untoward events overnight. Objective - Vital Signs/Intake and Output Vital Signs (last 24 hours): Temp Pulse Resp BP Pulse Ox 98.6 F 74 19 166/85 H 94 L 12/01/17 08:00 12/01/17 08:46 12/01/17 08:00 12/01/17 08:46 12/01/17 08:00 - Medications Medications: Current Medications Acetaminophen (Tylenol 325mg Tab) 650 mg PO Q6 PRN PRN Reason: Fever >100.4 F Last Admin: 11/27/17 15:38 Dose: 650 mg Albuterol/Ipratropium (Duoneb 3 Mg/0.5 Mg (3 Ml) Ud) 3 ml INH RQ6 [facility] Last Admin: 12/01/17 07:36 Dose: 3 ml Amlodipine Besylate (Norvasc) 10 mg PO DAILY [facility] Last Admin: 12/01/17 08:46 Dose: 10 mg Atorvastatin Calcium (Lipitor) 80 mg PO HS [facility] Last Admin: 11/30/17 21:26 Dose: 80 mg Brimonidine Tartrate (Alphagan 0.2% Opht) 1 drop OD BID [facility] Last Admin: 12/01/17 08:44 Dose: 1 drop Clopidogrel Bisulfate (Plavix) 75 mg PO DAILY [facility] Last Admin: 12/01/17 08:47 Dose: 75 mg Dextrose (Dextrose 50% Inj) 0 ml IV STAT PRN; Protocol PRN Reason: Hypoglycemia Protocol Dextrose (Glutose 15) 0 gm PO ONCE PRN; Protocol PRN Reason: Hypoglycemia Protocol Docusate Sodium (Colace) 100 mg PO BID PRN PRN Reason: Constipation Gabapentin (Neurontin) 100 mg PO Q12 [facility] Last Admin: 11/23/17 21:07 Dose: 100 mg Glucagon (Glucagen Diagnostic Kit) 0 mg IM STAT PRN; Protocol PRN Reason: Hypoglycemia Protocol Hydralazine HCl (Apresoline) 50 mg PO TID [facility] Last Admin: 12/01/17 08:45 Dose: 50 mg Insulin Detemir (Levemir) 46 units SC HS [facility] Last Admin: 11/21/17 22:49 Dose: 46 units Insulin Human Lispro (Humalog) 0 units SC ACHS [facility] PRN Reason: Protocol Last Admin: 12/01/17 06:41 Dose: 1 unit Insulin Human Lispro (Humalog) 16 units SC AC [facility] Last Admin: 11/22/17 12:10 Dose: Not Given Levetiracetam (Keppra) 500 mg PO BID [facility] Last Admin: 12/01/17 08:45 Dose: 500 mg Levothyroxine Sodium (Synthroid) 75 mcg PO DAILY@0630 [facility] Last Admin: 12/01/17 06:23 Dose: 75 mcg Meclizine HCl (Antivert) 25 mg PO TID PRN PRN Reason: Dizziness Last Admin: 11/30/17 09:46 Dose: 25 mg Metoprolol Tartrate (Lopressor) 25 mg PO Q12 [facility] Last Admin: 12/01/17 08:46 Dose: 25 mg Multivitamins/Vitamin C (Multi-Delyn Liquid) 15 ml PO DAILY [facility] Last Admin: 12/01/17 08:46 Dose: 15 ml Sertraline HCl (Zoloft) 12.5 mg PO DAILY [facility] Last Admin: 12/01/17 08:47 Dose: 12.5 mg Timolol Maleate (Timoptic 0.5% [facility]) 1 drop OD BID [facility] Last Admin: 12/01/17 08:47 Dose: 1 drop Trazodone HCl (Desyrel) 50 mg PO [facility] Last Admin: 11/23/17 21:06 Dose: 50 mg - Labs Labs: 12/01/17 04:50 12/01/17 04:50 PT 11.6 Seconds (9.8-13.1) 11/22/17 13:00 INR 1.0 (0.9-1.2) 11/22/17 13:00 APTT 30.0 Seconds (25.6-37.1) 11/22/17 13:00 - Constitutional Appears: No Acute Distress - Head Exam Head Exam: NORMAL INSPECTION - Neurological Exam Neurological Exam: Alert, Awake, Oriented x3 Neuro motor strength exam: Left Upper Extremity: 3, Right Upper Extremity: 5, Left Lower Extremity: 3, Right Lower Extremity: 5 Additional comments: Neurological improved from previous examination. She is able to participate during her assessment. Assessment and Plan (1) Seizure disorder Assessment & Plan: Case discussed with Dr. Soliz, continue all current medical regimen including AED. Pending EEG results. Status: Acute (2) Dissection of carotid artery Assessment & Plan: Case discussed with Dr. Soliz, recommend follow up with the neurointervantionalist for any plans of carotid angiogram Status: Acute (3) Ischemic stroke Assessment & Plan: Case discussed with Dr. Soliz, continue all current medical, physical, occupational, and speech therapies. Recommend rehab for possible discharge planning. Status: Acute
--- NOTE | 2017-12-01 17:44 | CP.CCUPN ---
CCU Subjective - Physician Review Subjective (Free Text): Confusional at times, no seizure reported. Off Depakote. On HFNC: 50% and 30 LPM. Other VS and I/Os reviewed. ROS: No other pertinent negs or positives on 10+ system review. PMSFH: All other Nursing and physician documentation reviewed to date; no new pertinent info noted relevant to current medical problems. EXAM- HEENT: no icterus, slight ptosis on R, irregular pupils bilaterally. No icterus , no gaze preference. NECK: no visible JVD, supple, carotids equal upstroke bilat/no bruits CHEST: decreased BS bases, no wheezes audible HEART: regular distant, S1S2, no murmur audible, no rubs. ABD: soft, no distention, no tympany, no palp tenderness, BS hypoactive EXT: +bilat edema. No peripheral/ digital cyanosis, no calf tenderness or palpable cords, distal pulses intact and symmetrical. NEURO: left hemiplegia, sensory intact on R. SKIN: no rashes LABS: WBC= 9.7 HGB= 10.8 PLTs= 467K Na= 141 K= 3.9 HCO3=22 CL= 105 BUN/Cr= 23/1.1 BS= 187 MAJOR PROBLEMS: 1. 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 s/p Recurrent Seizure Disorder with increasing frequency 3. Anxiety Disorder PLAN: 1. Keppra as sole AED for now. 2. PT / OT as tolerated. 3. Zoloft trial as per Psych. 4. Check repeat CXR, f/u bilateral interstitial changes / infiltrates. 5. Stable for transfer to [facility] bed. CCU Objective - Vital Signs / Intake & Output Vital Signs (Last 4 hours): Vital Signs Temp Pulse Resp BP Pulse Ox 12/01/17 16:56 63 163/66 H 12/01/17 16:00 98.4 F 68 27 H 163/66 H 12/01/17 15:00 68 155/75 H 12/01/17 14:00 69 19 155/67 H 96 Intake and Output (Last 8hrs): Intake & Output 12/01/17 12/01/17 12/01/17 06:59 14:59 22:59 Intake Total 300 Balance 300 Weight 171 lb Intake: Oral 300 - Medications Active Medications: Active Medications Generic Name Dose Route Start Last Admin Trade Name Freq PRN Reason Stop Dose Admin Acetaminophen 650 mg 11/21/17 18:54 11/27/17 15:38 Tylenol 325mg Tab PO 650 mg Q6 PRN Administration Fever >100.4 F Albuterol/Ipratropium 3 ml 11/27/17 14:00 12/01/17 13:21 Duoneb 3 Mg/0.5 Mg (3 Ml) Ud INH 3 ml RQ6 [facility] Administration Amlodipine Besylate 10 mg 11/24/17 09:00 12/01/17 08:46 Norvasc PO 10 mg DAILY [facility] Administration Atorvastatin Calcium 80 mg 11/21/17 22:00 11/30/17 21:26 Lipitor PO 80 mg HS [facility] Administration Brimonidine Tartrate 1 drop 11/22/17 09:00 12/01/17 16:56 Alphagan 0.2% Opht OD 1 drop BID [facility] Administration Clopidogrel Bisulfate 75 mg 11/22/17 09:00 12/01/17 08:47 Plavix PO 75 mg DAILY [facility] Administration Dextrose 0 ml 11/23/17 13:03 Dextrose 50% Inj IV STAT PRN Hypoglycemia Protocol Protocol Dextrose 0 gm 11/23/17 13:03 Glutose 15 PO ONCE PRN Hypoglycemia Protocol Protocol Docusate Sodium 100 mg 11/21/17 19:15 Colace PO BID PRN Constipation Gabapentin 100 mg 11/21/17 21:00 11/23/17 21:07 Neurontin PO 100 mg Q12 [facility] Administration Glucagon 0 mg 11/23/17 13:03 Glucagen Diagnostic Kit IM STAT PRN Hypoglycemia Protocol Protocol Hydralazine HCl 50 mg 11/27/17 14:45 12/01/17 16:56 Apresoline PO 50 mg TID [facility] Administration Insulin Detemir 46 units 11/21/17 22:00 11/21/17 22:49 Levemir SC 46 units HS [facility] Administration Insulin Human Lispro 0 units 11/21/17 22:00 12/01/17 11:36 Humalog SC 1 unit ACHS [facility] Administration Protocol Insulin Human Lispro 16 units 11/22/17 07:30 11/22/17 12:10 Humalog SC Not Given AC [facility] Levetiracetam 500 mg 11/27/17 10:30 12/01/17 16:57 Keppra PO 500 mg BID [facility] Administration Levothyroxine Sodium 75 mcg 11/22/17 06:30 03/14/18 06:23 Synthroid PO 75 mcg DAILY@0630 [facility] Administration Meclizine HCl 25 mg 11/26/17 14:04 11/30/17 09:46 Antivert PO 25 mg TID PRN Administration Dizziness Metoprolol Tartrate 25 mg 11/27/17 14:45 12/01/17 08:46 Lopressor PO 25 mg Q12 [facility] Administration Multivitamins/Vitamin C 15 ml 11/26/17 09:00 12/01/17 08:46 Multi-Delyn Liquid PO 15 ml DAILY [facility] Administration Sertraline HCl 12.5 mg 11/30/17 13:30 12/01/17 08:47 Zoloft PO 12.5 mg DAILY [facility] Administration Timolol Maleate 1 drop 11/22/17 09:00 12/01/17 16:57 Timoptic 0.5% Ophth Soln OD 1 drop BID [facility] Administration Trazodone HCl 50 mg 11/21/17 22:00 11/23/17 21:06 Desyrel PO 50 mg HS [facility] Administration - Patient Studies Lab Studies: Lab Studies 12/01/17 12/01/17 12/01/17 Range/Units 17:09 11:32 05:42 WBC (4.8-10.8) K/uL RBC (3.80-5.20) Mil/uL Hgb (12.0-16.0) g/dL Hct (34.0-47.0) % MCV (81.0-99.0) fl MCH (27.0-31.0) pg MCHC (33.0-37.0) g/dL RDW (11.5-14.5) % Plt Count (130-400) K/uL Sodium (132-148) mmol/l Potassium (3.6-5.0) MMOL/L Chloride (98-107) mmol/L Carbon Dioxide (22-30) mmol/L Anion Gap (10-20) BUN (7-17) mg/dl Creatinine (0.7-1.2) mg/dl Est GFR ( Amer) Est GFR (Non-Af Amer) POC Glucose (mg/dL) 146 H 154 H 161 H (65-110) mg/dL Random Glucose (65-105) mg/dL Calcium (8.4-10.2) mg/dL Total Bilirubin (0.2-1.3) mg/dl AST (14-36) U/L ALT (9-52) U/L Alkaline Phosphatase (38-126) U/L Total Protein (6.3-8.2) G/DL Albumin (3.5-5.0) g/dL Globulin (2.2-3.9) gm/dL Albumin/Globulin Ratio (1.0-2.1) 12/01/17 12/01/17 11/30/17 Range/Units 04:50 04:50 21:15 WBC 9.7 (4.8-10.8) K/uL RBC 3.70 L (3.80-5.20) Mil/uL Hgb 10.8 L (12.0-16.0) g/dL Hct 31.7 L (34.0-47.0) % MCV 85.7 (81.0-99.0) fl MCH 29.1 (27.0-31.0) pg MCHC 34.0 (33.0-37.0) g/dL RDW 15.0 H (11.5-14.5) % Plt Count 467 H (130-400) K/uL Sodium 141 (132-148) mmol/l Potassium 3.9 (3.6-5.0) MMOL/L Chloride 105 (98-107) mmol/L Carbon Dioxide 22 (22-30) mmol/L Anion Gap 18 (10-20) BUN 23 H (7-17) mg/dl Creatinine 1.1 (0.7-1.2) mg/dl Est GFR ( Amer) 59 Est GFR (Non-Af Amer) 49 POC Glucose (mg/dL) 177 H (65-110) mg/dL Random Glucose 187 H (65-105) mg/dL Calcium 8.1 L (8.4-10.2) mg/dL Total Bilirubin 0.2 (0.2-1.3) mg/dl AST 32 (14-36) U/L ALT 32 (9-52) U/L Alkaline Phosphatase 71 (38-126) U/L Total Protein 6.5 (6.3-8.2) G/DL Albumin 2.9 L (3.5-5.0) g/dL Globulin 3.6 (2.2-3.9) gm/dL Albumin/Globulin Ratio 0.8 L (1.0-2.1) Laboratory Results - last 24 hr 11/30/17 12/01/17 12/01/17 21:15 04:50 04:50 WBC 9.7 RBC 3.70 L Hgb 10.8 L Hct 31.7 L MCV 85.7 MCH 29.1 MCHC 34.0 RDW 15.0 H Plt Count 467 H Sodium 141 Potassium 3.9 Chloride 105 Carbon Dioxide 22 Anion Gap 18 BUN 23 H Creatinine 1.1 Est GFR ( Amer) 59 Est GFR (Non-Af Amer) 49 POC Glucose (mg/dL) 177 H Random Glucose 187 H Calcium 8.1 L Total Bilirubin 0.2 AST 32 ALT 32 Alkaline Phosphatase 71 Total Protein 6.5 Albumin 2.9 L Globulin 3.6 Albumin/Globulin Ratio 0.8 L 12/01/17 12/01/17 12/01/17 05:42 11:32 17:09 WBC RBC Hgb Hct MCV MCH MCHC RDW Plt Count Sodium Potassium Chloride Carbon Dioxide Anion Gap BUN Creatinine Est GFR ( Amer) Est GFR (Non-Af Amer) POC Glucose (mg/dL) 161 H 154 H 146 H Random Glucose Calcium Total Bilirubin AST ALT Alkaline Phosphatase Total Protein Albumin Globulin Albumin/Globulin Ratio Fingerstick Blood Sugar Results: 154 Review of Systems - Review of Systems All systems: reviewed and no additional remarkable complaints except (as above) Critical Care Progress Note - Nutrition Nutrition: Nutrition Category Date Time Status Dysphagia/Modified Consistency Diet [DIET] Diets 11/23/17 Breakfast Active
--- NOTE | 2017-12-01 23:54 | CP.PCM.PN ---
Objective - Vital Signs/Intake and Output Vital Signs (last 24 hours): Temp Pulse Resp BP Pulse Ox 97 F L 67 18 153/63 H 92 L 12/01/17 23:46 12/01/17 23:46 12/01/17 23:46 12/01/17 23:46 12/01/17 23:46 Intake and Output: 12/01/17 12/02/17 18:59 06:59 Intake Total 300 Balance 300 - Medications Medications: Current Medications Acetaminophen (Tylenol 325mg Tab) 650 mg PO Q6 PRN PRN Reason: Fever >100.4 F Last Admin: 11/27/17 15:38 Dose: 650 mg Albuterol/Ipratropium (Duoneb 3 Mg/0.5 Mg (3 Ml) Ud) 3 ml INH RQ6 [facility] Last Admin: 12/01/17 19:37 Dose: 3 ml Amlodipine Besylate (Norvasc) 10 mg PO DAILY [facility] Last Admin: 12/01/17 08:46 Dose: 10 mg Atorvastatin Calcium (Lipitor) 80 mg PO HS [facility] Last Admin: 12/01/17 21:01 Dose: 80 mg Brimonidine Tartrate (Alphagan 0.2% Opht) 1 drop OD BID [facility] Last Admin: 12/01/17 16:56 Dose: 1 drop Clopidogrel Bisulfate (Plavix) 75 mg PO DAILY [facility] Last Admin: 12/01/17 08:47 Dose: 75 mg Dextrose (Dextrose 50% Inj) 0 ml IV STAT PRN; Protocol PRN Reason: Hypoglycemia Protocol Dextrose (Glutose 15) 0 gm PO ONCE PRN; Protocol PRN Reason: Hypoglycemia Protocol Docusate Sodium (Colace) 100 mg PO BID PRN PRN Reason: Constipation Gabapentin (Neurontin) 100 mg PO Q12 [facility] Last Admin: 11/23/17 21:07 Dose: 100 mg Glucagon (Glucagen Diagnostic Kit) 0 mg IM STAT PRN; Protocol PRN Reason: Hypoglycemia Protocol Hydralazine HCl (Apresoline) 50 mg PO TID [facility] Last Admin: 12/01/17 16:56 Dose: 50 mg Insulin Detemir (Levemir) 46 units SC HS [facility] Last Admin: 11/21/17 22:49 Dose: 46 units Insulin Human Lispro (Humalog) 0 units SC [facility] PRN Reason: Protocol Last Admin: 12/01/17 23:21 Dose: Not Given Insulin Human Lispro (Humalog) 16 units SC AC [facility] Last Admin: 11/22/17 12:10 Dose: Not Given Levetiracetam (Keppra) 500 mg PO BID [facility] Last Admin: 12/01/17 16:57 Dose: 500 mg Levothyroxine Sodium (Synthroid) 75 mcg PO DAILY@0630 [facility] Last Admin: 12/01/17 06:23 Dose: 75 mcg Meclizine HCl (Antivert) 25 mg PO TID PRN PRN Reason: Dizziness Last Admin: 11/30/17 09:46 Dose: 25 mg Metoprolol Tartrate (Lopressor) 25 mg PO Q12 [facility] Last Admin: 12/01/17 20:54 Dose: 25 mg Multivitamins/Vitamin C (Multi-Delyn Liquid) 15 ml PO DAILY [facility] Last Admin: 12/01/17 08:46 Dose: 15 ml Sertraline HCl (Zoloft) 12.5 mg PO DAILY [facility] Last Admin: 12/01/17 08:47 Dose: 12.5 mg Timolol Maleate (Timoptic 0.5% [facility]) 1 drop OD BID [facility] Last Admin: 12/01/17 16:57 Dose: 1 drop Trazodone HCl (Desyrel) 50 mg PO HS [facility] Last Admin: 11/23/17 21:06 Dose: 50 mg - Labs Labs: 12/01/17 04:50 12/01/17 04:50 PT 11.6 Seconds (9.8-13.1) 11/22/17 13:00 INR 1.0 (0.9-1.2) 11/22/17 13:00 APTT 30.0 Seconds (25.6-37.1) 11/22/17 13:00
[2017-12-02] MEDS: Albuterol-Ipratrop 3 mg / 0.5 (3 ml) UD INH SCH ×4 (01:08→19:57)
[2017-12-02] MEDS: Levothyroxine 75 MCG TAB PO SCH (05:53)
[2017-12-02] MEDS: Insulin Lispro (humaLOG) 100 Units/ml Inj SC SCH ×4 (06:44→21:33)
--- NOTE | 2017-12-02 09:49 | CP.PCM.PN ---
Subjective - Date & Time of Evaluation Date of Evaluation: 12/02/17 Time of Evaluation: 09:48 - Subjective Subjective: Ms. Parada was seen and examined at the bedside. She is more alert, oriented in all spheres. She is able to answer all questions and follows simple commands appropriately. She is able to open her mouth, move her tongue from side to side , raise her bilateral upper and lower extremities with left side weaker than the right. She is on contact isolation for c-diff. There was no untoward events overnight. Objective - Vital Signs/Intake and Output Vital Signs (last 24 hours): Temp Pulse Resp BP Pulse Ox 97.4 F L 65 20 160/70 H 95 12/02/17 08:00 12/02/17 08:00 12/02/17 08:00 12/02/17 08:00 12/02/17 08:00 - Medications Medications: Current Medications Acetaminophen (Tylenol 325mg Tab) 650 mg PO Q6 PRN PRN Reason: Fever >100.4 F Last Admin: 11/27/17 15:38 Dose: 650 mg Albuterol/Ipratropium (Duoneb 3 Mg/0.5 Mg (3 Ml) Ud) 3 ml INH RQ6 [facility] Last Admin: 12/02/17 07:48 Dose: 3 ml Amlodipine Besylate (Norvasc) 10 mg PO DAILY [facility] Last Admin: 12/01/17 08:46 Dose: 10 mg Atorvastatin Calcium (Lipitor) 80 mg PO HS [facility] Last Admin: 12/01/17 21:01 Dose: 80 mg Brimonidine Tartrate (Alphagan 0.2% Opht) 1 drop OD BID [facility] Last Admin: 12/01/17 16:56 Dose: 1 drop Clopidogrel Bisulfate (Plavix) 75 mg PO DAILY [facility] Last Admin: 12/01/17 08:47 Dose: 75 mg Dextrose (Dextrose 50% Inj) 0 ml IV STAT PRN; Protocol PRN Reason: Hypoglycemia Protocol Dextrose (Glutose 15) 0 gm PO ONCE PRN; Protocol PRN Reason: Hypoglycemia Protocol Docusate Sodium (Colace) 100 mg PO BID PRN PRN Reason: Constipation Gabapentin (Neurontin) 100 mg PO Q12 [facility] Last Admin: 11/23/17 21:07 Dose: 100 mg Glucagon (Glucagen Diagnostic Kit) 0 mg IM STAT PRN; Protocol PRN Reason: Hypoglycemia Protocol Hydralazine HCl (Apresoline) 50 mg PO TID [facility] Last Admin: 12/01/17 16:56 Dose: 50 mg Insulin Detemir (Levemir) 46 units SC HS [facility] Last Admin: 11/21/17 22:49 Dose: 46 units Insulin Human Lispro (Humalog) 0 units SC ACHS [facility] PRN Reason: Protocol Last Admin: 12/02/17 06:44 Dose: 1 unit Insulin Human Lispro (Humalog) 16 units SC AC [facility] Last Admin: 11/22/17 12:10 Dose: Not Given Levetiracetam (Keppra) 500 mg PO BID [facility] Last Admin: 12/01/17 16:57 Dose: 500 mg Levothyroxine Sodium (Synthroid) 75 mcg PO DAILY@0630 [facility] Last Admin: 12/02/17 05:53 Dose: 75 mcg Meclizine HCl (Antivert) 25 mg PO TID PRN PRN Reason: Dizziness Last Admin: 11/30/17 09:46 Dose: 25 mg Metoprolol Tartrate (Lopressor) 25 mg PO Q12 [facility] Last Admin: 12/01/17 20:54 Dose: 25 mg Multivitamins/Vitamin C (Multi-Delyn Liquid) 15 ml PO DAILY [facility] Last Admin: 12/01/17 08:46 Dose: 15 ml Sertraline HCl (Zoloft) 12.5 mg PO DAILY [facility] Last Admin: 12/01/17 08:47 Dose: 12.5 mg Timolol Maleate (Timoptic 0.5% Oph Soln) 1 drop OD BID [facility] Last Admin: 12/01/17 16:57 Dose: 1 drop Trazodone HCl (Desyrel) [address] [facility] Last Admin: 11/23/17 21:06 Dose: 50 mg - Labs Labs: 12/01/17 04:50 12/01/17 04:50 PT 11.6 Seconds (9.8-13.1) 11/22/17 13:00 INR 1.0 (0.9-1.2) 11/22/17 13:00 APTT 30.0 Seconds (25.6-37.1) 11/22/17 13:00 - Constitutional Appears: No Acute Distress - Head Exam Head Exam: NORMAL INSPECTION - Neurological Exam Neurological Exam: Alert, Awake, Oriented x3 Neuro motor strength exam: Left Upper Extremity: 4, Right Upper Extremity: 5, Left Lower Extremity: 4, Right Lower Extremity: 5 Additional comments: Neurological unchanged from previous examination. Assessment and Plan (1) Seizure disorder Assessment & Plan: Case discussed with Dr. Fritz continue all current medical regimen including AED. Pending EEG results. Status: Acute Status: Acute (2) Dissection of carotid artery Assessment & Plan: Case discussed with Dr. Fritz, recommend follow up with the neurointervantionalist for any plans of carotid angiogram Case discussed with Dr. Soliz, continue all current medical, physical, occupational, and speech therapies. Recommend rehab for possible discharge planning. Status: Acute (3) Ischemic stroke Assessment & Plan: Case discussed with Dr. Soliz, continue all current medical, physical, occupational, and speech therapies. Recommend rehab for possible discharge planning. Status: Acute
[2017-12-02] MEDS: Brimonidine 0.2% 50 DROP/5 ML BOTTLE OD SCH ×2 (10:14→16:10)
[2017-12-02] MEDS: Multi Vitamins 15 mL UD Oral Solution PO SCH (10:22)
--- NOTE | 2017-12-02 22:12 | CP.PCM.PN ---
Objective - Vital Signs/Intake and Output Vital Signs (last 24 hours): Temp Pulse Resp BP Pulse Ox 98 F 63 20 126/66 95 12/02/17 20:00 12/02/17 21:31 12/02/17 20:00 12/02/17 21:31 12/02/17 20:00 Intake and Output: 12/02/17 12/03/17 18:59 06:59 Intake Total 720 Balance 720 - Medications Medications: Current Medications Acetaminophen (Tylenol 325mg Tab) 650 mg PO Q6 PRN PRN Reason: Fever >100.4 F Last Admin: 11/27/17 15:38 Dose: 650 mg Albuterol/Ipratropium (Duoneb 3 Mg/0.5 Mg (3 Ml) Ud) 3 ml INH RQ6 [facility] Last Admin: 12/02/17 19:57 Dose: 3 ml Amlodipine Besylate (Norvasc) 10 mg PO DAILY [facility] Last Admin: 12/02/17 10:22 Dose: 10 mg Atorvastatin Calcium (Lipitor) 80 mg PO HS [facility] Last Admin: 12/02/17 21:31 Dose: 80 mg Brimonidine Tartrate (Alphagan 0.2% Opht) 1 drop OD BID [facility] Last Admin: 12/02/17 16:10 Dose: 1 drop Clopidogrel Bisulfate (Plavix) 75 mg PO DAILY [facility] Last Admin: 12/02/17 10:23 Dose: 75 mg Dextrose (Dextrose 50% Inj) 0 ml IV STAT PRN; Protocol PRN Reason: Hypoglycemia Protocol Dextrose (Glutose 15) 0 gm PO ONCE PRN; Protocol PRN Reason: Hypoglycemia Protocol Docusate Sodium (Colace) 100 mg PO BID PRN PRN Reason: Constipation Gabapentin (Neurontin) 100 mg PO Q12 [facility] Last Admin: 11/23/17 21:07 Dose: 100 mg Glucagon (Glucagen Diagnostic Kit) 0 mg IM STAT PRN; Protocol PRN Reason: Hypoglycemia Protocol Hydralazine HCl (Apresoline) 50 mg PO TID [facility] Last Admin: 12/02/17 16:11 Dose: 50 mg Insulin Detemir (Levemir) 46 units SC HS [facility] Last Admin: 11/21/17 22:49 Dose: 46 units Insulin Human Lispro (Humalog) 0 units SC ACHS [facility] PRN Reason: Protocol Last Admin: 12/02/17 21:33 Dose: Not Given Insulin Human Lispro (Humalog) 16 units SC AC [facility] Last Admin: 11/22/17 12:10 Dose: Not Given Levetiracetam (Keppra) 500 mg PO BID [facility] Last Admin: 12/02/17 16:13 Dose: 500 mg Levothyroxine Sodium (Synthroid) 75 mcg PO DAILY@0630 [facility] Last Admin: 12/02/17 05:53 Dose: 75 mcg Meclizine HCl (Antivert) 25 mg PO TID PRN PRN Reason: Dizziness Last Admin: 11/30/17 09:46 Dose: 25 mg Metoprolol Tartrate (Lopressor) 25 mg PO Q12 [facility] Last Admin: 12/02/17 21:31 Dose: 25 mg Multivitamins/Vitamin C (Multi-Delyn Liquid) 15 ml PO DAILY [facility] Last Admin: 12/02/17 10:22 Dose: 15 ml Sertraline HCl (Zoloft) 12.5 mg PO DAILY [facility] Last Admin: 12/02/17 10:24 Dose: 12.5 mg Timolol Maleate (Timoptic 0.5% [facility]) 1 drop OD BID [facility] Last Admin: 12/02/17 16:13 Dose: 1 drop Trazodone HCl (Desyrel) 50 mg PO HS [facility] Last Admin: 11/23/17 21:06 Dose: 50 mg - Labs Labs: 12/01/17 04:50 12/01/17 04:50 PT 11.6 Seconds (9.8-13.1) 11/22/17 13:00 INR 1.0 (0.9-1.2) 11/22/17 13:00 APTT 30.0 Seconds (25.6-37.1) 11/22/17 13:00
[2017-12-03] MEDS: Albuterol-Ipratrop 3 mg / 0.5 (3 ml) UD INH SCH ×3 (01:03→13:29)
[2017-12-03] MEDS: Levothyroxine 75 MCG TAB PO SCH (06:38)
[2017-12-03] MEDS: Insulin Lispro (humaLOG) 100 Units/ml Inj SC SCH ×3 (06:39→17:22)
[2017-12-03 08:42] VITALS: RESP 20
[2017-12-03] MEDS: Brimonidine 0.2% 50 DROP/5 ML BOTTLE OD SCH ×2 (08:52→17:23)
[2017-12-03] MEDS: Multi Vitamins 15 mL UD Oral Solution PO SCH (08:52)
--- NOTE | 2017-12-03 09:24 | CP.PCM.PN ---
Subjective - Date & Time of Evaluation Date of Evaluation: 12/03/17 Time of Evaluation: 09:24 - Subjective Subjective: Ms. Parada was seen and examined at the bedside. She is more alert, oriented in all spheres. She is able to answer all questions and follows simple commands appropriately. She is able to open her mouth, move her tongue from side to side , raise her bilateral upper and lower extremities with left side weaker than the right. She is on contact isolation for c-diff. There was no untoward events overnight. Objective - Vital Signs/Intake and Output Vital Signs (last 24 hours): Temp Pulse Resp BP Pulse Ox 98 F 65 20 181/71 H 95 12/03/17 08:00 12/03/17 08:55 12/03/17 08:00 12/03/17 08:55 12/03/17 08:00 - Medications Medications: Current Medications Acetaminophen (Tylenol 325mg Tab) 650 mg PO Q6 PRN PRN Reason: Fever >100.4 F Last Admin: 11/27/17 15:38 Dose: 650 mg Albuterol/Ipratropium (Duoneb 3 Mg/0.5 Mg (3 Ml) Ud) 3 ml INH RQ6 [facility] Last Admin: 12/03/17 07:59 Dose: 3 ml Amlodipine Besylate (Norvasc) 10 mg PO DAILY [facility] Last Admin: 12/03/17 08:55 Dose: 10 mg Atorvastatin Calcium (Lipitor) 80 mg PO HS [facility] Last Admin: 12/02/17 21:31 Dose: 80 mg Brimonidine Tartrate (Alphagan 0.2% Opht) 1 drop OD BID [facility] Last Admin: 12/03/17 08:52 Dose: 1 drop Clopidogrel Bisulfate (Plavix) 75 mg PO DAILY [facility] Last Admin: 12/03/17 09:08 Dose: Not Given Dextrose (Dextrose 50% Inj) 0 ml IV STAT PRN; Protocol PRN Reason: Hypoglycemia Protocol Dextrose (Glutose 15) 0 gm PO ONCE PRN; Protocol PRN Reason: Hypoglycemia Protocol Docusate Sodium (Colace) 100 mg PO BID PRN PRN Reason: Constipation Last Admin: 12/03/17 08:54 Dose: 100 mg Gabapentin (Neurontin) 100 mg PO Q12 [facility] Last Admin: 11/23/17 21:07 Dose: 100 mg Glucagon (Glucagen Diagnostic Kit) 0 mg IM STAT PRN; Protocol PRN Reason: Hypoglycemia Protocol Hydralazine HCl (Apresoline) 50 mg PO TID [facility] Last Admin: 12/03/17 08:53 Dose: 50 mg Insulin Detemir (Levemir) 46 units SC HS [facility] Last Admin: 11/21/17 22:49 Dose: 46 units Insulin Human Lispro (Humalog) 0 units SC ACHS [facility] PRN Reason: Protocol Last Admin: 12/03/17 06:39 Dose: 1 unit Insulin Human Lispro (Humalog) 16 units SC AC [facility] Last Admin: 11/22/17 12:10 Dose: Not Given Levetiracetam (Keppra) 500 mg PO BID [facility] Last Admin: 12/03/17 08:54 Dose: 500 mg Levothyroxine Sodium (Synthroid) 75 mcg PO DAILY@0630 [facility] Last Admin: 12/03/17 06:38 Dose: 75 mcg Meclizine HCl (Antivert) 25 mg PO TID PRN PRN Reason: Dizziness Last Admin: 11/30/17 09:46 Dose: 25 mg Metoprolol Tartrate (Lopressor) 25 mg PO Q12 [facility] Last Admin: 12/03/17 08:55 Dose: 25 mg Multivitamins/Vitamin C (Multi-Delyn Liquid) 15 ml PO DAILY [facility] Last Admin: 12/03/17 08:52 Dose: 15 ml Sertraline HCl (Zoloft) 12.5 mg PO DAILY [facility] Last Admin: 12/03/17 08:54 Dose: 12.5 mg Timolol Maleate (Timoptic 0.5% Oph [facility]) 1 drop OD BID [facility] Last Admin: 12/03/17 08:52 Dose: 1 drop Trazodone HCl (Desyrel) 50 mg PO [facility] Last Admin: 11/23/17 21:06 Dose: 50 mg - Labs Labs: 12/01/17 04:50 12/01/17 04:50 PT 11.6 Seconds (9.8-13.1) 11/22/17 13:00 INR 1.0 (0.9-1.2) 11/22/17 13:00 APTT 30.0 Seconds (25.6-37.1) 11/22/17 13:00 - Constitutional Appears: No Acute Distress - Head Exam Head Exam: NORMAL INSPECTION - Neurological Exam Neurological Exam: Alert, Awake Neuro motor strength exam: Left Upper Extremity: 4, Right Upper Extremity: 5, Left Lower Extremity: 4, Right Lower Extremity: 5 Additional comments: Neurological unchanged from previous examination. Assessment and Plan (1) Seizure disorder Assessment & Plan: Case discussed with Dr. Fritz continue all current medical regimen including AED. Pending EEG results. Status: Acute (2) Dissection of carotid artery Assessment & Plan: Case discussed with Dr. Fritz, recommend follow up with the neurointervantionalist for any plans of carotid angiogram Status: Acute (3) Ischemic stroke Assessment & Plan: Case discussed with Dr. Fritz, continue all current medical, physical, occupational, and speech therapies. Recommend rehab for possible discharge planning. Status: Acute
[2017-12-03 13:54] VITALS: O2SAT 95
--- NOTE | 2017-12-03 14:39 | CP.PCM.PCO ---
Assessment/Plan - Assessment/Plan Assessment (Free Text): Pt stable, in no apparent distress. Pt is aaox3, aware of what is going on. Heart S1S2, lungs clear, abdomen soft, non tender. Pt moving all extremities, left side slight weaker than right, follow commands. Spoke to Dr. Fritz, she reviewed EEG, EEG was normal. States pt is cleared for transfer to [facility] from neurology standpoint. Per Dr. Guerrero's notes on 12/01, request for repeat cxr to f/ u b/l infiltrates seen on previous cxr from 11/27. Cxr ordered stat. Spoke to CAROLYN Vincent for Dr. Bustos, she will f/u pt in [place]. SOPHIA Hsieh made aware to call Melisa with cxr result. Pt has been set up by [facility] for transfer to [place] at 5pm. Pt is stable to be discharged pending cxr results.
--- NOTE | 2017-12-03 14:47 | RAD ---
HISTORY: F/u b/l interstitial infiltrates COMPARISON: Portable chest 11/27/2017. FINDINGS: LUNGS: There is improved aeration at the left base with no definitive alveolitis appreciated bilaterally. PLEURA: No significant pleural effusion identified, no pneumothorax apparent. CARDIOVASCULAR: Cardiomegaly is stable however vascular markings appear questioned increase in the bilateral perihilar regions with a indication element of CHF. Clinically correlate further. OSSEOUS STRUCTURES: No significant abnormalities. VISUALIZED UPPER ABDOMEN: Normal. OTHER FINDINGS: None. IMPRESSION: Findings suspicious for interval active CHF. Clinically correlate further. No definite alveolitis, pleural effusion or pneumothorax bilaterally.
[2017-12-03 16:12] VITALS: BP 160/64; PULSE 66; TEMP 97.2
--- NOTE | 2017-12-03 21:56 | CP.PCM.DIS ---
Provider - Provider Date of Admission: 11/22/17 12:55 Attending physician: Andrew Bustos MD Hospital Course - Lab Results Lab Results: Micro Results 12/01/17 06:44 Naris MRSA Culture (Admit) - Final MRSA NOT DETECTED 11/25/17 15:16 Nose MRSA Culture (Admit) - Final MRSA NOT DETECTED 11/22/17 16:10 Urine,Catheterized Urine Culture - Final No Growth (<1,000 CFU/ML) Most Recent Lab Values WBC 9.7 K/uL (4.8-10.8) 12/01/17 04:50 RBC 3.70 Mil/uL (3.80-5.20) L 12/01/17 04:50 Hgb 10.8 g/dL (12.0-16.0) L 12/01/17 04:50 Hct 31.7 % (34.0-47.0) L 12/01/17 04:50 MCV 85.7 fl (81.0-99.0) 12/01/17 04:50 MCH 29.1 pg (27.0-31.0) 12/01/17 04:50 MCHC 34.0 g/dL (33.0-37.0) 12/01/17 04:50 RDW 15.0 % (11.5-14.5) H 12/01/17 04:50 Plt Count 467 K/uL (130-400) H 12/01/17 04:50 MPV 8.1 fl (7.2-11.7) 11/30/17 04:40 Neut % (Auto) 68.5 % (50.0-75.0) 11/30/17 04:40 Lymph % (Auto) 13.8 % (20.0-40.0) L 11/30/17 04:40 Terrell % (Auto) 14.1 % (0.0-10.0) H 11/30/17 04:40 Eos % (Auto) 2.6 % (0.0-4.0) 11/30/17 04:40 Baso % (Auto) 1.0 % (0.0-2.0) 11/30/17 04:40 Neut # (Auto) 8.2 K/uL (1.8-7.0) H 11/30/17 04:40 Lymph # (Auto) 1.6 K/uL (1.0-4.3) 11/30/17 04:40 Terrell # (Auto) 1.7 K/uL (0.0-0.8) H 11/30/17 04:40 Eos # (Auto) 0.3 K/uL (0.0-0.7) 11/30/17 04:40 Baso # (Auto) 0.1 K/uL (0.0-0.2) 11/30/17 04:40 Neutrophils % (Manual) 87 % (42-75) H 11/21/17 09:15 Lymphocytes % (Manual) 9 % (20-50) L 11/21/17 09:15 Monocytes % (Manual) 2 % (0-10) 11/21/17 09:15 Eosinophils % (Manual) 1 % (0-7) 11/21/17 09:15 Basophils % (Manual) 1 % (0-2) 11/21/17 09:15 Toxic Granulation Present 11/21/17 09:15 Platelet Estimate Increased (NORMAL) H 11/21/17 09:15 Anisocytosis (manual) Slight 11/21/17 09:15 PT 11.6 Seconds (9.8-13.1) 11/22/17 13:00 INR 1.0 (0.9-1.2) 11/22/17 13:00 APTT 30.0 Seconds (25.6-37.1) 11/22/17 13:00 pCO2 32 mm/Hg (35-45) L 11/27/17 01:50 pO2 51 mm/Hg (80-100) L 11/27/17 01:50 HCO3 21.0 mmol/L (21-28) 11/27/17 01:50 ABG pH 7.39 (7.35-7.45) 11/27/17 01:50 ABG Total CO2 20.4 mmol/L (22-28) L 11/27/17 01:50 ABG O2 Saturation 90.1 % (95-98) L 11/27/17 01:50 ABG O2 Content 14.3 ML/dL (15-23) L 11/27/17 01:50 ABG Base Excess -4.7 mmol/L (-2.0-3.0) L 11/27/17 01:50 ABG Hemoglobin 11.7 g/dL (11.7-17.4) 11/27/17 01:50 ABG Carboxyhemoglobin 2.1 % (0.5-1.5) H 11/27/17 01:50 POC ABG HHb (Measured) 9.6 % (0.0-5.0) H 11/27/17 01:50 ABG Methemoglobin 1.5 % (0.0-3.0) 11/27/17 01:50 ABG O2 Capacity 15.9 mL/dL (16-24) L 11/27/17 01:50 Alex Test Yes 11/27/17 01:50 A-a O2 Difference 109.0 mm/Hg 11/27/17 01:50 Hgb O2 Saturation 86.9 % (95.0-98.0) L 11/27/17 01:50 FiO2 28.0 % 11/27/17 01:50 Sodium 141 mmol/l (132-148) 12/01/17 04:50 Potassium 3.9 MMOL/L (3.6-5.0) 12/01/17 04:50 Chloride 105 mmol/L (98-107) 12/01/17 04:50 Carbon Dioxide 22 mmol/L (22-30) 12/01/17 04:50 Anion Gap 18 (10-20) 12/01/17 04:50 BUN 23 mg/dl (7-17) H 12/01/17 04:50 Creatinine 1.1 mg/dl (0.7-1.2) 12/01/17 04:50 Est GFR ( Amer) 59 12/01/17 04:50 Est GFR (Non-Af Amer) 49 12/01/17 04:50 POC Glucose (mg/dL) 156 mg/dL (65-110) H 12/03/17 16:08 Random Glucose 187 mg/dL (65-105) H 12/01/17 04:50 Hemoglobin A1c 9.4 % (4.2-6.5) H 11/21/17 09:15 Lactic Acid 0.9 MMOL/L (0.7-2.1) 11/25/17 04:29 Calcium 8.1 mg/dL (8.4-10.2) L 12/01/17 04:50 Phosphorus 3.6 mg/dl (2.5-4.5) 11/28/17 05:30 Magnesium 2.1 MG/DL (1.6-2.3) 11/28/17 05:30 Total Bilirubin 0.2 mg/dl (0.2-1.3) 12/01/17 04:50 AST 32 U/L (14-36) 12/01/17 04:50 ALT 32 U/L (9-52) 12/01/17 04:50 Alkaline Phosphatase 71 U/L (38-126) 12/01/17 04:50 Ammonia < 9 umo/L (11-51) L 11/28/17 05:30 Total Creatine Kinase 46 U/L (30-135) 11/25/17 04:24 Troponin I 0.1190 ng/mL (0.00-0.120) 11/23/17 12:10 Total Protein 6.5 G/DL (6.3-8.2) 12/01/17 04:50 Albumin 2.9 g/dL (3.5-5.0) L 12/01/17 04:50 Globulin 3.6 gm/dL (2.2-3.9) 12/01/17 04:50 Albumin/Globulin Ratio 0.8 (1.0-2.1) L 12/01/17 04:50 Triglycerides 158 mg/DL (0-149) H D 11/22/17 04:25 Cholesterol 138 mg/dL (0-199) 11/22/17 04:25 LDL Cholesterol Direct 67 mg/dL (0-129) 11/22/17 04:25 HDL Cholesterol 36 MG/DL (30-70) 11/22/17 04:25 Vitamin B12 677 pg/mL (239-931) 11/22/17 04:25 Thyroxine (T4) 9.68 ug/dl (5.5-11.0) 11/22/17 04:25 Total T3 0.767 nmol/L (1.49-2.60) L 11/22/17 04:25 TSH 3rd Generation 2.60 mIU/ML (0.46-4.68) 11/22/17 04:25 Prolactin 14.5 ng/mL (3.0-18.9) 11/24/17 08:57 Urine Color Yellow (YELLOW) 11/22/17 16:10 Urine Clarity Slighty-cloudy (Clear) 11/22/17 16:10 Urine pH 5.0 (5.0-8.0) 11/22/17 16:10 Ur Specific [place] 1.016 (1.003-1.030) 11/22/17 16:10 Urine Protein >=500 mg/dL (NEGATIVE) 11/22/17 16:10 Urine Glucose (UA) >=500 mg/dL (Normal) 11/22/17 16:10 Urine Ketones Trace mg/dL (NEGATIVE) 11/22/17 16:10 Urine Blood Small (NEGATIVE) 11/22/17 16:10 Urine Nitrate Negative (NEGATIVE) 11/22/17 16:10 Urine Bilirubin Negative (NEGATIVE) 11/22/17 16:10 Urine Urobilinogen 0.2-1.0 mg/dL (0.2-1.0) 11/22/17 16:10 Ur Leukocyte Esterase Neg Cristi/uL (Negative) 11/22/17 16:10 Urine RBC (Auto) 5 /hpf (0-3) H 11/22/17 16:10 Urine Microscopic WBC 3 /hpf (0-5) 11/22/17 16:10 Ur Squamous Epith Cells 3 /hpf (0-5) 11/22/17 16:10 Urine Bacteria Rare (<OCC) 11/22/17 16:10 Hyaline Casts 3-5 /hpf (0-2) H 11/22/17 16:10 Granular Casts (Auto) 33 /lpf (0-1) 11/22/17 16:10 Valproic Acid 37.1 ug/mL (50.0-100.0) L 11/29/17 04:30 C. difficile Ag & Toxin Positive antigen (NEGATIVE) 11/24/17 09:15 Blood Type B POSITIVE 11/21/17 09:15 Blood Type Confirm B POSITIVE 11/21/17 11:28 Antibody Screen Negative 11/21/17 09:15 BBK History Checked No verified bt 11/21/17 09:15 Discharge Exam - Head Exam Head Exam: NORMAL INSPECTION Discharge Plan - Follow Up Plan Condition: FAIR Disposition: REHAB FACILITY/REHAB UNIT Additional Instructions: Continue Lasix 20mg PO Daily.
== END 2017-12-03 18:16 | DRG 64 ==
LOC: H.ER 08:37 → H.ERHOLD 12:25 → H.TEL 16:06 → OBSVTOIN 11-22 12:55 → H.ICU/CCU 11-24 19:18 → H.TEL 12-01 23:16
PROVIDERS: ADMIT Internal Medicine; ATTEND Internal Medicine
PROC: 3E0F7GC Introduction of Other Therapeutic Substance into Respiratory Tract, Via Natural or Artificial Opening (ICD-10-PCS; principal; 2017-11-24)
DX: I63.539 Cerebral infarction due to unspecified occlusion or stenosis of unspecified posterior cerebral artery (principal); I77.71 Dissection of carotid artery; A04.72 Enterocolitis due to Clostridium difficile, not specified as recurrent; I69.354 Hemiplegia and hemiparesis following cerebral infarction affecting left non-dominant side; E11.649 Type 2 diabetes mellitus with hypoglycemia without coma; E86.0 Dehydration; E11.65 Type 2 diabetes mellitus with hyperglycemia; D72.829 Elevated white blood cell count, unspecified; E03.9 Hypothyroidism, unspecified; E78.00 Pure hypercholesterolemia, unspecified; E78.5 Hyperlipidemia, unspecified; F06.30 Mood disorder due to known physiological condition, unspecified; F32.9 Major depressive disorder, single episode, unspecified; F43.10 Post-traumatic stress disorder, unspecified; R56.9 Unspecified convulsions; G93.89 Other specified disorders of brain; H40.9 Unspecified glaucoma; I10 Essential (primary) hypertension; J44.9 Chronic obstructive pulmonary disease, unspecified; I69.392 Facial weakness following cerebral infarction; Z79.02 Long term (current) use of antithrombotics/antiplatelets; Z79.82 Long term (current) use of aspirin; Z79.899 Other long term (current) drug therapy; Z90.49 Acquired absence of other specified parts of digestive tract; Z86.03 Personal history of neoplasm of uncertain behavior; R00.1 Bradycardia, unspecified; Z79.84 Long term (current) use of oral hypoglycemic drugs; Z79.4 Long term (current) use of insulin

== ENCOUNTER 2018-01-16 14:21 | Emergency (ER) | payer MEDICARE, BC ==
[2018-01-16 14:22] VITALS: BMI 25.7
[2018-01-16 14:27] VITALS: O2SAT 97
--- NOTE | 2018-01-16 14:39 | ED PDOC ---
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 Patient is agitated and combative upon arrival. Past Medical History Vital Signs: Last Vital Signs Temp 99.2 F 01/16/18 14:24 Pulse 61 01/16/18 14:24 Resp 18 01/16/18 14:24 BP 133/111 H 01/16/18 14:24 Pulse Ox 97 01/16/18 14:24 - Medical History PMH: Asthma, COPD, CVA, Depression, Diabetes, HTN, Hypercholesterolemia, Malignancy (Brain Ca s/p surgical resection), Post Traumatic Stress Disorder, Seizures Denies: HIV, Chronic Kidney Disease - Surgical History Surgical History: Cholecystectomy, Tonsillectomy - Family History Family History: States: Unknown Family Hx - Immunization History Hx Tetanus Toxoid Vaccination: No Hx Influenza Vaccination: No Hx Pneumococcal Vaccination: No - Home Medications Home Medications: Ambulatory Orders Medication Instructions Recorded Terbutaline [Brethine Tab] 2.5 mg PO HS 12/27/15 Acetaminophen [Tylenol 325mg tab] 650 mg PO Q6 PRN tab 10/18/17 Aspirin [Ecotrin] 81 mg PO DAILY tabec 10/18/17 Atorvastatin [Lipitor] 80 mg PO HS 10/18/17 Insulin Detemir [Levemir] 46 units SC HS vial 10/18/17 Insulin Lispro [humALOG] 16 units SC AC 10/18/17 Timolol 0.5% Ophth [Timoptic 0.5% 1 drop OD BID bottle 10/18/17 Ophth Soln] GlipiZIDE [Glucotrol] 10 mg PO BIDAC tab 11/03/17 Levothyroxine [Synthroid] 75 mcg PO DAILY@0630 tab 11/03/17 Acetaminophen [Tylenol 325mg tab] 650 mg PO Q6 PRN tab 12/03/17 Albuterol/Ipratropium [Duoneb 3 3 ml INH RQ6 neb 12/03/17 mg/0.5 mg (3 ml) UD] Atorvastatin [Lipitor] 80 mg PO HS tab 12/03/17 Brimonidine 0.2% [Alphagan 0.2% 1 drop OD BID bottle 12/03/17 Opht] Clopidogrel [Plavix] 75 mg PO DAILY tab 12/03/17 Docusate [Colace] 100 mg PO BID PRN cap 12/03/17 Furosemide [Lasix] 20 mg PO DAILY 12/03/17 Gabapentin [Neurontin] 100 mg PO Q12 cap 12/03/17 Glucagon [Glucagen Diagnostic Kit] 0 mg IM STAT PRN vial 12/03/17 Insulin Detemir [Levemir] 46 units SC HS vial 12/03/17 Levothyroxine [Synthroid] 75 mcg PO DAILY@0630 tab 12/03/17 Meclizine [Meclizine*] 25 mg PO TID PRN tab 12/03/17 Metoprolol Tartrate [Lopressor] 25 mg PO Q12 tab 12/03/17 Multivitamin UD 15 mL Oral 15 ml PO DAILY liq 12/03/17 [Multi-Delyn Liquid] Sertraline [Zoloft] 12.5 mg PO DAILY tab 12/03/17 Timolol 0.5% Ophth [Timoptic 0.5% 1 drop OD BID bottle 12/03/17 Ophth Soln] amLODIPine [Norvasc] 10 mg PO DAILY tab 12/03/17 hydrALAZINE [Apresoline] 50 mg PO TID tab 12/03/17 levETIRAcetam [Keppra] 500 mg PO BID tab 12/03/17 traZODone [Desyrel] 50 mg PO HS tab 12/03/17 - Allergies Allergies/Adverse Reactions: Allergies Allergy/AdvReac Type Severity Reaction Status Date / Time levofloxacin [From Levaquin] Allergy convulsions Verified 01/16/18 14:24 Macrolide Antibiotics Allergy convulsions Verified 01/16/18 14:24 aspirin AdvReac bleedin Verified 01/16/18 14:24 - ECG O2 Sat by Pulse Oximetry: 97 Disposition - Disposition Forms: [employer] (Northern Irish)
--- NOTE | 2018-01-16 15:24 | ED PDOC ---
HPI: General Adult Time Seen by Provider: 01/16/18 14:39 Chief Complaint (Nursing): Fever History Per: Patient Onset/Duration Of Symptoms: Days (2) Additional Complaint(s): Brought by family, concerbned that patient may have UTI. Pt denies dysuria. Subjective fever. Denies abd pain or back pain. No vomiting. Past Medical History Vital Signs: Last Vital Signs Temp 99.2 F 01/16/18 16:21 Pulse 61 01/16/18 14:24 Resp 18 01/16/18 14:24 BP 133/111 H 01/16/18 14:24 Pulse Ox 97 01/16/18 15:24 - Medical History PMH: Asthma, COPD, CVA, Depression, Diabetes, HTN, Hypercholesterolemia, Malignancy (Brain Ca s/p surgical resection), Post Traumatic Stress Disorder, Seizures Denies: HIV, Chronic Kidney Disease - Surgical History Surgical History: Cholecystectomy, Tonsillectomy - Family History Family History: States: Unknown Family Hx - Immunization History Hx Tetanus Toxoid Vaccination: No Hx Influenza Vaccination: No Hx Pneumococcal Vaccination: No - Home Medications Home Medications: Ambulatory Orders Medication Instructions Recorded Terbutaline [Brethine Tab] 2.5 mg PO HS 12/27/15 Insulin Detemir [Levemir] 46 units SC HS vial 10/18/17 Timolol 0.5% Ophth [Timoptic 0.5% 1 drop OD BID bottle 10/18/17 Ophth Soln] Levothyroxine [Synthroid] 75 mcg PO DAILY@0630 tab 11/03/17 Albuterol/Ipratropium [Duoneb 3 3 ml INH RQ6 neb 12/03/17 mg/0.5 mg (3 ml) UD] Atorvastatin [Lipitor] 80 mg PO HS tab 12/03/17 Brimonidine 0.2% [Alphagan 0.2% 1 drop OD BID bottle 12/03/17 Opht] Clopidogrel [Plavix] 75 mg PO DAILY tab 12/03/17 Docusate [Colace] 100 mg PO BID PRN cap 12/03/17 Gabapentin [Neurontin] 100 mg PO Q12 cap 12/03/17 Metoprolol Tartrate [Lopressor] 25 mg PO Q12 tab 12/03/17 Multivitamin UD 15 mL Oral 15 ml PO DAILY liq 12/03/17 [Multi-Delyn Liquid] Sertraline [Zoloft] 12.5 mg PO DAILY tab 12/03/17 amLODIPine [Norvasc] 10 mg PO DAILY tab 12/03/17 hydrALAZINE [Apresoline] 50 mg PO TID tab 12/03/17 levETIRAcetam [Keppra] 500 mg PO BID tab 12/03/17 traZODone [Desyrel] 50 mg PO HS tab 12/03/17 Divalproex [Depakote Sprinkles] 125 mg PO Q8 01/16/18 LORazepam [Ativan] 0.5 mg PO Q8 01/16/18 Lisinopril [Zestril] 4 mg PO DAILY 01/16/18 Montelukast [Singulair] 10 mg PO DAILY 01/16/18 Sulfamethoxazole/Trimethoprim 1 tab PO BID #20 tab 01/16/18 [Bactrim DS 800 mg-160 mg] - Allergies Allergies/Adverse Reactions: Allergies Allergy/AdvReac Type Severity Reaction Status Date / Time levofloxacin [From Levaquin] Allergy convulsions Verified 01/16/18 14:24 Macrolide Antibiotics Allergy convulsions Verified 01/16/18 14:24 aspirin AdvReac bleedin Verified 01/16/18 14:24 Review of Systems ROS Statement: Except As Marked, All Systems Reviewed And Found Negative Constitutional: Positive for: Fever Genitourinary Female: Negative for: Dysuria, Frequency Physical Exam - Reviewed Nursing Documentation Reviewed: Yes Vital Signs Reviewed: Yes - Physical Exam Appears: Positive for: Non-toxic, No Acute Distress Head Exam: Positive for: ATRAUMATIC, NORMAL INSPECTION, NORMOCEPHALIC Skin: Positive for: Normal Color, Warm, DRY Eye Exam: Positive for: EOMI, Normal appearance, PERRL ENT: Positive for: Normal ENT Inspection Neck: Positive for: Normal, Painless ROM Cardiovascular/Chest: Positive for: Regular Rate, Rhythm Respiratory: Positive for: CNT, Normal Breath Sounds Gastrointestinal/Abdominal: Positive for: Normal Exam, Soft Back: Positive for: Normal Inspection. Negative for: L CVA Tenderness, R CVA Tenderness Extremity: Positive for: Normal ROM Neurologic/Psych: Positive for: Alert, Oriented - Laboratory Results Result Diagrams: 01/16/18 15:58 01/16/18 15:58 - ECG O2 Sat by Pulse Oximetry: 97 Disposition - Clinical Impression Clinical Impression: UTI (urinary tract infection) - Patient ED Disposition Is Patient to be Admitted: No Counseled Patient/Family Regarding: Studies Performed, Diagnosis, Need For Followup, Rx Given - Disposition Referrals: [facility] [Outside] Disposition: Routine/Home Disposition Time: 17:36 Condition: FAIR Prescriptions: Sulfamethoxazole/Trimethoprim [Bactrim DS 800 mg-160 mg] 1 tab PO BID #20 tab Instructions: Urinary Tract Infections in Adults Forms: [facility] [employer] (German)
[2018-01-16 16:14] LABS: BASO # 0.1 K/uL (0.0-0.2); BASO % 1.3 % (0.0-2.0); EOS # 0.6 K/uL (0.0-0.7); EOS % 6.8 % (0.0-4.0); LYMPH # 2.3 K/uL (1.0-4.3); LYMPH % 26.1 % (20.0-40.0); MEAN CELL VOLUME 89.2 fl (81.0-99.0); MEAN CORPUSCULAR HEMOGLOBIN 29.5 pg (27.0-31.0); MEAN CORPUSCULAR HGB CONC 33.1 g/dL (33.0-37.0); MEAN PLATELET VOLUME 8.9 fl (7.2-11.7); MONO # 0.9 K/uL (0.0-0.8); MONO % 10.4 % (0.0-10.0); NEUT # 4.9 K/uL (1.8-7.0); NEUT % 55.4 % (50.0-75.0); RBC 3.74 Mil/uL (3.80-5.20); RED CELL DISTRIBUTION WIDTH 14.1 % (11.5-14.5); WHITE BLOOD COUNT 8.8 K/uL (4.8-10.8)
[2018-01-16 16:24] LABS: ALBUMIN 3.6 g/dL (3.5-5.0); CALCIUM 8.8 mg/dL (8.4-10.2)
[2018-01-16] MEDS ORDERED: Sodium Chloride 0.9% 1,000 ML IV STA (17:17)
[2018-01-16 17:23] LABS: SQUAMOUS EPITHIAL < 1 /hpf (0-5); URINE BACTERIA MANY (<OCC); URINE BILIRUBIN NEGATIVE (NEGATIVE); URINE BLOOD NEGATIVE (NEGATIVE); URINE CLARITY CLOUDY (Clear); URINE COLOR YELLOW (YELLOW); URINE GLUCOSE (UA) NEG (Normal); URINE LEUKOCYTE ESTERASE LARGE Leu/uL (Negative); URINE PROTEIN 100 mg/dL (NEGATIVE); URINE UROBILINOGEN 0.2-1.0 mg/dL (0.2-1.0)
--- NOTE | 2018-01-16 17:26 | RAD ---
HISTORY: Cough COMPARISON: 12/03/2017. FINDINGS: LUNGS: The lungs are well inflated. There is mild pulmonary venous congestion. PLEURA: No significant pleural effusion identified, no pneumothorax apparent. CARDIOVASCULAR: There is mild cardiomegaly. Atherosclerotic aortic arch calcifications are present. OSSEOUS STRUCTURES: No significant abnormalities. VISUALIZED UPPER ABDOMEN: Normal. OTHER FINDINGS: None. IMPRESSION: No active pulmonary disease. Mild cardiomegaly and pulmonary venous congestion.
[2018-01-16 18:46] VITALS: BP 130/78; PULSE 78; RESP 19; TEMP 97
== END 2018-01-16 18:46 | disposition home or self-care (01) ==
LOC: H.ER 14:21
DX: N39.0 Urinary tract infection, site not specified (principal); E11.9 Type 2 diabetes mellitus without complications; E78.00 Pure hypercholesterolemia, unspecified; F32.9 Major depressive disorder, single episode, unspecified; F43.10 Post-traumatic stress disorder, unspecified; I10 Essential (primary) hypertension; Z79.4 Long term (current) use of insulin; Z85.841 Personal history of malignant neoplasm of brain; Z86.73 Personal history of transient ischemic attack (TIA), and cerebral infarction without residual deficits; J44.9 Chronic obstructive pulmonary disease, unspecified
CPT/HCPCS: 71045; 80053; 81003; 85025; 87040; 87086; 87181; 99283; J7040

== ENCOUNTER 2018-07-01 14:03 | Inpatient (IN) | payer MEDICARE, BC ==
[2018-07-01 14:03] VITALS: BMI 25.7
--- NOTE | 2018-07-01 15:43 | ED PDOC ---
HPI: General Adult Time Seen by Provider: 07/01/18 15:10 Chief Complaint (Nursing): Medical Clearance Chief Complaint (Provider): Medical Clearance History Per: Patient, EMS History/Exam Limitations: no limitations Onset/Duration Of Symptoms: Mins Additional Complaint(s): 73 year old female presents to the ED via EMS with spouse, who is also a patient. Patient has a caregiver 24 hours a day and 7 days a week but when director of social services went to the house to check up on her, no caregiver was present. Patient was seen having feces on her. Patient reports taking her medications today and states home swimming pool plasterer helper left at noon but she is unsure why. She has no complaints. Legal consent was called for from Jenniffer Maloney ([phone]). Verbal consent obtained for medical workup as needed and witnessed by Rashmi Stokes RN. PMD: none Past Medical History Reviewed: Historical Data, Nursing Documentation, Vital Signs Vital Signs: Last Vital Signs Temp 97.8 F 07/01/18 14:42 Pulse 55 L 07/01/18 14:42 Resp 18 07/01/18 14:42 BP 155/115 H 07/01/18 14:42 Pulse Ox 97 07/01/18 14:42 - Medical History PMH: Asthma, COPD, CVA, Depression, Diabetes, HTN, Hypercholesterolemia, Malignancy (Brain Ca s/p surgical resection), Post Traumatic Stress Disorder, Seizures Denies: HIV, Chronic Kidney Disease - Surgical History Surgical History: Cholecystectomy, Tonsillectomy - Family History Family History: States: Unknown Family Hx - Immunization History Hx Tetanus Toxoid Vaccination: No Hx Influenza Vaccination: No Hx Pneumococcal Vaccination: No - Home Medications Home Medications: Ambulatory Orders Medication Instructions Recorded Insulin Detemir [Levemir] 46 units SC HS vial 10/18/17 Atorvastatin [Lipitor] 80 mg PO HS tab 12/03/17 Clopidogrel [Plavix] 75 mg PO DAILY tab 12/03/17 Gabapentin [Neurontin] 100 mg PO Q12 cap 12/03/17 Divalproex [Depakote Sprinkles] 125 mg PO Q8 01/16/18 Levothyroxine [Synthroid] 100 mcg PO DAILY 07/01/18 Losartan [Cozaar] 50 mg PO DAILY 07/01/18 Metoprolol Succinate XL [Toprol XL] 25 mg PO DAILY 07/01/18 NIFEdipine ER [Procardia XL] 60 mg PO DAILY 07/01/18 Timolol 0.5% Ophth [Timoptic 0.5% 1 drop OD Q12 07/01/18 Ophth Soln] levETIRAcetam [Keppra] 500 mg PO Q12 07/01/18 traZODone [Desyrel] 100 mg PO HS 07/01/18 - Allergies Allergies/Adverse Reactions: Allergies Allergy/AdvReac Type Severity Reaction Status Date / Time levofloxacin [From Levaquin] Allergy convulsions Verified 07/01/18 14:29 Macrolide Antibiotics Allergy convulsions Verified 07/01/18 14:29 turkey Allergy RASH Verified 07/01/18 19:55 aspirin AdvReac bleedin Verified 07/01/18 14:29 Review of Systems ROS Statement: Except As Marked, All Systems Reviewed And Found Negative Physical Exam - Reviewed Nursing Documentation Reviewed: Yes Vital Signs Reviewed: Yes - Physical Exam Appears: Positive for: Non-toxic, No Acute Distress Head Exam: Positive for: ATRAUMATIC, NORMOCEPHALIC Skin: Positive for: Normal Color, Warm, Dry Eye Exam: Positive for: PERRL (Left pupil), Other (Right pupil fixed and dilated secondary to glaucoma) Neck: Positive for: Normal, Painless ROM Cardiovascular/Chest: Positive for: Regular Rate, Rhythm. Negative for: Murmur Respiratory: Positive for: Normal Breath Sounds. Negative for: Wheezing, Respiratory Distress Gastrointestinal/Abdominal: Positive for: Normal Exam, Soft. Negative for: Tenderness Extremity: Positive for: Normal ROM Neurologic/Psych: Positive for: Alert, Oriented (x3). Negative for: Motor/Sensory Deficits - Laboratory Results Result Diagrams: 07/01/18 16:17 07/01/18 17:39 - ECG O2 Sat by Pulse Oximetry: 97 (RA) Pulse Ox Interpretation: Normal Medical Decision Making Medical Decision Making: Initial Impression: Medical clearance Initial Plan: Scribe Attestation: Documented by Severino King acting as a scribe for Janna Woodall MD. Provider Scribe Attestation: All medical record entries made by the Scribe were at my direction and personally dictated by me. I have reviewed the chart and agree that the record accurately reflects my personal performance of the history, physical exam, medical decision making, and the department course for this patient. I have also personally directed, reviewed, and agree with the discharge instructions and disposition. Disposition - Clinical Impression Clinical Impression: Weakness, Dementia - Disposition Disposition: Transfer of Care Disposition Time: 00:00 Condition: STABLE Patient Signed Over To: Antonio Almonte Handoff Comments: Pending Social Work consult.
[2018-07-01 16:27] LABS: BASO # 0.1 K/uL (0.0-0.2); BASO % 1.4 % (0.0-2.0); EOS # 0.3 K/uL (0.0-0.7); EOS % 4.1 % (0.0-4.0); HEMOGLOBIN 12.3 g/dL (12.0-16.0); LYMPH # 2.1 K/uL (1.0-4.3); LYMPH % 25.2 % (20.0-40.0); MEAN CELL VOLUME 87.9 fl (81.0-99.0); MEAN CORPUSCULAR HEMOGLOBIN 29.7 pg (27.0-31.0); MEAN CORPUSCULAR HGB CONC 33.7 g/dL (33.0-37.0); MEAN PLATELET VOLUME 8.7 fl (7.2-11.7); MONO # 0.6 K/uL (0.0-0.8); MONO % 7.9 % (0.0-10.0); NEUT % 61.4 % (50.0-75.0); RBC 4.15 Mil/uL (3.80-5.20); RED CELL DISTRIBUTION WIDTH 13.3 % (11.5-14.5); WHITE BLOOD COUNT 8.2 K/uL (4.8-10.8)
[2018-07-01 16:35] LABS: ALBUMIN 3.6 g/dL (3.5-5.0); ALT/SGPT 28 U/L (9-52); AST/SGOT 26 U/L (14-36); BLOOD UREA NITROGEN 39 mg/dl (7-17); GFR NON-AFRICAN AMERICAN 40
--- NOTE | 2018-07-01 17:15 | RAD ---
Date of service: 07/01/2018 HISTORY: Medical clearance COMPARISON: 01/16/2018 FINDINGS: LUNGS: No active pulmonary disease. PLEURA: No significant pleural effusion identified, no pneumothorax apparent. CARDIOVASCULAR: Normal. OSSEOUS STRUCTURES: No significant abnormalities. VISUALIZED UPPER ABDOMEN: Normal. OTHER FINDINGS: None. IMPRESSION: No active disease.
[2018-07-01 19:35] LABS: SQUAMOUS EPITHIAL < 1 /hpf (0-5); URINE BACTERIA RARE (<OCC); URINE BILIRUBIN NEGATIVE (NEGATIVE); URINE BLOOD NEGATIVE (NEGATIVE); URINE CLARITY SLIGHTY-CLOUDY (Clear); URINE COLOR YELLOW (YELLOW); URINE GLUCOSE (UA) 150 mg/dL (Normal); URINE LEUKOCYTE ESTERASE NEG Leu/uL (Negative); URINE PROTEIN 100 mg/dL (NEGATIVE); URINE UROBILINOGEN 0.2-1.0 mg/dL (0.2-1.0)
[2018-07-01] MEDS ORDERED: Insulin Detemir 100 Units/ml Inj SC ONE (20:00)
--- NOTE | 2018-07-01 22:10 | CARD ---
APPROVED REPORT Date of service: 07/01/2018 EKG Measurement Heart [id number] <Conclusion> Sinus bradycardia Left ventricular hypertrophy with repolarization abnormality Abnormal ECG
--- NOTE | 2018-07-02 00:36 | ED PDOC ---
- Laboratory Results Result Diagrams: 07/01/18 16:17 07/01/18 17:39 - ECG O2 Sat by Pulse Oximetry: 99 (RA) Pulse Ox Interpretation: Normal Medical Decision Making Medical Decision Making: Time: --Patient signed out to this provider by Dr. Woodall, on social hold, pending disposition by APS, caseworkers and state assigned radio repairer. Patient is medically and psychiatrically cleared. Scribe Attestation: Documented by Lisa King, acting as a scribe for Antonio Almonte MD Provider Scribe Attestation: All medical record entries made by the Scribe were at my direction and personally dictated by me. I have reviewed the chart and agree that the record accurately reflects my personal performance of the history, physical exam, medi pedro decision making, and the department course for this patient. I have also personally directed, reviewed, and agree with the discharge instructions and disposition. Disposition - Clinical Impression Clinical Impression: Weakness, Dementia - POA Present On Arrival: None - Disposition Disposition: Transfer of Care Disposition Time: 07:00 Condition: STABLE
--- NOTE | 2018-07-02 07:49 | ED PDOC ---
- Laboratory Results Result Diagrams: 07/01/18 16:17 07/01/18 17:39 - ECG O2 Sat by Pulse Oximetry: 100 (RA) Pulse Ox Interpretation: Normal Medical Decision Making Medical Decision Making: Time: 0700 -- Patient endorsed to this provider by Dr. Almonte, pending disposition by APS, caseworkers and state assigned cath laboratory technician. Patient is medically and psychiatrically cleared. Scribe Attestation: Documented by Anamika Castillo, acting as a scribe Chelsi Wilson MD. Provider Scribe Attestation: All medical record entries made by the Scribe were at my direction and personally dictated by me. I have reviewed the chart and agree that the record accurately reflects my personal performance of the history, physical exam, me dical decision making, and the department course for this patient. I have also personally directed, reviewed, and agree with the discharge instructions and disposition. Disposition - Clinical Impression Clinical Impression: Weakness - POA Present On Arrival: None - Disposition Disposition: Transfer of Care Disposition Time: 14:59 Condition: FAIR Instructions: General (DC), Weakness (ED) Forms: [employer] ([place]) Patient Signed Over To: Janna Woodall
--- NOTE | 2018-07-02 15:41 | ED PDOC ---
- Laboratory Results Result Diagrams: 07/01/18 16:17 07/01/18 17:39 - ECG O2 Sat by Pulse Oximetry: 100 (RA) Pulse Ox Interpretation: Normal Medical Decision Making Medical Decision Making: Time: 1500 -- Patient endorsed to this provider by Dr. Wilson, pending disposition by APS, caseworkers and state assigned negative turner apprentice. Patient is medically and psychiatrically cleared. Scribe Attestation: Documented by Anamika Castillo, acting as a scribe Wali Woodall MD. Provider Scribe Attestation: All medical record entries made by the Scribe were at my direction and personally dictated by me. I have reviewed the chart and agree that the record accurately reflects my personal performance of the history, physical exam, medical decision making, and the department course for this patient. I have also personally directed, reviewed, and agree with the discharge instructions and disposition. Disposition - Clinical Impression Clinical Impression: Failure to thrive in adult - POA Present On Arrival: None - Disposition Disposition: Hospitalized as Observation Patient Disposition Time: 17:00 Condition: STABLE
[2018-07-02] MEDS ORDERED: Dextrose 50% SYRINGE Inj (50 ml) IV PRN (20:18)
[2018-07-02] MEDS ORDERED: Glucagon Recombinant 1 mg Inj IM PRN (20:18)
[2018-07-02] MEDS: Insulin Detemir 100 Units/ml Inj SC SCH (22:17)
[2018-07-02] MEDS: Insulin Lispro (humaLOG) 100 Units/ml Inj SC SCH (22:19)
--- NOTE | 2018-07-03 00:51 | CP.PCM.HP ---
History of Present Illness - History of Present Illness History of Present Illness: CC: Unkept and Failure to Thrive History of Present Illness: A 73 year old female presents to the ED via EMS with spouse, who is also a patient. Patient has a caregiver 24 hours a day and 7 days a week but when executive secretary social welfare went to the house to check up on her, no caregiver was present. Patient was seen having feces on her. Patient reports taking her medications today and states home hardwood floor installation helper left at noon but she is unsure why. She has no complaints. keep under Observation pending disposition by APS, caseworkers and state assigned accountant controller. Patient is medically and psychiatrically cleared. Present on Admission - Present on Admission Any Indicators Present on Admission: No Past Patient History - Tetanus Immunizations Tetanus Immunization: Unknown - Past Medical History & Family History Past Medical History?: Yes Past Family History: Reviewed and not pertinent - Past Social History Smoking Status: Former Smoker - CARDIAC Hx Cardiac Disorders: Yes - PULMONARY Hx Respiratory Disorders: Yes - NEUROLOGICAL Hx Neurological Disorder: Yes - HEENT Hx HEENT Problems: Yes Hx Glaucoma: Yes (right eye) - RENAL Hx Chronic Kidney Disease: No - ENDOCRINE/METABOLIC Hx Endocrine Disorders: Yes - HEMATOLOGICAL/ONCOLOGICAL Hx Cancer: No Hx Human Immunodeficiency Virus (HIV): No - INTEGUMENTARY Hx Dermatological Problems: No - MUSCULOSKELETAL/RHEUMATOLOGICAL Hx Falls: No - GASTROINTESTINAL Hx Gastrointestinal Disorders: No - GENITOURINARY/GYNECOLOGICAL Hx Sexually Transmitted Disorders: No - PSYCHIATRIC Hx Psychophysiologic Disorder: Yes - SURGICAL HISTORY Hx Cholecystectomy: Yes Hx Tonsillectomy: Yes - ANESTHESIA Hx Anesthesia: Yes Hx Anesthesia Reactions: No Meds Allergies/Adverse Reactions: Allergies Allergy/AdvReac Type Severity Reaction Status Date / Time levofloxacin [From Levaquin] Allergy convulsions Verified 07/01/18 14:29 Macrolide Antibiotics Allergy convulsions Verified 07/01/18 14:29 turkey Allergy RASH Verified 07/01/18 19:55 aspirin AdvReac bleedin Verified 07/01/18 14:29 Results - Vital Signs Recent Vital Signs: Last Vital Signs Temp 98.2 F 07/02/18 22:22 Pulse 77 07/02/18 22:22 Resp 19 07/02/18 22:22 BP 138/69 07/02/18 22:22 Pulse Ox 98 07/02/18 22:22 - Labs Result Diagrams: 07/01/18 16:17 07/01/18 17:39 Labs: Laboratory Results - last 24 hr 07/02/18 07/02/18 07/02/18 08:00 16:58 22:13 POC Glucose (mg/dL) 84 78 125 H - Imaging and Cardiology Chest x-ray Status: Report reviewed by me Additional comment: Date of service: 07/01/2018 HISTORY: Medical clearance COMPARISON: 01/16/2018 FINDINGS: LUNGS: No active pulmonary disease. PLEURA: No significant pleural effusion identified, no pneumothorax apparent. CARDIOVASCULAR: Normal. OSSEOUS STRUCTURES: No significant abnormalities. VISUALIZED UPPER ABDOMEN: Normal. OTHER FINDINGS: None. IMPRESSION: No active disease. Assessment & Plan (1) CAD (coronary artery disease) Status: Chronic (2) Diabetes mellitus Status: Chronic (3) Headache Status: Acute Priority: Medium (4) Hyperlipidemia Status: Acute (5) Seizure disorder Status: Acute (6) Hypothyroidism Status: Chronic Priority: Low - Assessment and Plan (Free Text) Plan: Continue Home Medication Continue 1 to 1 for safety APS, & SW on Board
[2018-07-03] MEDS: Divalproex 125 mg Sprinkle Capsule PO SCH ×3 (01:23→17:26)
[2018-07-03] MEDS: Levothyroxine 100 MCG TAB PO SCH (06:07)
[2018-07-03] MEDS: Insulin Lispro (humaLOG) 100 Units/ml Inj SC SCH ×4 (06:45→21:40)
[2018-07-03] MEDS: NIFEdipine 60 mg ER Tab PO SCH (08:52)
[2018-07-03] MEDS: Metoprolol Succinate 25 mg XL Tab PO SCH (08:54)
[2018-07-03] MEDS: Enoxaparin 30 mg Syringe SC SCH (08:55)
--- NOTE | 2018-07-03 14:12 | CP.PCM.CON ---
History of Present Illness - History of Present Illness History of Present Illness: A 73 year old female presents to the ED via EMS with spouse, who is also a patient. Patient has a caregiver 24 hours a day and 7 days a week but when social studies teacher went to the house to check up on her, no caregiver was present. Patient was seen having feces on her. pt on evaluation, alert awake oriented x3 reported feeling fine denied changes in sleep or appetite, denied symptoms of depression, denied suicidal or homicidal ideation, denied perceptual disturbances, alert and awake reported seeing a therapist for many years for PTSD denied any previous psychiatric hospitalization, denied being on psychotropic medications Past Patient History - Tetanus Immunizations Tetanus Immunization: Unknown - Past Medical History & Family History Past Medical History?: Yes Past Family History: Reviewed and not pertinent - Past Social History Smoking Status: Former Smoker - CARDIAC Hx Cardiac Disorders: Yes - PULMONARY Hx Respiratory Disorders: Yes - NEUROLOGICAL Hx Neurological Disorder: Yes - HEENT Hx HEENT Problems: Yes Hx Glaucoma: Yes (right eye) - RENAL Hx Chronic Kidney Disease: No - ENDOCRINE/METABOLIC Hx Endocrine Disorders: Yes - HEMATOLOGICAL/ONCOLOGICAL Hx Cancer: No Hx Human Immunodeficiency Virus (HIV): No - INTEGUMENTARY Hx Dermatological Problems: No - MUSCULOSKELETAL/RHEUMATOLOGICAL Hx Falls: No - GASTROINTESTINAL Hx Gastrointestinal Disorders: No - GENITOURINARY/GYNECOLOGICAL Hx Sexually Transmitted Disorders: No - PSYCHIATRIC Hx Psychophysiologic Disorder: Yes - SURGICAL HISTORY Hx Cholecystectomy: Yes Hx Tonsillectomy: Yes - ANESTHESIA Hx Anesthesia: Yes Hx Anesthesia Reactions: No Meds Allergies/Adverse Reactions: Allergies Allergy/AdvReac Type Severity Reaction Status Date / Time levofloxacin [From Levaquin] Allergy convulsions Verified 07/01/18 14:29 Macrolide Antibiotics Allergy convulsions Verified 07/01/18 14:29 turkey Allergy RASH Verified 07/01/18 19:55 aspirin AdvReac bleedin Verified 07/01/18 14:29 - Medications Medications: Current Medications Atorvastatin Calcium (Lipitor) 80 mg PO HS [facility] Last Admin: 07/02/18 22:15 Dose: 80 mg Clopidogrel Bisulfate (Plavix) 75 mg PO DAILY [facility] Last Admin: 07/03/18 08:49 Dose: 75 mg Dextrose (Dextrose 50% Inj) 0 ml IV STAT PRN; Protocol PRN Reason: Hypoglycemia Protocol Dextrose (Glutose 15) 0 gm PO ONCE PRN; Protocol PRN Reason: Hypoglycemia Protocol Divalproex Sodium (Depakote Sprinkles) 125 mg PO Q8 [facility] Last Admin: 07/03/18 08:49 Dose: 125 mg Enoxaparin Sodium (Lovenox) 30 mg SC DAILY [facility]; Protocol Last Admin: 07/03/18 08:55 Dose: 30 mg Gabapentin (Neurontin) 100 mg PO Q12 [facility] Last Admin: 07/03/18 08:49 Dose: 100 mg Glucagon (Glucagen Diagnostic Kit) 0 mg IM STAT PRN; Protocol PRN Reason: Hypoglycemia Protocol Insulin Detemir (Levemir) 46 units SC [facility] Last Admin: 07/02/18 22:17 Dose: 46 units Insulin Human Lispro (Humalog) 0 units SC [facility]; Protocol Last Admin: 07/03/18 12:51 Dose: 2 u Levetiracetam (Keppra) 500 mg PO Q12 [facility] Last Admin: 07/03/18 08:55 Dose: 500 mg Levothyroxine Sodium (Synthroid) 100 mcg PO DAILY@0630 [facility] Last Admin: 07/03/18 06:07 Dose: 100 mcg Lorazepam (Ativan) 1 mg PO Q8 PRN PRN Reason: Agitation Lorazepam (Ativan) 1 mg IM Q8 PRN PRN Reason: Agitation Losartan Potassium (Cozaar) 50 mg PO DAILY [facility] Last Admin: 07/03/18 08:53 Dose: 50 mg Metoprolol Succinate (Toprol Xl) 25 mg PO DAILY [facility] Last Admin: 07/03/18 08:54 Dose: 25 mg Nifedipine (Procardia Xl) 60 mg PO DAILY [facility] Last Admin: 07/03/18 08:52 Dose: 60 mg Timolol Maleate (Timoptic 0.5% Oph Soln) 1 drop OD Q12 [facility] Last Admin: 07/03/18 08:51 Dose: 1 drop Trazodone HCl (Desyrel) 100 mg PO HS [facility] Last Admin: 07/02/18 22:17 Dose: 100 mg Physical Exam - Psychiatric Exam Additional comments: pt on evaluation, cooperative , speech normal , thought form coherent, mood sad constricted affect, pt denied any current suicidal or homicidal ideations denied perceptual disturbances, alert awake oriented to person and place, fair insight and judgement Results - Vital Signs Recent Vital Signs: Last Vital Signs Temp 98.2 F 07/03/18 08:11 Pulse 55 L 07/03/18 08:11 Resp 19 07/03/18 08:11 BP 152/69 H 07/03/18 08:54 Pulse Ox 98 07/03/18 08:11 - Labs Result Diagrams: 07/01/18 16:17 07/01/18 17:39 Labs: Laboratory Results - last 24 hr 07/02/18 07/02/18 07/03/18 16:58 22:13 06:42 POC Glucose (mg/dL) 78 125 H 103 07/03/18 10:39 POC Glucose (mg/dL) 208 H Assessment & Plan - Assessment and Plan (Free Text) Assessment: PTSD by history Plan: continue with trazodone pt psychiatricaly cleared for discharge upon medical clearance after APS evaluation of current living situation
[2018-07-03] MEDS: Insulin Detemir 100 Units/ml Inj SC SCH (21:39)
--- NOTE | 2018-07-03 23:45 | CP.PCM.PN ---
Subjective - Date & Time of Evaluation Date of Evaluation: 07/03/18 Time of Evaluation: 14:20 - Subjective Subjective: No New complaint. Patient has guardian, and waiting for safe discharge, Patient's Guardian, APS and SW working on the Living arrangement. Objective - Vital Signs/Intake and Output Vital Signs (last 24 hours): Temp Pulse Resp BP Pulse Ox 98.3 F 70 18 120/62 96 07/03/18 16:20 07/03/18 16:20 07/03/18 16:20 07/03/18 16:20 07/03/18 16:20 - Medications Medications: Current Medications Atorvastatin Calcium (Lipitor) 80 mg PO HS [facility] Last Admin: 07/03/18 21:40 Dose: 80 mg Clopidogrel Bisulfate (Plavix) 75 mg PO DAILY [facility] Last Admin: 07/03/18 08:49 Dose: 75 mg Dextrose (Dextrose 50% Inj) 0 ml IV STAT PRN; Protocol PRN Reason: Hypoglycemia Protocol Dextrose (Glutose 15) 0 gm PO ONCE PRN; Protocol PRN Reason: Hypoglycemia Protocol Divalproex Sodium (Depakote Sprinkles) 125 mg PO Q8 [facility] Last Admin: 07/03/18 17:26 Dose: 125 mg Enoxaparin Sodium (Lovenox) 30 mg SC DAILY [facility]; Protocol Last Admin: 07/03/18 08:55 Dose: 30 mg Gabapentin (Neurontin) 100 mg PO Q12 [facility] Last Admin: 07/03/18 21:40 Dose: 100 mg Glucagon (Glucagen Diagnostic Kit) 0 mg IM STAT PRN; Protocol PRN Reason: Hypoglycemia Protocol Insulin Detemir (Levemir) 46 units SC [facility] Last Admin: 07/03/18 21:39 Dose: 46 units Insulin Human Lispro (Humalog) [address] [facility]; Protocol Last Admin: 07/03/18 21:40 Dose: Not Given Levetiracetam (Keppra) 500 mg PO Q12 [facility] Last Admin: 07/03/18 21:40 Dose: 500 mg Levothyroxine Sodium (Synthroid) 100 mcg PO DAILY@0630 [facility] Last Admin: 07/03/18 06:07 Dose: 100 mcg Lorazepam (Ativan) 1 mg PO Q8 PRN PRN Reason: Agitation Lorazepam (Ativan) 1 mg IM Q8 PRN PRN Reason: Agitation Losartan Potassium (Cozaar) 50 mg PO DAILY [facility] Last Admin: 07/03/18 08:53 Dose: 50 mg Metoprolol Succinate (Toprol Xl) 25 mg PO DAILY [facility] Last Admin: 07/03/18 08:54 Dose: 25 mg Nifedipine (Procardia Xl) 60 mg PO DAILY [facility] Last Admin: 07/03/18 08:52 Dose: 60 mg Timolol Maleate (Timoptic 0.5% Oph Soln) 1 drop OD Q12 [facility] Last Admin: 07/03/18 21:41 Dose: 1 drop Trazodone HCl (Desyrel) 100 mg PO HS [facility] Last Admin: 07/03/18 21:41 Dose: 100 mg - Labs Labs: 07/01/18 16:17 07/01/18 17:39 Assessment and Plan (1) CAD (coronary artery disease) Status: Chronic (2) Diabetes mellitus Status: Resolved (3) Headache Status: Acute (4) Hyperlipidemia Status: Acute (5) Seizure disorder Status: Acute (6) Hypothyroidism Status: Chronic
[2018-07-04] MEDS: Divalproex 125 mg Sprinkle Capsule PO SCH ×3 (01:59→17:45)
[2018-07-04] MEDS: Levothyroxine 100 MCG TAB PO SCH (05:52)
[2018-07-04] MEDS: Insulin Lispro (humaLOG) 100 Units/ml Inj SC SCH ×4 (06:32→21:38)
[2018-07-04] MEDS: Enoxaparin 30 mg Syringe SC SCH ×2 (09:51→10:06)
[2018-07-04] MEDS: NIFEdipine 60 mg ER Tab PO SCH (09:54)
[2018-07-04] MEDS: Metoprolol Succinate 25 mg XL Tab PO SCH (09:55)
[2018-07-04] MEDS: Insulin Detemir 100 Units/ml Inj SC SCH (21:40)
[2018-07-05] MEDS: Divalproex 125 mg Sprinkle Capsule PO SCH ×3 (00:45→17:49)
[2018-07-05] MEDS: Levothyroxine 100 MCG TAB PO SCH (06:06)
[2018-07-05] MEDS: Insulin Lispro (humaLOG) 100 Units/ml Inj SC SCH ×4 (06:43→22:51)
[2018-07-05] MEDS: Enoxaparin 30 mg Syringe SC SCH ×2 (09:46→09:57)
--- NOTE | 2018-07-05 12:07 | CP.PCM.PN ---
Subjective - Date & Time of Evaluation Date of Evaluation: 07/04/18 Time of Evaluation: 16:10 - Subjective Subjective: No New complaint. Patient has guardian, and waiting for safe discharge, Patient's Guardian, APS and SW working on the Living arrangement. Objective - Vital Signs/Intake and Output Vital Signs (last 24 hours): Temp Pulse Resp BP Pulse Ox 97.4 F L 54 L 18 119/53 L 98 07/05/18 08:37 07/05/18 08:37 07/05/18 08:37 07/05/18 08:37 07/05/18 08:37 - Medications Medications: Current Medications Atorvastatin Calcium (Lipitor) 80 mg PO HS [facility] Last Admin: 07/04/18 21:30 Dose: 80 mg Clopidogrel Bisulfate (Plavix) 75 mg PO DAILY [facility] Last Admin: 07/05/18 09:47 Dose: 75 mg Dextrose (Dextrose 50% Inj) 0 ml IV STAT PRN; Protocol PRN Reason: Hypoglycemia Protocol Dextrose (Glutose 15) 0 gm PO ONCE PRN; Protocol PRN Reason: Hypoglycemia Protocol Divalproex Sodium (Depakote Sprinkles) 125 mg PO Q8 [facility] Last Admin: 07/05/18 09:46 Dose: 125 mg Enoxaparin Sodium (Lovenox) 30 mg SC DAILY [facility]; Protocol Last Admin: 07/05/18 09:57 Dose: Not Given Gabapentin (Neurontin) 100 mg PO Q12 [facility] Last Admin: 07/05/18 09:47 Dose: 100 mg Glucagon (Glucagen Diagnostic Kit) 0 mg IM STAT PRN; Protocol PRN Reason: Hypoglycemia Protocol Insulin Detemir (Levemir) 46 units SC [facility] Last Admin: 07/04/18 21:40 Dose: 46 units Insulin Human Lispro (Humalog) 0 units SC [facility]; Protocol Last Admin: 07/05/18 06:43 Dose: Not Given Levetiracetam (Keppra) 500 mg PO Q12 [facility] Last Admin: 07/05/18 09:46 Dose: 500 mg Levothyroxine Sodium (Synthroid) 100 mcg PO DAILY@0630 [facility] Last Admin: 07/05/18 06:06 Dose: 100 mcg Lorazepam (Ativan) 1 mg PO Q8 PRN PRN Reason: Agitation Lorazepam (Ativan) 1 mg IM Q8 PRN PRN Reason: Agitation Losartan Potassium (Cozaar) 50 mg PO DAILY [facility] Last Admin: 07/04/18 09:50 Dose: 50 mg Metoprolol Succinate (Toprol Xl) 25 mg PO DAILY [facility] Last Admin: 07/04/18 09:55 Dose: 25 mg Nifedipine (Procardia Xl) 60 mg PO DAILY [facility] Last Admin: 07/04/18 09:54 Dose: 60 mg Timolol Maleate (Timoptic 0.5% Oph Soln) 1 drop OD Q12 [facility] Last Admin: 07/05/18 09:47 Dose: 1 drop Trazodone HCl (Desyrel) 100 mg PO HS [facility] Last Admin: 07/04/18 21:31 Dose: 100 mg - Labs Labs: 07/01/18 16:17 07/01/18 17:39 Assessment and Plan (1) CAD (coronary artery disease) Status: Chronic (2) Diabetes mellitus Status: Resolved (3) Headache Status: Acute (4) Hyperlipidemia Status: Acute (5) Seizure disorder Status: Acute (6) Hypothyroidism Status: Chronic
[2018-07-05] MEDS: NIFEdipine 60 mg ER Tab PO SCH (13:00)
[2018-07-05] MEDS: Metoprolol Succinate 25 mg XL Tab PO SCH (13:00)
[2018-07-05] MEDS ORDERED: Enalaprilat 2.5 MG/2 ML IVP ONE (20:17)
[2018-07-05] MEDS: Insulin Detemir 100 Units/ml Inj SC SCH (22:51)
[2018-07-06] MEDS: Divalproex 125 mg Sprinkle Capsule PO SCH ×3 (00:37→16:46)
[2018-07-06] MEDS: Levothyroxine 100 MCG TAB PO SCH (06:32)
[2018-07-06] MEDS: Insulin Lispro (humaLOG) 100 Units/ml Inj SC SCH ×4 (09:39→22:00)
[2018-07-06] MEDS: Enoxaparin 30 mg Syringe SC SCH (09:40)
[2018-07-06] MEDS: Metoprolol Succinate 25 mg XL Tab PO SCH (09:41)
[2018-07-06] MEDS: NIFEdipine 60 mg ER Tab PO SCH (09:41)
[2018-07-06] MEDS: Insulin Detemir 100 Units/ml Inj SC SCH (22:30)
--- NOTE | 2018-07-07 00:10 | CP.PCM.PN ---
Subjective - Date & Time of Evaluation Date of Evaluation: 07/05/18 Time of Evaluation: 18:30 - Subjective Subjective: No New complaint. Patient has guardian, and waiting for safe discharge, Patient's Guardian, APS and SW working on the Living arrangement. Objective - Vital Signs/Intake and Output Vital Signs (last 24 hours): Temp Pulse Resp BP Pulse Ox 97.9 F 52 L 20 131/71 96 07/06/18 16:40 07/06/18 16:40 07/06/18 16:40 07/06/18 16:40 07/06/18 16:40 - Medications Medications: Current Medications Atorvastatin Calcium (Lipitor) 80 mg PO HS [facility] Last Admin: 07/06/18 21:47 Dose: 80 mg Clopidogrel Bisulfate (Plavix) 75 mg PO DAILY [facility] Last Admin: 07/06/18 09:40 Dose: 75 mg Dextrose (Dextrose 50% Inj) 0 ml IV STAT PRN; Protocol PRN Reason: Hypoglycemia Protocol Dextrose (Glutose 15) 0 gm PO ONCE PRN; Protocol PRN Reason: Hypoglycemia Protocol Divalproex Sodium (Depakote Sprinkles) 125 mg PO Q8 [facility] Last Admin: 07/06/18 16:46 Dose: 125 mg Enoxaparin Sodium (Lovenox) 30 mg SC DAILY [facility]; Protocol Last Admin: 07/06/18 09:40 Dose: Not Given Gabapentin (Neurontin) 100 mg PO Q12 [facility] Last Admin: 07/06/18 21:45 Dose: 100 mg Glucagon (Glucagen Diagnostic Kit) 0 mg IM STAT PRN; Protocol PRN Reason: Hypoglycemia Protocol Insulin Detemir (Levemir) 46 units SC [facility] Last Admin: 07/06/18 22:30 Dose: 46 units Insulin Human Lispro (Humalog) 0 units SC [facility]; Protocol Last Admin: 07/06/18 16:47 Dose: Not Given Levetiracetam (Keppra) 500 mg PO Q12 [facility] Last Admin: 07/06/18 21:45 Dose: 500 mg Levothyroxine Sodium (Synthroid) 100 mcg PO DAILY@0630 [facility] Last Admin: 07/06/18 06:32 Dose: 100 mcg Lorazepam (Ativan) 1 mg PO Q8 PRN PRN Reason: Agitation Lorazepam (Ativan) 1 mg IM Q8 PRN PRN Reason: Agitation Losartan Potassium (Cozaar) 50 mg PO DAILY [facility] Last Admin: 07/06/18 09:38 Dose: Not Given Metoprolol Succinate (Toprol Xl) 25 mg PO DAILY [facility] Last Admin: 07/06/18 09:41 Dose: Not Given Nifedipine (Procardia Xl) 60 mg PO DAILY [facility] Last Admin: 07/06/18 09:41 Dose: Not Given Timolol Maleate (Timoptic 0.5% Oph Soln) 1 drop OD Q12 [facility] Last Admin: 07/06/18 21:45 Dose: 1 drop Trazodone HCl (Desyrel) 100 mg PO HS [facility] Last Admin: 07/06/18 21:47 Dose: 100 mg - Labs Labs: 07/01/18 16:17 07/01/18 17:39 Assessment and Plan (1) CAD (coronary artery disease) Status: Chronic (2) Diabetes mellitus Status: Resolved (3) Headache Status: Acute (4) Hyperlipidemia Status: Acute (5) Seizure disorder Status: Acute (6) Hypothyroidism Status: Chronic
--- NOTE | 2018-07-07 00:11 | CP.PCM.PN ---
Subjective - Date & Time of Evaluation Date of Evaluation: 07/06/18 Time of Evaluation: 14:05 - Subjective Subjective: No New complaint. Patient has guardian, and waiting for safe discharge, Patient's Guardian, APS and SW working on the Living arrangement. Objective - Vital Signs/Intake and Output Vital Signs (last 24 hours): Temp Pulse Resp BP Pulse Ox 97.9 F 52 L 20 131/71 96 07/06/18 16:40 07/06/18 16:40 07/06/18 16:40 07/06/18 16:40 07/06/18 16:40 - Medications Medications: Current Medications Atorvastatin Calcium (Lipitor) 80 mg PO HS [facility] Last Admin: 07/06/18 21:47 Dose: 80 mg Clopidogrel Bisulfate (Plavix) 75 mg PO DAILY [facility] Last Admin: 07/06/18 09:40 Dose: 75 mg Dextrose (Dextrose 50% Inj) 0 ml IV STAT PRN; Protocol PRN Reason: Hypoglycemia Protocol Dextrose (Glutose 15) 0 gm PO ONCE PRN; Protocol PRN Reason: Hypoglycemia Protocol Divalproex Sodium (Depakote Sprinkles) 125 mg PO Q8 [facility] Last Admin: 07/06/18 16:46 Dose: 125 mg Enoxaparin Sodium (Lovenox) 30 mg SC DAILY [facility]; Protocol Last Admin: 07/06/18 09:40 Dose: Not Given Gabapentin (Neurontin) 100 mg PO Q12 [facility] Last Admin: 07/06/18 21:45 Dose: 100 mg Glucagon (Glucagen Diagnostic Kit) 0 mg IM STAT PRN; Protocol PRN Reason: Hypoglycemia Protocol Insulin Detemir (Levemir) 46 units SC [facility] Last Admin: 07/06/18 22:30 Dose: 46 units Insulin Human Lispro (Humalog) 0 units SC [facility]; Protocol Last Admin: 07/06/18 16:47 Dose: Not Given Levetiracetam (Keppra) 500 mg PO Q12 [facility] Last Admin: 07/06/18 21:45 Dose: 500 mg Levothyroxine Sodium (Synthroid) 100 mcg PO DAILY@0630 [facility] Last Admin: 07/06/18 06:32 Dose: 100 mcg Lorazepam (Ativan) 1 mg PO Q8 PRN PRN Reason: Agitation Lorazepam (Ativan) 1 mg IM Q8 PRN PRN Reason: Agitation Losartan Potassium (Cozaar) 50 mg PO DAILY [facility] Last Admin: 07/06/18 09:38 Dose: Not Given Metoprolol Succinate (Toprol Xl) 25 mg PO DAILY [facility] Last Admin: 07/06/18 09:41 Dose: Not Given Nifedipine (Procardia Xl) 60 mg PO DAILY [facility] Last Admin: 07/06/18 09:41 Dose: Not Given Timolol Maleate (Timoptic 0.5% Oph Soln) 1 drop OD Q12 [facility] Last Admin: 07/06/18 21:45 Dose: 1 drop Trazodone HCl (Desyrel) 100 mg PO HS [facility] Last Admin: 07/06/18 21:47 Dose: 100 mg - Labs Labs: 07/01/18 16:17 07/01/18 17:39 Assessment and Plan (1) CAD (coronary artery disease) Status: Chronic (2) Diabetes mellitus Status: Resolved (3) Headache Status: Acute (4) Hyperlipidemia Status: Acute (5) Seizure disorder Status: Acute (6) Hypothyroidism Status: Chronic
[2018-07-07] MEDS: Divalproex 125 mg Sprinkle Capsule PO SCH ×3 (01:12→16:42)
[2018-07-07] MEDS: Levothyroxine 100 MCG TAB PO SCH (06:01)
[2018-07-07] MEDS: Enoxaparin 30 mg Syringe SC SCH (10:59)
[2018-07-07] MEDS: Insulin Lispro (humaLOG) 100 Units/ml Inj SC SCH ×4 (10:59→23:24)
[2018-07-07] MEDS: NIFEdipine 60 mg ER Tab PO SCH (11:03)
--- NOTE | 2018-07-07 14:36 | PQF ---
PROVIDER RESPONSE TEXT: Obesity BMI 30.4 REVIEWER QUERY TEXT: Condition Necessitating Admission Please clarify the medical conditions and the associated clinical risk factors necessitating admissio n. ER notes: Weakness, then social hold Orders: Failure to thrive Animal Groomer: BMI 30.4 ( Obesity I) The patient's Clinical Indicators include: Patient has a caregiver 24 hours a day and 7 days a week but when neonatal social worker went to the house to check up on her, no caregiver was present. Patient was seen having feces on her. Query created by: Kary Roper on 07/05/2018 9:10 AM Electronically signed by: Fab Rosales MD 07/07/2018 2:33 PM
[2018-07-07] MEDS: Insulin Detemir 100 Units/ml Inj SC SCH (23:24)
--- NOTE | 2018-07-07 23:39 | CP.PCM.PN ---
Subjective - Date & Time of Evaluation Date of Evaluation: 07/07/18 Time of Evaluation: 13:35 - Subjective Subjective: No New complaint. Patient has guardian, and waiting for safe discharge, Patient's Guardian, APS and SW working on the Living arrangement. Objective - Vital Signs/Intake and Output Vital Signs (last 24 hours): Temp Pulse Resp BP Pulse Ox 97.2 F L 51 L 20 178/86 H 95 07/07/18 16:05 07/07/18 16:05 07/07/18 16:05 07/07/18 16:05 07/07/18 16:05 - Medications Medications: Current Medications Atorvastatin Calcium (Lipitor) 80 mg PO HS [facility] Last Admin: 07/07/18 22:40 Dose: Not Given Clopidogrel Bisulfate (Plavix) 75 mg PO DAILY [facility] Last Admin: 07/07/18 11:02 Dose: 75 mg Dextrose (Dextrose 50% Inj) 0 ml IV STAT PRN; Protocol PRN Reason: Hypoglycemia Protocol Dextrose (Glutose 15) 0 gm PO ONCE PRN; Protocol PRN Reason: Hypoglycemia Protocol Divalproex Sodium (Depakote Sprinkles) 125 mg PO Q8 [facility] Last Admin: 07/07/18 16:42 Dose: 125 mg Enoxaparin Sodium (Lovenox) 30 mg SC DAILY [facility]; Protocol Last Admin: 07/07/18 10:59 Dose: Not Given Gabapentin (Neurontin) 100 mg PO Q12 [facility] Last Admin: 07/07/18 21:32 Dose: 100 mg Glucagon (Glucagen Diagnostic Kit) 0 mg IM STAT PRN; Protocol PRN Reason: Hypoglycemia Protocol Insulin Detemir (Levemir) 46 units SC [facility] Last Admin: 07/07/18 23:24 Dose: Not Given Insulin Human Lispro (Humalog) 0 units SC [facility]; Protocol Last Admin: 07/07/18 23:24 Dose: Not Given Levetiracetam (Keppra) 500 mg PO Q12 [facility] Last Admin: 07/07/18 21:32 Dose: 500 mg Levothyroxine Sodium (Synthroid) 100 mcg PO DAILY@0630 [facility] Last Admin: 07/07/18 06:01 Dose: 100 mcg Lorazepam (Ativan) 1 mg PO Q8 PRN PRN Reason: Agitation Lorazepam (Ativan) 1 mg IM Q8 PRN PRN Reason: Agitation Losartan Potassium (Cozaar) 50 mg PO DAILY [facility] Last Admin: 07/07/18 11:02 Dose: Not Given Metoprolol Succinate (Toprol Xl) 25 mg PO DAILY [facility] Last Admin: 07/06/18 09:41 Dose: Not Given Nifedipine (Procardia Xl) 60 mg PO DAILY [facility] Last Admin: 07/07/18 11:03 Dose: Not Given Timolol Maleate (Timoptic 0.5% Ophth Soln) 1 drop OD Q12 [facility] Last Admin: 07/07/18 22:40 Dose: Not Given Trazodone HCl (Desyrel) 100 mg PO HS [facility] Last Admin: 07/07/18 22:39 Dose: Not Given - Labs Labs: 07/01/18 16:17 07/01/18 17:39 Assessment and Plan (1) CAD (coronary artery disease) Status: Chronic (2) Diabetes mellitus Status: Resolved (3) Headache Status: Acute (4) Hyperlipidemia Status: Acute (5) Seizure disorder Status: Acute (6) Hypothyroidism Status: Chronic
[2018-07-08] MEDS: Divalproex 125 mg Sprinkle Capsule PO SCH ×3 (00:55→16:49)
[2018-07-08] MEDS: Levothyroxine 100 MCG TAB PO SCH (06:06)
[2018-07-08] MEDS: Enoxaparin 30 mg Syringe SC SCH (09:20)
[2018-07-08] MEDS: Insulin Lispro (humaLOG) 100 Units/ml Inj SC SCH ×4 (09:20→21:56)
[2018-07-08] MEDS: NIFEdipine 60 mg ER Tab PO SCH (09:24)
[2018-07-08] MEDS: Insulin Detemir 100 Units/ml Inj SC SCH (21:56)
[2018-07-09] MEDS: Divalproex 125 mg Sprinkle Capsule PO SCH ×3 (01:09→17:11)
[2018-07-09] MEDS: Levothyroxine 100 MCG TAB PO SCH (07:14)
[2018-07-09] MEDS: Insulin Lispro (humaLOG) 100 Units/ml Inj SC SCH ×4 (08:12→21:54)
[2018-07-09] MEDS: Enoxaparin 30 mg Syringe SC SCH (09:35)
[2018-07-09] MEDS: NIFEdipine 60 mg ER Tab PO SCH (09:36)
[2018-07-09] MEDS: Insulin Detemir 100 Units/ml Inj SC SCH (23:02)
[2018-07-10] MEDS: Divalproex 125 mg Sprinkle Capsule PO SCH ×3 (01:40→17:51)
[2018-07-10] MEDS: Levothyroxine 100 MCG TAB PO SCH (06:03)
[2018-07-10] MEDS: Insulin Lispro (humaLOG) 100 Units/ml Inj SC SCH ×4 (07:53→21:43)
[2018-07-10] MEDS: NIFEdipine 60 mg ER Tab PO SCH (09:26)
[2018-07-10] MEDS: Enoxaparin 30 mg Syringe SC SCH (09:27)
--- NOTE | 2018-07-10 12:15 | CP.PCM.PN ---
Subjective - Date & Time of Evaluation Date of Evaluation: 07/09/18 Time of Evaluation: 18:15 - Subjective Subjective: No New complaint. Patient has guardian, and waiting for safe discharge, Patient's Guardian, APS and SW working on the Living arrangement. Objective - Vital Signs/Intake and Output Vital Signs (last 24 hours): Temp Pulse Resp BP Pulse Ox 98.1 F 57 L 20 155/52 H 97 07/10/18 08:25 07/10/18 08:25 07/10/18 08:25 07/10/18 08:25 07/10/18 08:25 - Medications Medications: Current Medications Atorvastatin Calcium (Lipitor) 80 mg PO [facility] Last Admin: 07/09/18 21:54 Dose: 80 mg Clopidogrel Bisulfate (Plavix) 75 mg PO DAILY [facility] Last Admin: 07/10/18 09:27 Dose: 75 mg Dextrose (Dextrose 50% Inj) 0 ml IV STAT PRN; Protocol PRN Reason: Hypoglycemia Protocol Dextrose (Glutose 15) 0 gm PO ONCE PRN; Protocol PRN Reason: Hypoglycemia Protocol Divalproex Sodium (Depakote Sprinkles) 125 mg PO Q8 [facility] Last Admin: 07/10/18 09:26 Dose: 125 mg Gabapentin (Neurontin) 100 mg PO Q12 [facility] Last Admin: 07/10/18 09:26 Dose: 100 mg Glucagon (Glucagen Diagnostic Kit) 0 mg IM STAT PRN; Protocol PRN Reason: Hypoglycemia Protocol Insulin Detemir (Levemir) 46 units SC [facility] Last Admin: 07/09/18 23:02 Dose: Not Given Insulin Human Lispro (Humalog) 0 units SC [facility]; Protocol Last Admin: 07/10/18 07:53 Dose: Not Given Levetiracetam (Keppra) 500 mg PO Q12 [facility] Last Admin: 07/10/18 09:26 Dose: 500 mg Levothyroxine Sodium (Synthroid) 100 mcg PO DAILY@0630 [facility] Last Admin: 07/10/18 06:03 Dose: 100 mcg Losartan Potassium (Cozaar) 50 mg PO DAILY [facility] Last Admin: 07/10/18 09:26 Dose: 50 mg Metoprolol Succinate (Toprol Xl) 25 mg PO DAILY [facility] Last Admin: 07/06/18 09:41 Dose: Not Given Nifedipine (Procardia Xl) 60 mg PO DAILY [facility] Last Admin: 07/10/18 09:26 Dose: 60 mg Timolol Maleate (Timoptic 0.5% Ophth Soln) 1 drop OD Q12 [facility] Last Admin: 07/10/18 09:27 Dose: 1 drop Trazodone HCl (Desyrel) 100 mg PO HS [facility] Last Admin: 07/09/18 21:53 Dose: 100 mg - Labs Labs: 07/01/18 16:17 07/01/18 17:39 Assessment and Plan (1) CAD (coronary artery disease) Status: Chronic (2) Diabetes mellitus Status: Resolved (3) Headache Status: Acute (4) Hyperlipidemia Status: Acute (5) Seizure disorder Status: Acute (6) Hypothyroidism Status: Chronic
--- NOTE | 2018-07-10 12:15 | CP.PCM.PN ---
Subjective - Date & Time of Evaluation Date of Evaluation: 07/08/18 Time of Evaluation: 19:25 - Subjective Subjective: No New complaint. Patient has guardian, and waiting for safe discharge, Patient's Guardian, APS and SW working on the Living arrangement. Objective - Vital Signs/Intake and Output Vital Signs (last 24 hours): Temp Pulse Resp BP Pulse Ox 98.1 F 57 L 20 155/52 H 97 07/10/18 08:25 07/10/18 08:25 07/10/18 08:25 07/10/18 08:25 07/10/18 08:25 - Medications Medications: Current Medications Atorvastatin Calcium (Lipitor) 80 mg PO [facility] Last Admin: 07/09/18 21:54 Dose: 80 mg Clopidogrel Bisulfate (Plavix) 75 mg PO DAILY [facility] Last Admin: 07/10/18 09:27 Dose: 75 mg Dextrose (Dextrose 50% Inj) 0 ml IV STAT PRN; Protocol PRN Reason: Hypoglycemia Protocol Dextrose (Glutose 15) 0 gm PO ONCE PRN; Protocol PRN Reason: Hypoglycemia Protocol Divalproex Sodium (Depakote Sprinkles) 125 mg PO Q8 [facility] Last Admin: 07/10/18 09:26 Dose: 125 mg Gabapentin (Neurontin) 100 mg PO Q12 [facility] Last Admin: 07/10/18 09:26 Dose: 100 mg Glucagon (Glucagen Diagnostic Kit) 0 mg IM STAT PRN; Protocol PRN Reason: Hypoglycemia Protocol Insulin Detemir (Levemir) 46 units SC [facility] Last Admin: 07/09/18 23:02 Dose: Not Given Insulin Human Lispro (Humalog) 0 units SC [facility]; Protocol Last Admin: 07/10/18 07:53 Dose: Not Given Levetiracetam (Keppra) 500 mg PO Q12 [facility] Last Admin: 07/10/18 09:26 Dose: 500 mg Levothyroxine Sodium (Synthroid) 100 mcg PO DAILY@0630 [facility] Last Admin: 07/10/18 06:03 Dose: 100 mcg Losartan Potassium (Cozaar) 50 mg PO DAILY [facility] Last Admin: 07/10/18 09:26 Dose: 50 mg Metoprolol Succinate (Toprol Xl) 25 mg PO DAILY [facility] Last Admin: 07/06/18 09:41 Dose: Not Given Nifedipine (Procardia Xl) 60 mg PO DAILY [facility] Last Admin: 07/10/18 09:26 Dose: 60 mg Timolol Maleate (Timoptic 0.5% Ophth Soln) 1 drop OD Q12 [facility] Last Admin: 07/10/18 09:27 Dose: 1 drop Trazodone HCl (Desyrel) 100 mg PO HS [facility] Last Admin: 07/09/18 21:53 Dose: 100 mg - Labs Labs: 07/01/18 16:17 07/01/18 17:39 Assessment and Plan (1) CAD (coronary artery disease) Status: Chronic (2) Diabetes mellitus Status: Resolved (3) Headache Status: Acute (4) Hyperlipidemia Status: Acute (5) Seizure disorder Status: Acute (6) Hypothyroidism Status: Chronic
--- NOTE | 2018-07-10 12:17 | CP.PCM.PN ---
Subjective - Date & Time of Evaluation Date of Evaluation: 07/10/18 Time of Evaluation: 12:00 - Subjective Subjective: No New complaint. Patient has guardian, and waiting for safe discharge, Patient's Guardian, APS and SW working on the Living arrangement. Objective - Vital Signs/Intake and Output Vital Signs (last 24 hours): Temp Pulse Resp BP Pulse Ox 98.1 F 57 L 20 155/52 H 97 07/10/18 08:25 07/10/18 08:25 07/10/18 08:25 07/10/18 08:25 07/10/18 08:25 - Medications Medications: Current Medications Atorvastatin Calcium (Lipitor) 80 mg PO [facility] Last Admin: 07/09/18 21:54 Dose: 80 mg Clopidogrel Bisulfate (Plavix) 75 mg PO DAILY [facility] Last Admin: 07/10/18 09:27 Dose: 75 mg Dextrose (Dextrose 50% Inj) 0 ml IV STAT PRN; Protocol PRN Reason: Hypoglycemia Protocol Dextrose (Glutose 15) 0 gm PO ONCE PRN; Protocol PRN Reason: Hypoglycemia Protocol Divalproex Sodium (Depakote Sprinkles) 125 mg PO Q8 [facility] Last Admin: 07/10/18 09:26 Dose: 125 mg Gabapentin (Neurontin) 100 mg PO Q12 [facility] Last Admin: 07/10/18 09:26 Dose: 100 mg Glucagon (Glucagen Diagnostic Kit) 0 mg IM STAT PRN; Protocol PRN Reason: Hypoglycemia Protocol Insulin Detemir (Levemir) 46 units SC [facility] Last Admin: 07/09/18 23:02 Dose: Not Given Insulin Human Lispro (Humalog) 0 units SC [facility]; Protocol Last Admin: 07/10/18 07:53 Dose: Not Given Levetiracetam (Keppra) 500 mg PO Q12 [facility] Last Admin: 07/10/18 09:26 Dose: 500 mg Levothyroxine Sodium (Synthroid) 100 mcg PO DAILY@0630 [facility] Last Admin: 07/10/18 06:03 Dose: 100 mcg Losartan Potassium (Cozaar) 50 mg PO DAILY [facility] Last Admin: 07/10/18 09:26 Dose: 50 mg Metoprolol Succinate (Toprol Xl) 25 mg PO DAILY [facility] Last Admin: 07/06/18 09:41 Dose: Not Given Nifedipine (Procardia Xl) 60 mg PO DAILY [facility] Last Admin: 07/10/18 09:26 Dose: 60 mg Timolol Maleate (Timoptic 0.5% Ophth Soln) 1 drop OD Q12 [facility] Last Admin: 07/10/18 09:27 Dose: 1 drop Trazodone HCl (Desyrel) 100 mg PO HS [facility] Last Admin: 07/09/18 21:53 Dose: 100 mg - Labs Labs: 07/01/18 16:17 07/01/18 17:39 Assessment and Plan (1) CAD (coronary artery disease) Status: Chronic (2) Diabetes mellitus Status: Resolved (3) Headache Status: Acute (4) Hyperlipidemia Status: Acute (5) Seizure disorder Status: Acute (6) Hypothyroidism Status: Chronic
[2018-07-10] MEDS: Insulin Detemir 100 Units/ml Inj SC SCH (21:48)
[2018-07-11] MEDS: Divalproex 125 mg Sprinkle Capsule PO SCH ×3 (01:17→17:03)
[2018-07-11] MEDS: Levothyroxine 100 MCG TAB PO SCH (06:26)
[2018-07-11] MEDS: Insulin Lispro (humaLOG) 100 Units/ml Inj SC SCH ×4 (06:31→22:00)
[2018-07-11] MEDS: NIFEdipine 60 mg ER Tab PO SCH (08:29)
[2018-07-11] MEDS: Insulin Detemir 100 Units/ml Inj SC SCH (21:33)
[2018-07-12] MEDS: Divalproex 125 mg Sprinkle Capsule PO SCH ×3 (00:35→17:10)
[2018-07-12] MEDS: Levothyroxine 100 MCG TAB PO SCH (06:33)
[2018-07-12] MEDS: Insulin Lispro (humaLOG) 100 Units/ml Inj SC SCH ×3 (07:54→17:08)
[2018-07-12] MEDS: NIFEdipine 60 mg ER Tab PO SCH (09:52)
--- NOTE | 2018-07-12 10:48 | CP.PCM.PN ---
Subjective - Date & Time of Evaluation Date of Evaluation: 07/11/18 Time of Evaluation: 12:10 - Subjective Subjective: No New complaint. Patient has guardian, and waiting for safe discharge, Patient's Guardian, APS and SW working on the Living arrangement. Objective - Vital Signs/Intake and Output Vital Signs (last 24 hours): Temp Pulse Resp BP Pulse Ox 97.6 F 79 20 164/61 H 97 07/12/18 08:10 07/12/18 09:52 07/12/18 08:10 07/12/18 09:52 07/12/18 08:10 - Medications Medications: Current Medications Atorvastatin Calcium (Lipitor) 80 [address] [facility] Last Admin: 07/11/18 21:32 Dose: 80 mg Clopidogrel Bisulfate (Plavix) 75 mg PO DAILY [facility] Last Admin: 07/12/18 10:06 Dose: Not Given Dextrose (Dextrose 50% Inj) 0 ml IV STAT PRN; Protocol PRN Reason: Hypoglycemia Protocol Dextrose (Glutose 15) 0 gm PO ONCE PRN; Protocol PRN Reason: Hypoglycemia Protocol Divalproex Sodium (Depakote Sprinkles) 125 mg PO Q8 [facility] Last Admin: 07/12/18 09:52 Dose: 125 mg Gabapentin (Neurontin) 100 mg PO Q12 [facility] Last Admin: 07/12/18 09:51 Dose: 100 mg Glucagon (Glucagen Diagnostic Kit) 0 mg IM STAT PRN; Protocol PRN Reason: Hypoglycemia Protocol Insulin Detemir (Levemir) [address] [facility] Last Admin: 07/11/18 21:33 Dose: 46 units Insulin Human Lispro (Humalog) 0 units SC [facility]; Protocol Last Admin: 07/12/18 07:54 Dose: Not Given Levetiracetam (Keppra) 500 mg PO Q12 [facility] Last Admin: 07/12/18 09:51 Dose: 500 mg Levothyroxine Sodium (Synthroid) 100 mcg PO DAILY@0630 [facility] Last Admin: 07/12/18 06:33 Dose: 100 mcg Losartan Potassium (Cozaar) 50 mg PO DAILY [facility] Last Admin: 07/12/18 09:51 Dose: 50 mg Metoprolol Succinate (Toprol Xl) 25 mg PO DAILY [facility] Last Admin: 07/06/18 09:41 Dose: Not Given Nifedipine (Procardia Xl) 60 mg PO DAILY [facility] Last Admin: 07/12/18 09:52 Dose: 60 mg Timolol Maleate (Timoptic 0.5% Ophth Soln) 1 drop OD Q12 [facility] Last Admin: 07/12/18 09:54 Dose: 1 drop Trazodone HCl (Desyrel) 100 mg PO HS [facility] Last Admin: 07/11/18 21:31 Dose: 100 mg - Labs Labs: 07/01/18 16:17 07/01/18 17:39 Assessment and Plan (1) Living accommodation issues Status: Acute (2) CAD (coronary artery disease) Status: Chronic (3) Diabetes mellitus Status: Chronic (4) Headache Status: Acute (5) Hyperlipidemia Status: Acute (6) Seizure disorder Status: Acute (7) Hypothyroidism Status: Chronic - Assessment and Plan (Free Text) Plan: Social Hold due to Unsafe Living Condtion Continue Home Medication Continue 1 to 1 for safety Patient's Guardian, APS & SW on Board
--- NOTE | 2018-07-12 18:04 | PQF ---
PROVIDER RESPONSE TEXT: Social Hold REVIEWER QUERY TEXT: Condition Necessitating Admission Please clarify the reason for admission. There is discrepancy in the EMR: ? Failure To Thrive or Soci al Hold. Please continue to document the reason in your notes. Please clarify the medical conditions and the associated clinical risk factors necessitating admissio n. The patient's Clinical Indicators include: ER notes: Weakness, Additional ER notes: Social Hold Orders: Failure to thrive Patient has a caregiver 24 hours a day and 7 days a week but when director of social media marketing went to the house to check up on her, no caregiver was present. Query created by: Kary Roper on 07/08/2018 6:51 AM Electronically signed by: Fab Rosales MD 07/12/2018 6:01 PM
[2018-07-12] MEDS: Insulin Detemir 100 Units/ml Inj SC SCH (21:18)
[2018-07-13] MEDS: Divalproex 125 mg Sprinkle Capsule PO SCH ×3 (00:34→16:47)
[2018-07-13] MEDS: Levothyroxine 100 MCG TAB PO SCH (05:54)
[2018-07-13] MEDS: Insulin Lispro (humaLOG) 100 Units/ml Inj SC SCH ×4 (09:04→22:00)
[2018-07-13] MEDS: NIFEdipine 60 mg ER Tab PO SCH (09:06)
[2018-07-13] MEDS: Insulin Detemir 100 Units/ml Inj SC SCH (22:30)
[2018-07-14] MEDS: Divalproex 125 mg Sprinkle Capsule PO SCH ×3 (00:50→16:09)
[2018-07-14] MEDS: Levothyroxine 100 MCG TAB PO SCH (06:44)
[2018-07-14] MEDS: Insulin Lispro (humaLOG) 100 Units/ml Inj SC SCH ×4 (07:00→23:20)
[2018-07-14] MEDS: NIFEdipine 60 mg ER Tab PO SCH (09:28)
[2018-07-14] MEDS: Insulin Detemir 100 Units/ml Inj SC SCH (23:19)
[2018-07-15] MEDS: Divalproex 125 mg Sprinkle Capsule PO SCH ×3 (00:12→16:59)
--- NOTE | 2018-07-15 03:57 | CP.PCM.PN ---
Subjective - Date & Time of Evaluation Date of Evaluation: 07/12/18 Time of Evaluation: 19:10 - Subjective Subjective: No New complaint. Patient has guardian, and waiting for safe discharge, Patient's Guardian, APS and SW working on the Living arrangement. Objective - Vital Signs/Intake and Output Vital Signs (last 24 hours): Temp Pulse Resp BP Pulse Ox 97.5 F L 57 L 18 131/55 L 97 07/14/18 23:38 07/14/18 23:38 07/14/18 23:38 07/14/18 23:38 07/14/18 23:38 - Medications Medications: Current Medications Atorvastatin Calcium (Lipitor) 80 mg PO HS [facility] Last Admin: 07/14/18 23:09 Dose: 80 mg Clopidogrel Bisulfate (Plavix) 75 mg PO DAILY [facility] Last Admin: 07/14/18 09:29 Dose: 75 mg Dextrose (Dextrose 50% Inj) 0 ml IV STAT PRN; Protocol PRN Reason: Hypoglycemia Protocol Dextrose (Glutose 15) 0 gm PO ONCE PRN; Protocol PRN Reason: Hypoglycemia Protocol Divalproex Sodium (Depakote Sprinkles) 125 mg PO Q8 [facility] Last Admin: 07/15/18 00:12 Dose: Not Given Gabapentin (Neurontin) 100 mg PO Q12 [facility] Last Admin: 07/14/18 23:09 Dose: 100 mg Glucagon (Glucagen Diagnostic Kit) 0 mg IM STAT PRN; Protocol PRN Reason: Hypoglycemia Protocol Insulin Detemir (Levemir) 46 units SC [facility] Last Admin: 07/14/18 23:19 Dose: Not Given Insulin Human Lispro (Humalog) 0 units SC [facility]; Protocol Last Admin: 07/14/18 23:20 Dose: Not Given Levetiracetam (Keppra) 500 mg PO Q12 [facility] Last Admin: 07/14/18 23:09 Dose: 500 mg Levothyroxine Sodium (Synthroid) 100 mcg PO DAILY@0630 [facility] Last Admin: 07/14/18 06:44 Dose: 100 mcg Losartan Potassium (Cozaar) 50 mg PO DAILY [facility] Last Admin: 07/14/18 09:29 Dose: 50 mg Metoprolol Succinate (Toprol Xl) 25 mg PO DAILY [facility] Last Admin: 07/06/18 09:41 Dose: Not Given Nifedipine (Procardia Xl) 60 mg PO DAILY [facility] Last Admin: 07/14/18 09:28 Dose: 60 mg Timolol Maleate (Timoptic 0.5% Ophth Soln) 1 drop OD Q12 [facility] Last Admin: 07/14/18 23:08 Dose: 1 drop Trazodone HCl (Desyrel) 100 mg PO HS [facility] Last Admin: 07/14/18 23:09 Dose: 100 mg - Labs Labs: 07/01/18 16:17 07/01/18 17:39 Assessment and Plan (1) Living accommodation issues Status: Acute (2) CAD (coronary artery disease) Status: Chronic (3) Diabetes mellitus Status: Chronic (4) Headache Status: Acute (5) Hyperlipidemia Status: Acute (6) Seizure disorder Status: Acute (7) Hypothyroidism Status: Chronic - Assessment and Plan (Free Text) Plan: Social Hold due to Unsafe Living Condtion Continue Home Medication Continue 1 to 1 for safety Patient's Guardian, APS & SW on Board
--- NOTE | 2018-07-15 03:58 | CP.PCM.PN ---
Subjective - Date & Time of Evaluation Date of Evaluation: 07/13/18 Time of Evaluation: 19:10 - Subjective Subjective: No New complaint. Patient has guardian, and waiting for safe discharge, Patient's Guardian, APS and SW working on the Living arrangement. Objective - Vital Signs/Intake and Output Vital Signs (last 24 hours): Temp Pulse Resp BP Pulse Ox 97.5 F L 57 L 18 131/55 L 97 07/14/18 23:38 07/14/18 23:38 07/14/18 23:38 07/14/18 23:38 07/14/18 23:38 - Medications Medications: Current Medications Atorvastatin Calcium (Lipitor) 80 mg PO HS [facility] Last Admin: 07/14/18 23:09 Dose: 80 mg Clopidogrel Bisulfate (Plavix) 75 mg PO DAILY [facility] Last Admin: 07/14/18 09:29 Dose: 75 mg Dextrose (Dextrose 50% Inj) 0 ml IV STAT PRN; Protocol PRN Reason: Hypoglycemia Protocol Dextrose (Glutose 15) 0 gm PO ONCE PRN; Protocol PRN Reason: Hypoglycemia Protocol Divalproex Sodium (Depakote Sprinkles) 125 mg PO Q8 [facility] Last Admin: 07/15/18 00:12 Dose: Not Given Gabapentin (Neurontin) 100 mg PO Q12 [facility] Last Admin: 07/14/18 23:09 Dose: 100 mg Glucagon (Glucagen Diagnostic Kit) 0 mg IM STAT PRN; Protocol PRN Reason: Hypoglycemia Protocol Insulin Detemir (Levemir) 46 units SC [facility] Last Admin: 07/14/18 23:19 Dose: Not Given Insulin Human Lispro (Humalog) 0 units SC [facility]; Protocol Last Admin: 07/14/18 23:20 Dose: Not Given Levetiracetam (Keppra) 500 mg PO Q12 [facility] Last Admin: 07/14/18 23:09 Dose: 500 mg Levothyroxine Sodium (Synthroid) 100 mcg PO DAILY@0630 [facility] Last Admin: 07/14/18 06:44 Dose: 100 mcg Losartan Potassium (Cozaar) 50 mg PO DAILY [facility] Last Admin: 07/14/18 09:29 Dose: 50 mg Metoprolol Succinate (Toprol Xl) 25 mg PO DAILY [facility] Last Admin: 07/06/18 09:41 Dose: Not Given Nifedipine (Procardia Xl) 60 mg PO DAILY [facility] Last Admin: 07/14/18 09:28 Dose: 60 mg Timolol Maleate (Timoptic 0.5% Ophth Soln) 1 drop OD Q12 [facility] Last Admin: 07/14/18 23:08 Dose: 1 drop Trazodone HCl (Desyrel) 100 mg PO HS [facility] Last Admin: 07/14/18 23:09 Dose: 100 mg - Labs Labs: 07/01/18 16:17 07/01/18 17:39 Assessment and Plan (1) Living accommodation issues Status: Acute (2) CAD (coronary artery disease) Status: Chronic (3) Diabetes mellitus Status: Chronic (4) Headache Status: Acute (5) Hyperlipidemia Status: Acute (6) Seizure disorder Status: Acute (7) Hypothyroidism Status: Chronic - Assessment and Plan (Free Text) Plan: Social Hold due to Unsafe Living Condtion Continue Home Medication Continue 1 to 1 for safety Patient's Guardian, APS & SW on Board
--- NOTE | 2018-07-15 04:00 | CP.PCM.PN ---
Subjective - Date & Time of Evaluation Date of Evaluation: 07/14/18 Time of Evaluation: 16:15 - Subjective Subjective: No New complaint. Patient has guardian, and waiting for safe discharge, Patient's Guardian, APS and SW working on the Living arrangement. Objective - Vital Signs/Intake and Output Vital Signs (last 24 hours): Temp Pulse Resp BP Pulse Ox 97.5 F L 57 L 18 131/55 L 97 07/14/18 23:38 07/14/18 23:38 07/14/18 23:38 07/14/18 23:38 07/14/18 23:38 - Medications Medications: Current Medications Atorvastatin Calcium (Lipitor) 80 mg PO HS [facility] Last Admin: 07/14/18 23:09 Dose: 80 mg Clopidogrel Bisulfate (Plavix) 75 mg PO DAILY [facility] Last Admin: 07/14/18 09:29 Dose: 75 mg Dextrose (Dextrose 50% Inj) 0 ml IV STAT PRN; Protocol PRN Reason: Hypoglycemia Protocol Dextrose (Glutose 15) 0 gm PO ONCE PRN; Protocol PRN Reason: Hypoglycemia Protocol Divalproex Sodium (Depakote Sprinkles) 125 mg PO Q8 [facility] Last Admin: 07/15/18 00:12 Dose: Not Given Gabapentin (Neurontin) 100 mg PO Q12 [facility] Last Admin: 07/14/18 23:09 Dose: 100 mg Glucagon (Glucagen Diagnostic Kit) 0 mg IM STAT PRN; Protocol PRN Reason: Hypoglycemia Protocol Insulin Detemir (Levemir) 46 units SC [facility] Last Admin: 07/14/18 23:19 Dose: Not Given Insulin Human Lispro (Humalog) 0 units SC [facility]; Protocol Last Admin: 07/14/18 23:20 Dose: Not Given Levetiracetam (Keppra) 500 mg PO Q12 [facility] Last Admin: 07/14/18 23:09 Dose: 500 mg Levothyroxine Sodium (Synthroid) 100 mcg PO DAILY@0630 [facility] Last Admin: 07/14/18 06:44 Dose: 100 mcg Losartan Potassium (Cozaar) 50 mg PO DAILY [facility] Last Admin: 07/14/18 09:29 Dose: 50 mg Metoprolol Succinate (Toprol Xl) 25 mg PO DAILY [facility] Last Admin: 07/06/18 09:41 Dose: Not Given Nifedipine (Procardia Xl) 60 mg PO DAILY [facility] Last Admin: 07/14/18 09:28 Dose: 60 mg Timolol Maleate (Timoptic 0.5% Ophth Soln) 1 drop OD Q12 [facility] Last Admin: 07/14/18 23:08 Dose: 1 drop Trazodone HCl (Desyrel) 100 mg PO HS [facility] Last Admin: 07/14/18 23:09 Dose: 100 mg - Labs Labs: 07/01/18 16:17 07/01/18 17:39 Assessment and Plan (1) Living accommodation issues Status: Acute (2) CAD (coronary artery disease) Status: Chronic (3) Diabetes mellitus Status: Chronic (4) Headache Status: Acute (5) Hyperlipidemia Status: Acute (6) Seizure disorder Status: Acute (7) Hypothyroidism Status: Chronic - Assessment and Plan (Free Text) Plan: Social Hold due to Unsafe Living Condtion Continue Home Medication Continue 1 to 1 for safety Patient's Guardian, APS & SW on Board
[2018-07-15] MEDS: Levothyroxine 100 MCG TAB PO SCH (06:26)
[2018-07-15] MEDS: Insulin Lispro (humaLOG) 100 Units/ml Inj SC SCH ×4 (06:52→22:29)
[2018-07-15] MEDS: NIFEdipine 60 mg ER Tab PO SCH (09:20)
[2018-07-15] MEDS: Insulin Detemir 100 Units/ml Inj SC SCH (22:40)
[2018-07-16] MEDS: Divalproex 125 mg Sprinkle Capsule PO SCH ×3 (00:44→16:15)
[2018-07-16] MEDS: Levothyroxine 100 MCG TAB PO SCH (07:04)
[2018-07-16] MEDS: Insulin Lispro (humaLOG) 100 Units/ml Inj SC SCH ×5 (08:52→22:38)
[2018-07-16] MEDS: NIFEdipine 60 mg ER Tab PO SCH (09:52)
[2018-07-16] MEDS: Insulin Detemir 100 Units/ml Inj SC SCH ×3 (22:04→23:46)
[2018-07-17] MEDS: Divalproex 125 mg Sprinkle Capsule PO SCH ×3 (00:08→17:18)
[2018-07-17] MEDS: Levothyroxine 100 MCG TAB PO SCH (05:39)
[2018-07-17] MEDS: Insulin Lispro (humaLOG) 100 Units/ml Inj SC SCH ×3 (11:02→17:18)
[2018-07-17] MEDS: NIFEdipine 60 mg ER Tab PO SCH (11:06)
[2018-07-17] MEDS: Insulin Detemir 100 Units/ml Inj SC SCH (22:08)
--- NOTE | 2018-07-17 22:42 | CP.PCM.PN ---
Subjective - Date & Time of Evaluation Date of Evaluation: 07/15/18 Time of Evaluation: 18:05 - Subjective Subjective: No New complaint. Patient has guardian, and waiting for safe discharge, Patient's Guardian, APS and SW working on the Living arrangement. Objective - Vital Signs/Intake and Output Vital Signs (last 24 hours): Temp Pulse Resp BP Pulse Ox 97.8 F 60 20 134/64 97 07/17/18 16:33 07/17/18 16:33 07/17/18 16:33 07/17/18 16:33 07/17/18 16:33 - Medications Medications: Current Medications Divalproex Sodium (Depakote Sprinkles) 125 mg PO Q8 [facility] Last Admin: 07/17/18 17:18 Dose: 125 mg Insulin Detemir (Levemir) 46 units SC HS [facility] Last Admin: 07/17/18 22:08 Dose: Not Given Insulin Human Lispro (Humalog) 0 units SC [facility]; Protocol Last Admin: 07/17/18 17:18 Dose: Not Given Levothyroxine Sodium (Synthroid) 100 mcg PO DAILY@0630 [facility] Last Admin: 07/17/18 05:39 Dose: 100 mcg Losartan Potassium (Cozaar) 50 mg PO DAILY [facility] Last Admin: 07/17/18 11:04 Dose: 50 mg Metoprolol Succinate (Toprol Xl) 25 mg PO DAILY [facility] Last Admin: 07/06/18 09:41 Dose: Not Given Nifedipine (Procardia Xl) 60 mg PO DAILY [facility] Last Admin: 07/17/18 11:06 Dose: 60 mg - Labs Labs: 07/01/18 16:17 07/01/18 17:39 Assessment and Plan (1) Living accommodation issues Status: Acute (2) CAD (coronary artery disease) Status: Chronic (3) Diabetes mellitus Status: Resolved (4) Headache Status: Acute (5) Hyperlipidemia Status: Acute (6) Seizure disorder Status: Acute (7) Hypothyroidism Status: Chronic
--- NOTE | 2018-07-17 22:43 | CP.PCM.PN ---
Subjective - Date & Time of Evaluation Date of Evaluation: 07/16/18 Time of Evaluation: 19:45 - Subjective Subjective: No New complaint. Patient has guardian, and waiting for safe discharge, Patient's Guardian, APS and SW working on the Living arrangement. Objective - Vital Signs/Intake and Output Vital Signs (last 24 hours): Temp Pulse Resp BP Pulse Ox 97.8 F 60 20 134/64 97 07/17/18 16:33 07/17/18 16:33 07/17/18 16:33 07/17/18 16:33 07/17/18 16:33 - Medications Medications: Current Medications Divalproex Sodium (Depakote Sprinkles) 125 mg PO Q8 [facility] Last Admin: 07/17/18 17:18 Dose: 125 mg Insulin Detemir (Levemir) 46 units SC HS [facility] Last Admin: 07/17/18 22:08 Dose: Not Given Insulin Human Lispro (Humalog) 0 units SC [facility]; Protocol Last Admin: 07/17/18 17:18 Dose: Not Given Levothyroxine Sodium (Synthroid) 100 mcg PO DAILY@0630 [facility] Last Admin: 07/17/18 05:39 Dose: 100 mcg Losartan Potassium (Cozaar) 50 mg PO DAILY [facility] Last Admin: 07/17/18 11:04 Dose: 50 mg Metoprolol Succinate (Toprol Xl) 25 mg PO DAILY [facility] Last Admin: 07/06/18 09:41 Dose: Not Given Nifedipine (Procardia Xl) 60 mg PO DAILY [facility] Last Admin: 07/17/18 11:06 Dose: 60 mg - Labs Labs: 07/01/18 16:17 07/01/18 17:39 Assessment and Plan (1) Living accommodation issues Status: Acute (2) CAD (coronary artery disease) Status: Chronic (3) Diabetes mellitus Status: Resolved (4) Headache Status: Acute (5) Hyperlipidemia Status: Acute (6) Seizure disorder Status: Acute (7) Hypothyroidism Status: Chronic
--- NOTE | 2018-07-17 22:43 | CP.PCM.PN ---
Subjective - Date & Time of Evaluation Date of Evaluation: 07/17/18 Time of Evaluation: 16:20 - Subjective Subjective: No New complaint. Patient has guardian, and waiting for safe discharge, Patient's Guardian, APS and SW working on the Living arrangement. Objective - Vital Signs/Intake and Output Vital Signs (last 24 hours): Temp Pulse Resp BP Pulse Ox 97.8 F 60 20 134/64 97 07/17/18 16:33 07/17/18 16:33 07/17/18 16:33 07/17/18 16:33 07/17/18 16:33 - Medications Medications: Current Medications Divalproex Sodium (Depakote Sprinkles) 125 mg PO Q8 [facility] Last Admin: 07/17/18 17:18 Dose: 125 mg Insulin Detemir (Levemir) 46 units SC HS [facility] Last Admin: 07/17/18 22:08 Dose: Not Given Insulin Human Lispro (Humalog) 0 units SC ACHS [facility]; Protocol Last Admin: 07/17/18 17:18 Dose: Not Given Levothyroxine Sodium (Synthroid) 100 mcg PO DAILY@0630 [facility] Last Admin: 07/17/18 05:39 Dose: 100 mcg Losartan Potassium (Cozaar) 50 mg PO DAILY [facility] Last Admin: 07/17/18 11:04 Dose: 50 mg Metoprolol Succinate (Toprol Xl) 25 mg PO DAILY [facility] Last Admin: 07/06/18 09:41 Dose: Not Given Nifedipine (Procardia Xl) 60 mg PO DAILY [facility] Last Admin: 07/17/18 11:06 Dose: 60 mg - Labs Labs: 07/01/18 16:17 07/01/18 17:39 Assessment and Plan (1) Living accommodation issues Status: Acute (2) CAD (coronary artery disease) Status: Chronic (3) Diabetes mellitus Status: Resolved (4) Headache Status: Acute (5) Hyperlipidemia Status: Acute (6) Seizure disorder Status: Acute (7) Hypothyroidism Status: Chronic
[2018-07-18] MEDS: Divalproex 125 mg Sprinkle Capsule PO SCH (00:59)
[2018-07-18] MEDS: Insulin Lispro (humaLOG) 100 Units/ml Inj SC SCH ×5 (01:00→22:27)
[2018-07-18] MEDS: Levothyroxine 100 MCG TAB PO SCH (06:04)
[2018-07-18] MEDS: NIFEdipine 60 mg ER Tab PO SCH (09:09)
[2018-07-18] MEDS: Insulin Detemir 100 Units/ml Inj SC SCH (22:29)
--- NOTE | 2018-07-18 23:05 | CP.PCM.PN ---
Subjective - Date & Time of Evaluation Date of Evaluation: 07/18/18 Time of Evaluation: 07:45 - Subjective Subjective: No New complaint. Objective - Vital Signs/Intake and Output Vital Signs (last 24 hours): Temp Pulse Resp BP Pulse Ox 97.2 F L 50 L 18 136/67 96 07/18/18 17:00 07/18/18 17:00 07/18/18 17:00 07/18/18 09:09 07/18/18 17:00 - Medications Medications: Current Medications Insulin Detemir (Levemir) 46 units SC HS [facility] Last Admin: 07/18/18 22:29 Dose: 46 units Insulin Human Lispro (Humalog) 0 units SC [facility]; Protocol Last Admin: 07/18/18 22:27 Dose: Not Given Metoprolol Succinate (Toprol Xl) 25 mg PO DAILY [facility] Last Admin: 07/06/18 09:41 Dose: Not Given - Labs Labs: 07/01/18 16:17 07/01/18 17:39 Assessment and Plan (1) Living accommodation issues Status: Acute (2) CAD (coronary artery disease) Status: Chronic (3) Diabetes mellitus Status: Chronic (4) Headache Status: Acute (5) Hyperlipidemia Status: Acute (6) Seizure disorder Status: Acute (7) Hypothyroidism Status: Chronic - Assessment and Plan (Free Text) Plan: Continue Home Medication Continue 1 to 1 for safety APS, & SW on Board, and working with Guardian for placement.
[2018-07-19] MEDS: Insulin Lispro (humaLOG) 100 Units/ml Inj SC SCH ×4 (09:12→23:20)
[2018-07-19] MEDS: NIFEdipine 60 mg ER Tab PO SCH (14:58)
[2018-07-19] MEDS: Insulin Detemir 100 Units/ml Inj SC SCH (23:12)
[2018-07-20] MEDS: Levothyroxine 100 MCG TAB PO SCH (07:52)
[2018-07-20] MEDS: Insulin Lispro (humaLOG) 100 Units/ml Inj SC SCH ×4 (10:36→22:24)
[2018-07-20] MEDS: NIFEdipine 60 mg ER Tab PO SCH (10:38)
[2018-07-20] MEDS: Enoxaparin 30 mg Syringe SC SCH (17:36)
[2018-07-20] MEDS: Insulin Detemir 100 Units/ml Inj SC SCH (22:30)
--- NOTE | 2018-07-21 00:30 | CP.PCM.PN ---
Subjective - Date & Time of Evaluation Date of Evaluation: 07/19/18 Time of Evaluation: 19:10 - Subjective Subjective: New Complaint. Objective - Vital Signs/Intake and Output Vital Signs (last 24 hours): Temp Pulse Resp BP Pulse Ox 97.6 F 112 H 18 125/70 94 L 07/20/18 16:15 07/20/18 16:15 07/20/18 16:15 07/20/18 16:15 07/20/18 16:15 - Medications Medications: Current Medications Atorvastatin Calcium (Lipitor) 80 mg PO DAILY [facility] Last Admin: 07/20/18 10:37 Dose: 80 mg Clopidogrel Bisulfate (Plavix) 75 mg PO DAILY [facility] Last Admin: 07/20/18 10:38 Dose: 75 mg Enoxaparin Sodium (Lovenox) 30 mg SC DAILY [facility]; Protocol Last Admin: 07/20/18 17:36 Dose: 30 mg Gabapentin (Neurontin) 100 mg PO DAILY [facility] Last Admin: 07/20/18 10:38 Dose: 100 mg Insulin Detemir (Levemir) 46 units SC [facility] Last Admin: 07/20/18 22:30 Dose: 46 units Insulin Human Lispro (Humalog) 0 units SC [facility]; Protocol Last Admin: 07/20/18 22:24 Dose: Not Given Levetiracetam (Keppra) 500 mg PO BID [facility] Last Admin: 07/20/18 17:34 Dose: 500 mg Levothyroxine Sodium (Synthroid) 100 mcg PO DAILY@0630 [facility] Last Admin: 07/20/18 07:52 Dose: 100 mcg Lorazepam (Ativan) 0.5 mg PO Q8 PRN PRN Reason: Agitation Losartan Potassium (Cozaar) 50 mg PO DAILY [facility] Last Admin: 07/20/18 10:40 Dose: 50 mg Metoprolol Succinate (Toprol Xl) 25 mg PO DAILY [facility] Last Admin: 07/06/18 09:41 Dose: Not Given Nifedipine (Procardia Xl) 60 mg PO DAILY [facility] Last Admin: 07/20/18 10:38 Dose: 60 mg Timolol Maleate (Timoptic 0.5% Oph Soln) 1 drop OU BID [facility] Last Admin: 07/20/18 17:35 Dose: 1 drop Trazodone HCl (Desyrel) 100 mg PO [facility] Last Admin: 07/20/18 22:30 Dose: 100 mg - Labs Labs: 07/01/18 16:17 07/01/18 17:39 Assessment and Plan (1) Living accommodation issues Status: Acute (2) CAD (coronary artery disease) Status: Chronic (3) Diabetes mellitus Status: Chronic (4) Headache Status: Acute (5) Hyperlipidemia Status: Acute (6) Seizure disorder Status: Acute (7) Hypothyroidism Status: Chronic - Assessment and Plan (Free Text) Plan: Continue Home Medication Continue 1 to 1 for safety APS, & SW on Board, and working with Guardian for placement.
--- NOTE | 2018-07-21 00:32 | CP.PCM.PN ---
Subjective - Date & Time of Evaluation Date of Evaluation: 07/20/18 Time of Evaluation: 10:25 - Subjective Subjective: No New complaint Objective - Vital Signs/Intake and Output Vital Signs (last 24 hours): Temp Pulse Resp BP Pulse Ox 97.6 F 112 H 18 125/70 94 L 07/20/18 16:15 07/20/18 16:15 07/20/18 16:15 07/20/18 16:15 07/20/18 16:15 - Medications Medications: Current Medications Atorvastatin Calcium (Lipitor) 80 mg PO DAILY [facility] Last Admin: 07/20/18 10:37 Dose: 80 mg Clopidogrel Bisulfate (Plavix) 75 mg PO DAILY [facility] Last Admin: 07/20/18 10:38 Dose: 75 mg Enoxaparin Sodium (Lovenox) 30 mg SC DAILY [facility]; Protocol Last Admin: 07/20/18 17:36 Dose: 30 mg Gabapentin (Neurontin) 100 mg PO DAILY [facility] Last Admin: 07/20/18 10:38 Dose: 100 mg Insulin Detemir (Levemir) [address] [facility] Last Admin: 07/20/18 22:30 Dose: 46 units Insulin Human Lispro (Humalog) 0 units SC [facility]; Protocol Last Admin: 07/20/18 22:24 Dose: Not Given Levetiracetam (Keppra) 500 mg PO BID [facility] Last Admin: 07/20/18 17:34 Dose: 500 mg Levothyroxine Sodium (Synthroid) 100 mcg PO DAILY@0630 [facility] Last Admin: 07/20/18 07:52 Dose: 100 mcg Lorazepam (Ativan) 0.5 mg PO Q8 PRN PRN Reason: Agitation Losartan Potassium (Cozaar) 50 mg PO DAILY [facility] Last Admin: 07/20/18 10:40 Dose: 50 mg Metoprolol Succinate (Toprol Xl) 25 mg PO DAILY [facility] Last Admin: 07/06/18 09:41 Dose: Not Given Nifedipine (Procardia Xl) 60 mg PO DAILY [facility] Last Admin: 07/20/18 10:38 Dose: 60 mg Timolol Maleate (Timoptic 0.5% Oph Soln) 1 drop OU BID [facility] Last Admin: 07/20/18 17:35 Dose: 1 drop Trazodone HCl (Desyrel) [address] [facility] Last Admin: 07/20/18 22:30 Dose: 100 mg - Labs Labs: 07/01/18 16:17 07/01/18 17:39 Assessment and Plan (1) Living accommodation issues Status: Acute (2) CAD (coronary artery disease) Status: Chronic (3) Diabetes mellitus Status: Chronic (4) Headache Status: Acute (5) Hyperlipidemia Status: Acute (6) Seizure disorder Status: Acute (7) Hypothyroidism Status: Chronic - Assessment and Plan (Free Text) Plan: Continue Current Medications Continue 1 to 1 for safety APS, & SW on Board, and working with Guardian for placement.
[2018-07-21] MEDS: Levothyroxine 100 MCG TAB PO SCH (06:39)
[2018-07-21] MEDS: Insulin Lispro (humaLOG) 100 Units/ml Inj SC SCH ×4 (09:47→22:01)
[2018-07-21] MEDS: Enoxaparin 30 mg Syringe SC SCH (10:01)
[2018-07-21] MEDS: NIFEdipine 60 mg ER Tab PO SCH (17:37)
[2018-07-21] MEDS: Insulin Detemir 100 Units/ml Inj SC SCH (22:02)
--- NOTE | 2018-07-21 22:25 | CP.PCM.PN ---
Subjective - Date & Time of Evaluation Date of Evaluation: 07/21/18 Time of Evaluation: 14:25 Objective - Vital Signs/Intake and Output Vital Signs (last 24 hours): Temp Pulse Resp BP Pulse Ox 97.8 F 60 20 131/64 95 07/21/18 16:28 07/21/18 17:35 07/21/18 16:28 07/21/18 17:35 07/21/18 16:28 - Medications Medications: Current Medications Atorvastatin Calcium (Lipitor) 80 mg PO DAILY [facility] Last Admin: 07/21/18 09:47 Dose: 80 mg Clopidogrel Bisulfate (Plavix) 75 mg PO DAILY [facility] Last Admin: 07/21/18 09:48 Dose: 75 mg Enoxaparin Sodium (Lovenox) 30 mg SC DAILY [facility]; Protocol Last Admin: 07/21/18 10:01 Dose: Not Given Gabapentin (Neurontin) 100 mg PO DAILY [facility] Last Admin: 07/21/18 09:48 Dose: 100 mg Insulin Detemir (Levemir) 46 units SC [facility] Last Admin: 07/21/18 22:02 Dose: 46 units Insulin Human Lispro (Humalog) 0 units SC [facility]; Protocol Last Admin: 07/21/18 22:01 Dose: Not Given Levetiracetam (Keppra) 500 mg PO BID [facility] Last Admin: 07/21/18 17:36 Dose: 500 mg Levothyroxine Sodium (Synthroid) 100 mcg PO DAILY@0630 [facility] Last Admin: 07/21/18 06:39 Dose: 100 mcg Lorazepam (Ativan) 0.5 mg PO Q8 PRN PRN Reason: Agitation Losartan Potassium (Cozaar) 50 mg PO DAILY [facility] Last Admin: 07/21/18 17:35 Dose: 50 mg Metoprolol Succinate (Toprol Xl) 25 mg PO DAILY [facility] Last Admin: 07/06/18 09:41 Dose: Not Given Nifedipine (Procardia Xl) 60 mg PO DAILY [facility] Last Admin: 07/21/18 17:37 Dose: Not Given Timolol Maleate (Timoptic 0.5% [facility]) 1 drop OU BID [facility] Last Admin: 07/21/18 17:37 Dose: 1 drop Trazodone HCl (Desyrel) 100 mg PO [facility] Last Admin: 07/21/18 22:01 Dose: 100 mg - Labs Labs: 07/01/18 16:17 07/01/18 17:39 Assessment and Plan (1) Living accommodation issues Status: Acute (2) CAD (coronary artery disease) Status: Chronic (3) Diabetes mellitus Status: Chronic (4) Headache Status: Acute (5) Hyperlipidemia Status: Acute (6) Seizure disorder Status: Acute (7) Hypothyroidism Status: Chronic
[2018-07-22] MEDS: Levothyroxine 100 MCG TAB PO SCH (05:59)
[2018-07-22] MEDS: Insulin Lispro (humaLOG) 100 Units/ml Inj SC SCH ×4 (07:01→22:14)
[2018-07-22] MEDS: Enoxaparin 30 mg Syringe SC SCH (10:29)
[2018-07-22] MEDS: NIFEdipine 60 mg ER Tab PO SCH (17:43)
[2018-07-22] MEDS: Insulin Detemir 100 Units/ml Inj SC SCH (21:57)
[2018-07-23] MEDS: Levothyroxine 100 MCG TAB PO SCH (06:02)
[2018-07-23] MEDS: Insulin Lispro (humaLOG) 100 Units/ml Inj SC SCH ×4 (07:03→22:01)
[2018-07-23] MEDS: Enoxaparin 30 mg Syringe SC SCH (09:19)
[2018-07-23] MEDS: NIFEdipine 60 mg ER Tab PO SCH (09:19)
[2018-07-23] MEDS: Insulin Detemir 100 Units/ml Inj SC SCH (22:00)
--- NOTE | 2018-07-23 23:26 | CP.PCM.PN ---
Subjective - Date & Time of Evaluation Date of Evaluation: 07/22/18 Time of Evaluation: 19:25 Objective - Vital Signs/Intake and Output Vital Signs (last 24 hours): Temp Pulse Resp BP Pulse Ox 98.9 F 97 H 18 142/77 99 07/23/18 16:03 07/23/18 16:03 07/23/18 16:03 07/23/18 16:03 07/23/18 16:03 - Medications Medications: Current Medications Atorvastatin Calcium (Lipitor) 80 mg PO DAILY [facility] Last Admin: 07/23/18 09:17 Dose: 80 mg Clopidogrel Bisulfate (Plavix) 75 mg PO DAILY [facility] Last Admin: 07/23/18 09:19 Dose: 75 mg Enoxaparin Sodium (Lovenox) 30 mg SC DAILY [facility]; Protocol Last Admin: 07/23/18 09:19 Dose: Not Given Gabapentin (Neurontin) 100 mg PO DAILY [facility] Last Admin: 07/23/18 09:19 Dose: 100 mg Insulin Detemir (Levemir) 46 units SC HS [facility] Last Admin: 07/23/18 22:00 Dose: 46 units Insulin Human Lispro (Humalog) 0 units SC [facility]; Protocol Last Admin: 07/23/18 22:01 Dose: Not Given Levetiracetam (Keppra) 500 mg PO BID [facility] Last Admin: 07/23/18 16:13 Dose: 500 mg Levothyroxine Sodium (Synthroid) 100 mcg PO DAILY@0630 [facility] Last Admin: 07/23/18 06:02 Dose: 100 mcg Lorazepam (Ativan) 0.5 mg PO Q8 PRN PRN Reason: Agitation Losartan Potassium (Cozaar) 50 mg PO DAILY [facility] Last Admin: 07/23/18 09:00 Dose: 50 mg Metoprolol Succinate (Toprol Xl) 25 mg PO DAILY [facility] Last Admin: 07/06/18 09:41 Dose: Not Given Nifedipine (Procardia Xl) 60 mg PO DAILY [facility] Last Admin: 07/23/18 09:19 Dose: 60 mg Ondansetron HCl (Zofran Inj) 4 mg IVP Q6 PRN PRN Reason: Nausea/Vomiting Timolol Maleate (Timoptic 0.5% Ophth Soln) 1 drop OU BID [facility] Last Admin: 07/23/18 16:13 Dose: 1 drop Trazodone HCl (Desyrel) 100 mg PO HS [facility] Last Admin: 07/23/18 21:43 Dose: 100 mg - Labs Labs: 07/01/18 16:17 07/01/18 17:39 Assessment and Plan (1) Living accommodation issues Status: Acute (2) CAD (coronary artery disease) Status: Chronic (3) Diabetes mellitus Status: Chronic (4) Headache Status: Acute (5) Hyperlipidemia Status: Acute (6) Seizure disorder Status: Acute (7) Hypothyroidism Status: Chronic
--- NOTE | 2018-07-23 23:27 | CP.PCM.PN ---
Subjective - Date & Time of Evaluation Date of Evaluation: 07/23/18 Time of Evaluation: 14:55 Objective - Vital Signs/Intake and Output Vital Signs (last 24 hours): Temp Pulse Resp BP Pulse Ox 98.9 F 97 H 18 142/77 99 07/23/18 16:03 07/23/18 16:03 07/23/18 16:03 07/23/18 16:03 07/23/18 16:03 - Medications Medications: Current Medications Atorvastatin Calcium (Lipitor) 80 mg PO DAILY [facility] Last Admin: 07/23/18 09:17 Dose: 80 mg Clopidogrel Bisulfate (Plavix) 75 mg PO DAILY [facility] Last Admin: 07/23/18 09:19 Dose: 75 mg Enoxaparin Sodium (Lovenox) 30 mg SC DAILY [facility]; Protocol Last Admin: 07/23/18 09:19 Dose: Not Given Gabapentin (Neurontin) 100 mg PO DAILY [facility] Last Admin: 07/23/18 09:19 Dose: 100 mg Insulin Detemir (Levemir) 46 units SC HS [facility] Last Admin: 07/23/18 22:00 Dose: 46 units Insulin Human Lispro (Humalog) 0 units SC [facility]; Protocol Last Admin: 07/23/18 22:01 Dose: Not Given Levetiracetam (Keppra) 500 mg PO BID [facility] Last Admin: 07/23/18 16:13 Dose: 500 mg Levothyroxine Sodium (Synthroid) 100 mcg PO DAILY@0630 [facility] Last Admin: 07/23/18 06:02 Dose: 100 mcg Lorazepam (Ativan) 0.5 mg PO Q8 PRN PRN Reason: Agitation Losartan Potassium (Cozaar) 50 mg PO DAILY [facility] Last Admin: 07/23/18 09:00 Dose: 50 mg Metoprolol Succinate (Toprol Xl) 25 mg PO DAILY [facility] Last Admin: 07/06/18 09:41 Dose: Not Given Nifedipine (Procardia Xl) 60 mg PO DAILY [facility] Last Admin: 07/23/18 09:19 Dose: 60 mg Ondansetron HCl (Zofran Inj) 4 mg IVP Q6 PRN PRN Reason: Nausea/Vomiting Timolol Maleate (Timoptic 0.5% Ophth Soln) 1 drop OU BID [facility] Last Admin: 07/23/18 16:13 Dose: 1 drop Trazodone HCl (Desyrel) 100 mg PO HS [facility] Last Admin: 07/23/18 21:43 Dose: 100 mg - Labs Labs: 07/01/18 16:17 07/01/18 17:39 Assessment and Plan (1) Living accommodation issues Status: Acute (2) CAD (coronary artery disease) Status: Chronic (3) Diabetes mellitus Status: Chronic (4) Headache Status: Acute (5) Hyperlipidemia Status: Acute (6) Seizure disorder Status: Acute (7) Hypothyroidism Status: Chronic
[2018-07-24] MEDS: Levothyroxine 100 MCG TAB PO SCH (05:54)
[2018-07-24] MEDS: Insulin Lispro (humaLOG) 100 Units/ml Inj SC SCH ×4 (09:25→22:53)
[2018-07-24] MEDS: Enoxaparin 30 mg Syringe SC SCH ×2 (09:31→09:45)
[2018-07-24] MEDS: NIFEdipine 60 mg ER Tab PO SCH (09:32)
[2018-07-24] MEDS: Insulin Detemir 100 Units/ml Inj SC SCH (22:54)
[2018-07-25] MEDS: Levothyroxine 100 MCG TAB PO SCH (06:14)
[2018-07-25] MEDS: Insulin Regular 100 units/ml SC SCH ×3 (16:24→23:00)
[2018-07-25] MEDS: NIFEdipine 60 mg ER Tab PO SCH (17:04)
[2018-07-25] MEDS: Insulin Detemir 100 Units/ml Inj SC SCH (23:00)
--- NOTE | 2018-07-25 23:27 | CP.PCM.PN ---
Subjective - Date & Time of Evaluation Date of Evaluation: 07/24/18 Time of Evaluation: 08:10 Objective - Vital Signs/Intake and Output Vital Signs (last 24 hours): Temp Pulse Resp BP Pulse Ox 98.4 F 47 L 18 151/60 H 98 07/25/18 16:44 07/25/18 17:04 07/25/18 16:44 07/25/18 16:44 07/25/18 17:00 - Medications Medications: Current Medications Acetaminophen (Tylenol 325mg Tab) 650 mg PO Q6 PRN PRN Reason: Pain, severe (8-10) Atorvastatin Calcium (Lipitor) 80 mg PO DAILY [facility] Last Admin: 07/25/18 09:55 Dose: 80 mg Clopidogrel Bisulfate (Plavix) 75 mg PO DAILY [facility] Last Admin: 07/25/18 09:55 Dose: 75 mg Gabapentin (Neurontin) 100 mg PO DAILY [facility] Last Admin: 07/25/18 09:55 Dose: 100 mg Insulin Detemir (Levemir) 20 units SC [facility] Insulin Human Regular (Humulin R) 0 units SC [facility]; Protocol Last Admin: 07/25/18 17:04 Dose: Not Given Levetiracetam (Keppra) 500 mg PO BID [facility] Last Admin: 07/25/18 16:24 Dose: 500 mg Levothyroxine Sodium (Synthroid) 100 mcg PO DAILY@0630 [facility] Last Admin: 07/25/18 06:14 Dose: 100 mcg Losartan Potassium (Cozaar) 50 mg PO DAILY [facility] Last Admin: 07/25/18 17:03 Dose: Not Given Metoprolol Succinate (Toprol Xl) 25 mg PO DAILY [facility] Last Admin: 07/06/18 09:41 Dose: Not Given Nifedipine (Procardia Xl) 60 mg PO DAILY [facility] Last Admin: 07/25/18 17:04 Dose: Not Given Ondansetron HCl (Zofran Inj) 4 mg IVP Q6 PRN PRN Reason: Nausea/Vomiting Timolol Maleate (Timoptic 0.5% Ophth Soln) 1 drop OU BID [facility] Last Admin: 07/25/18 16:25 Dose: 1 drop Trazodone HCl (Desyrel) 100 mg PO [facility] Last Admin: 07/24/18 22:54 Dose: 100 mg - Labs Labs: 07/01/18 16:17 07/01/18 17:39 Assessment and Plan (1) Living accommodation issues Status: Acute (2) CAD (coronary artery disease) Status: Chronic (3) Diabetes mellitus Status: Chronic (4) Headache Status: Acute (5) Hyperlipidemia Status: Acute (6) Seizure disorder Status: Acute (7) Hypothyroidism Status: Chronic
--- NOTE | 2018-07-25 23:28 | CP.PCM.PN ---
Subjective - Date & Time of Evaluation Date of Evaluation: 07/25/18 Time of Evaluation: 14:20 Objective - Vital Signs/Intake and Output Vital Signs (last 24 hours): Temp Pulse Resp BP Pulse Ox 98.4 F 47 L 18 151/60 H 98 07/25/18 16:44 07/25/18 17:04 07/25/18 16:44 07/25/18 16:44 07/25/18 17:00 - Medications Medications: Current Medications Acetaminophen (Tylenol 325mg Tab) 650 mg PO Q6 PRN PRN Reason: Pain, severe (8-10) Atorvastatin Calcium (Lipitor) 80 mg PO DAILY [facility] Last Admin: 07/25/18 09:55 Dose: 80 mg Clopidogrel Bisulfate (Plavix) 75 mg PO DAILY [facility] Last Admin: 07/25/18 09:55 Dose: 75 mg Gabapentin (Neurontin) 100 mg PO DAILY [facility] Last Admin: 07/25/18 09:55 Dose: 100 mg Insulin Detemir (Levemir) [address] [facility] Insulin Human Regular (Humulin R) 0 units SC [facility]; Protocol Last Admin: 07/25/18 17:04 Dose: Not Given Levetiracetam (Keppra) 500 mg PO BID [facility] Last Admin: 07/25/18 16:24 Dose: 500 mg Levothyroxine Sodium (Synthroid) 100 mcg PO DAILY@0630 [facility] Last Admin: 07/25/18 06:14 Dose: 100 mcg Losartan Potassium (Cozaar) 50 mg PO DAILY [facility] Last Admin: 07/25/18 17:03 Dose: Not Given Metoprolol Succinate (Toprol Xl) 25 mg PO DAILY [facility] Last Admin: 07/06/18 09:41 Dose: Not Given Nifedipine (Procardia Xl) 60 mg PO DAILY [facility] Last Admin: 07/25/18 17:04 Dose: Not Given Ondansetron HCl (Zofran Inj) 4 mg IVP Q6 PRN PRN Reason: Nausea/Vomiting Timolol Maleate (Timoptic 0.5% Ophth Soln) 1 drop OU BID [facility] Last Admin: 07/25/18 16:25 Dose: 1 drop Trazodone HCl (Desyrel) [address] [facility] Last Admin: 07/24/18 22:54 Dose: 100 mg - Labs Labs: 07/01/18 16:17 07/01/18 17:39 Assessment and Plan (1) Living accommodation issues Status: Acute (2) CAD (coronary artery disease) Status: Chronic (3) Diabetes mellitus Status: Chronic (4) Headache Status: Acute (5) Hyperlipidemia Status: Acute (6) Seizure disorder Status: Acute (7) Hypothyroidism Status: Chronic
[2018-07-26] MEDS: Levothyroxine 100 MCG TAB PO SCH (06:42)
[2018-07-26] MEDS: Insulin Regular 100 units/ml SC SCH ×4 (06:42→22:23)
[2018-07-26] MEDS: NIFEdipine 60 mg ER Tab PO SCH (10:57)
--- NOTE | 2018-07-26 18:02 | CP.PCM.PN ---
Subjective - Date & Time of Evaluation Date of Evaluation: 07/26/18 Time of Evaluation: 07:15 - Subjective Subjective: +a symptomatic Bradycardia at rest specially when sleeping to 50 BPM. Objective - Vital Signs/Intake and Output Vital Signs (last 24 hours): Temp Pulse Resp BP Pulse Ox 96.8 F L 70 18 166/71 H 97 07/26/18 16:24 07/26/18 16:24 07/26/18 16:24 07/26/18 16:24 07/26/18 16:24 - Medications Medications: Current Medications Acetaminophen (Tylenol 325mg Tab) 650 mg PO Q6 PRN PRN Reason: Pain, severe (8-10) Atorvastatin Calcium (Lipitor) 80 mg PO DAILY [facility] Last Admin: 07/26/18 10:55 Dose: 80 mg Clopidogrel Bisulfate (Plavix) 75 mg PO DAILY [facility] Last Admin: 07/26/18 10:56 Dose: 75 mg Gabapentin (Neurontin) 100 mg PO DAILY [facility] Last Admin: 07/26/18 10:56 Dose: 100 mg Insulin Detemir (Levemir) 20 units SC [facility] Last Admin: 07/25/18 23:00 Dose: Not Given Insulin Human Regular (Humulin R) 0 units SC [facility]; Protocol Last Admin: 07/26/18 16:07 Dose: Not Given Levetiracetam (Keppra) 500 mg PO BID [facility] Last Admin: 07/26/18 16:08 Dose: 500 mg Levothyroxine Sodium (Synthroid) 100 mcg PO DAILY@0630 [facility] Last Admin: 07/26/18 06:42 Dose: 100 mcg Losartan Potassium (Cozaar) 50 mg PO DAILY [facility] Last Admin: 07/26/18 10:51 Dose: Not Given Metoprolol Succinate (Toprol Xl) 25 mg PO DAILY [facility] Last Admin: 07/06/18 09:41 Dose: Not Given Nifedipine (Procardia Xl) 60 mg PO DAILY [facility] Last Admin: 07/26/18 10:57 Dose: Not Given Ondansetron HCl (Zofran Inj) 4 mg IVP Q6 PRN PRN Reason: Nausea/Vomiting Timolol Maleate (Timoptic 0.5% Oph Soln) 1 drop OU BID [facility] Last Admin: 07/26/18 16:08 Dose: 1 drop Trazodone HCl (Desyrel) 100 mg PO [facility] Last Admin: 07/25/18 23:00 Dose: Not Given - Labs Labs: 07/01/18 16:17 07/01/18 17:39 Assessment and Plan (1) Living accommodation issues Status: Acute (2) CAD (coronary artery disease) Status: Chronic (3) Diabetes mellitus Status: Chronic (4) Headache Status: Acute (5) Hyperlipidemia Status: Acute (6) Seizure disorder Status: Acute (7) Hypothyroidism Status: Chronic - Assessment and Plan (Free Text) Plan: Continue Current Medications Continue 1 to 1 for safety APS, & SW on Board, and working with Guardian for placement.
[2018-07-26] MEDS: Insulin Detemir 100 Units/ml Inj SC SCH (22:24)
[2018-07-27] MEDS: Levothyroxine 100 MCG TAB PO SCH (06:42)
[2018-07-27] MEDS: Insulin Regular 100 units/ml SC SCH ×4 (10:24→21:33)
[2018-07-27] MEDS: NIFEdipine 60 mg ER Tab PO SCH (20:27)
[2018-07-27] MEDS: Insulin Detemir 100 Units/ml Inj SC SCH (21:32)
--- NOTE | 2018-07-27 23:29 | CP.PCM.PN ---
Subjective - Date & Time of Evaluation Date of Evaluation: 07/27/18 Time of Evaluation: 07:05 Objective - Vital Signs/Intake and Output Vital Signs (last 24 hours): Temp Pulse Resp BP Pulse Ox 97.6 F 49 L 18 139/71 96 07/27/18 17:52 07/27/18 20:27 07/27/18 17:52 07/27/18 17:52 07/27/18 17:52 - Medications Medications: Current Medications Acetaminophen (Tylenol 325mg Tab) 650 mg PO Q6 PRN PRN Reason: Pain, severe (8-10) Atorvastatin Calcium (Lipitor) 80 mg PO DAILY [facility] Last Admin: 07/27/18 10:24 Dose: 80 mg Clopidogrel Bisulfate (Plavix) 75 mg PO DAILY [facility] Last Admin: 07/27/18 10:25 Dose: 75 mg Gabapentin (Neurontin) 100 mg PO DAILY [facility] Last Admin: 07/27/18 10:25 Dose: 100 mg Insulin Detemir (Levemir) 20 units SC [facility] Last Admin: 07/27/18 21:32 Dose: Not Given Insulin Human Regular (Humulin R) 0 units SC [facility]; Protocol Last Admin: 07/27/18 21:33 Dose: Not Given Levetiracetam (Keppra) 500 mg PO BID [facility] Last Admin: 07/27/18 16:37 Dose: 500 mg Levothyroxine Sodium (Synthroid) 100 mcg PO DAILY@0630 [facility] Last Admin: 07/27/18 06:42 Dose: 100 mcg Losartan Potassium (Cozaar) 50 mg PO DAILY [facility] Last Admin: 07/27/18 10:28 Dose: 50 mg Metoprolol Succinate (Toprol Xl) 25 mg PO DAILY [facility] Last Admin: 07/06/18 09:41 Dose: Not Given Nifedipine (Procardia Xl) 60 mg PO DAILY [facility] Last Admin: 07/27/18 20:27 Dose: Not Given Ondansetron HCl (Zofran Inj) 4 mg IVP Q6 PRN PRN Reason: Nausea/Vomiting Timolol Maleate (Timoptic 0.5% Oph Soln) 1 drop OU BID [facility] Last Admin: 07/27/18 16:37 Dose: 1 drop Trazodone HCl (Desyrel) 100 mg PO [facility] Last Admin: 07/27/18 21:31 Dose: 100 mg - Labs Labs: 10/12/18 16:17 07/01/18 17:39 Assessment and Plan (1) Living accommodation issues Status: Acute (2) CAD (coronary artery disease) Status: Chronic (3) Diabetes mellitus Status: Chronic (4) Headache Status: Acute (5) Hyperlipidemia Status: Acute (6) Seizure disorder Status: Acute (7) Hypothyroidism Status: Chronic
[2018-07-28] MEDS: Levothyroxine 100 MCG TAB PO SCH (06:45)
[2018-07-28] MEDS: Insulin Regular 100 units/ml SC SCH ×4 (06:46→22:00)
[2018-07-28] MEDS: NIFEdipine 60 mg ER Tab PO SCH ×2 (10:24→17:08)
[2018-07-28] MEDS: Insulin Detemir 100 Units/ml Inj SC SCH (22:00)
[2018-07-29] MEDS: Levothyroxine 100 MCG TAB PO SCH (06:02)
[2018-07-29] MEDS: NIFEdipine 60 mg ER Tab PO SCH (10:04)
[2018-07-29] MEDS: Insulin Regular 100 units/ml SC SCH ×3 (10:06→17:10)
--- NOTE | 2018-07-29 11:11 | CP.PCM.CON ---
History of Present Illness - History of Present Illness History of Present Illness: This 73-year-old female is well-known to me over last 6- 7 years. 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 She has also suffered a cerebrovascular accident that further impedes her capacity to ambulate. At this point she is mostly bed and chair bound. She lives with her partner was advanced aggressive dementia. The patient has never suffered a myocardial infarction and does not have congestive cardiac failure. At this point she is hospitalized awaiting permanent placement. Physical examination shows an elderly thin built female who is alert awake and coherent. She is afebrile with a pulse rate off 56 bpm regular and a blood pressure of 134/74 mmHg. She is able to lie virtually flat and carry on a conver sation. She breathes at 16 breaths per minute. Her jugular venous pressure was not elevated and there was no edema over her lower extremities. The pedal pulses were feeble but distinct of present There were no carotid bruits. The apex was in the fifth space the first and second heart sounds were normal. There were no murmurs and there was no gallop. Abdomen was soft liver and spleen are not palpable. Her electro-cardial gram shows sinus bradycardia with a pattern of left-ventricular hypertrophy, a pattern seen on her electrocardiogram for last 6 years. Impression: Sinus bradycardia most likely due to a combination off metoprolol as well as Timolol being used as eyedrops. The patient has hypothyroidism being treated with thyroid replacement. I have requested a TSH level to rule out possibility of mild hypothyroidism on present dose of thyroid replacement. I have discontinued metoprolol. The patient needs Timolol to manage her glaucoma. If her TSH indicates persistent hypothyroidism she will need a higher dose of thyroid replacement. At this point the degree of bradycardia is not clinically significant in a patient was mostly bed and chair bound. Past Patient History - Tetanus Immunizations Tetanus Immunization: Unknown - Past Medical History & Family History Past Medical History?: Yes Past Family History: Reviewed and not pertinent - Past Social History Smoking Status: Former Smoker - CARDIAC Hx Hypercholesterolemia: Yes Hx Hypertension: Yes - PULMONARY Hx Asthma: Yes Hx Chronic Obstructive Pulmonary Disease (COPD): Yes - NEUROLOGICAL Hx Seizures: Yes - HEENT Hx HEENT Problems: Yes Hx Glaucoma: Yes (right eye) - RENAL Hx Chronic Kidney Disease: No - ENDOCRINE/METABOLIC Hx Diabetes Mellitus Type 2: Yes - HEMATOLOGICAL/ONCOLOGICAL Hx Human Immunodeficiency Virus (HIV): No - INTEGUMENTARY Hx Dermatological Problems: No - MUSCULOSKELETAL/RHEUMATOLOGICAL Hx Falls: No - GASTROINTESTINAL Hx Gastrointestinal Disorders: No - GENITOURINARY/GYNECOLOGICAL Hx Sexually Transmitted Disorders: No - PSYCHIATRIC Hx Depression: Yes Hx Post Traumatic Stress Disorder: Yes - SURGICAL HISTORY Hx Cholecystectomy: Yes Hx Tonsillectomy: Yes - ANESTHESIA Hx Anesthesia: Yes Hx Anesthesia Reactions: No Meds Allergies/Adverse Reactions: Allergies Allergy/AdvReac Type Severity Reaction Status Date / Time levofloxacin [From Levaquin] Allergy convulsions Verified 07/01/18 14:29 Macrolide Antibiotics Allergy convulsions Verified 07/01/18 14:29 turkey Allergy RASH Verified 07/01/18 19:55 aspirin AdvReac bleedin Verified 07/01/18 14:29 - Medications Medications: Current Medications Acetaminophen (Tylenol 325mg Tab) 650 mg PO Q6 PRN PRN Reason: Pain, severe (8-10) Last Admin: 07/29/18 06:07 Dose: 650 mg Atorvastatin Calcium (Lipitor) 80 mg PO DAILY [facility] Last Admin: 07/29/18 10:17 Dose: Not Given Clopidogrel Bisulfate (Plavix) 75 mg PO DAILY [facility] Last Admin: 07/29/18 10:03 Dose: 75 mg Gabapentin (Neurontin) 100 mg PO DAILY [facility] Last Admin: 07/29/18 10:04 Dose: 100 mg Insulin Detemir (Levemir) 20 units SC [facility] Last Admin: 07/28/18 22:00 Dose: 20 unit Insulin Human Regular (Humulin R) 0 units SC [facility]; Protocol Last Admin: 07/29/18 10:06 Dose: Not Given Levetiracetam (Keppra) 500 mg PO BID [facility] Last Admin: 07/29/18 10:03 Dose: 500 mg Levothyroxine Sodium (Synthroid) 100 mcg PO DAILY@0630 [facility] Last Admin: 07/29/18 06:02 Dose: 100 mcg Losartan Potassium (Cozaar) 50 mg PO DAILY [facility] Last Admin: 07/29/18 10:05 Dose: Not Given Metoprolol Succinate (Toprol Xl) 25 mg PO DAILY [facility] Last Admin: 07/06/18 09:41 Dose: Not Given Nifedipine (Procardia Xl) 60 mg PO DAILY [facility] Last Admin: 07/29/18 10:04 Dose: 60 mg Ondansetron HCl (Zofran Inj) 4 mg IVP Q6 PRN PRN Reason: Nausea/Vomiting Timolol Maleate (Timoptic 0.5% Ophth Soln) 1 drop OU BID [facility] Last Admin: 07/29/18 10:02 Dose: 1 drop Trazodone HCl (Desyrel) 100 mg PO HS [facility] Last Admin: 07/28/18 22:00 Dose: 100 mg Results - Vital Signs Recent Vital Signs: Last Vital Signs Temp 97.9 F 07/29/18 08:03 Pulse 58 L 07/29/18 10:05 Resp 18 07/29/18 08:03 BP 122/54 L 07/29/18 10:05 Pulse Ox 96 07/29/18 08:03 - Labs Result Diagrams: 07/01/18 16:17 07/01/18 17:39 Labs: Laboratory Results - last 24 hr 07/28/18 07/28/18 07/28/18 11:30 15:51 21:50 POC Glucose (mg/dL) 114 H 105 125 H 07/29/18 05:32 POC Glucose (mg/dL) 118 H
[2018-07-29] MEDS: Insulin Detemir 100 Units/ml Inj SC SCH (21:47)
[2018-07-30] MEDS: Levothyroxine 100 MCG TAB PO SCH (06:17)
[2018-07-30] MEDS: Insulin Regular 100 units/ml SC SCH ×4 (10:28→23:42)
[2018-07-30] MEDS: NIFEdipine 60 mg ER Tab PO SCH (10:36)
[2018-07-30] MEDS: Insulin Detemir 100 Units/ml Inj SC SCH (23:43)
[2018-07-31] MEDS: Levothyroxine 100 MCG TAB PO SCH (05:37)
[2018-07-31] MEDS: Insulin Regular 100 units/ml SC SCH ×4 (07:50→22:00)
[2018-07-31] MEDS: NIFEdipine 60 mg ER Tab PO SCH (09:50)
[2018-07-31] MEDS: Insulin Detemir 100 Units/ml Inj SC SCH (22:01)
--- NOTE | 2018-08-01 | CP.PCM.PN ---
Subjective - Date & Time of Evaluation Date of Evaluation: 07/28/18 Objective - Vital Signs/Intake and Output Vital Signs (last 24 hours): Temp Pulse Resp BP Pulse Ox 98.0 F 50 L 19 158/52 H 97 07/31/18 09:00 07/31/18 09:50 07/31/18 09:00 07/31/18 09:00 07/31/18 09:00 - Medications Medications: Current Medications Acetaminophen (Tylenol 325mg Tab) 650 mg PO Q6 PRN PRN Reason: Pain, severe (8-10) Last Admin: 07/29/18 06:07 Dose: 650 mg Atorvastatin Calcium (Lipitor) 80 mg PO DAILY [facility] Last Admin: 07/31/18 09:33 Dose: Not Given Clopidogrel Bisulfate (Plavix) 75 mg PO DAILY [facility] Last Admin: 07/31/18 09:27 Dose: Not Given Gabapentin (Neurontin) 100 mg PO DAILY [facility] Last Admin: 07/31/18 09:29 Dose: 100 mg Insulin Detemir (Levemir) 20 units SC [facility] Last Admin: 07/31/18 22:01 Dose: 20 unit Insulin Human Regular (Humulin R) 0 units SC [facility]; Protocol Last Admin: 07/31/18 22:00 Dose: Not Given Levetiracetam (Keppra) 500 mg PO BID [facility] Last Admin: 07/31/18 17:16 Dose: 500 mg Levothyroxine Sodium (Synthroid) 100 mcg PO DAILY@0630 [facility] Last Admin: 07/31/18 05:37 Dose: 100 mcg Losartan Potassium (Cozaar) 50 mg PO DAILY [facility] Last Admin: 07/31/18 09:49 Dose: Not Given Nifedipine (Procardia Xl) 60 mg PO DAILY [facility] Last Admin: 07/31/18 09:50 Dose: Not Given Ondansetron HCl (Zofran Inj) 4 mg IVP Q6 PRN PRN Reason: Nausea/Vomiting Timolol Maleate (Timoptic 0.5% Oph Soln) 1 drop OU BID [facility] Last Admin: 07/31/18 17:16 Dose: 1 drop Trazodone HCl (Desyrel) 100 mg PO [facility] Last Admin: 07/31/18 22:00 Dose: 100 mg - Labs Labs: 07/01/18 16:17 07/01/18 17:39 Assessment and Plan (1) Living accommodation issues Status: Acute (2) CAD (coronary artery disease) Status: Chronic (3) Diabetes mellitus Status: Chronic (4) Headache Status: Acute (5) Hyperlipidemia Status: Acute (6) Seizure disorder Status: Acute (7) Hypothyroidism Status: Chronic
--- NOTE | 2018-08-01 00:01 | CP.PCM.PN ---
Subjective - Date & Time of Evaluation Date of Evaluation: 07/29/18 Objective - Vital Signs/Intake and Output Vital Signs (last 24 hours): Temp Pulse Resp BP Pulse Ox 98.0 F 50 L 19 158/52 H 97 07/31/18 09:00 07/31/18 09:50 07/31/18 09:00 07/31/18 09:00 07/31/18 09:00 - Medications Medications: Current Medications Acetaminophen (Tylenol 325mg Tab) 650 mg PO Q6 PRN PRN Reason: Pain, severe (8-10) Last Admin: 07/29/18 06:07 Dose: 650 mg Atorvastatin Calcium (Lipitor) 80 mg PO DAILY [facility] Last Admin: 07/31/18 09:33 Dose: Not Given Clopidogrel Bisulfate (Plavix) 75 mg PO DAILY [facility] Last Admin: 07/31/18 09:27 Dose: Not Given Gabapentin (Neurontin) 100 mg PO DAILY [facility] Last Admin: 07/31/18 09:29 Dose: 100 mg Insulin Detemir (Levemir) 20 units SC [facility] Last Admin: 07/31/18 22:01 Dose: 20 unit Insulin Human Regular (Humulin R) 0 units SC [facility]; Protocol Last Admin: 07/31/18 22:00 Dose: Not Given Levetiracetam (Keppra) 500 mg PO BID [facility] Last Admin: 07/31/18 17:16 Dose: 500 mg Levothyroxine Sodium (Synthroid) 100 mcg PO DAILY@0630 [facility] Last Admin: 07/31/18 05:37 Dose: 100 mcg Losartan Potassium (Cozaar) 50 mg PO DAILY [facility] Last Admin: 07/31/18 09:49 Dose: Not Given Nifedipine (Procardia Xl) 60 mg PO DAILY [facility] Last Admin: 07/31/18 09:50 Dose: Not Given Ondansetron HCl (Zofran Inj) 4 mg IVP Q6 PRN PRN Reason: Nausea/Vomiting Timolol Maleate (Timoptic 0.5% Oph Soln) 1 drop OU BID [facility] Last Admin: 07/31/18 17:16 Dose: 1 drop Trazodone HCl (Desyrel) 100 mg PO [facility] Last Admin: 07/31/18 22:00 Dose: 100 mg - Labs Labs: 07/01/18 16:17 07/01/18 17:39 Assessment and Plan (1) Living accommodation issues Status: Acute (2) CAD (coronary artery disease) Status: Chronic (3) Diabetes mellitus Status: Chronic (4) Headache Status: Acute (5) Hyperlipidemia Status: Acute (6) Seizure disorder Status: Acute (7) Hypothyroidism Status: Chronic
--- NOTE | 2018-08-01 00:01 | CP.PCM.PN ---
Subjective - Date & Time of Evaluation Date of Evaluation: 07/30/18 Objective - Vital Signs/Intake and Output Vital Signs (last 24 hours): Temp Pulse Resp BP Pulse Ox 98.0 F 50 L 19 158/52 H 97 07/31/18 09:00 07/31/18 09:50 07/31/18 09:00 07/31/18 09:00 07/31/18 09:00 - Medications Medications: Current Medications Acetaminophen (Tylenol 325mg Tab) 650 mg PO Q6 PRN PRN Reason: Pain, severe (8-10) Last Admin: 07/29/18 06:07 Dose: 650 mg Atorvastatin Calcium (Lipitor) 80 mg PO DAILY [facility] Last Admin: 07/31/18 09:33 Dose: Not Given Clopidogrel Bisulfate (Plavix) 75 mg PO DAILY [facility] Last Admin: 07/31/18 09:27 Dose: Not Given Gabapentin (Neurontin) 100 mg PO DAILY [facility] Last Admin: 07/31/18 09:29 Dose: 100 mg Insulin Detemir (Levemir) 20 units SC [facility] Last Admin: 07/31/18 22:01 Dose: 20 unit Insulin Human Regular (Humulin R) 0 units SC [facility]; Protocol Last Admin: 07/31/18 22:00 Dose: Not Given Levetiracetam (Keppra) 500 mg PO BID [facility] Last Admin: 07/31/18 17:16 Dose: 500 mg Levothyroxine Sodium (Synthroid) 100 mcg PO DAILY@0630 [facility] Last Admin: 07/31/18 05:37 Dose: 100 mcg Losartan Potassium (Cozaar) 50 mg PO DAILY [facility] Last Admin: 07/31/18 09:49 Dose: Not Given Nifedipine (Procardia Xl) 60 mg PO DAILY [facility] Last Admin: 07/31/18 09:50 Dose: Not Given Ondansetron HCl (Zofran Inj) 4 mg IVP Q6 PRN PRN Reason: Nausea/Vomiting Timolol Maleate (Timoptic 0.5% Oph Soln) 1 drop OU BID [facility] Last Admin: 07/31/18 17:16 Dose: 1 drop Trazodone HCl (Desyrel) 100 mg PO [facility] Last Admin: 07/31/18 22:00 Dose: 100 mg - Labs Labs: 07/01/18 16:17 07/01/18 17:39 Assessment and Plan (1) Living accommodation issues Status: Acute (2) CAD (coronary artery disease) Status: Chronic (3) Diabetes mellitus Status: Chronic (4) Headache Status: Acute (5) Hyperlipidemia Status: Acute (6) Seizure disorder Status: Acute (7) Hypothyroidism Status: Chronic
--- NOTE | 2018-08-01 00:02 | CP.PCM.PN ---
Subjective - Date & Time of Evaluation Date of Evaluation: 07/31/18 Objective - Vital Signs/Intake and Output Vital Signs (last 24 hours): Temp Pulse Resp BP Pulse Ox 98.0 F 50 L 19 158/52 H 97 07/31/18 09:00 07/31/18 09:50 07/31/18 09:00 07/31/18 09:00 07/31/18 09:00 - Medications Medications: Current Medications Acetaminophen (Tylenol 325mg Tab) 650 mg PO Q6 PRN PRN Reason: Pain, severe (8-10) Last Admin: 07/29/18 06:07 Dose: 650 mg Atorvastatin Calcium (Lipitor) 80 mg PO DAILY [facility] Last Admin: 07/31/18 09:33 Dose: Not Given Clopidogrel Bisulfate (Plavix) 75 mg PO DAILY [facility] Last Admin: 07/31/18 09:27 Dose: Not Given Gabapentin (Neurontin) 100 mg PO DAILY [facility] Last Admin: 07/31/18 09:29 Dose: 100 mg Insulin Detemir (Levemir) 20 units SC [facility] Last Admin: 07/31/18 22:01 Dose: 20 unit Insulin Human Regular (Humulin R) 0 units SC [facility]; Protocol Last Admin: 07/31/18 22:00 Dose: Not Given Levetiracetam (Keppra) 500 mg PO BID [facility] Last Admin: 07/31/18 17:16 Dose: 500 mg Levothyroxine Sodium (Synthroid) 100 mcg PO DAILY@0630 [facility] Last Admin: 07/31/18 05:37 Dose: 100 mcg Losartan Potassium (Cozaar) 50 mg PO DAILY [facility] Last Admin: 07/31/18 09:49 Dose: Not Given Nifedipine (Procardia Xl) 60 mg PO DAILY [facility] Last Admin: 07/31/18 09:50 Dose: Not Given Ondansetron HCl (Zofran Inj) 4 mg IVP Q6 PRN PRN Reason: Nausea/Vomiting Timolol Maleate (Timoptic 0.5% Oph Soln) 1 drop OU BID [facility] Last Admin: 07/31/18 17:16 Dose: 1 drop Trazodone HCl (Desyrel) 100 mg PO [facility] Last Admin: 07/31/18 22:00 Dose: 100 mg - Labs Labs: 07/01/18 16:17 07/01/18 17:39 Assessment and Plan (1) Living accommodation issues Status: Acute (2) CAD (coronary artery disease) Status: Chronic (3) Diabetes mellitus Status: Chronic (4) Headache Status: Acute (5) Hyperlipidemia Status: Acute (6) Seizure disorder Status: Acute (7) Hypothyroidism Status: Chronic
[2018-08-01 01:05] VITALS: RESP 20
[2018-08-01] MEDS: Levothyroxine 100 MCG TAB PO SCH (05:56)
[2018-08-01] MEDS: Insulin Regular 100 units/ml SC SCH ×4 (07:24→21:30)
[2018-08-01] MEDS: NIFEdipine 60 mg ER Tab PO SCH (11:23)
[2018-08-01] MEDS: Insulin Detemir 100 Units/ml Inj SC SCH (21:35)
[2018-08-02] MEDS: Levothyroxine 100 MCG TAB PO SCH (05:39)
[2018-08-02] MEDS: Insulin Regular 100 units/ml SC SCH ×2 (06:43→12:45)
[2018-08-02 08:43] VITALS: TEMP 98.1
[2018-08-02 08:57] VITALS: PULSE 60
--- NOTE | 2018-08-02 11:32 | CP.PCM.PN ---
Subjective - Date & Time of Evaluation Date of Evaluation: 08/01/18 Time of Evaluation: 16:20 - Subjective Subjective: No new complaint Objective - Vital Signs/Intake and Output Vital Signs (last 24 hours): Temp Pulse Resp BP Pulse Ox 98.1 F 60 20 201/65 H 95 08/02/18 08:42 08/02/18 08:56 08/02/18 08:42 08/02/18 08:56 08/02/18 08:42 - Medications Medications: Current Medications Acetaminophen (Tylenol 325mg Tab) 650 mg PO Q6 PRN PRN Reason: Pain, severe (8-10) Last Admin: 08/01/18 14:32 Dose: 650 mg Atorvastatin Calcium (Lipitor) 80 mg PO DAILY [facility] Last Admin: 08/02/18 08:57 Dose: 80 mg Clopidogrel Bisulfate (Plavix) 75 mg PO DAILY [facility] Last Admin: 08/02/18 08:57 Dose: 75 mg Gabapentin (Neurontin) 100 mg PO DAILY [facility] Last Admin: 08/02/18 08:57 Dose: 100 mg Insulin Detemir (Levemir) 20 units SC [facility] Last Admin: 08/01/18 21:35 Dose: 20 unit Insulin Human Regular (Humulin R) 0 units SC [facility]; Protocol Last Admin: 08/02/18 06:43 Dose: Not Given Levetiracetam (Keppra) 500 mg PO BID [facility] Last Admin: 08/02/18 08:56 Dose: 500 mg Levothyroxine Sodium (Synthroid) 100 mcg PO DAILY@0630 [facility] Last Admin: 08/02/18 05:39 Dose: 100 mcg Losartan Potassium (Cozaar) 50 mg PO DAILY [facility] Last Admin: 08/02/18 08:56 Dose: 50 mg Nifedipine (Procardia Xl) 60 mg PO DAILY [facility] Last Admin: 08/01/18 11:23 Dose: Not Given Ondansetron HCl (Zofran Inj) 4 mg IVP Q6 PRN PRN Reason: Nausea/Vomiting Timolol Maleate (Timoptic 0.5% Oph Soln) 1 drop OU BID [facility] Last Admin: 08/02/18 09:14 Dose: 1 drop Trazodone HCl (Desyrel) 100 mg PO [facility] Last Admin: 08/01/18 21:35 Dose: 100 mg - Labs Labs: 07/01/18 16:17 07/01/18 17:39 Assessment and Plan (1) Living accommodation issues Status: Acute (2) CAD (coronary artery disease) Status: Chronic (3) Diabetes mellitus Status: Resolved (4) Headache Status: Acute (5) Hyperlipidemia Status: Acute (6) Seizure disorder Status: Acute (7) Hypothyroidism Status: Chronic - Assessment and Plan (Free Text) Plan: Continue Current Care
[2018-08-02 13:03] VITALS: BP 145/65; O2SAT 42
--- NOTE | 2018-08-02 17:57 | CP.PCM.DIS ---
Provider - Provider Date of Admission: 07/04/18 20:40 Attending physician: Fab Rosales MD Time Spent in preparation of Discharge (in minutes): 25 Diagnosis - Discharge Diagnosis (1) Living accommodation issues Status: Acute (2) CAD (coronary artery disease) Status: Chronic (3) Diabetes mellitus Status: Resolved (4) Headache Status: Acute Priority: Medium (5) Hyperlipidemia Status: Acute (6) Seizure disorder Status: Acute (7) Hypothyroidism Status: Chronic Priority: Low Hospital Course - Lab Results Lab Results: Most Recent Lab Values WBC 8.2 K/uL (4.8-10.8) 07/01/18 16:17 RBC 4.15 Mil/uL (3.80-5.20) 07/01/18 16:17 Hgb 12.3 g/dL (12.0-16.0) 07/01/18 16:17 Hct 36.5 % (34.0-47.0) 07/01/18 16:17 MCV 87.9 fl (81.0-99.0) 07/01/18 16:17 MCH 29.7 pg (27.0-31.0) 07/01/18 16:17 MCHC 33.7 g/dL (33.0-37.0) 07/01/18 16:17 RDW 13.3 % (11.5-14.5) 07/01/18 16:17 Plt Count 378 K/uL (130-400) 07/01/18 16:17 MPV 8.7 fl (7.2-11.7) 07/01/18 16:17 Neut % (Auto) 61.4 % (50.0-75.0) 07/01/18 16:17 Lymph % (Auto) 25.2 % (20.0-40.0) 07/01/18 16:17 [place] % (Auto) 7.9 % (0.0-10.0) 07/01/18 16:17 Eos % (Auto) 4.1 % (0.0-4.0) H 07/01/18 16:17 Baso % (Auto) 1.4 % (0.0-2.0) 07/01/18 16:17 Neut # (Auto) 5.0 K/uL (1.8-7.0) 07/01/18 16:17 Lymph # (Auto) 2.1 K/uL (1.0-4.3) 07/01/18 16:17 [place] # (Auto) 0.6 K/uL (0.0-0.8) 07/01/18 16:17 Eos # (Auto) 0.3 K/uL (0.0-0.7) 07/01/18 16:17 Baso # (Auto) 0.1 K/uL (0.0-0.2) 07/01/18 16:17 Sodium 137 mmol/l (132-148) 07/01/18 16:17 Potassium 5.0 MMOL/L (3.6-5.0) 07/01/18 17:39 Chloride 105 mmol/L (98-107) 07/01/18 16:17 Carbon Dioxide 20 mmol/L (22-30) L 07/01/18 16:17 Anion Gap 17 (10-20) 07/01/18 16:17 BUN 39 mg/dl (7-17) H 07/01/18 16:17 Creatinine 1.3 mg/dl (0.7-1.2) H 07/01/18 16:17 Est GFR ( Amer) 49 07/01/18 16:17 Est GFR (Non-Af Amer) 40 07/01/18 16:17 POC Glucose (mg/dL) 104 mg/dL (65-110) 08/02/18 11:11 Random Glucose 243 mg/dL (65-105) H 07/01/18 16:17 Calcium 9.0 mg/dL (8.4-10.2) 07/01/18 16:17 Total Bilirubin < 0.1 mg/dl (0.2-1.3) L 07/01/18 16:17 AST 26 U/L (14-36) 07/01/18 16:17 ALT 28 U/L (9-52) 07/01/18 16:17 Alkaline Phosphatase 76 U/L (38-126) 07/01/18 16:17 Total Protein 7.4 G/DL (6.3-8.2) 07/01/18 16:17 Albumin 3.6 g/dL (3.5-5.0) 07/01/18 16:17 Globulin 3.7 gm/dL (2.2-3.9) 07/01/18 16:17 Albumin/Globulin Ratio 1.0 (1.0-2.1) 07/01/18 16:17 Urine Color Yellow (YELLOW) 07/01/18 19:28 Urine Clarity Slighty-cloudy (Clear) 07/01/18 19:28 Urine pH 6.0 (5.0-8.0) 07/01/18 19:28 Ur Specific [place] 1.016 (1.003-1.030) 07/01/18 19:28 Urine Protein 100 mg/dL (NEGATIVE) 07/01/18 19:28 Urine Glucose (UA) 150 mg/dL (Normal) 07/01/18 19:28 Urine Ketones Negative mg/dL (NEGATIVE) 07/01/18 19:28 Urine Blood Negative (NEGATIVE) 07/01/18 19:28 Urine Nitrate Negative (NEGATIVE) 07/01/18 19:28 Urine Bilirubin Negative (NEGATIVE) 07/01/18 19:28 Urine Urobilinogen 0.2-1.0 mg/dL (0.2-1.0) 07/01/18 19:28 Ur Leukocyte Esterase Neg Cristi/uL (Negative) 07/01/18 19:28 Urine RBC (Auto) < 1 /hpf (0-3) 07/01/18 19:28 Urine Microscopic WBC 2 /hpf (0-5) 07/01/18 19:28 Ur Squamous Epith Cells < 1 /hpf (0-5) 07/01/18 19:28 Urine Bacteria Rare (<OCC) 07/01/18 19:28 Discharge Exam - Head Exam Head Exam: ATRAUMATIC, NORMOCEPHALIC Discharge Plan - Follow Up Plan Condition: STABLE Disposition: REHAB FACILITY/REHAB UNIT Instructions: General (DC), Weakness (ED)
== END 2018-08-02 17:00 | DRG 641 ==
LOC: H.ER 14:03 → H.ERHOLD 07-02 17:00 → H.MEDSURG1 07-02 18:52 → OBSVTOIN 07-04 20:40
PROVIDERS: ADMIT Internal Medicine; ATTEND Internal Medicine
DX: R62.7 Adult failure to thrive (principal); F03.90 Unspecified dementia, unspecified severity, without behavioral disturbance, psychotic disturbance, mood disturbance, and anxiety; R00.1 Bradycardia, unspecified; T44.7X5A Adverse effect of beta-adrenoreceptor antagonists, initial encounter; E03.9 Hypothyroidism, unspecified; G40.909 Epilepsy, unspecified, not intractable, without status epilepticus; R53.1 Weakness; Z60.2 Problems related to living alone; Z75.1 Person awaiting admission to adequate facility elsewhere; Z65.3 Problems related to other legal circumstances; E11.9 Type 2 diabetes mellitus without complications; I10 Essential (primary) hypertension; E66.9 Obesity, unspecified; Z68.30 Body mass index [BMI] 30.0-30.9, adult; R26.81 Unsteadiness on feet; I25.10 Atherosclerotic heart disease of native coronary artery without angina pectoris; J44.9 Chronic obstructive pulmonary disease, unspecified; E78.5 Hyperlipidemia, unspecified; E78.00 Pure hypercholesterolemia, unspecified; H40.9 Unspecified glaucoma; Z59.1 Inadequate housing; Z74.01 Bed confinement status; Z85.841 Personal history of malignant neoplasm of brain; Z86.73 Personal history of transient ischemic attack (TIA), and cerebral infarction without residual deficits; Z86.59 Personal history of other mental and behavioral disorders; Z91.81 History of falling; Z92.21 Personal history of antineoplastic chemotherapy; Z92.3 Personal history of irradiation; Z87.891 Personal history of nicotine dependence; Z79.4 Long term (current) use of insulin; Z79.02 Long term (current) use of antithrombotics/antiplatelets; Z88.1 Allergy status to other antibiotic agents; Z88.6 Allergy status to analgesic agent; Y92.239 Unspecified place in hospital as the place of occurrence of the external cause